=== PATIENT | male | born 1950 | race Caucasian/White ===

== ENCOUNTER → 2017-12-21 | Day surgery (SDC) | payer MEDICARE, MEDICAID ==
[2017-12-20 08:23] VITALS: BMI 42.1
[~2017-12-21] MED LIST: PROPOFOL 0 ML ONE; PROPOFOL 20 ML ONE; PROPOFOL 200 MG/20 ML VIAL ONE
[2017-12-21 07:08] LABS: Anion Gap 9 mmol/L (10-20); BUN (Urea Nitrogen) 32 mg/dL (8.4-25.7); Calc. Creatinine Clearance 76 mL/min (70-130); Calcium 9.2 mg/dL (7.8-10.44); Carbon Dioxide 27 mmol/L (23-31); Chloride 105 mmol/L (98-107); Estimated GFR-MDRD 42; Glucose 145 mg/dL (80-115); Potassium 4.2 mmol/L (3.5-5.1); Sodium 137 mmol/L (136-145)
[2017-12-21 08:53] LABS: Hemoglobin 10.7 g/dL (14.0-18.0); Mean Corpuscular HGB CONC 33.6 g/dL (32.0-36.0); Mean Corpuscular Hemoglobin 34.4 pg (27.0-31.0); Platelet Count 135 thou/uL (130-400); RBC Distribution Width 13.4 % (11.5-14.5); Red Blood Cell (RBC) Count 3.12 mill/uL (4.70-6.10); White Blood Cell (WBC) Count 4.9 thou/uL (4.8-10.8)
[2017-12-21 09:00] LABS: PTT 38.3 SEC (22.9-36.1); Prothrombin Time 22.4 SEC (12.0-14.7)
--- NOTE | 2017-12-21 23:19 | ECHO ---
The patient is a 67-year-old gentleman with paroxysmal atrial fibrillation, status post Watchman ce. The patient was taken to the PACU. The patient sedated by anesthesiology. Transesophageal probe was placed in the distal esophagus and stomach. Echocardiographic images were obtained and the trans esophageal probe remove. FINDINGS: 1. Moderate decrease in left ventricular systolic function. 2. Left ventricle is mildly dilated. 3. Mild mitral regurgitation. 4. Mild tricuspid regurgitation. 5. The Watchman device is well positioned in the left atrial appendage. 6. 0.1 cm leak was noted around the Watchman device. 7. Atherosclerotic debris in the descending aorta. IMPRESSION: 0.1 cm leak noted around the Watchman device. CC: Nahum Hernadez M.D.
== END ==
LOC: CCL 05:57
PROVIDERS: ATTEND Internal Medicine Cardiovascular Disease
PROC: B24BZZ4 Ultrasonography of Heart with Aorta, Transesophageal (ICD-10-PCS; principal; 2017-12-21)
DX: I48.0 Paroxysmal atrial fibrillation (principal); I08.1 Rheumatic disorders of both mitral and tricuspid valves; I70.0 Atherosclerosis of aorta; Z95.818 Presence of other cardiac implants and grafts; Z79.4 Long term (current) use of insulin; Z79.82 Long term (current) use of aspirin; Z79.01 Long term (current) use of anticoagulants; Z79.899 Other long term (current) drug therapy
CPT/HCPCS: 80048; 85027; 85610; 85730; 93005; 93010; 93312; J2704

== ENCOUNTER 2018-04-07 05:48 | Day surgery (SDC) | payer MEDICARE, MEDICAID ==
[2018-04-06 11:11] VITALS: BMI 41.9
[2018-04-07 07:47] LABS: #Eosinphils 0.1 thou/uL (0.0-0.7); #Lymphocytes 1.3 thou/uL (1.20-3.40); #Monocytes 0.4 thou/uL (0.11-0.59); %Basophils 0.1 % (0.0-1.0); %Eosinophils 1.7 % (0.0-10.0); %Lymphocytes 26.3 % (21.0-51.0); %Monocytes 9.1 % (0.0-10.0); %Neutrophils 62.8 % (42.0-75.0); Hemoglobin 12.3 g/dL (14.0-18.0); Mean Corpuscular HGB CONC 35.4 g/dL (32.0-36.0); Mean Corpuscular Hemoglobin 34.5 pg (27.0-31.0); Mean Corpuscular Volume 97.2 fL (78.0-98.0); Mean Platelet Volume 8.1 fL (7.4-10.4); Platelet Count 114 thou/uL (130-400); RBC Distribution Width 13.8 % (11.5-14.5); Red Blood Cell (RBC) Count 3.57 mill/uL (4.70-6.10); White Blood Cell (WBC) Count 4.8 thou/uL (4.8-10.8)
[2018-04-07 07:48] LABS: Anion Gap 14 mmol/L (10-20); BUN (Urea Nitrogen) 25 mg/dL (8.4-25.7); Calc. Creatinine Clearance 81 mL/min (70-130); Calcium 9.5 mg/dL (7.8-10.44); Carbon Dioxide 22 mmol/L (23-31); Chloride 107 mmol/L (98-107); Estimated GFR-MDRD 46; Glucose 169 mg/dL (80-115); Sodium 139 mmol/L (136-145)
[2018-04-07 07:54] LABS: INR-International Normal Ratio 2.2
[2018-04-07] MEDS ORDERED: KETAMINE 100 MG/ML (5ML VIAL) ONE (08:05)
[2018-04-07] MEDS ORDERED: PROPOFOL 200 MG/20 ML VIAL ONE (15:13)
--- NOTE | 2018-04-07 16:27 | ECHO ---
TRANSESOPHAGEAL ECHOCARDIOGRAM: DATE OF PROCEDURE: 04/07/18 INDICATION: 67-year-old gentleman with paroxysmal atrial fibrillation and a Watchman device. DESCRIPTION OF PROCEDURE: The patient was taken to the PACU. The patient was sedated by anesthesiology. A transesophageal probe was placed in the distal esophagus and stomach. Echocardiographic images were obtained. The transesophageal probe was removed. FINDINGS: 1. Severe decrease in left ventricular systolic function. 2. Left atrial enlargement. 3. Left ventricle dilated. 4. Moderate mitral regurgitation. 5. Mild tricuspid regurgitation. 6. Pacemaker wire noted in the right ventricle. 7. Watchman device well positioned with a 0.3 cm leak noted around the outer device. 8. Atherosclerotic debris in the descending aorta. IMPRESSION: 0.3 cm leak noted around the Watchman device. MTDD
--- NOTE | 2018-04-08 20:55 | EKG ---
Test Reason : PREOP Blood Pressure : / mmHG Vent. Rate : 062 BPM Atrial Rate : 061 BPM P-R Int : 000 ms QRS Dur : 106 ms QT Int : 474 ms P-R-T Axes : 000 042 089 degrees QTc Int : 481 ms Electronic atrial pacemaker Inferior infarct (cited on or before 16-JAN-2015) Abnormal ECG When compared with ECG of 21-DEC-2017 06:56, No significant change was found Confirmed by Hollie TONEY ([id number]) on 04/08/2018 8:54:54 PM Referred By: LAURIE Confirmed By:Hollie TONEY
== END 2018-04-07 09:18 | disposition home or self-care (01) ==
LOC: CCL 05:48
PROVIDERS: ATTEND Internal Medicine Cardiovascular Disease
PROC: B246ZZ4 Ultrasonography of Right and Left Heart, Transesophageal (ICD-10-PCS; principal; 2018-04-07)
DX: I48.0 Paroxysmal atrial fibrillation (principal); I34.0 Nonrheumatic mitral (valve) insufficiency; I36.1 Nonrheumatic tricuspid (valve) insufficiency; I70.0 Atherosclerosis of aorta; Z95.0 Presence of cardiac pacemaker; Z79.4 Long term (current) use of insulin; Z79.82 Long term (current) use of aspirin; Z79.01 Long term (current) use of anticoagulants; Z79.899 Other long term (current) drug therapy
CPT/HCPCS: 80048; 85025; 85610; 85730; 93005; 93010; 93312; J2704

== ENCOUNTER 2018-08-08 05:48 | Day surgery (SDC) | payer MEDICARE, MEDICAID ==
[2018-08-05 12:52] VITALS: BMI 41.8
[2018-08-08 06:53] LABS: #Lymphocytes 1.4 thou/uL (1.20-3.40); #Monocytes 0.4 thou/uL (0.11-0.59); #Neutrophils 4.2 thou/uL (1.40-6.50); %Basophils 0.8 % (0.0-1.0); %Eosinophils 0.8 % (0.0-10.0); %Lymphocytes 23.2 % (21.0-51.0); %Monocytes 7.1 % (0.0-10.0); %Neutrophils 68.1 % (42.0-75.0); Hemoglobin 10.8 g/dL (14.0-18.0); Mean Corpuscular HGB CONC 33.9 g/dL (32.0-36.0); Mean Corpuscular Hemoglobin 34.9 pg (27.0-31.0); Mean Platelet Volume 7.1 fL (7.4-10.4); Platelet Count 104 thou/uL (130-400); White Blood Cell (WBC) Count 6.2 thou/uL (4.8-10.8)
[2018-08-08 06:59] LABS: INR-International Normal Ratio 3.9; PTT 46.6 SEC (22.9-36.1); Prothrombin Time 38.4 SEC (12.0-14.7)
[2018-08-08 07:13] LABS: Anion Gap 12 mmol/L (10-20); BUN (Urea Nitrogen) 21 mg/dL (8.4-25.7); Calc. Creatinine Clearance 85 mL/min (70-130); Calcium 8.6 mg/dL (7.8-10.44); Carbon Dioxide 24 mmol/L (23-31); Chloride 108 mmol/L (98-107); Estimated GFR-MDRD 49; Glucose 149 mg/dL (80-115); Potassium 3.7 mmol/L (3.5-5.1); Sodium 140 mmol/L (136-145)
[2018-08-08] MEDS ORDERED: Propofol 500 MG/50 ML VIAL ONE (07:13)
[2018-08-08] MEDS ORDERED: Ketamine 50 MG/ML (10ML VIAL) ONE ×2 (07:13→07:25)
[2018-08-08] MEDS ORDERED: PHENYLEPHRINE-NS 100 MCG/ML 10 ML SYRINGE ONE (13:23)
[2018-08-08] MEDS ORDERED: PROPOFOL 200 MG/20 ML VIAL ONE (13:23)
--- NOTE | 2018-08-09 19:12 | ECHO ---
REFERRING PHYSICIAN: Dr. Mian Pacheco and Dr. Paul Lopez REASON FOR PROCEDURE: The patient is a 67-year-old male with history of paroxysmal atrial fibrillation status post Watchman device placement in January and due to small leak, recoiling performed in June 10, 2018. Here for six weeks post DBEBIE. PROCEDURE: The patient received Propofol by Anesthesia specialist. The standard transesophageal echocardiogram probe was passed into the esophagus without difficulty. Patient tolerated the procedure well, no com plications noted. RESULTS: Left atrium is moderately enlarged about 4.6 cm in horizontal diameter. The left atrial appendage we ll visualized and appropriately seated Watchman device is noted. Doppler interrogation of the Watchma n device revealed two tiny leaks. One by the venous side of the Watchman device at the waist. A small leak detected and small cavitation. Echolucent cavitation is noted behind the mesh in this aspect. T he leak is 2 mm in diameter. There is also a small flow detected through the roof of the device with small cavitation behind the m esh work is noted. Only mild mitral regurgitation is seen. LVEF estimated to be 35-40%. The right sided chamber is mildl y dilated. ICD wires noted in the right atrium and right ventricle. No pericardial effusions seen. Th e interatrial septum has trace residual flow noted at the transseptal puncture site. The ------- is r estrictive. No interatrial septal defects are noted. The aortic valve has three leaflets without regu rgitation or stenosis. Tricuspid valve has mild regurgitation. Pulmonary valve is poorly visualized. The visualized portion of ascending and descending aorta without aneurysm, dissection or significant atheroma. CONCLUSION: 1. No intracardiac clots except behind the Watchman device. 2. Two trivial leaks visualized. One adjacent to the ----- vein and one through the roof of the ce in the central area. Both 1 to 2 mm in diameter only. 3. Mild mitral regurgitation. 4. Moderately reduced LVEF. 5. Pacemaker/ICD wires in the right sided chambers. PLAN: For now continue Xarelto and we will send reports to Dr. Pacheco to assess CD.
--- NOTE | 2018-08-10 11:49 | EKG ---
Test Reason : PREOP Blood Pressure : / mmHG Vent. Rate : 064 BPM Atrial Rate : 064 BPM P-R Int : 000 ms QRS Dur : 116 ms QT Int : 498 ms P-R-T Axes : 000 047 105 degrees QTc Int : 513 ms Electronic atrial pacemaker Atrial paced ventricular sensed Inferior infarct (cited on or before 16-JAN-2015) Prolonged QT Abnormal ECG When compared with ECG of 07-APR-2018 07:10, No significant change was found Confirmed by DR. Stewart VILLANUEVA ([id number]) on 08/10/2018 11:49:31 AM Referred By: ANIBAL Confirmed By:DR. Stewart VILLANUEVA
== END 2018-08-08 09:27 | disposition home or self-care (01) ==
LOC: CCL 05:48
PROVIDERS: ATTEND Internal Medicine Cardiovascular Disease
PROC: B246ZZ4 Ultrasonography of Right and Left Heart, Transesophageal (ICD-10-PCS; principal; 2018-08-08)
DX: T82.538A Leakage of other cardiac and vascular devices and implants, initial encounter (principal); I48.0 Paroxysmal atrial fibrillation; I25.10 Atherosclerotic heart disease of native coronary artery without angina pectoris; I25.5 Ischemic cardiomyopathy; I10 Essential (primary) hypertension; M10.9 Gout, unspecified; E11.9 Type 2 diabetes mellitus without complications; Z95.810 Presence of automatic (implantable) cardiac defibrillator; Z95.1 Presence of aortocoronary bypass graft; Z79.82 Long term (current) use of aspirin; Z79.899 Other long term (current) drug therapy; Z79.01 Long term (current) use of anticoagulants; Z79.4 Long term (current) use of insulin
CPT/HCPCS: 36415; 80048; 85025; 85610; 85730; 93005; 93010; 93312; J2704

== ENCOUNTER 2018-08-20 11:43 | Inpatient (IN) | payer MEDICARE, MEDICAID ==
[2018-08-20 13:07] LABS: Troponin I 0.832 ng/mL (< 0.028)
[2018-08-20] MEDS ORDERED: HumaLOG 300 UNITS/3 ML VIAL SC PRN (13:46)
[2018-08-20] MEDS ORDERED: Senokot S 8.6-50 MG TAB PO PRN (13:46)
[2018-08-20] MEDS ORDERED: Calcium Carbonate 500 MG ChewTAB PO PRN (13:46)
[2018-08-20] MEDS ORDERED: Dextrose 5% in Water 1,000 ML IV PRN (13:46)
[2018-08-20] MEDS ORDERED: Dextrose 50% Abboject 50 ML SYRINGE SLOW IVP PRN (13:46)
[2018-08-20] MEDS ORDERED: Loperamide HCl 2 MG CAP PO PRN (13:46)
[2018-08-20] MEDS ORDERED: Bisacodyl 10 MG SUPP PR PRN (13:46)
[2018-08-20] MEDS ORDERED: Ondansetron ODT 4 MG TAB PO PRN (13:46)
[2018-08-20] MEDS ORDERED: Bisacodyl 5 MG TAB PO PRN (13:46)
[2018-08-20] MEDS ORDERED: Acetaminophen 325 MG TAB PO PRN (13:46)
[2018-08-20] MEDS ORDERED: HYDROcodone/Acetaminophen 5/325 mg Tablet PO PRN (13:46)
[2018-08-20] MEDS ORDERED: Ondansetron PF 4 MG/2 ML Vial IVP PRN (13:46)
[2018-08-20] MEDS ORDERED: Zolpidem Tartrate 5 MG TAB PO PRN (13:46)
--- NOTE | 2018-08-20 13:57 | HP ---
PRIMARY CARE PHYSICIAN: Dagoberto Parikh MD PRIMARY YOUTH CARE PROFESSIONAL: Dr. Lopez. REASON FOR ADMISSION: Transferred from [facility] for acute on chronic systolic congestive heart failure exacerbation. HISTORY OF PRESENT ILLNESS: A 67-year-old male, who has underlying history of chronic systolic heart failure with a history of paroxysmal atrial fibrillation as well as coronary artery disease with CABG history, who initially presented to [facility] for increasing shortness of breath. The patient reports that for last 5 days, he is experiencing increasing shortness of breath, orthopnea, and PND. He also noticed increasing bilateral lower extremity pitting edema. The patient reports that normally he weighs 178 pounds, but then recently he gained 183 pounds in 5 to 6 days. He was having hard time walking because of shortness of breath and that is why he decided to go to emergency room. He did not have any chest pain or palpitation. He was feeling intermittently dizziness. At [facility], he was also experienced dizziness when he was urinating on standing position, but he did not pass out. He denies any constipation. He reports dark stool. He denies any hematochezia. He denies any nausea, vomiting, or abdominal pain. He denies any fever, chills, cough, or upper respiratory symptoms. The patient denies taking excessive liquids. He is compliant with his medication. PAST MEDICAL HISTORY: Paroxysmal atrial fibrillation with history of rapid ventricular response, required several hospitalization as well as cardioversion. He also required Watchman procedure in 2018; history of left atrial appendage closure with Watchman device in October 2017; coronary artery disease, required CABG; hypertension; diabetes, type 2; gout; history of bacteremia, required lead and device extraction and replacement; history of ventricular tachycardia, required dual-chamber ICD; history of ischemic cardiomyopathy with chronic systolic heart failure; peripheral vascular disease; history of internal hemorrhoid; colon polyps. PAST SURGICAL HISTORY: Watchman procedure for left atrial appendage removal, AICD placement, cataract surgery, appendicectomy, CABG x3. PAST PSYCHIATRIC HISTORY: Reviewed and negative. SOCIAL HISTORY: The patient lives at home with family. No history of tobacco, alcohol, or illicit drug abuse. FAMILY HISTORY: Positive for coronary artery disease, diabetes, and hypertension among several family members. ALLERGY: No known drug allergy REVIEW OF SYSTEMS: CONSTITUTIONAL: Negative for weight loss or gain, ability to conduct usual activities. SKIN: Negative for rash, itching. EYES: Negative for double vision, pain. ENT/MOUTH: Negative for nose bleeding, neck stiffness, pain, tenderness. CARDIOVASCULAR: Negative for palpitations, dyspnea on exertion, orthopnea. RESPIRATORY: Negative for shortness of breath, wheezing, cough, hemoptysis, fever or night sweats. GASTROINTESTINAL: Negative for poor appetite, abdominal pain, heartburn, nausea , vomiting, constipation, or diarrhea. GENITOURINARY: Negative for urgency, frequency, dysuria, nocturia. MUSCULOSKELETAL: Negative for pain, swelling. NEUROLOGIC/PSYCHIATRIC: Negative for anxiety, depression. ALLERGY/IMMUNOLOGIC: Negative for skin rash, bleeding tendency. Please see my HPI for pertinent positive and negative. All other review of systems reviewed and negative except as mentioned in HPI. CURRENT HOME MEDICATIONS: 1. Lyrica 75 mg daily. 2. Lipitor 40 mg daily. 3. Lisinopril 40 mg daily. 4. Plavix 75 mg daily. 5. Aspirin 81 mg daily. 6. Imdur 60 mg twice daily. 7. Coreg 25 mg twice daily. 8. Allopurinol 300 mg p.o. daily. 9. Ranexa 1000 mg twice daily. 10. Potassium chloride 8 mEq p.o. three times daily. EMERGENCY ROOM COURSE: The patient has received Lovenox 1 mg/kg, Lasix 40 mg, aspirin, and 1/2-inch nitroglycerin at [facility]. Additional information, the patient reports that he was on Xarelto, but it was changed to Plavix few days ago. He denies any stroke. PHYSICAL EXAMINATION: VITAL SIGNS: Currently, blood pressure 133/71, pulse 81, respiratory rate 17, temperature 98.3, saturation 95% on room air, weight 127.9 kg. GENERAL: The patient is currently alert and oriented x3, in no obvious acute distress. HEENT: Head; normocephalic, atraumatic. Eyes; pupils round, reactive to light. Extraocular muscle intact. ENT; oropharynx within normal limits. Moist mucous membranes. No oral lesion. No pharyngeal erythema. No exudate. NECK: Supple. Elevated JVD noted. No thyromegaly. No carotid bruit. LUNGS: Bibasilar rales noted. No wheeze. No rhonchi. No accessory muscles of respiration in use. CARDIAC: S1 and S2, appears regular. Soft systolic murmur noted at the apex. No gallop. No rub. ABDOMEN: Obesity present. Bowel sounds present. Nontender. Nondistended. No organomegaly. No mass. No suprapubic tenderness. BACK: Unremarkable. No CVA tenderness. EXTREMITIES: Upper extremity; passive movement of all joints are normal. Lower extremity; bilateral lower extremity pitting edema noted. No calf tenderness. SKIN: No skin rash. HEMATOLOGICAL SYSTEM: No lymphadenopathy. PSYCHIATRIC: Normal affect. NEUROLOGIC: Nonfocal examination. SIGNIFICANT LABORATORY DATA: EKG showing atrial fibrillation with controlled ventricular response with ST-T changes in lead I, aVL, V5, V6, and lateral lead ischemia. Chest x-ray consistent with cardiomegaly and pulmonary vascular congestion. CBC; WBC 7.7, hemoglobin 10.1, MCV 104.0, platelets 114. D-dimer 0.56. BMP; sodium 139, potassium 4.1, chloride 107, carbon dioxide 23, anion gap 13, BUN 21, creatinine 1.28, glucose 163, calcium 9.0. LFT; AST 18, ALT 13, alkaline phosphatase 87, albumin 3.7. CK-MB 2.3, troponin 0.213. BNP 828.4. ASSESSMENT AND PLAN: 1. Acute on chronic systolic congestive heart failure exacerbation, ACC stage C. This patient has orthopnea, PND, bilateral lower extremity pitting edema, cardiomegaly with pulmonary vascular congestion, elevated BNP, and significant weight gain; all consistent with acute worsening of systolic congestive heart failure. This patient had echocardiography more than 2 years ago and that is why we will repeat transthoracic echocardiography while in hospital. This patient will need IV Lasix for diuresis and we will monitor electrolytes, renal function, and echo daily, and we will replace electrolytes accordingly. This patient will need at least more than 48 hours for diuresis to make him euvolemic and that is why we will keep him in inpatient status. We will monitor on telemetry floor. We will also continue the nitroglycerin patch q.8 hourly and will resume selected home medication including lisinopril, Coreg. 2. Elevated troponin, likely suspecting type 2 demand ischemia from congestive heart failure. The patient does not have any chest pain, though EKG is showing nonspecific ST-T changes. We will do serial cardiac enzyme x3 and we will continue with aspirin 81 mg p.o. daily, Plavix 75 mg p.o. daily. If troponin is going up , then we will consider Cardiology consultation. We will also continue Coreg 25 mg p.o. twice daily and nitroglycerin patch q.8 hourly. We will also continue Ranexa 1000 mg twice daily. 3. Coronary artery disease with history of coronary artery bypass graft. The patient is currently angina free. We will continue medical treatment with Ranexa, Coreg, lisinopril, aspirin, Plavix, and Lipitor. 4. Diabetes, type 2. We will continue with insulin as per sliding scale per protocol. Diabetic diet will be given. Fluid restriction 1500 mL per day. 5. Dyslipidemia. Continue Lipitor 40 mg p.o. q.h.s. 6. Gout. We will continue allopurinol 300 mg p.o. daily. 7. Morbid obesity. Dietary education given. Weight loss education given. Healthy lifestyle measure discussed with the patient. 8. Macrocytic anemia. We will add folic acid and vitamin B12 therapy. 9. Mild thrombocytopenia. We will monitor platelet count. 10. Chronic kidney disease, stage 3. We will monitor renal function. 11. Deep venous thrombosis prophylaxis, Lovenox 40 mg subcutaneous daily. Gastrointestinal prophylaxis, Pepcid 20 mg p.o. b.i.d. CODE STATUS: The patient is full code. The patient does not have any surrogate decision maker. DISPOSITION PLAN: Based on clinical course, we are expecting the patient's stay in hospital more than 2 midnights. Plan of care discussed with the patient in detail. Job ID: [id number] MTDD
[2018-08-20 14:11] VITALS: BMI 43.1
[2018-08-20] MEDS: Furosemide 40 MG/4 ML VIAL SLOW IVP SCH (15:08)
[2018-08-20 15:35] LABS: Troponin I 1.471 ng/mL (< 0.028)
[2018-08-20] MEDS: Atorvastatin Calcium 40 MG TAB PO SCH (20:09)
[2018-08-20] MEDS: Famotidine 20 MG TAB PO SCH (20:09)
[2018-08-20] MEDS: Carvedilol 25 MG TAB PO SCH (20:10)
[2018-08-20] MEDS ORDERED: Carvedilol 25 MG TAB PO SCH (21:00)
--- NOTE | 2018-08-20 22:24 | CON ---
DATE OF CONSULTATION: HISTORY OF PRESENT ILLNESS: The patient is a pleasant 67-year-old gentleman who presents with increasing dyspnea. The patient has a long history of coronary artery disease. The patient previously has a history of an ischemic cardiomyopathy. The patient has previously undergone coronary artery bypass graft surgery. He underwent a cardiac catheterization in 2014, which revealed him to have a patent left internal mammary artery graft, ramus graft, and right coronary graft, but he had severely diffused coronary artery disease. The patient has a known ejection fraction of only 25%. The patient reports that recently in the past few days, he has noticed increasing dyspnea with minimal exertion. He also reports having PND. The patient denied having any chest discomfort. PAST MEDICAL HISTORY: Significant for; 1. Coronary artery disease. 2. Hypertension. 3. Cardiomyopathy. 4. History of left atrial closure device. 5. Diabetes mellitus. 6. Peripheral vascular disease. PAST SURGICAL HISTORY: He has had an appendectomy, cataract surgery. SOCIAL HISTORY: Nonsmoker. FAMILY HISTORY: Positive for family history of coronary artery disease/ ALLERGIES: NONE. MEDICATIONS: See nursing list. REVIEW OF SYSTEMS: Ten-point system otherwise unremarkable. PHYSICAL EXAMINATION: GENERAL: An obese gentleman, in no acute distress. VITAL SIGNS: Blood pressure of 172/78. NECK: Showed no jugular venous distention. LUNGS: Have crackles in both bases. HEART: Regular rate and rhythm. Normal S1 and S2. ABDOMEN: Distended. EXTREMITIES: Showed moderate bilateral edema. VASCULAR: Radial pulses are 2+. LABORATORY DATA: His laboratory results, white blood count 7.7, hemoglobin 10.1, hematocrit 31.3. His platelets were 114. His sodium is 139, potassium 4.1, chloride 107, bicarbonate 23, BUN 21, creatinine 1.23, and glucose 123. Troponin 1.4. BNP was 828. Chest x-ray revealed cardiomegaly with diffuse edema. EKG revealed atrial fibrillation with Q-wave suggestive of previous inferior infarct. IMPRESSION: 1. Congestive heart failure. 2. History of coronary artery bypass surgery. 3. History of Watchman device. 4. Permanent atrial fibrillation. 5. History of AICD placement. 6. Diabetes mellitus. 7. Hypertension. 8. Dyslipidemia. This gentleman presents with congestive heart failure. He states that he has been compliant with his medications. The patient's dose of his lisinopril will be increased. We will follow this patient with you through his hospitalization. The patient noted to have an elevated troponin, which is suggestive of a type 2 myocardial infarction as the patient is asymptomatic and he has known diffuse coronary artery disease, he will be treated medically. We will also add spironolactone. Please call my office. Job ID: [id number]
[2018-08-21] MEDS: Furosemide 40 MG/4 ML VIAL SLOW IVP SCH ×2 (05:08→14:21)
[2018-08-21 05:49] LABS: #Monocytes 0.4 thou/uL (0.11-0.59); #Neutrophils 4.3 thou/uL (1.40-6.50); %Basophils 0.4 % (0.0-1.0); %Eosinophils 0.7 % (0.0-10.0); %Lymphocytes 17.6 % (21.0-51.0); %Monocytes 7.3 % (0.0-10.0); Hemoglobin 9.5 g/dL (14.0-18.0); Mean Corpuscular HGB CONC 34.5 g/dL (32.0-36.0); Mean Corpuscular Hemoglobin 35.5 pg (27.0-31.0); Mean Platelet Volume 8.2 fL (7.4-10.4); Platelet Count 106 thou/uL (130-400); RBC Distribution Width 13.6 % (11.5-14.5); Red Blood Cell (RBC) Count 2.66 mill/uL (4.70-6.10); White Blood Cell (WBC) Count 5.7 thou/uL (4.8-10.8)
[2018-08-21 06:10] LABS: ALT (SGPT) 7 U/L (8-55); AST (SGOT) 12 U/L (5-34); Albumin 3.4 g/dL (3.4-4.8); Alkaline Phosphatase 67 U/L (40-150); Anion Gap 12 mmol/L (10-20); BUN (Urea Nitrogen) 25 mg/dL (8.4-25.7); Bilirubin, Total 0.7 mg/dL (0.2-1.2); Calc. Creatinine Clearance 81 mL/min (70-130); Calcium 8.7 mg/dL (7.8-10.44); Carbon Dioxide 26 mmol/L (23-31); Chloride 103 mmol/L (98-107); Estimated GFR-MDRD 45; Globulin 2.6 g/dL (2.4-3.5); Glucose 169 mg/dL (80-115); Magnesium 1.6 mg/dL (1.6-2.6); Potassium 3.9 mmol/L (3.5-5.1); Sodium 137 mmol/L (136-145); Uric Acid 6.3 mg/dL (3.5-7.2)
[2018-08-21 06:11] LABS: Bilirubin Negative (Negative); Blood, Urine Negative (Negative); Clarity CLEAR (Clear); Glucose, Urine (Dipstick) Negative (Negative); Leukocyte Negative (Negative); Nitrite Negative (Negative); Protein, Urine (Dipstick) Negative (Neg-Trace); Specific Gravity, Urine 1.015 (1.002-1.036); Urobilinogen 0.2 mg/dL (0.2-1.0); pH, Urine 5.5 (5.0-9.0)
[2018-08-21 06:16] LABS: Bacteria/HPF None Seen HPF (None Seen); Hyaline Casts/LPF 0-3 HYALINE CAST LPF (0-3 Hyaline); Squamous Epithelial 0-3 HPF (0-3); WBC/HPF 0-3 HPF (0-3)
[2018-08-21] MEDS ORDERED: Spironolactone 25 MG TAB PO SCH (08:00)
[2018-08-21] MEDS ORDERED: Lisinopril 20 MG TAB PO SCH (09:00)
[2018-08-21] MEDS: Spironolactone 25 MG TAB PO SCH (09:08)
[2018-08-21] MEDS: Carvedilol 25 MG TAB PO SCH ×2 (09:08→20:30)
[2018-08-21] MEDS: Famotidine 20 MG TAB PO SCH ×2 (09:09→20:27)
[2018-08-21] MEDS: Folic Acid 1 MG TAB PO SCH (09:09)
[2018-08-21] MEDS: Cyanocobalamin (Vitamin B-12) 1,000 MCG TAB PO SCH (09:09)
[2018-08-21] MEDS: Allopurinol 300 MG TAB PO SCH (09:09)
[2018-08-21] MEDS: Lisinopril 5 MG TAB PO SCH ×2 (09:09→20:29)
[2018-08-21] MEDS: Clopidogrel Bisulfate 75 MG TAB PO SCH (09:09)
[2018-08-21] MEDS: Aspirin Chewable 81 MG TAB PO SCH (09:09)
[2018-08-21] MEDS: Enoxaparin Sodium 40 MG/0.4 ML SYRINGE SC SCH (09:10)
--- NOTE | 2018-08-21 10:24 | PDOC.PN ---
- Subjective Encounter Start Date: 08/21/18 Encounter Start Time: 08:10 -: old records requested/rev pt has good response with lasix, he feels better, less edema and less dyspnea - Objective Resuscitation Status - Order Detail: 08/20/18 12:39 Resuscitation Status Routine Resuscitation Status: FULL: Full Resuscitation MAR Reviewed: Yes Vital Signs & Weight: Vital Signs (12 hours) Temp Pulse Resp BP Pulse Ox 08/21/18 09:09 66 08/21/18 07:50 97.9 F 66 18 130/71 95 08/21/18 03:30 98.3 F 76 20 126/59 L 97 08/20/18 23:10 99.1 F 75 20 98/47 L 95 Weight Weight 280 lb 14.4 oz I&O: 08/20/18 08/21/18 08/22/18 06:59 06:59 06:59 Intake Total 1080 Output Total 2049 Balance -970 Result Diagrams: 08/21/18 05:22 08/21/18 05:22 Additional Labs: Accuchecks 08/21/18 08/20/18 08/20/18 05:46 20:33 17:13 POC Glucose 172 H 253 H 118 H 08/20/18 11:57 POC Glucose 157 H Radiology Reviewed by me: Yes EKG Reviewed by me: Yes (nsr) Phys Exam - Physical Examination Constitutional: NAD HEENT: PERRLA, moist MMs, sclera anicteric Neck: no JVD, supple Respiratory: no wheezing, no rhonchi few basal rales Cardiovascular: RRR, no significant murmur, no rub Gastrointestinal: soft, non-tender, no distention, positive bowel sounds obesity+ Musculoskeletal: pulses present, edema present Neurological: non-focal, normal sensation, moves all 4 limbs Lymphatic: no nodes Psychiatric: normal affect, A&O x 3 Skin: no rash, normal turgor Dx/Plan (1) Acute on chronic systolic ACC/AHA stage C congestive heart failure Code(s): I50.23 - ACUTE ON CHRONIC SYSTOLIC (CONGESTIVE) HEART FAILURE Status : Acute (2) Type [address] elevation Code(s): I21.A1 - MYOCARDIAL INFARCTION TYPE 2 Status: Acute (3) CKD (chronic kidney disease) stage 3, GFR 30-59 ml/min Code(s): N18.3 - CHRONIC KIDNEY DISEASE, STAGE 3 (MODERATE) Status: Chronic (4) AICD (automatic cardioverter/defibrillator) present Code(s): Z95.810 - PRESENCE OF AUTOMATIC (IMPLANTABLE) CARDIAC DEFIBRILLATOR Status: Chronic (5) CAD (coronary artery disease) Code(s): I25.10 - ATHSCL HEART DISEASE OF [place] CORONARY ARTERY W/O ANG PCTRS Status: Chronic (6) DM2 (diabetes mellitus, type 2) Status: Chronic (7) HLD (hyperlipidemia) Code(s): E78.5 - HYPERLIPIDEMIA, UNSPECIFIED Status: Chronic (8) Hypertension Code(s): I10 - ESSENTIAL (PRIMARY) HYPERTENSION Status: Chronic (9) Morbid obesity with BMI of 40.0-44.9, adult Code(s): E66.01 - MORBID (SEVERE) OBESITY DUE TO EXCESS CALORIES; Z68.41 - BODY MASS INDEX (BMI) 40.0-44.9, ADULT Status: Chronic (10) Macrocytic anemia Code(s): D53.9 - NUTRITIONAL ANEMIA, UNSPECIFIED Status: Chronic (11) BPH (benign prostatic hyperplasia) Code(s): N40.0 - BENIGN PROSTATIC HYPERPLASIA WITHOUT LOWER URINRY TRACT SYMP Status: Chronic (12) Peripheral neuropathy Code(s): G62.9 - POLYNEUROPATHY, UNSPECIFIED Status: Chronic (13) Gout Code(s): M10.9 - GOUT, UNSPECIFIED Status: Chronic (14) Thrombocytopenia Code(s): D69.6 - THROMBOCYTOPENIA, UNSPECIFIED Status: Acute - Plan cont current plan of care, DVT proph w/lovenox * continue diresis * monitor renal function and platelet * medication reviewed as below * symptomatic treatment. * cardiac rehab * repeat labs tomorrow * cardiology following Review of Systems - Review of Systems Constitutional: negative: fever, chills, sweats, weakness, malaise, other ENT: negative: Ear Pain, Ear Discharge, Nose Pain, Nose Discharge, Nose Congestion, Mouth Pain, Mouth Swelling, Throat Pain, Throat Swelling, Other Respiratory: SOB with Excertion. negative: Cough, Dry, Shortness of Breath, Hemoptysis, Pleuritic Pain, Sputum, Wheezing Cardiovascular: edema. negative: chest pain, palpitations, orthopnea, paroxysmal nocturnal dyspnea, light headedness, other Gastrointestinal: negative: Nausea, Vomiting, Abdominal Pain, Diarrhea, Constipation, Melena, Hematochezia, Other Genitourinary: negative: Dysuria, Frequency, Incontinence, Hematuria, Retention , Other Musculoskeletal: negative: Neck Pain, Shoulder Pain, Arm Pain, Back Pain, Hand Pain, Leg Pain, Foot Pain, Other - Medications/Allergies Allergies/Adverse Reactions: Allergies Allergy/AdvReac Type Severity Reaction Status Date / Time No Known Allergies Allergy Verified 08/20/18 15:13 Medications: Current Medications Acetaminophen (Tylenol) 650 mg PO Q4H PRN PRN Reason: Headache/Fever/Mild Pain (1-3) Hydrocodone Bitart/Acetaminophen ([place] 5/325) 1 tab PO Q4H PRN PRN Reason: Moderate Pain (4-6) Allopurinol (Zyloprim) 300 mg PO DAILY [facility] Last Admin: 08/21/18 09:09 Dose: 300 mg Aspirin (Aspirin Chewable) 81 mg PO DAILY [facility] [place] Last Admin: 08/21/18 09:09 Dose: 81 mg Atorvastatin Calcium (Lipitor) 40 mg PO HS [facility] [place] Last Admin: 08/20/18 20:09 Dose: 40 mg Bisacodyl (Dulcolax) 10 mg PO DAILYPRN PRN PRN Reason: Constipation Bisacodyl (Dulcolax) 10 mg OK DAILYPRN PRN PRN Reason: Constipation Calcium Carbonate (Tums) 1,000 mg PO Q4H PRN PRN Reason: Heartburn or Indigestion Carvedilol (Coreg) 12.5 mg PO BID [facility] [place] Last Admin: 08/21/18 09:08 Dose: 12.5 mg Clopidogrel Bisulfate (Plavix) 75 mg PO DAILY [facility] [place] Last Admin: 08/21/18 09:09 Dose: 75 mg Cyanocobalamin (Vitamin B-12) 1,000 mcg PO DAILY [facility] [place] Last Admin: 08/21/18 09:09 Dose: 1,000 mcg Dextrose/Water (Dextrose 50%) 25 gm SLOW IVP PRN PRN PRN Reason: Hypoglycemia Enoxaparin Sodium (Lovenox) 40 mg SC 0900 [facility] [place] Last Admin: 08/21/18 09:10 Dose: Not Given Famotidine (Pepcid) 20 mg PO BID [facility] [place] Last Admin: 08/21/18 09:09 Dose: 20 mg Folic Acid (Folvite) 1 mg PO DAILY [facility] [place] Last Admin: 08/21/18 09:09 Dose: 1 mg Furosemide (Lasix) 40 mg SLOW IVP 0600,1400 [facility] [place] Last Admin: 08/21/18 05:08 Dose: 40 mg Glucagon (Glucagon) 1 mg IM PRN PRN PRN Reason: Hypoglycemia Dextrose/Water (D5w) 1,000 mls @ 0 mls/hr IV .Q0M PRN PRN Reason: Hypoglycemia Insulin Human Lispro (Humalog) 0 units SC .MODERATE SLIDING SC PRN PRN Reason: Moderate Correctional Scale Insulin Human Lispro (Humalog) 0 units SC .BEDTIME SLIDING SC PRN PRN Reason: Bedtime Correctional Scale Last Admin: 08/20/18 20:39 Dose: 3 unit Lisinopril (Zestril) 5 mg PO BID [facility] [place] Last Admin: 08/21/18 09:09 Dose: 5 mg Loperamide HCl (Imodium) 2 mg PO PRN PRN PRN Reason: Diarrhea/Loose Stools Ondansetron HCl (Zofran Odt) 4 mg PO Q6H PRN PRN Reason: Nausea/Vomiting Last Admin: 08/21/18 08:54 Dose: 4 mg Ondansetron HCl (Zofran) 4 mg IVP Q6H PRN PRN Reason: Nausea/Vomiting Ranolazine (Ranexa) 1,000 mg PO BID [facility] [place] Last Admin: 08/21/18 09:08 Dose: 1,000 mg Senna/Docusate Sodium (Senokot S) 2 tab PO BID PRN PRN Reason: Constipation Spironolactone (Aldactone) 25 mg [facility] Last Admin: 08/21/18 09:08 Dose: 25 mg Zolpidem Tartrate (Ambien) 5 mg PO HSPRN PRN PRN Reason: Insomnia
[2018-08-21] MEDS ORDERED: traZODone HCl 50 MG TAB PO PRN (10:25)
[2018-08-21] MEDS: HumaLOG 300 UNITS/3 ML VIAL SC PRN ×2 (12:07→17:33)
[2018-08-21] MEDS: Pregabalin 75 MG CAP PO SCH (20:28)
[2018-08-21] MEDS: Atorvastatin Calcium 40 MG TAB PO SCH (20:29)
[2018-08-21] MEDS: Tamsulosin HCl 0.4 MG CAP PO SCH (20:30)
[2018-08-21] MEDS: rOPINIRole HCl 1 MG TAB PO SCH (20:30)
[2018-08-22] MEDS: Furosemide 40 MG/4 ML VIAL SLOW IVP SCH ×2 (05:10→10:19)
[2018-08-22 05:21] LABS: #Basophils 0.1 thou/uL (0.0-0.2); #Lymphocytes 0.9 thou/uL (1.20-3.40); #Monocytes 0.5 thou/uL (0.11-0.59); #Neutrophils 5.1 thou/uL (1.40-6.50); %Basophils 1.1 % (0.0-1.0); %Eosinophils 0.6 % (0.0-10.0); %Lymphocytes 13.8 % (21.0-51.0); %Monocytes 6.9 % (0.0-10.0); %Neutrophils 77.6 % (42.0-75.0); Hemoglobin 9.7 g/dL (14.0-18.0); Mean Corpuscular HGB CONC 34.6 g/dL (32.0-36.0); Mean Corpuscular Hemoglobin 35.6 pg (27.0-31.0); Mean Platelet Volume 8.3 fL (7.4-10.4); Platelet Count 111 thou/uL (130-400); RBC Distribution Width 13.5 % (11.5-14.5); Red Blood Cell (RBC) Count 2.72 mill/uL (4.70-6.10); White Blood Cell (WBC) Count 6.5 thou/uL (4.8-10.8)
[2018-08-22 05:29] LABS: Anion Gap 12 mmol/L (10-20); BUN (Urea Nitrogen) 28 mg/dL (8.4-25.7); Calc. Creatinine Clearance 79 mL/min (70-130); Calcium 8.9 mg/dL (7.8-10.44); Carbon Dioxide 26 mmol/L (23-31); Chloride 104 mmol/L (98-107); Estimated GFR-MDRD 43; Glucose 195 mg/dL (80-115); Magnesium 1.8 mg/dL (1.6-2.6); Potassium 3.9 mmol/L (3.5-5.1); Sodium 138 mmol/L (136-145)
[2018-08-22 05:37] LABS: Critical Call Chem Troponin I RESULT DECREASING; Troponin I 0.548 ng/mL (< 0.028)
[2018-08-22] MEDS ORDERED: Sodium Chloride 0.9% 10 ML ONE (07:51)
[2018-08-22] MEDS: Spironolactone 25 MG TAB PO SCH (08:56)
[2018-08-22] MEDS: Aspirin Chewable 81 MG TAB PO SCH (08:57)
[2018-08-22] MEDS: Allopurinol 300 MG TAB PO SCH (08:57)
[2018-08-22] MEDS: Cyanocobalamin (Vitamin B-12) 1,000 MCG TAB PO SCH (08:59)
[2018-08-22] MEDS: Clopidogrel Bisulfate 75 MG TAB PO SCH (08:59)
[2018-08-22] MEDS: Enoxaparin Sodium 40 MG/0.4 ML SYRINGE SC SCH (08:59)
[2018-08-22] MEDS ORDERED: Non-Formulary Item 1 EACH (Cholecalciferol (Vitamin D3) [Vitamin D3] 5,000 UNIT) PO SCH (09:00)
[2018-08-22] MEDS: Folic Acid 1 MG TAB PO SCH (09:01)
[2018-08-22] MEDS: Famotidine 20 MG TAB PO SCH ×2 (09:01→20:43)
[2018-08-22] MEDS: Lisinopril 5 MG TAB PO SCH ×3 (09:05→20:42)
[2018-08-22] MEDS: HumaLOG 300 UNITS/3 ML VIAL SC PRN ×4 (09:06→20:44)
[2018-08-22] MEDS: Insulin Glargine 10 UNITS in Pre-Filled Syringe 1 EACH SC SCH (10:27)
[2018-08-22] MEDS: Carvedilol 25 MG TAB PO SCH ×2 (10:34→17:54)
--- NOTE | 2018-08-22 10:36 | PDOC.PN ---
- Subjective Encounter Start Date: 08/22/18 Encounter Start Time: 07:30 pt's BP is low, so coreg kept on hold, he is on room air, still feels SEARS, edema improving - Objective Resuscitation Status - Order Detail: 08/20/18 12:39 Resuscitation Status Routine Resuscitation Status: FULL: Full Resuscitation MAR Reviewed: Yes Vital Signs & Weight: Vital Signs (12 hours) Temp Pulse Pulse Pulse Resp BP BP 08/22/18 09:47 76 74 101/55 L 08/22/18 09:05 65 109/60 08/22/18 08:50 98.8 F 65 19 08/22/18 03:36 98.9 F 72 20 08/21/18 23:35 97.3 F L 72 20 BP BP Pulse Ox 08/22/18 09:47 91/46 L 08/22/18 09:05 08/22/18 08:50 109/60 97 08/22/18 03:36 116/56 L 91 L 08/21/18 23:35 122/57 L 92 L Weight Weight 280 lb 8 oz I&O: 08/21/18 08/22/18 08/23/18 06:59 06:59 06:59 Intake Total 1080 1320 Output Total 2050 1690 Balance -970 -370 Result Diagrams: 08/22/18 04:39 08/22/18 04:39 Additional Labs: Accuchecks 08/22/18 08/21/18 08/21/18 05:55 20:59 17:02 POC Glucose 212 H 191 H 211 H 08/21/18 11:04 POC Glucose 269 H Radiology Reviewed by me: Yes EKG Reviewed by me: Yes Phys Exam - Physical Examination Constitutional: NAD HEENT: PERRLA, moist MMs, sclera anicteric Neck: no JVD, supple Respiratory: no wheezing, no rhonchi basal rales+ Cardiovascular: RRR, no significant murmur, no rub Gastrointestinal: soft, non-tender, no distention, positive bowel sounds Musculoskeletal: pulses present, edema present Neurological: non-focal, normal sensation, moves all 4 limbs Lymphatic: no nodes Psychiatric: normal affect, A&O x 3 Skin: no rash, normal turgor Dx/Plan (1) Acute on chronic systolic ACC/AHA stage C congestive heart failure Code(s): I50.23 - ACUTE ON CHRONIC SYSTOLIC (CONGESTIVE) HEART FAILURE Status : Acute (2) Type [address] elevation Code(s): I21.A1 - MYOCARDIAL INFARCTION TYPE 2 Status: Acute (3) CKD (chronic kidney disease) stage 3, GFR 30-59 ml/min Code(s): N18.3 - CHRONIC KIDNEY DISEASE, STAGE 3 (MODERATE) Status: Chronic (4) AICD (automatic cardioverter/defibrillator) present Code(s): Z95.810 - PRESENCE OF AUTOMATIC (IMPLANTABLE) CARDIAC DEFIBRILLATOR Status: Chronic (5) CAD (coronary artery disease) Code(s): I25.10 - ATHSCL HEART DISEASE OF [place] CORONARY ARTERY W/O ANG PCTRS Status: Chronic (6) DM2 (diabetes mellitus, type 2) Status: Chronic (7) HLD (hyperlipidemia) Code(s): E78.5 - HYPERLIPIDEMIA, UNSPECIFIED Status: Chronic (8) Hypertension Code(s): I10 - ESSENTIAL (PRIMARY) HYPERTENSION Status: Chronic (9) Morbid obesity with BMI of 40.0-44.9, adult Code(s): E66.01 - MORBID (SEVERE) OBESITY DUE TO EXCESS CALORIES; Z68.41 - BODY MASS INDEX (BMI) 40.0-44.9, ADULT Status: Chronic (10) Macrocytic anemia Code(s): D53.9 - NUTRITIONAL ANEMIA, UNSPECIFIED Status: Chronic (11) BPH (benign prostatic hyperplasia) Code(s): N40.0 - BENIGN PROSTATIC HYPERPLASIA WITHOUT LOWER URINRY TRACT SYMP Status: Chronic (12) Peripheral neuropathy Code(s): G62.9 - POLYNEUROPATHY, UNSPECIFIED Status: Chronic (13) Gout Code(s): M10.9 - GOUT, UNSPECIFIED Status: Chronic (14) Thrombocytopenia Code(s): D69.6 - THROMBOCYTOPENIA, UNSPECIFIED Status: Acute - Plan cont current plan of care * continue cardiac rehab * in view of low BP and elevated creatinine, lasix reduced to once daily * will titrate cardiac meds * medication reviewed as below * symptomatic treatment * platelet better today * repeat labs tomorrow. Review of Systems - Review of Systems ENT: negative: Ear Pain, Ear Discharge, Nose Pain, Nose Discharge, Nose Congestion, Mouth Pain, Mouth Swelling, Throat Pain, Throat Swelling, Other Respiratory: SOB with Excertion. negative: Cough, Dry, Shortness of Breath, Hemoptysis, Pleuritic Pain, Sputum, Wheezing Cardiovascular: negative: chest pain, palpitations, orthopnea, paroxysmal nocturnal dyspnea, edema, light headedness, other Gastrointestinal: negative: Nausea, Vomiting, Abdominal Pain, Diarrhea, Constipation, Melena, Hematochezia, Other Genitourinary: negative: Dysuria, Frequency, Incontinence, Hematuria, Retention , Other Musculoskeletal: negative: Neck Pain, Shoulder Pain, Arm Pain, Back Pain, Hand Pain, Leg Pain, Foot Pain, Other Skin: negative: Rash, Lesions, Bib, Bruising, Other - Medications/Allergies Allergies/Adverse Reactions: Allergies Allergy/AdvReac Type Severity Reaction Status Date / Time No Known Allergies Allergy Verified 08/20/18 15:13 Medications: Current Medications Acetaminophen (Tylenol) 650 mg PO Q4H PRN PRN Reason: Headache/Fever/Mild Pain (1-3) Hydrocodone Bitart/Acetaminophen ([place] 5/325) 1 tab PO Q4H PRN PRN Reason: Moderate Pain (4-6) Allopurinol (Zyloprim) 300 mg PO DAILY [facility] Last Admin: 08/22/18 08:57 Dose: 300 mg Aspirin (Aspirin Chewable) 81 mg PO DAILY [facility] Last Admin: 08/22/18 08:57 Dose: 81 mg Atorvastatin Calcium (Lipitor) 40 mg PO HS [facility] Last Admin: 08/21/18 20:29 Dose: 40 mg Bisacodyl (Dulcolax) 10 mg PO DAILYPRN PRN PRN Reason: Constipation Bisacodyl (Dulcolax) 10 mg [place] DAILYPRN PRN PRN Reason: Constipation Calcium Carbonate (Tums) 1,000 mg PO Q4H PRN PRN Reason: Heartburn or Indigestion Carvedilol (Coreg) 12.5 mg PO BID [facility] Last Admin: 08/21/18 20:30 Dose: 12.5 mg Cholecalciferol (Vitamin D3) 5,000 units PO DAILY [facility] Last Admin: 08/22/18 08:58 Dose: 5,000 units Clopidogrel Bisulfate (Plavix) 75 mg PO DAILY [facility] Last Admin: 08/22/18 08:59 Dose: 75 mg Cyanocobalamin (Vitamin B-12) 1,000 mcg PO DAILY [facility] Last Admin: 08/22/18 08:59 Dose: 1,000 mcg Dextrose/Water (Dextrose 50%) 25 gm SLOW IVP PRN PRN PRN Reason: Hypoglycemia Enoxaparin Sodium (Lovenox) 40 mg SC 0900 [facility] Last Admin: 08/22/18 08:59 Dose: 40 mg Famotidine (Pepcid) 20 mg PO BID [facility] Last Admin: 08/22/18 09:01 Dose: 20 mg Folic Acid (Folvite) 1 mg PO DAILY [facility] Last Admin: 08/22/18 09:01 Dose: 1 mg Furosemide (Lasix) 40 mg SLOW IVP DAILY [facility] Last Admin: 08/22/18 10:19 Dose: Not Given Glucagon (Glucagon) 1 mg IM PRN PRN PRN Reason: Hypoglycemia Dextrose/Water (D5w) 1,000 mls @ 0 mls/hr IV .Q0M PRN PRN Reason: Hypoglycemia Insulin Glargine 10 units/ (Miscellaneous Medication) 0.1 mls @ 0 mls/hr SC HS [facility] Insulin Glargine 10 units/ (Miscellaneous Medication) 0.1 mls @ 0 mls/hr SC QAM [facility] Insulin Human Lispro (Humalog) 0 units [place] .MODERATE SLIDING SC PRN PRN Reason: Moderate Correctional Scale Last Admin: 08/22/18 09:06 Dose: 4 unit Insulin Human Lispro (Humalog) 0 units [place] .BEDTIME SLIDING SC PRN PRN Reason: Bedtime Correctional Scale Last Admin: 08/20/18 20:39 Dose: 3 unit Lisinopril (Zestril) 5 mg PO BID [facility] Last Admin: 08/22/18 09:05 Dose: 5 mg Loperamide HCl (Imodium) 2 mg PO PRN PRN PRN Reason: Diarrhea/Loose Stools Ondansetron HCl (Zofran Odt) 4 mg PO Q6H PRN PRN Reason: Nausea/Vomiting Last Admin: 08/21/18 08:54 Dose: 4 mg Ondansetron HCl (Zofran) 4 mg IVP Q6H PRN PRN Reason: Nausea/Vomiting Pregabalin (Lyrica) 75 mg PO [facility] Last Admin: 08/21/18 20:28 Dose: 75 mg Ranolazine (Ranexa) 1,000 mg PO BID [facility] Last Admin: 08/22/18 09:02 Dose: 1,000 mg Ropinirole HCl (Requip) 1 mg PO QPM [facility] Last Admin: 08/21/18 20:30 Dose: 1 mg Senna/Docusate Sodium (Senokot S) 2 tab PO BID PRN PRN Reason: Constipation Spironolactone (Aldactone) 25 mg PO QAM[facility] Last Admin: 08/22/18 08:56 Dose: 25 mg Tamsulosin HCl (Flomax) 0.4 mg PO HS [facility] Last Admin: 08/21/18 20:30 Dose: 0.4 mg Trazodone HCl (Desyrel) 50 mg PO HS PRN PRN Reason: sleep Zolpidem Tartrate (Ambien) 5 mg PO HSPRN PRN PRN Reason: Insomnia
[2018-08-22] MEDS ORDERED: Nystatin Powder 15 GM BOT TOP PRN (11:30)
[2018-08-22] MEDS: Tamsulosin HCl 0.4 MG CAP PO SCH (20:41)
[2018-08-22] MEDS: Pregabalin 75 MG CAP PO SCH (20:41)
[2018-08-22] MEDS: rOPINIRole HCl 1 MG TAB PO SCH (20:43)
[2018-08-22] MEDS: Atorvastatin Calcium 40 MG TAB PO SCH (20:43)
[2018-08-22] MEDS ORDERED: Insulin Glargine 10 UNITS in Pre-Filled Syringe 1 EACH SC SCH (21:00)
[2018-08-23 05:17] LABS: Anion Gap 12 mmol/L (10-20); BUN (Urea Nitrogen) 29 mg/dL (8.4-25.7); Calc. Creatinine Clearance 84 mL/min (70-130); Calcium 9.1 mg/dL (7.8-10.44); Carbon Dioxide 26 mmol/L (23-31); Chloride 105 mmol/L (98-107); Estimated GFR-MDRD 46; Glucose 158 mg/dL (80-115); Magnesium 1.8 mg/dL (1.6-2.6); Potassium 3.9 mmol/L (3.5-5.1); Sodium 139 mmol/L (136-145)
[2018-08-23] MEDS: Clopidogrel Bisulfate 75 MG TAB PO SCH (08:39)
[2018-08-23] MEDS: Aspirin Chewable 81 MG TAB PO SCH (08:40)
[2018-08-23] MEDS: Carvedilol 25 MG TAB PO SCH (08:40)
[2018-08-23] MEDS: Famotidine 20 MG TAB PO SCH (08:40)
[2018-08-23] MEDS: Cyanocobalamin (Vitamin B-12) 1,000 MCG TAB PO SCH (08:40)
[2018-08-23] MEDS: Folic Acid 1 MG TAB PO SCH (08:41)
[2018-08-23] MEDS: Spironolactone 25 MG TAB PO SCH (08:42)
[2018-08-23] MEDS: Allopurinol 300 MG TAB PO SCH (08:43)
[2018-08-23] MEDS: Enoxaparin Sodium 40 MG/0.4 ML SYRINGE SC SCH (08:43)
[2018-08-23] MEDS: Furosemide 40 MG/4 ML VIAL SLOW IVP SCH (08:43)
[2018-08-23] MEDS: Insulin Glargine 10 UNITS in Pre-Filled Syringe 1 EACH SC SCH (08:45)
[2018-08-23] MEDS: HumaLOG 300 UNITS/3 ML VIAL SC PRN ×2 (08:46→12:23)
--- NOTE | 2018-08-23 09:47 | PRG ---
DATE OF SERVICE: 08/23/2018 SUBJECTIVE: Mr. Brunson says he is doing okay, still feels short of breath with exertion, but is able to lay flat. No chest pain or tightness. OBJECTIVE: VITAL SIGNS: His blood pressure is 139/76, pulse is 70 and regular. LUNGS: Clear. CARDIAC: Normal S1. Normal S2. ABDOMEN: Soft, nontender. EXTREMITIES: No edema. ASSESSMENT: 1. Systolic heart failure, acute on chronic, compensated. 2. Renal failure, stage 3 currently, creatinine 1.5, estimated GFR is 46. 3. Obesity. 4. Diabetes. PLAN: 1. He is going to be released on torsemide 20 mg twice a day. 2. Carvedilol 12.5 mg twice a day. 3. Atorvastatin 40 mg a day. 4. Aspirin 81 mg a day. 5. Insulin. 6. Lisinopril 5 mg twice a day. 7. Ranexa 1 g twice a day. 8. Tamsulosin. 9. Consideration for changing from lisinopril to Entresto as an outpatient, we will have to do this as an outpatient. He has received lisinopril here to stop for 36 to 48 hours prior to starting Entresto, stop the JEANNIE inhibitors before the starting the Entresto. Job ID: [id number]
--- NOTE | 2018-08-23 11:05 | PDOC.PN ---
- Subjective Encounter Start Date: 08/23/18 Encounter Start Time: 07:30 Patient seen and examined. No new complaints. No overnight events - Objective Resuscitation Status - Order Detail: 08/20/18 12:39 Resuscitation Status Routine Resuscitation Status: FULL: Full Resuscitation MAR Reviewed: Yes Vital Signs & Weight: Vital Signs (12 hours) Temp Pulse Resp BP Pulse Ox 08/23/18 07:32 98.6 F 73 18 139/76 92 L 08/23/18 04:00 98.2 F 69 18 109/57 L 92 L Weight Weight 281 lb 9.6 oz I&O: 08/22/18 08/23/18 08/24/18 06:59 06:59 06:59 Intake Total 1320 1440 Output Total 1690 1880 Balance -370 -440 Result Diagrams: 08/22/18 04:39 08/23/18 04:44 Additional Labs: Accuchecks 08/23/18 08/22/18 08/22/18 05:30 20:27 16:51 POC Glucose 168 H 285 H 160 H EKG Reviewed by me: Yes Phys Exam - Physical Examination Constitutional: NAD HEENT: PERRLA, moist MMs, sclera anicteric Neck: no JVD, supple Respiratory: no wheezing, no rales, no rhonchi Cardiovascular: RRR, no significant murmur, no rub Gastrointestinal: soft, non-tender, no distention, positive bowel sounds Musculoskeletal: pulses present, edema present Neurological: non-focal, normal sensation, moves all 4 limbs Lymphatic: no nodes Psychiatric: normal affect, A&O x 3 Skin: no rash, normal turgor Dx/Plan (1) Acute on chronic systolic ACC/AHA stage C congestive heart failure Code(s): I50.23 - ACUTE ON CHRONIC SYSTOLIC (CONGESTIVE) HEART FAILURE Status : Acute (2) Type [address] elevation Code(s): I21.A1 - MYOCARDIAL INFARCTION TYPE 2 Status: Acute (3) CKD (chronic kidney disease) stage 3, GFR 30-59 ml/min Code(s): N18.3 - CHRONIC KIDNEY DISEASE, STAGE 3 (MODERATE) Status: Chronic (4) AICD (automatic cardioverter/defibrillator) present Code(s): Z95.810 - PRESENCE OF AUTOMATIC (IMPLANTABLE) CARDIAC DEFIBRILLATOR Status: Chronic (5) CAD (coronary artery disease) Code(s): I25.10 - ATHSCL HEART DISEASE OF [place] CORONARY ARTERY W/O ANG PCTRS Status: Chronic (6) DM2 (diabetes mellitus, type 2) Status: Chronic (7) HLD (hyperlipidemia) Code(s): E78.5 - HYPERLIPIDEMIA, UNSPECIFIED Status: Chronic (8) Hypertension Code(s): I10 - ESSENTIAL (PRIMARY) HYPERTENSION Status: Chronic (9) Morbid obesity with BMI of 40.0-44.9, adult Code(s): E66.01 - MORBID (SEVERE) OBESITY DUE TO EXCESS CALORIES; Z68.41 - BODY MASS INDEX (BMI) 40.0-44.9, ADULT Status: Chronic (10) Macrocytic anemia Code(s): D53.9 - NUTRITIONAL ANEMIA, UNSPECIFIED Status: Chronic (11) BPH (benign prostatic hyperplasia) Code(s): N40.0 - BENIGN PROSTATIC HYPERPLASIA WITHOUT LOWER URINRY TRACT SYMP Status: Chronic (12) Peripheral neuropathy Code(s): G62.9 - POLYNEUROPATHY, UNSPECIFIED Status: Chronic (13) Gout Code(s): M10.9 - GOUT, UNSPECIFIED Status: Chronic (14) Thrombocytopenia Code(s): D69.6 - THROMBOCYTOPENIA, UNSPECIFIED Status: Acute - Plan cont current plan of care * medication reviewed as below * symptomatic treatment * see discharge ciaran. Review of Systems - Review of Systems ENT: negative: Ear Pain, Ear Discharge, Nose Pain, Nose Discharge, Nose Congestion, Mouth Pain, Mouth Swelling, Throat Pain, Throat Swelling, Other Respiratory: negative: Cough, Dry, Shortness of Breath, Hemoptysis, SOB with Excertion, Pleuritic Pain, Sputum, Wheezing Cardiovascular: negative: chest pain, palpitations, orthopnea, paroxysmal nocturnal dyspnea, edema, light headedness, other Gastrointestinal: negative: Nausea, Vomiting, Abdominal Pain, Diarrhea, Constipation, Melena, Hematochezia, Other Genitourinary: negative: Dysuria, Frequency, Incontinence, Hematuria, Retention , Other Musculoskeletal: negative: Neck Pain, Shoulder Pain, Arm Pain, Back Pain, Hand Pain, Leg Pain, Foot Pain, Other - Medications/Allergies Allergies/Adverse Reactions: Allergies Allergy/AdvReac Type Severity Reaction Status Date / Time No Known Allergies Allergy Verified 08/20/18 15:13 Medications: Current Medications Acetaminophen (Tylenol) 650 mg PO Q4H PRN PRN Reason: Headache/Fever/Mild Pain (1-3) Hydrocodone Bitart/Acetaminophen ([place] 5/325) 1 tab PO Q4H PRN PRN Reason: Moderate Pain (4-6) Allopurinol (Zyloprim) 300 mg PO DAILY [facility] Last Admin: 08/23/18 08:43 Dose: 300 mg Aspirin (Aspirin Chewable) 81 mg PO DAILY [facility] Last Admin: 08/23/18 08:40 Dose: 81 mg Atorvastatin Calcium (Lipitor) 40 mg PO HS [facility] Last Admin: 08/22/18 20:43 Dose: 40 mg Bisacodyl (Dulcolax) 10 mg PO DAILYPRN PRN PRN Reason: Constipation Bisacodyl (Dulcolax) 10 mg [place] DAILYPRN PRN PRN Reason: Constipation Calcium Carbonate (Tums) 1,000 mg PO Q4H PRN PRN Reason: Heartburn or Indigestion Carvedilol (Coreg) 12.5 mg PO 0800,1700 [facility] Last Admin: 08/23/18 08:40 Dose: 12.5 mg Cholecalciferol (Vitamin D3) 5,000 units PO DAILY [facility] Last Admin: 08/23/18 08:42 Dose: 5,000 units Clopidogrel Bisulfate (Plavix) 75 mg PO DAILY [facility] Last Admin: 08/23/18 08:39 Dose: 75 mg Cyanocobalamin (Vitamin B-12) 1,000 mcg PO DAILY [facility] Last Admin: 08/23/18 08:40 Dose: 1,000 mcg Dextrose/Water (Dextrose 50%) 25 gm SLOW IVP PRN PRN PRN Reason: Hypoglycemia Enoxaparin Sodium (Lovenox) 40 mg SC 0900 [facility] Last Admin: 08/23/18 08:43 Dose: 40 mg Famotidine (Pepcid) 20 mg PO BID [facility] Last Admin: 08/23/18 08:40 Dose: 20 mg Folic Acid (Folvite) 1 mg PO DAILY [facility] Last Admin: 08/23/18 08:41 Dose: 1 mg Furosemide (Lasix) 40 mg SLOW IVP DAILY [facility] Stop: 08/23/18 12:00 Last Admin: 08/23/18 08:43 Dose: 40 mg Glucagon (Glucagon) 1 mg IM PRN PRN PRN Reason: Hypoglycemia Dextrose/Water (D5w) 1,000 mls @ 0 mls/hr IV .Q0M PRN PRN Reason: Hypoglycemia Insulin Glargine 10 units/ (Miscellaneous Medication) 0.1 mls @ 0 mls/hr SC [facility] Last Admin: 08/22/18 21:57 Dose: 0.1 mls Insulin Glargine 10 units/ (Miscellaneous Medication) 0.1 mls @ 0 mls/hr [facility] Last Admin: 08/23/18 08:45 Dose: 0.1 mls Insulin Human Lispro (Humalog) 0 units [place] .MODERATE SLIDING SC PRN PRN Reason: Moderate Correctional Scale Last Admin: 08/23/18 08:46 Dose: 2 unit Insulin Human Lispro (Humalog) 0 units [place] .BEDTIME SLIDING SC PRN PRN Reason: Bedtime Correctional Scale Last Admin: 08/20/18 20:39 Dose: 3 unit Lisinopril (Zestril) 5 mg PO 1200,2100 [facility] Last Admin: 08/22/18 20:42 Dose: 5 mg Loperamide HCl (Imodium) 2 mg PO PRN PRN PRN Reason: Diarrhea/Loose Stools Nystatin (Mycostatin Powder) 1 gm TOP BID PRN PRN Reason: Topical Irritations Ondansetron HCl (Zofran Odt) 4 mg PO Q6H PRN PRN Reason: Nausea/Vomiting Last Admin: 08/21/18 08:54 Dose: 4 mg Ondansetron HCl (Zofran) 4 mg IVP Q6H PRN PRN Reason: Nausea/Vomiting Pregabalin (Lyrica) 75 [address] [facility] Last Admin: 08/22/18 20:41 Dose: 75 mg Ranolazine (Ranexa) 1,000 mg PO BID [facility] Last Admin: 08/23/18 08:39 Dose: 1,000 mg Ropinirole HCl (Requip) 1 mg PO QPM [facility] Last Admin: 08/22/18 20:43 Dose: 1 mg Senna/Docusate Sodium (Senokot S) 2 tab PO BID PRN PRN Reason: Constipation Spironolactone (Aldactone) 25 mg PO QAM-[facility] Last Admin: 08/23/18 08:42 Dose: 25 mg Tamsulosin HCl (Flomax) 0.4 mg PO [facility] Last Admin: 08/22/18 20:41 Dose: 0.4 mg Torsemide (Demadex) 20 mg PO BID@0900,1400 ECHO Trazodone HCl (Desyrel) 50 mg PO HS PRN PRN Reason: sleep Zolpidem Tartrate (Ambien) 5 mg PO HSPRN PRN PRN Reason: Insomnia
[2018-08-23 12:22] VITALS: BP 119/61; TEMP 98.3
[2018-08-23] MEDS: Lisinopril 5 MG TAB PO SCH (12:23)
--- NOTE | 2018-08-23 13:18 | DIS ---
DATE OF ADMISSION: 08/20/2018 DATE OF DISCHARGE: 08/23/2018 PRIMARY CARE PHYSICIAN: Dagoberto Parikh MD DISCHARGE DISPOSITION: Home. PRIMARY DISCHARGE DIAGNOSES: 1. Acute on chronic systolic congestive heart failure, ACC, AHA stage III. 2. Type [address] elevation and thrombocytopenia. SECONDARY DISCHARGE DIAGNOSES: Peripheral neuropathy, morbid obesity with BMI of 42, macrocytic anemia, hypertension, dyslipidemia, gout, diabetes type 2, chronic kidney disease stage 3, coronary artery disease, benign enlargement of prostate, chronic systolic heart failure, ischemic cardiomyopathy. PRIMARY PROCEDURE/OPERATION: None. RADIOLOGICAL INVESTIGATION: Echocardiography showed EF 15% to 20%. SIGNIFICANT LABORATORY DATA: Hemoglobin 9.7, MCV 103. Creatinine 1.50. Urinalysis normal. DISCHARGE MEDICATIONS: 1. Allopurinol 300 mg p.o. daily. 2. Aspirin 81 mg daily. 3. Lipitor 40 mg p.o. at bedtime. 4. Coreg 12.5 mg b.i.d. 5. Vitamin D3 5000 units p.o. daily. 6. Plavix 75 mg p.o. daily. 7. Colace 240 mg b.i.d. 8. Tresiba 85 units subcu in the morning. 9. Lactobacillus one capsule daily. 10. Potassium chloride 10 mEq p.o. daily. 11. Lyrica 75 mg at bedtime. 12. Ranexa 1000 mg b.i.d. 13. Ropinirole 1 mg p.o. at bedtime. 14. Trazodone 50 mg p.o. at bedtime. 15. Vitamin B12 1000 mcg p.o. daily. 16. Pepcid 20 mg p.o. b.i.d. 17. Folic acid 1 mg daily. 18. Lisinopril 5 mg p.o. b.i.d. 19. Aldactone 25 mg p.o. daily. 20. Torsemide 20 mg b.i.d. 21. Flomax 0.4 mg p.o. at bedtime. CONTRAINDICATION: None. CODE STATUS: Full code. INPATIENT APPLIED EXERCISE PHYSIOLOGIST: Dr. Kaplan and Dr. Lopez were following while in hospital. TEST RESULTS PENDING ON DISCHARGE: None. ALLERGIES: NO KNOWN DRUG ALLERGIES. DISCHARGE PLAN: Posthospital, the patient will follow up with Dr. Lopez on September 06, 2018 at 1:15 p.m. The patient will follow up with Dr. Dagoberto Parikh on August 30, 2018, at 9:30 a.m. The patient has appointment with [facility]. HOSPITAL COURSE: A 67-year-old male with above-mentioned medical problem, who was admitted by me. Please see my HPI for further details. The patient was admitted for increasing shortness of breath, increasing weight gain, increasing lower extremity edema, orthopnea, PND, and he was found with acute on chronic systolic congestive heart failure. This patient had echocardiography during this admission, which showed EF 15% to 20% . He also had significantly abnormal troponin that was attributed to be due to [id number] MT type 2. The patient was treated with IV Lasix while in hospital with significant improvement. The patient's home medication was resumed while in hospital. During this admission, we added lisinopril 5 mg b.i.d., Aldactone 25 mg p.o. daily, dose of torsemide was increased to twice daily. Cardiology ultimately planning to change his lisinopril to Entresto as an outpatient basis. Necessary patient education about fluid restriction, heart failure education given to the patient. The patient is seen and examined at bedside today. Please see my progress note from today for further detail. The patient is on room air. He is medically stable for discharge. Cardiology cleared him for discharge. He will follow up with primary care physician and Cardiology as above. Job ID: [id number]
[2018-08-24] MEDS ORDERED: Torsemide 20 MG TAB PO SCH (09:00)
== END 2018-08-23 14:05 | disposition home or self-care (01) | DRG 280 ==
LOC: ERS 11:43 → 2NO 13:40
PROVIDERS: ADMIT Internal Medicine; ATTEND Internal Medicine
DX: I13.0 Hypertensive heart and chronic kidney disease with heart failure and stage 1 through stage 4 chronic kidney disease, or unspecified chronic kidney disease (principal); I50.23 Acute on chronic systolic (congestive) heart failure; I21.A1 Myocardial infarction type 2; Z68.41 Body mass index [BMI] 40.0-44.9, adult; I48.0 Paroxysmal atrial fibrillation; I25.10 Atherosclerotic heart disease of native coronary artery without angina pectoris; E11.22 Type 2 diabetes mellitus with diabetic chronic kidney disease; N18.3 Chronic kidney disease, stage 3 (moderate); E11.51 Type 2 diabetes mellitus with diabetic peripheral angiopathy without gangrene; I25.5 Ischemic cardiomyopathy; M10.9 Gout, unspecified; E78.5 Hyperlipidemia, unspecified; D63.1 Anemia in chronic kidney disease; N40.0 Benign prostatic hyperplasia without lower urinary tract symptoms; D69.6 Thrombocytopenia, unspecified; E66.01 Morbid (severe) obesity due to excess calories; Z95.810 Presence of automatic (implantable) cardiac defibrillator; Z95.1 Presence of aortocoronary bypass graft; Z79.82 Long term (current) use of aspirin; Z79.01 Long term (current) use of anticoagulants; Z79.899 Other long term (current) drug therapy
CPT/HCPCS: 36415; 36416; 80048; 80053; 81001; 83735; 83880; 84443; 84484; 84550; 85025; 93005; 93306; 93798; J1650; J1825; J1940; J2405; Q0162

== ENCOUNTER → 2018-11-07 | Day surgery (SDC) | payer MEDICARE, MEDICAID ==
[2018-11-04 12:44] VITALS: BMI 40.3
[~2018-11-07] MED LIST changes: +Ketamine 50 MG/ML (10ML VIAL) ONE; -PROPOFOL 0 ML ONE; -PROPOFOL 200 MG/20 ML VIAL ONE
[2018-11-07 07:04] LABS: INR-International Normal Ratio 1.1; PTT 29.8 SEC (22.9-36.1); Prothrombin Time 13.8 SEC (12.0-14.7)
[2018-11-07 07:14] LABS: Anion Gap 13 mmol/L (10-20); BUN (Urea Nitrogen) 46 mg/dL (8.4-25.7); Calc. Creatinine Clearance 56 mL/min (70-130); Calcium 9.4 mg/dL (7.8-10.44); Carbon Dioxide 20 mmol/L (23-31); Chloride 109 mmol/L (98-107); Estimated GFR-MDRD 32; Glucose 171 mg/dL (80-115); Potassium 4.2 mmol/L (3.5-5.1); Sodium 138 mmol/L (136-145)
[2018-11-07 07:23] LABS: #Eosinphils 0.1 thou/uL (0.0-0.7); #Lymphocytes 1.3 thou/uL (1.20-3.40); #Monocytes 0.5 thou/uL (0.11-0.59); #Neutrophils 3.7 thou/uL (1.40-6.50); %Basophils 0.2 % (0.0-1.0); %Eosinophils 1.9 % (0.0-10.0); %Lymphocytes 23.7 % (21.0-51.0); %Monocytes 9.5 % (0.0-10.0); %Neutrophils 64.8 % (42.0-75.0); Hemoglobin 11.3 g/dL (14.0-18.0); Mean Corpuscular HGB CONC 34.8 g/dL (32.0-36.0); Mean Corpuscular Hemoglobin 35.2 pg (27.0-31.0); Platelet Count 99 thou/uL (130-400); Red Blood Cell (RBC) Count 3.21 mill/uL (4.70-6.10); White Blood Cell (WBC) Count 5.7 thou/uL (4.8-10.8)
--- NOTE | 2018-11-08 13:59 | ECHO ---
REFERRING PHYSICIAN: Dr. Pual Lopez and Dr. Pacheco REASON FOR PROCEDURE: The patient is a 68-year-old male with history of reduced LVEF with paroxysmal atrial fibrillation, s tatus post Watchman device placement in October 2018 and coiling procedure in May 2018, coiling proc edure in May 2018 who had a small leak on the last DEBBIE in July 2018. Continue aspirin and Plavix. He re for repeat DEBBIE procedure. PROCEDURE: The patient received Propofol by Anesthesia specialist. After adequate level of sedation achieved, a standard transesophageal echocardiogram probe was passed into the esophagus without diff iculty. Patient tolerated the procedure well, no complications noted. RESULTS: Left atrium is moderately enlarged. The left atrial appendage is about 1 cm in horizontal diameter. T he interatrial septum is free of defect. Mitral valve has mild regurgitation. Tricuspid valve also sesay s mild regurgitation. Aortic valve is nonregurgitant, three leaflets identified. Mild sclerosis noted . No stenosis. Left ventricular systolic function is reduced about 30% with segmental wall motion abn ormalities detected. The right sided chambers contains pacemaker wires. Left atrial appendage was wel l visualized with adequately seated Watchman device in place. Vast majority of the left atrial appen dage behind the Watchman device is opacified. The small area in the inferoposterior portion of the Wa tchman device were suboptimal. Opacification is still visible with flow through the mesh work identif ied. CONCLUSION: 1. Adequately seated Watchman device but with tiny leak through the mesh work of the device. 2. Severely reduced LVEF and wall motion abnormalities in the range of 30%. 3. Mild MR and mild TR. 4. Pacemaker wires in the right sided chambers. 5. No significant atheroma, dissection or aneurysm of the aorta. \ PLAN: Continue Plavix.
== END ==
LOC: CCL 06:17
PROVIDERS: ATTEND Internal Medicine Cardiovascular Disease
PROC: B246ZZ4 Ultrasonography of Right and Left Heart, Transesophageal (ICD-10-PCS; principal; 2018-11-07)
DX: I48.0 Paroxysmal atrial fibrillation (principal); I08.1 Rheumatic disorders of both mitral and tricuspid valves; I25.10 Atherosclerotic heart disease of native coronary artery without angina pectoris; E11.9 Type 2 diabetes mellitus without complications; I10 Essential (primary) hypertension; M10.9 Gout, unspecified; I47.2 Ventricular tachycardia; I25.5 Ischemic cardiomyopathy; Z95.1 Presence of aortocoronary bypass graft; Z95.818 Presence of other cardiac implants and grafts; Z79.82 Long term (current) use of aspirin; Z79.02 Long term (current) use of antithrombotics/antiplatelets; Z79.4 Long term (current) use of insulin
CPT/HCPCS: 36415; 80048; 85025; 85610; 85730; 93005; 93010; 93312; J2704

== ENCOUNTER 2019-01-15 10:50 | Inpatient (IN) | payer MEDICARE, MEDICAID ==
--- NOTE | 2019-01-15 11:28 | RAD ---
PORTABLE CHEST 1 VIEW: Date: 01/15/19 Time: 1112 hours HISTORY: Chest pain and cough with increasing shortness of breath. FINDINGS/IMPRESSION: Comparison made with exam of 08/20/18. There are changes of median sternotomy. The heart is enlarged. Right-sided AICD remains in place. The lungs are well expanded without focal areas of consolidation, pneumothoraces, or large effusions. Th ere is mild pulmonary vascular congestion. POS: [facility]
[2019-01-15 11:30] LABS: #Monocytes 0.3 thou/uL (0.11-0.59); #Neutrophils 2.7 thou/uL (1.40-6.50); %Basophils 0.1 % (0.0-1.0); %Eosinophils 0.6 % (0.0-10.0); %Lymphocytes 23.6 % (21.0-51.0); %Monocytes 8.4 % (0.0-10.0); %Neutrophils 67.3 % (42.0-75.0); Hemoglobin 10.6 g/dL (14.0-18.0); Mean Corpuscular Hemoglobin 36.1 pg (27.0-31.0); Mean Platelet Volume 8.3 fL (7.4-10.4); Platelet Count 109 thou/uL (130-400); RBC Distribution Width 13.1 % (11.5-14.5); Red Blood Cell (RBC) Count 2.93 mill/uL (4.70-6.10)
[2019-01-15 11:56] LABS: ALT (SGPT) 15 U/L (8-55); AST (SGOT) 15 U/L (5-34); Albumin 3.8 g/dL (3.4-4.8); Alkaline Phosphatase 115 U/L (40-110); Anion Gap 12 mmol/L (10-20); BUN (Urea Nitrogen) 28 mg/dL (8.4-25.7); Bilirubin, Total 0.5 mg/dL (0.2-1.2); Calc. Creatinine Clearance 0 mL/min (70-130); Calcium 8.6 mg/dL (7.8-10.44); Carbon Dioxide 24 mmol/L (23-31); Chloride 107 mmol/L (98-107); Estimated GFR-MDRD 33; Globulin 3.1 g/dL (2.4-3.5); Glucose 281 mg/dL (80-115); Potassium 4.3 mmol/L (3.5-5.1); Protein, Total 6.9 g/dL (5.8-8.1); Sodium 139 mmol/L (136-145)
[2019-01-15 11:57] LABS: INR-International Normal Ratio 1.1; Prothrombin Time 14.4 SEC (12.0-14.7)
[2019-01-15 12:06] LABS: CKMB 1.8 ng/mL (0-6.6)
[2019-01-15] MEDS ORDERED: ISOVUE-370 76%-LOCM 1 ML ONE (12:13)
[2019-01-15] MEDS ORDERED: Aspirin Chewable 81 MG TAB ONE (13:01)
[2019-01-15] MEDS ORDERED: Furosemide 20 MG/2 ML VIAL ONE (13:01)
--- NOTE | 2019-01-15 13:26 | CT ---
CT PULMONARY ANGIOGRAM WITH IV CONTRAST AND 3D POSTPROCESSING: Date: 01/15/19 HISTORY: Cough and shortness of breath. FINDINGS: No filling defects are seen in the pulmonary arterial vasculature to suggest pulmonary embolism. Ther e are vascular calcifications without thoracic aortic aneurysm or dissection. No pleural or pericardi al effusions are seen. No pneumothoraces or focal areas of consolidation are noted. There is an 8 mm solid nodule in the left lower lobe. There are degenerative changes in the spine. There is bilateral gynecomastia. IMPRESSION: 1. No CT evidence of pulmonary embolism. 2. Indeterminate 8 mm left lower lobe nodule. This should be evaluated with a PET scan. CODE T. CODE LN. POS: [facility]
[2019-01-15 14:37] LABS: Troponin I 0.296 ng/mL (< 0.028)
[2019-01-15] MEDS: Furosemide 40 MG/4 ML VIAL SLOW IVP SCH (16:14)
[2019-01-15 17:29] LABS: Troponin I 0.236 ng/mL (< 0.028)
[2019-01-15] MEDS ORDERED: Dextrose 50% Abboject 50 ML SYRINGE IVP PRN (18:00)
[2019-01-15] MEDS ORDERED: Dextrose 5% in Water 1,000 ML IV PRN (18:00)
[2019-01-15] MEDS ORDERED: traZODone HCl 50 MG TAB PO PRN (18:04)
[2019-01-15] MEDS: Insulin Regular 300 UNITS/3 ML VIAL SC PRN (18:48)
[2019-01-15] MEDS ORDERED: Nystatin Powder 15 GM BOT TOP PRN (20:19)
--- NOTE | 2019-01-15 20:40 | HP ---
CHIEF COMPLAINT: Shortness of breath. HISTORY OF PRESENT ILLNESS: Mr. Heath Brunson is a 68-year-old gentleman with history of CHF, status post AICD placement in the past, has recurrent CHF, presented to ED with shortness of breath. As a result, the patient has been evaluated and found that the patient is in CHF. The ER physician determined to admit the patient for observation and treatment for the CHF. IV Lasix was started. PAST MEDICAL HISTORY: As above. MEDICATIONS: The patient takes aspirin 81 mg p.o. daily, Lasix 20 mg p.o. daily, and several other medicines. The list is still pending. SOCIAL HISTORY: Does not smoke or drink alcohol. FAMILY HISTORY: Noncontributory. REVIEW OF SYSTEMS: CONSTITUTIONAL: No fever. No chills. HEAD AND ENT: Negative. MUSCULOSKELETAL: Negative. GENITOURINARY: As above. CARDIOVASCULAR: As above. PULMONARY: Negative. NEUROLOGIC: Negative. All other systems reviewed negative. PHYSICAL EXAMINATION: GENERAL: The patient is alert, oriented x3, not in acute distress. VITAL SIGNS: Stable. Afebrile. HEENT: JENNIFER. Atraumatic and normocephalic. Dry mucous membranes. NECK: Supple. No JVD. LUNGS: Clear to auscultation except rales present in the base of the lungs. CVS: S1 and S2 heard. ABDOMEN: Soft. Bowel sounds present. Nontender, nondistended. EXTREMITIES: No cyanosis, calf tenderness, or edema. [facility]: Nonfocal. LABORATORY DATA: WBC 4.0, hemoglobin 10.6, hematocrit 31.1, platelets 109. Chemistry shows sodium 139, potassium 4.3, chloride 107, carbon dioxide 24, BUN 28, creatinine 2.02, glucose 281, alkaline phosphatase 115. BNP shows 697. Troponin-I slightly elevated at 0.243. DIAGNOSTIC DATA: X-ray of chest, possible CHF. EKG, normal sinus rhythm. DIAGNOSTIC IMPRESSION: 1. Congestive heart failure exacerbation with history of recurrent congestive heart failure and AICD in the past. 2. Elevated BNP, probably secondary to congestive heart failure. 3. Troponin-I elevated, unclear etiology. PLAN: 1. The patient will be observed in telemetry. 2. CHF protocol. 3. DVT prophylaxis. 4. Lasix and diurese effectively. 5. Consult Cardiology. 6. 2D echocardiogram. 7. Restart home medications. Job ID: [id number]
[2019-01-15] MEDS: rOPINIRole HCl 1 MG TAB PO SCH (21:03)
[2019-01-15] MEDS: Famotidine 20 MG TAB PO SCH (21:03)
[2019-01-15] MEDS: Sacubitril 49 MG/Valsartan 51 MG TABLET PO SCH (21:03)
[2019-01-15] MEDS: Atorvastatin Calcium 40 MG TAB PO SCH (21:04)
[2019-01-15] MEDS: Tamsulosin HCl 0.4 MG CAP PO SCH (21:04)
[2019-01-15] MEDS: Pregabalin 75 MG CAP PO SCH (21:04)
[2019-01-15] MEDS: Carvedilol 25 MG TAB PO SCH (21:04)
[2019-01-16] MEDS: Furosemide 40 MG/4 ML VIAL SLOW IVP SCH ×2 (06:25→15:09)
[2019-01-16 07:13] LABS: ALT (SGPT) 14 U/L (8-55); AST (SGOT) 17 U/L (5-34); Albumin 3.5 g/dL (3.4-4.8); Alkaline Phosphatase 82 U/L (40-110); Anion Gap 12 mmol/L (10-20); BUN (Urea Nitrogen) 29 mg/dL (8.4-25.7); Bilirubin, Total 0.6 mg/dL (0.2-1.2); Calc. Creatinine Clearance 70 mL/min (70-130); Calcium 8.8 mg/dL (7.8-10.44); Carbon Dioxide 23 mmol/L (23-31); Chloride 108 mmol/L (98-107); Estimated GFR-MDRD 38; Globulin 2.9 g/dL (2.4-3.5); Glucose 118 mg/dL (80-115); Potassium 4.3 mmol/L (3.5-5.1); Protein, Total 6.4 g/dL (5.8-8.1); Sodium 139 mmol/L (136-145)
[2019-01-16] MEDS: Carvedilol 25 MG TAB PO SCH (08:51)
[2019-01-16] MEDS: Spironolactone 25 MG TAB PO SCH (08:51)
[2019-01-16] MEDS: Allopurinol 300 MG TAB PO SCH (08:51)
[2019-01-16] MEDS: Aspirin 81 mg Enteric Coated Tablet PO SCH (08:51)
[2019-01-16] MEDS: Potassium Chloride 10 MEQ TAB PO SCH (08:52)
[2019-01-16] MEDS: Sacubitril 49 MG/Valsartan 51 MG TABLET PO SCH ×2 (08:52→22:04)
[2019-01-16] MEDS: Folic Acid 1 MG TAB PO SCH (08:52)
[2019-01-16] MEDS: Clopidogrel Bisulfate 75 MG TAB PO SCH (08:52)
[2019-01-16] MEDS ORDERED: INSULIN GLARGINE SC SCH (09:00)
[2019-01-16] MEDS ORDERED: Bumetanide 1 MG TAB PO SCH (09:00)
[2019-01-16] MEDS ORDERED: PRE FILLED SC SCH (09:00)
[2019-01-16] MEDS ORDERED: Insulin Regular 300 UNITS/3 ML VIAL SC PRN ×3 (09:36→19:20)
[2019-01-16] MEDS ORDERED: Insulin Glargine 25 UNITS in Pre-Filled Syringe 1 EACH SC SCH (09:45)
--- NOTE | 2019-01-16 11:09 | RAD ---
2 VIEW CHEST: Date: 01/16/19 INDICATION: Chest pain. Heart failure. COMPARISON: 01/15/19. FINDINGS: Cardiomegaly with postop sternotomy change. Mild vascular engorgement. No focal infiltrate. Tiny effu sions cannot be excluded. AICD leads again noted. IMPRESSION: Improvement in the congestive change. Cardiomegaly and vascular engorgement again noted with probable tiny effusions. POS: [facility]
--- NOTE | 2019-01-16 15:23 | CON ---
DATE OF CONSULTATION: HISTORY OF PRESENT ILLNESS: Mr. Brunson is a pleasant 68-year-old gentleman, with chronic systolic heart failure, admitted with progressive worsening of his congestive heart failure with peripheral edema. The patient has been responding to intravenous diuretics. PAST HISTORY: 1. History of defibrillator implantation. 2. Coronary artery disease. Medical therapy is the only option. 3. History of atrial arrhythmias. PHYSICAL EXAMINATION: GENERAL: On examination, his blood pressure 98/55, pulse 70. LUNGS: Clear. ABDOMEN: Obese. EXTREMITIES: No clubbing. No cyanosis. There is moderate edema. IMAGING STUDIES: The most recent transthoracic echocardiogram in the hospital was in August. The ejection fraction is 15-20%. On the EKG, the patient is atrial paced, ventricular sensed. ASSESSMENT: 1. Congestive heart failure, acute on chronic systolic, improving. 2. Coronary artery disease, medical therapy is the only option. 3. History of atrial arrhythmias. 4. Previous defibrillator. PLAN: 1. We will hold carvedilol today to try to expedite the diuresis. 2. Home in 1-2 days. Job ID: [id number]
--- NOTE | 2019-01-16 15:50 | EKG ---
Test Reason : Blood Pressure : / mmHG Vent. Rate : 069 BPM Atrial Rate : 000 BPM P-R Int : 146 ms QRS Dur : 090 ms QT Int : 418 ms P-R-T Axes : -46 066 108 degrees QTc Int : 447 ms Electronic atrial pacemaker Premature ventricular and fusion complexes Non-specific intra-ventricular conduction delay Inferior infarct , age undetermined cannot be excluded Abnormal ECG Confirmed by AGUSTO SULLIVAN ([id number]) on 01/16/2019 3:49:42 PM Referred By: ROWAN Confirmed By:AGUSTO SULLIVAN
[2019-01-16] MEDS: Insulin Regular 300 UNITS/3 ML VIAL SC PRN (17:54)
--- NOTE | 2019-01-16 20:20 | PDOC.HOSPP ---
- Subjective Encounter Date: 01/16/19 Encounter Time: 19:00 Subjective: Patient seen and examined for CHF exacerbation. SOB improving. No CP. No new complaints. No overnight events - Objective Vital Signs & Weight: Vital Signs (12 hours) Temp Pulse Pulse Pulse Resp BP BP 01/16/19 19:30 98.7 F 70 18 01/16/19 15:25 97.9 F 68 19 01/16/19 15:05 66 103/59 L 01/16/19 11:48 99.2 F 70 16 01/16/19 10:57 70 89 107/50 L 01/16/19 08:20 99.9 F H 71 16 BP BP BP BP Pulse Ox Pulse Ox Pulse Ox 01/16/19 19:30 104/54 L 98 01/16/19 15:25 98 01/16/19 15:05 01/16/19 11:48 98/55 L 97 01/16/19 10:57 116/57 L 98 98 01/16/19 08:20 106/58 L 96 Weight Weight 282 lb 8 oz I&O: 01/15/19 01/16/19 01/17/19 06:59 06:59 06:59 Intake Total 1220 800 Output Total 1200 2525 Balance 20 -1725 Result Diagrams: 01/15/19 11:05 01/16/19 05:44 Additional Labs: Accuchecks 01/16/19 01/16/19 01/16/19 17:04 10:42 06:26 POC Glucose 185 H 119 H 142 H 01/15/19 20:37 POC Glucose 221 H Radiology Reviewed by me: Yes (CXR - improving) EKG Reviewed by me: Yes (Tele SR) Hospitalist ROS - Review of Systems Respiratory: reports: SOB with excertion. denies: cough, dry, shortness of breath, hemoptysis, pleuritic pain, sputum, wheezing, other Gastrointestinal: denies: nausea, vomiting, abdominal pain, diarrhea, constipation, melena, hematochezia, other - Medication Medications: Active Medications Generic Name Dose Route Start Last Admin Trade Name Freq PRN Reason Stop Dose Admin Allopurinol 300 mg 01/16/19 09:00 01/16/19 08:51 Zyloprim PO 300 mg DAILY ECHO Administration Aspirin 81 mg 01/16/19 09:00 01/16/19 08:51 Ecotrin PO 81 mg DAILY ECHO Administration Atorvastatin Calcium 40 mg 01/15/19 21:00 01/15/19 21:04 Lipitor PO 40 mg HS ECHO Administration Clopidogrel Bisulfate 75 mg 01/16/19 09:00 01/16/19 08:52 Plavix PO 75 mg DAILY ECHO Administration Famotidine 20 mg 01/15/19 21:00 01/15/19 21:03 Pepcid PO 20 mg QPM ECHO Administration Folic Acid 1 mg 01/16/19 09:00 01/16/19 08:52 Folvite PO 1 mg DAILY ECHO Administration Furosemide 40 mg 01/15/19 14:00 01/16/19 15:09 Lasix SLOW IVP 40 mg 0600,1400 ECHO Administration Nystatin 0 gm 01/15/19 20:19 01/15/19 21:16 Mycostatin Powder TOP 1 applic DAILYPRN PRN Administration . Potassium Chloride 10 meq 01/16/19 09:00 01/16/19 08:52 Klor-Con 10 PO 10 meq QAM ECHO Administration Pregabalin 75 mg 01/15/19 21:00 01/15/19 21:04 Lyrica PO 75 mg HS ECHO Administration Ranolazine 1,000 mg 01/15/19 21:00 01/16/19 08:52 Ranexa PO 1,000 mg BID ECHO Administration Ropinirole HCl 1 mg 01/15/19 21:00 01/15/19 21:03 Requip PO 1 mg QPM ECHO Administration Sacubitril/Valsartan 1 tab 01/15/19 21:00 01/16/19 08:52 Entresto 49 Mg-51 Mg Tablet PO 1 tab BID ECHO Administration Spironolactone 12.5 mg 01/16/19 08:00 01/16/19 08:51 Aldactone PO 12.5 mg QAM-WM ECHO Administration Tamsulosin HCl 0.4 mg 01/15/19 21:00 01/15/19 21:04 Flomax PO 0.4 mg HS ECHO Administration - Exam General Appearance: NAD Heart: RRR, no gallops, no rubs Heart - other findings: no heaves Respiratory: no wheezes, normal chest expansion, no tachypnea, rales, rhonchi Gastrointestinal: soft, non-tender, normal bowel sounds, no guarding, distended Extremities: no cyanosis, no clubbing, 1+ LE edema Psychiatric: normal affect, A&O x 3 Hosp A/P - Plan DVT proph w/SCDs Acute on chronic systolic HF exacerbation Elevated troponin due to demand ischemia/Type 2 OR s/p AICD Chronic Anemia and thrombocytopenia CKD 3 Morbid Obesity BMI 43 DM2 PLAN: Cont IV Lasix DC Bumex Cardio input appreciated AM labs SCDs for DVT prophylaxis Change Lantus to 25 BID Change sliding scale to moderate
[2019-01-16] MEDS ORDERED: Guaifenesin DM 100-10/5 ML UDCUP PO PRN (21:55)
[2019-01-16] MEDS: Pregabalin 75 MG CAP PO SCH (22:03)
[2019-01-16] MEDS: Tamsulosin HCl 0.4 MG CAP PO SCH (22:03)
[2019-01-16] MEDS: rOPINIRole HCl 1 MG TAB PO SCH (22:03)
[2019-01-16] MEDS: Atorvastatin Calcium 40 MG TAB PO SCH (22:04)
[2019-01-16] MEDS: Famotidine 20 MG TAB PO SCH (22:04)
[2019-01-16] MEDS: Insulin Glargine 25 UNITS in Pre-Filled Syringe 1 EACH SC SCH (22:05)
[2019-01-17 05:23] LABS: Anion Gap 12 mmol/L (10-20); BUN (Urea Nitrogen) 36 mg/dL (8.4-25.7); Calc. Creatinine Clearance 63 mL/min (70-130); Calcium 9.2 mg/dL (7.8-10.44); Carbon Dioxide 24 mmol/L (23-31); Chloride 107 mmol/L (98-107); Estimated GFR-MDRD 34; Glucose 131 mg/dL (80-115); Sodium 139 mmol/L (136-145)
[2019-01-17] MEDS: Furosemide 40 MG/4 ML VIAL SLOW IVP SCH ×2 (06:32→13:36)
[2019-01-17] MEDS: Spironolactone 25 MG TAB PO SCH (09:01)
[2019-01-17] MEDS: Aspirin 81 mg Enteric Coated Tablet PO SCH (09:02)
[2019-01-17] MEDS: Insulin Glargine 25 UNITS in Pre-Filled Syringe 1 EACH SC SCH ×2 (09:02→21:19)
[2019-01-17] MEDS: Allopurinol 300 MG TAB PO SCH (09:02)
[2019-01-17] MEDS: Folic Acid 1 MG TAB PO SCH (09:02)
[2019-01-17] MEDS: Clopidogrel Bisulfate 75 MG TAB PO SCH (09:02)
[2019-01-17] MEDS: Potassium Chloride 10 MEQ TAB PO SCH (09:04)
[2019-01-17] MEDS: Sacubitril 49 MG/Valsartan 51 MG TABLET PO SCH ×3 (09:11→23:02)
--- NOTE | 2019-01-17 13:50 | PRG ---
DATE OF SERVICE: 01/17/2019 SUBJECTIVE: Mr. Brunson feels better today, but his blood pressure was low this morning. OBJECTIVE: VITAL SIGNS: Blood pressure within the 90 systolic earlier, now it is 114/53; pulse 80. LUNGS: Clear. CARDIAC: Normal S1 and normal S2. ABDOMEN: Obese, nontender. EXTREMITIES: No significant edema. LABORATORY DATA: Creatinine has gone up to 1.95. ASSESSMENT: 1. Congestive heart failure, systolic, acute on chronic, improved. 2. Echocardiogram. The images are very limited, but can tell the ejection fraction is diminished, but cannot accurately determine ejection fraction. PLAN: 1. Hold Lasix this morning. Okay to resume this afternoon. 2. Continue spironolactone. 3. Should be ready to go home tomorrow. Job ID: [id number]
--- NOTE | 2019-01-17 20:16 | PDOC.HOSPP ---
- Subjective Encounter Date: 01/17/19 Encounter Time: 14:00 Subjective: Patient seen and examined for CHF exacerbation. SOB slightly better. Orthopnea + . No CP. No other complaints. No overnight events - Objective Vital Signs & Weight: Vital Signs (12 hours) Temp Pulse Pulse Pulse Resp BP BP 01/17/19 19:15 97.9 F 77 19 01/17/19 16:28 98.9 F 71 18 01/17/19 12:10 98.2 F 83 16 01/17/19 09:40 87 67 107/53 L 98/55 L 01/17/19 08:48 98.4 F 77 18 BP BP Pulse Ox Pulse Ox Pulse Ox 01/17/19 19:15 104/52 L 98 01/17/19 16:28 111/63 97 01/17/19 12:10 114/53 L 94 L 01/17/19 09:40 97 96 01/17/19 08:48 100/50 L 97 Weight Weight 279 lb 3.2 oz I&O: 01/16/19 01/17/19 01/18/19 06:59 06:59 06:59 Intake Total 1220 1280 720 Output Total 1200 2525 600 Balance 20 -1245 120 Result Diagrams: 01/15/19 11:05 01/17/19 04:57 Additional Labs: Accuchecks 01/17/19 01/17/19 01/16/19 17:21 11:30 21:23 POC Glucose 201 H 163 H 209 H EKG Reviewed by me: Yes (Tele SR) Hospitalist ROS - Review of Systems Cardiovascular: reports: orthopnea, edema. denies: chest pain, palpitations, paroxysmal noc. dyspnea, light headedness, other Gastrointestinal: denies: nausea, vomiting, abdominal pain, diarrhea, constipation, melena, hematochezia, other - Medication Medications: Active Medications Generic Name Dose Route Start Last Admin Trade Name Freq PRN Reason Stop Dose Admin Allopurinol 300 mg 01/16/19 09:00 01/17/19 09:02 Zyloprim PO 300 mg DAILY ECHO Administration Aspirin 81 mg 01/16/19 09:00 01/17/19 09:02 Ecotrin PO 81 mg DAILY ECHO Administration Atorvastatin Calcium 40 mg 01/15/19 21:00 01/16/19 22:04 Lipitor PO 40 mg HS ECHO Administration Clopidogrel Bisulfate 75 mg 01/16/19 09:00 01/17/19 09:02 Plavix PO 75 mg DAILY ECHO Administration Famotidine 20 mg 01/15/19 21:00 01/16/19 22:04 Pepcid PO 20 mg QPM ECHO Administration Folic Acid 1 mg 01/16/19 09:00 01/17/19 09:02 Folvite PO 1 mg DAILY ECHO Administration Guaifenesin/Dextromethorphan 5 ml 01/16/19 21:55 01/16/19 23:15 Robitussin Dm PO 5 ml Q4H PRN Administration Cough Insulin Glargine 25 units/ 0.25 mls @ 0 mls/hr 01/16/19 21:00 01/16/19 22:05 Miscellaneous Medication SC 0.25 mls HS ECHO Administration Insulin Glargine 25 units/ 0.25 mls @ 0 mls/hr 01/17/19 09:00 01/17/19 09:02 Miscellaneous Medication SC 0.25 mls QAM ECHO Administration Nystatin 0 gm 01/15/19 20:19 01/15/19 21:16 Mycostatin Powder TOP 1 applic DAILYPRN PRN Administration . Potassium Chloride 10 meq 01/16/19 09:00 01/17/19 09:04 Klor-Con 10 PO 10 meq QAM ECHO Administration Pregabalin 75 mg 01/15/19 21:00 01/16/19 22:03 Lyrica PO 75 mg HS ECHO Administration Ranolazine 1,000 mg 01/15/19 21:00 01/17/19 09:04 Ranexa PO 1,000 mg BID ECHO Administration Ropinirole HCl 1 mg 01/15/19 21:00 01/16/19 22:03 Requip PO 1 mg QPM ECHO Administration Sacubitril/Valsartan 1 tab 01/15/19 21:00 01/17/19 09:51 Entresto 49 Mg-51 Mg Tablet PO Not Given BID ECHO Sodium Chloride 10 ml 01/16/19 21:00 01/17/19 09:04 Flush - Normal Saline IVF 10 ml Q12HR ECHO Administration Sodium Chloride 10 ml 01/16/19 09:45 01/17/19 13:36 Flush - Normal Saline IVF 10 ml PRN PRN Administration Saline Flush Spironolactone 12.5 mg 01/16/19 08:00 01/17/19 09:01 Aldactone PO 12.5 mg QAM-WM ECHO Administration Tamsulosin HCl 0.4 mg 01/15/19 21:00 01/16/19 22:03 Flomax PO 0.4 mg HS ECHO Administration Trazodone HCl 50 mg 01/15/19 18:04 01/17/19 01:26 Desyrel PO 50 mg HSPRN PRN Administration .INSOMNIA - Exam General Appearance: NAD Heart: RRR, no gallops Respiratory: rales, rhonchi Gastrointestinal: soft, non-tender, distended Extremities: 1+ LE edema Hosp A/P - Plan DVT proph w/SCDs Acute on chronic systolic HF exacerbation Elevated troponin due to demand ischemia/Type 2 [place] s/p AICD Chronic Anemia and thrombocytopenia CKD 3 Morbid Obesity BMI 43 DM2 BPH PLAN: Cont IV Lasix Cont Entresto/Aldactone AM labs Cont Lantus to 25 BID Cont sliding scale
[2019-01-17] MEDS: Tamsulosin HCl 0.4 MG CAP PO SCH (21:24)
[2019-01-17] MEDS: Pregabalin 75 MG CAP PO SCH (21:24)
[2019-01-17] MEDS: Atorvastatin Calcium 40 MG TAB PO SCH (21:24)
[2019-01-17] MEDS: rOPINIRole HCl 1 MG TAB PO SCH (21:25)
[2019-01-17] MEDS: Famotidine 20 MG TAB PO SCH (21:25)
[2019-01-18 06:46] LABS: Anion Gap 12 mmol/L (10-20); BUN (Urea Nitrogen) 33 mg/dL (8.4-25.7); Calc. Creatinine Clearance 73 mL/min (70-130); Calcium 8.9 mg/dL (7.8-10.44); Carbon Dioxide 24 mmol/L (23-31); Chloride 106 mmol/L (98-107); Estimated GFR-MDRD 40; Glucose 98 mg/dL (80-115); Magnesium 1.9 mg/dL (1.6-2.6); Potassium 4.4 mmol/L (3.5-5.1); Sodium 138 mmol/L (136-145)
[2019-01-18] MEDS: Spironolactone 25 MG TAB PO SCH (08:40)
[2019-01-18] MEDS: Folic Acid 1 MG TAB PO SCH (08:41)
[2019-01-18] MEDS: Clopidogrel Bisulfate 75 MG TAB PO SCH (08:41)
[2019-01-18] MEDS: Potassium Chloride 10 MEQ TAB PO SCH (08:41)
[2019-01-18] MEDS: Aspirin 81 mg Enteric Coated Tablet PO SCH (08:41)
[2019-01-18] MEDS: Allopurinol 300 MG TAB PO SCH (08:41)
[2019-01-18] MEDS: Sacubitril 49 MG/Valsartan 51 MG TABLET PO SCH (08:42)
[2019-01-18] MEDS: Insulin Glargine 25 UNITS in Pre-Filled Syringe 1 EACH SC SCH (09:23)
--- NOTE | 2019-01-18 09:53 | PRG ---
DATE OF SERVICE: 01/18/2019 SUBJECTIVE: Mr. Brunson is resting comfortably, not short of breath. OBJECTIVE: VITAL SIGNS: His blood pressure is 106/61, pulse is 70. LUNGS: Clear. CARDIAC: Normal S1. Normal S2. ASSESSMENT: 1. Congestive heart failure, systolic, acute on chronic, compensated. 2. Renal failure, improved. Estimated GFR is now 40. Creatinine is 1.7. PLAN: Planning to go home on Entresto 49/51 twice a day, spironolactone 12.5 mg a day, Bumex 1 mg twice a day, atorvastatin 40 mg a day, and aspirin and Plavix. Other medicines will be the same as prior to admission. Job ID: [id number]
[2019-01-18] MEDS ORDERED: Bumetanide 1 MG TAB PO SCH ×2 (10:00→16:30)
[2019-01-18 12:13] VITALS: BP 129/60; TEMP 98.3
--- NOTE | 2019-01-18 20:36 | DIS ---
DATE OF ADMISSION: 01/17/2019 DATE OF DISCHARGE: 01/18/2019 DISCHARGE DISPOSITION: Home. FOLLOWUP: 1. Follow up with primary care physician, Dr. Parikh in 1 week. 2. Follow up with Dr. Lopez as scheduled. 3. The patient was seen on the day of discharge. Denies any new complaints. No chest pain, shortness of breath, or palpitations. SIGNIFICANT LABORATORY DATA: Creatinine at discharge 1.7, on admission 2.02. BNP was 697. Troponin was 0.296. WBC 4.0 with hemoglobin 10.9. DIAGNOSTIC DATA: Echocardiogram was technically limited due to body habitus. Left ventricular ejection fraction was depressed. CT angiogram of the chest was negative for pulmonary embolism. It showed 8 mm left lower lobe nodule. INPATIENT FURNITURE SHAMPOOER: Cardiology, Dr. Lopez. BRIEF HOSPITAL COURSE: The patient is a 68-year-old male with chronic systolic heart failure, presented to the emergency room on January 15, 2019, with worsening shortness of breath and cough of 2 weeks' duration. His workup was consistent with congestive heart failure exacerbation. He showed good improvement with IV diuretics. He has been started back on his oral Bumex. His creatinine improved with IV diuretics. He was also seen by Cardiology, Dr. Lopez. He has been cleared by Dr. Lopez at discharge. FINAL DIAGNOSES: 1. [id number] systolic heart failure exacerbation. 2. Elevated troponin secondary to demand ischemia/type 2 myocardial infarction. 3. History of automatic implantable cardioverter-defibrillator placement. 4. Chronic anemia. 5. Chronic thrombocytopenia. 6. Chronic kidney disease, stage 3 with mild acute kidney injury. 7. Morbid obesity with a BMI of 43. 8. Diabetes mellitus, type 2. 9. Benign prostatic hypertrophy. 10. Indeterminate 8 mm left lower lobe nodule. DISCHARGE INSTRUCTIONS: Primary care physician advised to follow. DISCHARGE MEDICATIONS: Same as admission medication. Job ID: [id number]
--- NOTE | 2019-01-19 08:53 | PQF ---
[employer] Research Clerk Crystal Reports Winform ViewerHANNAH MOSER JANET GOLDMAN MD [id number] [facility]-[id number] CLINICAL DOCUMENTATION CLARIFICATION FORM: POST DISCHARGE Addendum to original discharge summary date: ____ Late entry note date: __ DATE: 01/19/2019 ATTN:JANET GOLDMAN MD Please exercise your independent, professional judgment in responding to the clarification form. Clinical indicators are provided on the bottom of this form for your review Please check appropriate box(s): [ x ] Type 2 Myocardial infarction [ ] Demand ischemia [ ] Other diagnosis [ ] Unable to determine CLINICAL INDICATORS - SIGNS / SYMPTOMS / LABS - Elevated troponin secondary to demand ischemia/type2 myocardial infarction- DS, 01/18, Janet Goldman MD - Troponin: 0.296-DS, 01/18, Janet Goldman MD - Troponin-I elevated , unclear etiology- H&P, 01/15, Violetta Farias MD - Non-specific intra-ventricular conduction delay-Electrocardiogram, 01/16 - Inferior infarct, age undetermined cannot be excluded-Electrocardiogram, - Abnormal ECG-Electrocardiogram, 01/16 RISKS: - Acute on chronic systolic heart failure-DS, 01/18, JANET GOLDMAN MD - Hx of AICD-DS, 01/18, JANET GOLDMAN MD TREATMENTS: -Aspirin .PO-MAY, 01/16 -Furosemide.IV-MAY, 01/16 (This form is maintained as a part of the permanent medical record) 2014 [email or web address]. All Rights Reserved Benedict Shannon [not provided] [not provided] VIETD
== END 2019-01-18 15:55 | disposition home or self-care (01) | DRG 281 ==
LOC: ERS 10:50 → 2SW 12:24 → OBSVTOIN 01-17 10:10
PROVIDERS: ADMIT Family Medicine; ATTEND Family Medicine
DX: I50.23 Acute on chronic systolic (congestive) heart failure (principal); I21.A1 Myocardial infarction type 2; N17.9 Acute kidney failure, unspecified; Z68.41 Body mass index [BMI] 40.0-44.9, adult; N18.3 Chronic kidney disease, stage 3 (moderate); E66.01 Morbid (severe) obesity due to excess calories; N40.0 Benign prostatic hyperplasia without lower urinary tract symptoms; I25.10 Atherosclerotic heart disease of native coronary artery without angina pectoris; E11.9 Type 2 diabetes mellitus without complications; E78.5 Hyperlipidemia, unspecified; D69.6 Thrombocytopenia, unspecified; Z95.810 Presence of automatic (implantable) cardiac defibrillator; Z98.42 Cataract extraction status, left eye; Z98.41 Cataract extraction status, right eye; Z95.1 Presence of aortocoronary bypass graft; D64.9 Anemia, unspecified
CPT/HCPCS: 36415; 36416; 71045; 71046; 71275; 80048; 80053; 82553; 83735; 83880; 84484; 85025; 85610; 85730; 93005; 93010; 93306; 93798; 94760; 96374; J0690; J1815; J1940; Q9966

== ENCOUNTER 2019-02-19 00:08 | Inpatient (IN) | payer MEDICARE, MEDICAID ==
[2019-02-19 01:10] LABS: #Eosinphils 0.1 thou/uL (0.0-0.7); #Lymphocytes 1.3 thou/uL (1.20-3.40); #Monocytes 0.5 thou/uL (0.11-0.59); #Neutrophils 3.9 thou/uL (1.40-6.50); %Basophils 0.2 % (0.0-1.0); %Lymphocytes 21.9 % (21.0-51.0); %Monocytes 8.9 % (0.0-10.0); Mean Corpuscular HGB CONC 34.6 g/dL (32.0-36.0); Mean Corpuscular Hemoglobin 36.1 pg (27.0-31.0); Platelet Count 130 thou/uL (130-400); RBC Distribution Width 13.3 % (11.5-14.5); Red Blood Cell (RBC) Count 3.04 mill/uL (4.70-6.10); White Blood Cell (WBC) Count 5.8 thou/uL (4.8-10.8)
[2019-02-19 01:34] LABS: ALT (SGPT) 16 U/L (8-55); AST (SGOT) 14 U/L (5-34); Alkaline Phosphatase 110 U/L (40-110); Anion Gap 12 mmol/L (10-20); BUN (Urea Nitrogen) 38 mg/dL (8.4-25.7); Bilirubin, Total 0.4 mg/dL (0.2-1.2); Calc. Creatinine Clearance 0 mL/min (70-130); Calcium 9.3 mg/dL (7.8-10.44); Carbon Dioxide 28 mmol/L (23-31); Chloride 101 mmol/L (98-107); Estimated GFR-MDRD 28; Globulin 3.1 g/dL (2.4-3.5); Glucose 207 mg/dL (80-115); Magnesium 1.9 mg/dL (1.6-2.6); Potassium 4.4 mmol/L (3.5-5.1); Protein, Total 7.1 g/dL (5.8-8.1); Sodium 137 mmol/L (136-145)
[2019-02-19] MEDS ORDERED: Magnesium 2 GM/50 ML BAG (IN WATER) ONE (01:43)
[2019-02-19 01:56] LABS: CKMB 1.6 ng/mL (0-6.6)
[2019-02-19] MEDS ORDERED: Bisacodyl 10 MG SUPP PR PRN (03:08)
[2019-02-19] MEDS ORDERED: Guaifenesin DM 100-10/5 ML UDCUP PO PRN (03:08)
[2019-02-19] MEDS ORDERED: Acetaminophen 325 MG TAB PO PRN (03:08)
[2019-02-19] MEDS ORDERED: Senokot S 8.6-50 MG TAB PO PRN (03:08)
--- NOTE | 2019-02-19 03:51 | HP ---
REASON FOR ADMISSION: Defibrillator discharge x2, VFib, [place]OLFGANG. HISTORY OF PRESENTING ILLNESS: The patient gives history of waking up with his defibrillator firing. He states he felt like he got jolted. He told his son about the incident. Then, he tried to lie on his side, despite which he had another shock after half an hour. The patient has known history of sleep apnea and does not like to put a face mask. He has not had any chest pain or palpitation, but feels weak after the two incidents of being shocked. No complaints of fever, cough, or expectoration. He says he [facility] and recently had a change in his diuretic from Bumex to torsemide. His AICD was interrogated in the ER. This confirms 2 VFib episodes, 1 at 11:25 p.m. yesterday and 12:09 a.m. this morning. The rate was 286 and 273 beats per minute. He has had multiple nonsustained ventricular tachycardia as well nearly 98 episodes. Three episodes of ventricular tachycardia yesterday. PAST MEDICAL AND SURGICAL HISTORY: History of CHF with EF of around 20% to 25%, gout, hypertension, dyslipidemia, history of paroxysmal atrial fibrillation, prior cardioversion, Watchman procedure, history of left atrial appendage closure, CABG, diabetes mellitus type 2, prior history of bacteremia with lead extraction from his AICD in the past, history of ventricular tachycardia in the past, peripheral vascular disease, history of internal hemorrhoids, colon polyps with colonoscopy. SOCIAL HISTORY: Does not abuse alcohol or drugs. No history of smoking. FAMILY HISTORY: His mother is still living. Father of [place] in his 60s. The patient lives with his son. He ambulates by himself. CURRENT MEDICATIONS: The patient is on: 1. Aspirin 81 mg p.o. daily. 2. Allopurinol 300 mg p.o. daily. 3. Lipitor 40 mg p.o. nightly. 4. Carvedilol 12.5 mg p.o. twice daily. 5. Plavix 75 mg p.o. daily. 6. Pepcid 20 mg p.o. q.p.m. 7. Tresiba 86 units subcu q.a.m. 8. Potassium chloride 10 mEq p.o. q.a.m. 9. Lyrica 75 mg p.o. nightly. 10. Ranexa 1000 mg twice daily extended release. 11. Ropinirole 1 mg p.o. q.p.m. 12. Entresto 49/51 mg one tablet twice daily. 13. Spironolactone 12.5 mg p.o. daily. 14. Trazodone 50 mg p.o. nightly. 15. Folic acid 1 mg p.o. daily. 16. Flomax 0.4 mg p.o. nightly. ALLERGIES: NO KNOWN DRUG ALLERGIES. CODE STATUS: Full. Power of defense attorney is his son with the same name, but he is a jose. REVIEW OF SYSTEMS: CONSTITUTIONAL: Negative for weight loss or gain, ability to conduct usual activities. SKIN: Negative for rash, itching. EYES: Negative for double vision, pain. ENT/MOUTH: Negative for nose bleeding, neck stiffness, pain, tenderness. CARDIOVASCULAR: Negative for palpitations, dyspnea on exertion, orthopnea. RESPIRATORY: Negative for shortness of breath, wheezing, cough, hemoptysis, fever or night sweats. GASTROINTESTINAL: Negative for poor appetite, abdominal pain, heartburn, nausea , vomiting, constipation, or diarrhea. GENITOURINARY: Negative for urgency, frequency, dysuria, nocturia. MUSCULOSKELETAL: Negative for pain, swelling. NEUROLOGIC/PSYCHIATRIC: Negative for anxiety, depression. ALLERGY/IMMUNOLOGIC: Negative for skin rash, bleeding tendency. PHYSICAL EXAMINATION: GENERAL: The patient is a 68-year-old male who is currently not in any acute distress. VITAL SIGNS: Blood pressure 106/60, pulse 86 per minute, respiratory rate 18 per minute, temperature 98.2 degrees Fahrenheit, and saturating 96% on room air. NECK: Supple. No elevated JVD. HEENT: Eyes; extraocular muscles intact. Pupils reacting to light. Oral cavity, mucous membranes are dry. No exudates or congestion. CARDIOVASCULAR: S1, S2 heard. Regular rhythm. RESPIRATORY: Air entry 1+ bilateral. No rales or rhonchi. ABDOMEN: Soft. Bowel sounds heard. No tenderness, rigidity, or guarding. EXTREMITIES: No peripheral edema or calf tenderness. VASCULAR: Peripheral pulses 1+ bilateral. No ischemic ulcerations or gangrene. CENTRAL NERVOUS SYSTEM: No gross focal deficits noted. The patient is alert, awake, and oriented well. PSYCHIATRIC: The patient's mood is euthymic. No hallucinations or delusions. LABORATORY DATA: White count of 5.8, H and H 11 and 31, platelet count is 138, MCV is 104, BUN 38, creatinine 2.3, serum potassium 4.4, serum bicarb 28, serum glucose 207. AST, ALT, alkaline phosphatase within normal limits. CK-MB 1.6, albumin 4. BNP 511. Troponin I 0.08. Chest x-ray done shows pulmonary vascular congestion. EKG done shows normal sinus rhythm at 74 beats per minute. There is low-voltage EKG. CLINICAL IMPRESSION AND PLAN: The patient will be admitted to telemetry for 2 episodes of ventricular fibrillation, which were terminated by AICD shock. Both happened within a span of 35 to 40 minutes around midnight. He has known history of low ejection fraction with ischemic cardiomyopathy, and the patient also has sleep apnea and is noncompliant with his CPAP machine. It is unclear what triggered his ventricular fibrillation. He clinically also appears dry, likely has low intravascular volume with patient feeling dizzy off and on at home. We will hold off on his diuretics for now. We will also hold his Entresto in view of acute kidney injury. We will continue his allopurinol, aspirin, Lipitor, carvedilol same dose, Plavix, folic acid, Tresiba, Lyrica, Ranexa, ropinirole, Flomax, and trazodone as before. Dr. Schmitz has been consulted from ER. Job ID: [id number] [facility]
[2019-02-19 04:00] LABS: #Eosinphils 0.1 thou/uL (0.0-0.7); #Lymphocytes 1.4 thou/uL (1.20-3.40); #Monocytes 0.4 thou/uL (0.11-0.59); #Neutrophils 3.6 thou/uL (1.40-6.50); %Basophils 0.7 % (0.0-1.0); %Eosinophils 1.2 % (0.0-10.0); %Lymphocytes 25.6 % (21.0-51.0); %Monocytes 7.3 % (0.0-10.0); %Neutrophils 65.3 % (42.0-75.0); Hemoglobin 10.3 g/dL (14.0-18.0); Mean Corpuscular HGB CONC 34.4 g/dL (32.0-36.0); Mean Corpuscular Hemoglobin 35.5 pg (27.0-31.0); Mean Platelet Volume 8.2 fL (7.4-10.4); Platelet Count 130 thou/uL (130-400); RBC Distribution Width 13.1 % (11.5-14.5); Red Blood Cell (RBC) Count 2.91 mill/uL (4.70-6.10); White Blood Cell (WBC) Count 5.5 thou/uL (4.8-10.8)
[2019-02-19 04:13] VITALS: BMI 43.2
[2019-02-19 04:19] LABS: Anion Gap 13 mmol/L (10-20); BUN (Urea Nitrogen) 37 mg/dL (8.4-25.7); Calc. Creatinine Clearance 56 mL/min (70-130); Calcium 9.2 mg/dL (7.8-10.44); Carbon Dioxide 27 mmol/L (23-31); Chloride 101 mmol/L (98-107); Estimated GFR-MDRD 29; Glucose 212 mg/dL (80-115); Potassium 4.5 mmol/L (3.5-5.1); Sodium 136 mmol/L (136-145)
[2019-02-19 04:26] LABS: Troponin I 0.126 ng/mL (< 0.028)
[2019-02-19 07:43] LABS: Troponin I 0.127 ng/mL (< 0.028)
[2019-02-19] MEDS ORDERED: INSULIN DEGLUDEC 86 UNIT SQ SCH (09:00)
--- NOTE | 2019-02-19 09:18 | RAD ---
CHEST 1 VIEW: INDICATION: Emergency examination with possible AICD malfunction. COMPARISON: Prior exam dated 01/16/2019. IMPRESSION: Automatic implantable cardioverter/defibrillator does not appear appreciably changed. There is cardi omegaly with pulmonary vascular congestion. No consolidation, pleural effusion, or pneumothorax is e vident. No acute osseous abnormality is evident. POS: [facility]
[2019-02-19] MEDS: Allopurinol 100 MG TAB PO SCH (09:25)
[2019-02-19] MEDS: Carvedilol 6.25 MG TAB PO SCH ×2 (09:25→21:26)
[2019-02-19] MEDS: Aspirin 81 mg Enteric Coated Tablet PO SCH (09:25)
[2019-02-19] MEDS: Clopidogrel Bisulfate 75 MG TAB PO SCH (09:25)
[2019-02-19] MEDS: Enoxaparin Sodium 30 MG/0.3 ML SYRINGE SC SCH (09:27)
[2019-02-19] MEDS: Folic Acid 1 MG TAB PO SCH (09:27)
[2019-02-19] MEDS: Insulin Glargine 86 UNITS in Pre-Filled Syringe 1 EACH SC SCH (09:27)
--- NOTE | 2019-02-19 15:55 | CON ---
DATE OF CONSULTATION: 02/19/2019 PRIMARY GROUP LEADER SEMICONDUCTOR PROCESSING: Vaibhav Lopez MD REASON FOR CONSULTATION: VFib and VT and WOLFGANG. HISTORY OF PRESENT ILLNESS: Mr. Brunson is a very pleasant 68-year-old black gentleman, who comes to the hospital for having had 2 shocks delivered. He has ischemic cardiomyopathy with an AICD in place. He has never had an AICD shocked in the past. He was woken up in the middle night with a shock. He went to sleep again and had a second shock, so he was brought in by his son for evaluation. Interrogation of his device shows that he has many episodes of ventricular tachycardia lately that his device had been able to take care of with ATP. He had those 2 episodes where he had to get shocked. He denies any chest pain, tightness, or pressure. His shortness of breath is at his baseline. His OptiVol actually is undetectable right now. His pressures are not high. PAST MEDICAL HISTORY: 1. Ischemic cardiomyopathy with an EF around 20% to 25%. 2. Gout. 3. Hypertension. 4. Hyperlipidemia. 5. Paroxysmal atrial fibrillation. 6. Watchman device in the past. 7. CABG in the year 1999. 8. Type 2 diabetes. 9. Bacteremia with lead extraction of an AICD in the past. 10. VT in the past. 11. Peripheral vascular disease. 12. Internal hemorrhoids. 13. Colon polyps. SOCIAL HISTORY: No alcohol, tobacco, or drugs. FAMILY HISTORY: Father of [place] at 60s. OUTPATIENT MEDICATIONS: 1. Aspirin 81 a day. 2. Allopurinol 300 mg a day. 3. Lipitor 40 mg a day. 4. Carvedilol 12.5 mg b.i.d. 5. Plavix 75 mg a day. 6. Pepcid 20 mg q.p.m. 7. Tarceva. 8. Potassium chloride 10 mEq a day. 9. Lyrica 75 mg q.h.s. 10. Ranexa 1000 mg twice a day. 11. Ropinirole 1 mg a day. 12. Entresto 49/51 b.i.d. 13. Spironolactone 12.5 mg a day. 14. Trazodone 50 mg q.h.s. 15. Folic acid 1 mg a day. 16. Flomax 0.4 nightly. ALLERGIES: NO KNOWN DRUG ALLERGIES. REVIEW OF SYSTEMS: A 12-point review of systems was done and was all negative unless stated in the history of present illness. PHYSICAL EXAMINATION: VITAL SIGNS: Temperature 97.8, pulse 65, respiratory rate 14, saturations 92% on room air, blood pressure 106/56. GENERAL: Awake, alert, oriented x3, in no distress. HEENT: Normocephalic, atraumatic. NECK: Supple. LUNGS: Clear. CARDIOVASCULAR: S1 and S2. No S3 or S4. Soft grade 2 systolic murmur at the right upper sternal border. ABDOMEN: Soft. Positive bowel sounds. EXTREMITIES: No edema. SKIN: Warm and dry. LABORATORY DATA: Laboratory work was reviewed. His CBC with a white count of 5, hemoglobin 11, hematocrit of 31, and platelet count of 130. Chemistry with a sodium of 137, potassium 4.4, chloride 101, carbon dioxide of 28, anion gap of 12, BUN of 38, creatinine 2.3, GFR of 28, glucose of 207. Troponin at 0.08, 0.12, and 0.12 in the indeterminate range. EKG was reviewed. ICD tracings were reviewed. Many episodes of VT. A couple episodes of VFib, successful shocks, and multiple ATPs were successful. ASSESSMENT: 1. Sustained ventricular tachycardia. 2. Sustained ventricular fibrillation. 3. Ischemic cardiomyopathy with ejection fraction of 20% to 25%. 4. Severe multivessel coronary artery disease. Last catheterization in 2014 showed no further intervention is amenable in his coronary anatomy. PLAN: 1. We will start amiodarone load at 400 mg b.i.d. for 10 days and then 200 mg a day after that. 2. Continue other medications. 3. If he continues to have episodes on amiodarone, he will need EP evaluation for possible VT ablation. 4. Continue to monitor electrolytes. No major abnormalities were seen. Thank you for letting us to participate in the care of your patient. Dr. Lopez, his primary food services coordinator will follow up in the morning. Job ID: [id number]
[2019-02-19] MEDS: Pregabalin 75 MG CAP PO SCH (21:25)
[2019-02-19] MEDS: Famotidine 20 MG TAB PO SCH (21:25)
[2019-02-19] MEDS: rOPINIRole HCl 1 MG TAB PO SCH (21:25)
[2019-02-19] MEDS: Atorvastatin Calcium 40 MG TAB PO SCH (21:25)
[2019-02-19] MEDS: Tamsulosin HCl 0.4 MG CAP PO SCH (21:26)
[2019-02-19] MEDS: traZODone HCl 50 MG TAB PO PRN (21:26)
[2019-02-20 04:50] LABS: Band 1 % (5-11); Hemoglobin 10.3 g/dL (14.0-18.0); Lymphocytes 30 % (21-51); MDiff Complete? YES; Mean Corpuscular HGB CONC 33.9 g/dL (32.0-36.0); Mean Corpuscular Hemoglobin 35.2 pg (27.0-31.0); Mean Platelet Volume 8.5 fL (7.4-10.4); Monocytes 9 % (0-10); Neutrophil 58 % (42-75); Nucleated RBC 1 % (0); Platelet Count 120 thou/uL (130-400); Platelet Morphology Comment Appears Adequate; RBC Distribution Width 13.4 % (11.5-14.5); Red Blood Cell (RBC) Count 2.94 mill/uL (4.70-6.10); White Blood Cell (WBC) Count 4.7 thou/uL (4.8-10.8)
[2019-02-20 05:10] LABS: Anion Gap 9 mmol/L (10-20); BUN (Urea Nitrogen) 30 mg/dL (8.4-25.7); Calc. Creatinine Clearance 77 mL/min (70-130); Calcium 9.1 mg/dL (7.8-10.44); Carbon Dioxide 30 mmol/L (23-31); Chloride 104 mmol/L (98-107); Estimated GFR-MDRD 42; Glucose 116 mg/dL (80-115); Potassium 4.3 mmol/L (3.5-5.1); Sodium 139 mmol/L (136-145)
[2019-02-20] MEDS: Carvedilol 6.25 MG TAB PO SCH ×2 (09:27→21:03)
[2019-02-20] MEDS: Insulin Glargine 86 UNITS in Pre-Filled Syringe 1 EACH SC SCH (09:27)
[2019-02-20] MEDS: Allopurinol 100 MG TAB PO SCH (09:27)
[2019-02-20] MEDS: Aspirin 81 mg Enteric Coated Tablet PO SCH (09:27)
[2019-02-20] MEDS: Clopidogrel Bisulfate 75 MG TAB PO SCH (09:28)
[2019-02-20] MEDS: Folic Acid 1 MG TAB PO SCH (09:30)
[2019-02-20] MEDS: Enoxaparin Sodium 30 MG/0.3 ML SYRINGE SC SCH (09:30)
[2019-02-20] MEDS: Amiodarone 200 MG TAB PO SCH ×2 (09:34→21:03)
--- NOTE | 2019-02-20 10:19 | PRG ---
DATE OF SERVICE: 02/20/2019 SUBJECTIVE: Mr. Brunson is feeling fine. No chest pain or pressure. No complaints. OBJECTIVE: VITAL SIGNS: His blood pressure 117/57, earlier was 94/51; pulse 80 and it is regular. LUNGS: Clear. CARDIAC: Normal S1. Normal S2. ABDOMEN: Soft and nontender. EXTREMITIES: No significant edema. ASSESSMENT: 1. Congestive heart failure, systolic, chronic, stable, compensated. 2. Recurrent monomorphic ventricular tachycardia. 3. Coronary artery disease, really no further intervention indicated or appropriate. PLAN: 1. Start amiodarone. 2. If he has recurrent episodes of ventricular tachycardia, consideration for a ventricular tachycardia ablation. We will discuss with the medical resident. None of the [facility] medical resident are here today. Job ID: [id number]
[2019-02-20] MEDS ORDERED: Dextrose 5% in Water 1,000 ML IV PRN (12:01)
[2019-02-20] MEDS ORDERED: Dextrose 50% Abboject 50 ML SYRINGE IVP PRN (12:01)
[2019-02-20] MEDS: Insulin Regular 300 UNITS/3 ML VIAL SC PRN ×2 (12:13→17:17)
--- NOTE | 2019-02-20 16:36 | PDOC.HOSPP ---
- Subjective Encounter Date: 02/20/19 Encounter Time: 16:20 Subjective: f/u for V-tach s/p AICD firing. Started on Amiodarone and no new events reported. - Objective Vital Signs & Weight: Vital Signs (12 hours) Temp Pulse Pulse Pulse Resp BP BP 02/20/19 15:15 98.2 F 68 17 02/20/19 14:12 65 89 127/62 116/55 L 02/20/19 11:25 97.5 F L 77 16 02/20/19 09:05 74 81 108/52 L 136/67 02/20/19 07:50 98.4 F 81 19 BP BP Pulse Ox 02/20/19 15:15 104/56 L 96 02/20/19 14:12 02/20/19 11:25 107/55 L 97 02/20/19 09:05 02/20/19 07:50 117/57 L 98 Weight Weight 284 lb 6.4 oz I&O: 02/19/19 02/20/19 02/21/19 06:59 06:59 06:59 Intake Total 1090 Output Total 1250 Balance -160 Result Diagrams: 02/20/19 04:15 02/20/19 04:15 Additional Labs: Accuchecks 02/20/19 02/20/19 02/19/19 10:11 05:36 20:20 POC Glucose 221 H 117 H 273 H 02/19/19 16:38 POC Glucose 227 H Laboratory Tests 08/20/18 08/21/18 01/15/19 08:50 05:22 11:05 Hgb Creatinine Troponin I B-Natriuretic Peptide 828.4 H 554.2 H 697.3 H 02/19/19 02/19/19 02/19/19 00:59 00:59 00:59 Hgb Creatinine 2.34 H Troponin I 0.088 H B-Natriuretic Peptide 511.0 H 02/19/19 02/19/19 02/19/19 00:59 03:31 03:31 Hgb 11.0 L Creatinine 2.25 H Troponin I 0.126 H B-Natriuretic Peptide 02/19/19 02/19/19 03:31 07:06 Hgb 10.3 L Creatinine Troponin I 0.127 H B-Natriuretic Peptide EKG Reviewed by me: Yes (Tele - SR) Hospitalist ROS - Medication Medications: Active Medications Generic Name Dose Route Start Last Admin Trade Name Freq PRN Reason Stop Dose Admin Allopurinol 100 mg 02/19/19 09:00 02/20/19 09:27 Zyloprim PO 100 mg QAM ECHO Administration Amiodarone HCl 400 mg 02/20/19 09:00 02/20/19 09:34 Cordarone PO 400 mg BID ECHO Administration Aspirin 81 mg 02/19/19 09:00 02/20/19 09:27 Ecotrin PO 81 mg QAM ECHO Administration Atorvastatin Calcium 40 mg 02/19/19 21:00 02/19/19 21:25 Lipitor PO 40 mg HS ECHO Administration Carvedilol 12.5 mg 02/19/19 09:00 02/20/19 09:27 Coreg PO 12.5 mg BID ECHO Administration Clopidogrel Bisulfate 75 mg 02/19/19 09:00 02/20/19 09:28 Plavix PO 75 mg DAILY ECHO Administration Enoxaparin Sodium 30 mg 02/19/19 09:00 02/20/19 09:30 Lovenox SC 30 mg 0900 ECHO Administration Famotidine 20 mg 02/19/19 21:00 02/19/19 21:25 Pepcid PO 20 mg QPM ECHO Administration Folic Acid 1 mg 02/19/19 09:00 02/20/19 09:30 Folvite PO 1 mg DAILY ECHO Administration Insulin Glargine 86 units/ 0.86 mls @ 0 mls/hr 02/19/19 09:00 02/20/19 09:27 Miscellaneous Medication SC 0.86 mls QAM ECHO Administration Insulin Human Regular 0 units 02/20/19 12:01 02/20/19 12:13 Humulin R SC 4 unit .MODERATE SLIDING SC PRN Administration MODERATE SLIDING SCALE Protocol Pregabalin 75 mg 02/19/19 21:00 02/19/19 21:25 Lyrica PO 75 mg HS ECHO Administration Ropinirole HCl 1 mg 02/19/19 21:00 02/19/19 21:25 Requip PO 1 mg QPM ECHO Administration Tamsulosin HCl 0.4 mg 02/19/19 21:00 02/19/19 21:26 Flomax PO 0.4 mg HS ECHO Administration Trazodone HCl 50 mg 02/19/19 03:08 02/19/19 21:26 Desyrel PO 50 mg HS PRN Administration sleep - Exam General Appearance: NAD, awake alert Eye: PERRL, anicteric sclera ENT: normocephalic atraumatic, no oropharyngeal lesions Neck: supple, symmetric, no JVD, no thyromegaly, no lymphadenopathy Heart: RRR, no gallops, no rubs, normal peripheral pulses Respiratory: CTAB, no wheezes, no rales, no ronchi, normal chest expansion Gastrointestinal: soft, non-tender, non-distended, normal bowel sounds Extremities: no cyanosis, no clubbing, no edema Skin: normal turgor, no lesions Neurological: cranial nerve grossly intact, no new deficit Musculoskeletal: normal tone, normal strength, no muscle wasting Psychiatric: normal affect, A&O x 3 Hosp A/P (1) Monomorphic ventricular tachycardia Code(s): I47.2 - VENTRICULAR TACHYCARDIA Status: Acute Plan: s/p AICD discharge with termination of event x 2, started on Amiodarone 400mg BID, may need EP evaluation if recurrent (2) Ischemic cardiomyopathy Code(s): I25.5 - ISCHEMIC CARDIOMYOPATHY Status: Chronic Plan: EF 20-25%, continue medical mgmt, AICD present, Entresto on hold due to WOLFGANG (3) WOLFGANG (acute kidney injury) Code(s): N17.9 - ACUTE KIDNEY FAILURE, UNSPECIFIED Status: Acute Plan: Improved, avoid nephrotoxic meds and limit contrast exposure (4) CAD (coronary artery disease) Code(s): I25.10 - ATHSCL HEART DISEASE OF [place] CORONARY ARTERY W/O ANG PCTRS Status: Chronic Plan: Continue ASA/Plavix/Lipitor/Coreg (5) CKD (chronic kidney disease) stage 3, GFR 30-59 ml/min Code(s): N18.3 - CHRONIC KIDNEY DISEASE, STAGE 3 (MODERATE) Status: Chronic (6) DM2 (diabetes mellitus, type 2) Status: Chronic Plan: Continue home insulin therapy, ISS, ADA - Plan out of bed/ambulate, DVT proph w/SCDs Stable currently Continue Amiodarone 400mg BID Hold Entresto due to WOLFGANG Continue ASA/Plavix/Coreg AM lab: BMP, CBC
[2019-02-20] MEDS: Atorvastatin Calcium 40 MG TAB PO SCH (21:03)
[2019-02-20] MEDS: Tamsulosin HCl 0.4 MG CAP PO SCH (21:03)
[2019-02-20] MEDS: rOPINIRole HCl 1 MG TAB PO SCH (21:03)
[2019-02-20] MEDS: Famotidine 20 MG TAB PO SCH (21:04)
[2019-02-20] MEDS: Pregabalin 75 MG CAP PO SCH (21:04)
[2019-02-20] MEDS: traZODone HCl 50 MG TAB PO PRN (21:04)
[2019-02-21 05:03] LABS: Eosinophils 2 % (0-10); Hemoglobin 10.3 g/dL (14.0-18.0); Hypochromia SLIGHT = 6-15 cells (100X) (0-5/hpf); Lymphocytes 22 % (21-51); MDiff Complete? YES; Macrocytosis SLIGHT = 6-15 cells (100X) (0-5/hpf); Mean Corpuscular HGB CONC 34.6 g/dL (32.0-36.0); Mean Corpuscular Hemoglobin 35.7 pg (27.0-31.0); Monocytes 4 % (0-10); Neutrophil 72 % (42-75); Platelet Count 127 thou/uL (130-400); Platelet Morphology Comment Appears Adequate; RBC Distribution Width 13.3 % (11.5-14.5); Red Blood Cell (RBC) Count 2.88 mill/uL (4.70-6.10); White Blood Cell (WBC) Count 5.6 thou/uL (4.8-10.8)
[2019-02-21 05:10] LABS: Anion Gap 9 mmol/L (10-20); BUN (Urea Nitrogen) 31 mg/dL (8.4-25.7); Calc. Creatinine Clearance 79 mL/min (70-130); Calcium 9.1 mg/dL (7.8-10.44); Carbon Dioxide 27 mmol/L (23-31); Chloride 105 mmol/L (98-107); Estimated GFR-MDRD 43; Glucose 81 mg/dL (80-115); Potassium 4.4 mmol/L (3.5-5.1); Sodium 137 mmol/L (136-145)
[2019-02-21] MEDS: Aspirin 81 mg Enteric Coated Tablet PO SCH (08:57)
[2019-02-21] MEDS: Amiodarone 200 MG TAB PO SCH ×2 (08:57→21:16)
[2019-02-21] MEDS: Insulin Glargine 86 UNITS in Pre-Filled Syringe 1 EACH SC SCH (08:57)
[2019-02-21] MEDS: Carvedilol 6.25 MG TAB PO SCH ×2 (08:57→21:16)
[2019-02-21] MEDS: Allopurinol 100 MG TAB PO SCH (08:57)
[2019-02-21] MEDS: Folic Acid 1 MG TAB PO SCH (08:58)
[2019-02-21] MEDS: Clopidogrel Bisulfate 75 MG TAB PO SCH (08:58)
[2019-02-21] MEDS: Cyanocobalamin (Vitamin B-12) 1,000 MCG TAB PO SCH (08:58)
[2019-02-21] MEDS: Enoxaparin Sodium 30 MG/0.3 ML SYRINGE SC SCH (08:59)
[2019-02-21] MEDS: Fluticasone Propionate Nasal Spray 16 gm Bottle NASAL SCH (08:59)
[2019-02-21] MEDS: Insulin Regular 300 UNITS/3 ML VIAL SC PRN ×2 (11:53→17:10)
--- NOTE | 2019-02-21 15:59 | PDOC.HOSPP ---
- Subjective Encounter Date: 02/21/19 Encounter Time: 15:00 Subjective: f/u AICD discharge x 2 due to V-tach. Started Amiodarone and tolerating without recurrence. No new complaints. - Objective Vital Signs & Weight: Vital Signs (12 hours) Temp Pulse Pulse Pulse Resp BP BP 02/21/19 15:00 97.5 F L 65 18 02/21/19 14:41 82 63 123/63 02/21/19 11:09 97.6 F 68 16 02/21/19 08:57 115/69 02/21/19 07:38 98.4 F 64 16 BP BP Pulse Ox 02/21/19 15:00 127/57 L 98 02/21/19 14:41 112/59 L 02/21/19 11:09 98/53 L 96 02/21/19 08:57 02/21/19 07:38 95/52 L 93 L Weight Weight 284 lb 6.4 oz I&O: 02/20/19 02/21/19 02/22/19 06:59 06:59 06:59 Intake Total 1090 960 Output Total 1250 1300 Balance -160 -340 Result Diagrams: 02/21/19 04:16 02/21/19 04:16 Additional Labs: Accuchecks 02/21/19 02/20/19 02/20/19 11:05 20:23 16:38 POC Glucose 309 H 210 H 227 H Laboratory Tests 08/20/18 08/21/18 01/15/19 08:50 05:22 11:05 Hgb Creatinine Troponin I B-Natriuretic Peptide 828.4 H 554.2 H 697.3 H 02/19/19 02/19/19 02/19/19 00:59 00:59 00:59 Hgb Creatinine 2.34 H Troponin I 0.088 H B-Natriuretic Peptide 511.0 H 02/19/19 02/19/19 02/19/19 00:59 03:31 03:31 Hgb 11.0 L Creatinine 2.25 H Troponin I 0.126 H B-Natriuretic Peptide 02/19/19 02/19/19 03:31 07:06 Hgb 10.3 L Creatinine Troponin I 0.127 H B-Natriuretic Peptide EKG Reviewed by me: Yes (Tele - SR) Hospitalist ROS - Medication Medications: Active Medications Generic Name Dose Route Start Last Admin Trade Name Freq PRN Reason Stop Dose Admin Allopurinol 100 mg 02/19/19 09:00 02/21/19 08:57 Zyloprim PO 100 mg QAM ECHO Administration Amiodarone HCl 400 mg 02/20/19 09:00 02/21/19 08:57 Cordarone PO 400 mg BID ECHO Administration Aspirin 81 mg 02/19/19 09:00 02/21/19 08:57 Ecotrin PO 81 mg QAM ECHO Administration Atorvastatin Calcium 40 mg 02/19/19 21:00 02/20/19 21:03 Lipitor PO 40 mg HS ECHO Administration Carvedilol 12.5 mg 02/19/19 09:00 02/21/19 08:57 Coreg PO 12.5 mg BID ECHO Administration Cholecalciferol 5,000 units 02/21/19 09:00 02/21/19 08:57 Vitamin D3 PO 5,000 units DAILY ECHO Administration Clopidogrel Bisulfate 75 mg 02/19/19 09:00 02/21/19 08:58 Plavix PO 75 mg DAILY ECHO Administration Cyanocobalamin 1,000 mcg 02/21/19 09:00 02/21/19 08:58 Vitamin B-12 PO 1,000 mcg DAILY ECHO Administration Enoxaparin Sodium 30 mg 02/19/19 09:00 02/21/19 08:59 Lovenox SC 30 mg 0900 ECHO Administration Famotidine 20 mg 02/19/19 21:00 02/20/19 21:04 Pepcid PO 20 mg QPM ECHO Administration Fluticasone Propionate 0 gm 02/21/19 09:00 02/21/19 08:59 Flonase Nasal Preemption NASAL 2 sprays DAILY ECHO Administration Folic Acid 1 mg 02/19/19 09:00 02/21/19 08:58 Folvite PO 1 mg DAILY ECHO Administration Insulin Glargine 86 units/ 0.86 mls @ 0 mls/hr 02/19/19 09:00 02/21/19 08:57 Miscellaneous Medication SC 0.86 mls QAM ECHO Administration Insulin Human Regular 0 units 02/20/19 12:01 02/21/19 11:53 Humulin R SC 8 unit .MODERATE SLIDING SC PRN Administration MODERATE SLIDING SCALE Protocol Pregabalin 75 mg 02/19/19 21:00 02/20/19 21:04 Lyrica PO 75 mg HS ECHO Administration Ropinirole HCl 1 mg 02/19/19 21:00 02/20/19 21:03 Requip PO 1 mg QPM ECHO Administration Tamsulosin HCl 0.4 mg 02/19/19 21:00 02/20/19 21:03 Flomax PO 0.4 mg HS ECHO Administration Trazodone HCl 50 mg 02/19/19 03:08 02/20/19 21:04 Desyrel PO 50 mg HS PRN Administration sleep - Exam General Appearance: NAD, awake alert Eye: PERRL, anicteric sclera ENT: normocephalic atraumatic, no oropharyngeal lesions Neck: supple, symmetric, no JVD, no thyromegaly, no lymphadenopathy Heart: RRR, no gallops, no rubs Respiratory: CTAB, no wheezes, no rales, no ronchi Gastrointestinal: soft, non-tender, non-distended, normal bowel sounds Gastrointestinal - other findings: obese Extremities: no cyanosis, no clubbing, no edema Skin: normal turgor, no lesions Neurological: cranial nerve grossly intact, no new deficit Musculoskeletal: normal tone, normal strength Psychiatric: normal affect, A&O x 3 Hosp A/P (1) Monomorphic ventricular tachycardia Code(s): I47.2 - VENTRICULAR TACHYCARDIA Status: Acute Plan: Continue Amiodarone, AICD normal functioning device (2) Ischemic cardiomyopathy Code(s): I25.5 - ISCHEMIC CARDIOMYOPATHY Status: Chronic Plan: Continue Coreg/ASA/Plavix (3) WOLFGANG (acute kidney injury) Code(s): N17.9 - ACUTE KIDNEY FAILURE, UNSPECIFIED Status: Acute Plan: Improved, avoid nephrotoxic meds and limit contrast exposure (4) CAD (coronary artery disease) Code(s): I25.10 - ATHSCL HEART DISEASE OF [place] CORONARY ARTERY W/O ANG PCTRS Status: Chronic Plan: Continue med mgmt (5) CKD (chronic kidney disease) stage 3, GFR 30-59 ml/min Code(s): N18.3 - CHRONIC KIDNEY DISEASE, STAGE 3 (MODERATE) Status: Chronic (6) DM2 (diabetes mellitus, type 2) Status: Chronic Plan: Continue Glargine 86u daily, ISS - Plan PT/OT, out of bed/ambulate, DVT proph w/SCDs Stable currently Continue Amiodarone 400mg BID Hold Entresto due to WOLFGANG Continue ASA/Plavix/Coreg Resume Ranexa if BP stable Likely home in am
[2019-02-21] MEDS: Tamsulosin HCl 0.4 MG CAP PO SCH (21:16)
[2019-02-21] MEDS: Atorvastatin Calcium 40 MG TAB PO SCH (21:16)
[2019-02-21] MEDS: rOPINIRole HCl 1 MG TAB PO SCH (21:16)
[2019-02-21] MEDS: Pregabalin 75 MG CAP PO SCH (21:16)
[2019-02-21] MEDS: traZODone HCl 50 MG TAB PO PRN (21:16)
[2019-02-21] MEDS: Famotidine 20 MG TAB PO SCH (21:17)
--- NOTE | 2019-02-22 11:41 | PRG ---
DATE OF SERVICE: 02/22/2019 SUBJECTIVE: Mr. Brunson is doing well. He is feeling well. No complaints. OBJECTIVE: VITAL SIGNS: His heart rate is in the 60s. GENERAL: He is awake and alert. LUNGS: Clear. CARDIAC: Normal S1 and normal S2. ABDOMEN: Soft and nontender. EXTREMITIES: No edema. ASSESSMENT: 1. Status post defibrillator discharges due to monomorphic ventricular tachycardia. 2. Congestive heart failure, systolic, stable. 3. Coronary artery disease. PLAN: 1. He will go home on amiodarone 200 mg three times a day for two weeks, then one a day. 2. We have been informed that there is interaction with Ranexa. He will stop taking the Ranexa and resume at half dose if he has recurrent angina. 3. See us in a couple of weeks. Job ID: [id number]
--- NOTE | 2019-02-22 12:54 | DIS ---
DATE OF ADMISSION: 02/19/2019 DATE OF DISCHARGE: 02/22/2019 DISCHARGE DIAGNOSES: 1. Ventricular tachycardia, status post automatic implantable cardioverter-defibrillator discharge x2. 2. Ischemic cardiomyopathy with ejection fraction of 20% to 25%. 3. Chronic systolic congestive heart failure with ejection fraction of 20% to 25%, compensated. 4. Coronary artery disease, chronic and stable. 5. Acute kidney injury on chronic kidney disease. CONSULTATIONS: Dr. Schmitz and Dr. Lopez with Cardiology Service. PERTINENT LABORATORY AND X-RAY FINDINGS: Initial creatinine 2.3, potassium 4.4. BNP 511. Portable chest x-ray dated 02/19/2019, showed pulmonary vascular prominence. Initial EKG showed sinus mechanism at 74 beats per minute. [employer] AICD device interrogation dated 02/19/2019, showed two episodes of successful termination of ventricular tachycardia. Normal functioning device noted. HOSPITAL COURSE: The patient was initially admitted to the telemetry unit after presenting status post AICD discharge x2 with [employer] AICD interrogation confirming termination of two episodes of ventricular tachycardia. The patient was evaluated by the Cardiology Service and initiated on amiodarone infusion. The patient tolerated the infusion well and transition to oral amiodarone. The patient did not exhibit recurrence of ventricular tachycardia or ventricular fibrillation on continuous telemetry monitoring throughout the hospital course. Current recommendations per Cardiology are to continue amiodarone indefinitely. The patient was discontinued on Ranexa due to interaction with amiodarone. Overall, the patient remained clinically stable during the hospital course, tolerating regular oral intake and voiding appropriately. Vital signs have remained stable at the time of discharge. I have examined the patient at the time of discharge and discussed followup instructions. The patient overall clinically stable and ready for discharge on 02/22/2019. DISCHARGE MEDICATIONS: 1. Amiodarone 200 mg 1 tablet p.o. t.i.d. x2 weeks followed by 200 mg p.o. daily. 2. Aspirin 81 mg p.o. daily. 3. Allopurinol 300 mg p.o. daily. 4. Lipitor 40 mg p.o. at bedtime. 5. Carvedilol 12.5 mg p.o. b.i.d. 6. Plavix 75 mg p.o. daily. 7. Pepcid 20 mg p.o. at bedtime. 8. Tresiba 86 units subcutaneously q.a.m. 9. Potassium chloride 10 mEq p.o. q.a.m. 10. Lyrica 75 mg p.o. at bedtime. 11. Ropinirole 1 mg p.o. at bedtime. 12. Entresto 49/51 mg 1 tablet p.o. b.i.d. 13. Spironolactone 12.5 mg p.o. daily. 14. Trazodone 50 mg p.o. at bedtime. 15. Folic acid 1 mg p.o. daily. 16. Flomax 0.4 mg p.o. at bedtime. FOLLOWUP: The patient to follow up with his primary care provider, Dr. Dagoberto Parikh within 7 days of discharge. The patient will follow up with Dr. Lopez in 2 to 3 weeks. CONDITION ON DISCHARGE: Stable. ACTIVITY: Ad-dyllan. DIET: Heart healthy and ADA. CODE STATUS: Full. DISPOSITION: Home on 02/22/2019. Job ID: [id number]
[2019-02-22 13:36] VITALS: TEMP 97.9
[2019-02-22] MEDS: Amiodarone 200 MG TAB PO SCH (13:46)
[2019-02-22] MEDS: Allopurinol 100 MG TAB PO SCH (13:46)
[2019-02-22] MEDS: Aspirin 81 mg Enteric Coated Tablet PO SCH (13:47)
[2019-02-22] MEDS: Carvedilol 6.25 MG TAB PO SCH (13:47)
[2019-02-22] MEDS: Cyanocobalamin (Vitamin B-12) 1,000 MCG TAB PO SCH (13:48)
[2019-02-22] MEDS: Fluticasone Propionate Nasal Spray 16 gm Bottle NASAL SCH (13:48)
[2019-02-22] MEDS: Clopidogrel Bisulfate 75 MG TAB PO SCH (13:48)
[2019-02-22] MEDS: Insulin Glargine 86 UNITS in Pre-Filled Syringe 1 EACH SC SCH (13:49)
[2019-02-22] MEDS: Folic Acid 1 MG TAB PO SCH (13:49)
[2019-02-22 13:50] VITALS: BP 115/69
[2019-02-22] MEDS: Enoxaparin Sodium 30 MG/0.3 ML SYRINGE SC SCH (15:48)
== END 2019-02-22 16:21 | disposition home or self-care (01) | DRG 309 ==
LOC: ERS 00:08 → 2NO 03:53
PROVIDERS: ADMIT Emergency Medicine; ATTEND Emergency Medicine
DX: I49.01 Ventricular fibrillation (principal); N17.9 Acute kidney failure, unspecified; I50.22 Chronic systolic (congestive) heart failure; I13.0 Hypertensive heart and chronic kidney disease with heart failure and stage 1 through stage 4 chronic kidney disease, or unspecified chronic kidney disease; I47.2 Ventricular tachycardia; M10.9 Gout, unspecified; E78.5 Hyperlipidemia, unspecified; I48.0 Paroxysmal atrial fibrillation; E11.51 Type 2 diabetes mellitus with diabetic peripheral angiopathy without gangrene; I25.10 Atherosclerotic heart disease of native coronary artery without angina pectoris; N18.3 Chronic kidney disease, stage 3 (moderate); E11.22 Type 2 diabetes mellitus with diabetic chronic kidney disease; I25.5 Ischemic cardiomyopathy; G47.30 Sleep apnea, unspecified; Z79.82 Long term (current) use of aspirin; Z95.810 Presence of automatic (implantable) cardiac defibrillator; Z79.01 Long term (current) use of anticoagulants; Z79.899 Other long term (current) drug therapy; Z91.19 Patient's noncompliance with other medical treatment and regimen; Z95.1 Presence of aortocoronary bypass graft; Z90.49 Acquired absence of other specified parts of digestive tract; Z79.02 Long term (current) use of antithrombotics/antiplatelets
CPT/HCPCS: 36415; 36416; 71045; 80048; 80053; 82553; 83735; 83880; 84484; 85007; 85025; 85027; 93005; 94760; 96365; J1650; J1815; J3475

== ENCOUNTER 2019-03-11 21:25 | Inpatient (IN) | payer MEDICARE, MEDICAID ==
--- NOTE | 2019-03-11 22:18 | RAD ---
XR Chest 1 View Portable HISTORY: Chest pain and shortness of breath COMPARISON: 02/19/2019 study FINDINGS: Heart size is enlarged with pulmonary vascular engorgement. Postop sternotomy changes and a defibrillator device are noted. There are slightly more prominent markings in the right lung base. This could be a manifestation of edema but possibly indicate some developing infiltrate. Some of this may just be overlying soft tissue. IMPRESSION: Cardiomegaly with mild pulmonary edema change and chronic lung change. Possible more conf luent infiltrative process in the right lung base.
[2019-03-11 22:28] LABS: ALT (SGPT) 19 U/L (8-55); AST (SGOT) 17 U/L (5-34); Alkaline Phosphatase 96 U/L (40-110); Anion Gap 17 mmol/L (10-20); BUN (Urea Nitrogen) 44 mg/dL (8.4-25.7); Bilirubin, Total 0.5 mg/dL (0.2-1.2); Calc. Creatinine Clearance 0 mL/min (70-130); Calcium 9.3 mg/dL (7.8-10.44); Carbon Dioxide 23 mmol/L (23-31); Chloride 103 mmol/L (98-107); Estimated GFR-MDRD 28; Globulin 3.3 g/dL (2.4-3.5); Glucose 310 mg/dL (80-115); Potassium 4.5 mmol/L (3.5-5.1); Protein, Total 7.3 g/dL (5.8-8.1); Sodium 138 mmol/L (136-145)
[2019-03-11 22:32] LABS: #Lymphocytes 0.8 thou/uL (1.20-3.40); #Monocytes 0.6 thou/uL (0.11-0.59); #Neutrophils 7.3 thou/uL (1.40-6.50); %Basophils 0.1 % (0.0-1.0); %Eosinophils 0.5 % (0.0-10.0); %Monocytes 6.3 % (0.0-10.0); %Neutrophils 84.1 % (42.0-75.0); Hemoglobin 11.6 g/dL (14.0-18.0); Mean Corpuscular HGB CONC 34.7 g/dL (32.0-36.0); Mean Corpuscular Hemoglobin 35.4 pg (27.0-31.0); Mean Platelet Volume 7.9 fL (7.4-10.4); Platelet Count 112 thou/uL (130-400); Platelet Morphology Comment Appears Decreased; RBC Distribution Width 13.5 % (11.5-14.5); Red Blood Cell (RBC) Count 3.29 mill/uL (4.70-6.10); White Blood Cell (WBC) Count 8.7 thou/uL (4.8-10.8)
[2019-03-11 22:48] LABS: CKMB 2.4 ng/mL (0-6.6)
[2019-03-12] MEDS ORDERED: Furosemide 40 MG/4 ML VIAL ONE (00:13)
[2019-03-12] MEDS ORDERED: Ondansetron ODT 4 MG TAB SL PRN (00:42)
[2019-03-12] MEDS ORDERED: Acetaminophen 325 MG TAB PO PRN (00:42)
[2019-03-12] MEDS ORDERED: Ondansetron PF 4 MG/2 ML Vial IVP PRN (00:42)
[2019-03-12 01:35] LABS: Troponin I 1.865 ng/mL (< 0.028)
[2019-03-12] MEDS ORDERED: traZODone HCl 50 MG TAB PO PRN (01:36)
[2019-03-12] MEDS ORDERED: Dextrose 50% Abboject 50 ML SYRINGE SLOW IVP PRN (01:38)
[2019-03-12] MEDS ORDERED: Dextrose 5% in Water 1,000 ML IV PRN (01:38)
[2019-03-12] MEDS ORDERED: Bisacodyl 5 MG TAB PO PRN (01:38)
[2019-03-12] MEDS ORDERED: hydrALAZINE 20 MG/ML VIAL SLOW IVP PRN (01:41)
[2019-03-12] MEDS ORDERED: Carvedilol 25 MG TAB PO SCH (02:00)
[2019-03-12] MEDS ORDERED: Furosemide 40 MG/4 ML VIAL SLOW IVP SCH (02:00)
[2019-03-12] MEDS ORDERED: Metolazone 2.5 MG TAB PO SCH (02:00)
[2019-03-12] MEDS: cefTRIAXone\\ROCEPHIN 1 GM in Sodium Chloride 0.9% 100 ML IVPB SCH (02:16)
--- NOTE | 2019-03-12 02:57 | HP ---
PRESENTING COMPLAINT: Worsening shortness of breath. HISTORY OF PRESENT ILLNESS: Mr. Brunson is a 68-year-old male with past medical history of hypertension, diabetes mellitus type 2, CKD stage 3-4 with baseline creatinine of around 2, history of systolic CHF, paroxysmal atrial fibrillation, status post Watchman procedure, as well as AICD placed, who [facility], but presented today because of worsening shortness of breath. The patient states he has been getting progressive worsening shortness of breath since one week with continue to worsen. He has also be gaining weight slowly over the last three weeks. He has seen his primary care physician who has adjusted his diuretic from 20 mg b.i.d. of torsemide to 20 mg b.i.d. of furosemide. The patient states he still continue to gain weight. The patient states he has self increased his furosemide to 40 mg b.i.d. since the last 3 days with no change in his weight. He believes he has gone from a weight of 268 pounds one week ago with about 282 now. The patient states he was also seen by his planogrammer during the interim. He has a recent admission for nonsustained ventricular tachycardia on multiple shocks two weeks ago. On arrival in the ED, the patient was markedly dyspneic and started on non-rebreather mask. He has been weaned off non-rebreather mask, and he is currently on room air now. He admits to cough, but no sputum. No chest pain, palpitation, or fever. PAST MEDICAL HISTORY: Significant for systolic CHF with EF of 20%. History of AICD placement, history of coronary artery disease with ischemic cardiomegaly, history of paroxysmal atrial fibrillation, hyperlipidemia, hypertension, and CKD stage 3. PAST SURGICAL HISTORY: AICD placement x2, history of CABG, history of Watchman procedure, and history of previous multiple cardioversions. FAMILY HISTORY: The patient's family has a history of [place] in the father in his 60s. SOCIAL HISTORY: The patient resides in community with his spouse. Fully functional at baseline. Denies any tobacco, alcohol, or illicit drug use. HOME MEDICATIONS: See extensive medication list. ALLERGIES: NO KNOWN DRUG ALLERGIES. REVIEW OF SYSTEMS: All systems reviewed x14 were negative except as mentioned above. PHYSICAL EXAMINATION: VITAL SIGNS: Blood pressure of 135/68, respiratory rate of 20, O2 saturation is 94% on room air, temperature of 98.7, and pulse of 82. GENERAL: Morbidly obese, elderly male, lying in bed, not in any distress. HEENT: Head is atraumatic, normocephalic. Pupils are equal, reactive to light. No periorbital edema. NECK: No JVD. No carotid bruit. RESPIRATORY: Moderate bibasilar crepitations. No wheeze or rhonchi. CARDIOVASCULAR: S1, S2. Rate and rhythm regular. Right upper chest wall AICD device, external defibrillator also around the patient's neck area. GI: Abdomen full, soft. Bowel sounds positive. EXTREMITIES: 2+ pedal edema extending to the mid rodriguez of both lower extremities. No calf tenderness. NEURO: The patient is alert, conversant. No neurological focal motor deficits. LABORATORY DATA: WBC 8.7, hemoglobin 11.6, neutrophils 84%. No bands. Platelet 112. Sodium 138, potassium 4.5, bicarb 23, BUN 44, creatinine 2.3, last was 1.88 two weeks ago. Troponin 0.08. BNP of 953. Chest x-ray shows moderate pulmonary congestive changes with confluent infiltrative process in the right lung base, suspected. IMPRESSION: 1. Acute systolic congestive heart failure exacerbation. 2. Presumed right base pneumonia. 3. Hypertension. 4. Acute kidney injury on baseline chronic kidney disease, stage 3. 5. Persistent fluid overload with lower extremity edema. 6. Diabetes mellitus. 7. Elevated troponin. PLAN: We will admit the patient to inpatient status. We will manage the patient for the following, 1. CHF exacerbation. Continue diuretics. We will increase furosemide to 40 mg q.12 IV. We will add low-dose metolazone to help patient to achieve diuresis. Follow daily weights. Intake and output monitoring. We will also follow electrolytes and correct as needed. We will obtain serum magnesium level. 2. Acute kidney injury on baseline chronic kidney disease, stage 3, likely due to cardiorenal syndrome type 2. We will follow with diuresis. The patient might benefit. We will temporarily hold Entresto once the renal function improved to baseline. The need for Nephrology evaluation again discussed with patient. The patient previously follow with but would like a different nephrology input. We will consult another planogrammer now. 3. Hypertension. Continue home regimen. We will hold Entresto. 4. Atrial fibrillation, controlled, now in sinus rhythm. Continue amiodarone. 5. Diabetes mellitus. We will add insulin sliding scale with Accu-Cheks. Continue home regimen for now. May need adjustment in his medications. 6. DVT prophylaxis. We will do subcutaneous Lovenox. 7. Advanced directive discussed with patient. The patient want trial of full code. TIME SPENT: Total time spent in review of record, discussion with the patient, and evaluation greater than 60 minutes. Job ID: [id number]
[2019-03-12 04:40] LABS: #Lymphocytes 1.1 thou/uL (1.20-3.40); #Monocytes 0.6 thou/uL (0.11-0.59); #Neutrophils 5.4 thou/uL (1.40-6.50); %Basophils 0.3 % (0.0-1.0); %Eosinophils 0.2 % (0.0-10.0); %Monocytes 8.5 % (0.0-10.0); Hemoglobin 10.9 g/dL (14.0-18.0); Mean Corpuscular HGB CONC 34.1 g/dL (32.0-36.0); Mean Corpuscular Hemoglobin 34.9 pg (27.0-31.0); Platelet Count 114 thou/uL (130-400); RBC Distribution Width 13.6 % (11.5-14.5); Red Blood Cell (RBC) Count 3.11 mill/uL (4.70-6.10); White Blood Cell (WBC) Count 7.1 thou/uL (4.8-10.8)
[2019-03-12 04:55] LABS: Anion Gap 16 mmol/L (10-20); BUN (Urea Nitrogen) 44 mg/dL (8.4-25.7); Calc. Creatinine Clearance 64 mL/min (70-130); Carbon Dioxide 22 mmol/L (23-31); Chloride 104 mmol/L (98-107); Estimated GFR-MDRD 33; Glucose 214 mg/dL (80-115); Magnesium 1.8 mg/dL (1.6-2.6); Potassium 4.4 mmol/L (3.5-5.1); Sodium 138 mmol/L (136-145)
[2019-03-12 05:03] LABS: Troponin I 3.692 ng/mL (< 0.028)
[2019-03-12] MEDS: Furosemide 40 MG/4 ML VIAL SLOW IVP SCH ×2 (05:26→14:08)
[2019-03-12] MEDS ORDERED: Insulin Glargine 86 UNITS in Pre-Filled Syringe 1 EACH SC SCH (09:00)
[2019-03-12] MEDS ORDERED: Allopurinol 300 MG TAB PO SCH (09:00)
[2019-03-12] MEDS ORDERED: INSULIN DEGLUDEC 86 UNIT SQ SCH (09:00)
[2019-03-12] MEDS: Aspirin 81 mg Enteric Coated Tablet PO SCH (09:36)
[2019-03-12] MEDS: Folic Acid 1 MG TAB PO SCH (09:36)
[2019-03-12] MEDS: Cyanocobalamin (Vitamin B-12) 1,000 MCG TAB PO SCH (09:37)
[2019-03-12] MEDS: Amiodarone 200 MG TAB PO SCH (09:37)
[2019-03-12] MEDS: Metolazone 2.5 MG TAB PO SCH ×2 (09:37→20:32)
[2019-03-12] MEDS: Clopidogrel Bisulfate 75 MG TAB PO SCH (09:38)
[2019-03-12] MEDS: Spironolactone 25 MG TAB PO SCH (09:38)
[2019-03-12] MEDS: Carvedilol 25 MG TAB PO SCH ×2 (09:38→20:33)
[2019-03-12] MEDS: Potassium Chloride 10 MEQ TAB PO SCH (09:39)
[2019-03-12] MEDS: HumaLOG 300 UNITS/3 ML VIAL SC PRN (10:50)
--- NOTE | 2019-03-12 12:36 | CON ---
DATE OF CONSULTATION: REASON FOR CONSULTATION: Elevated creatinine. HISTORY OF PRESENT ILLNESS: This is a 68-year-old gentleman with history of CKD and recurrent episodes of acute kidney injury, presented to the hospital last night for worsening shortness of breath. The patient was diuresed with improvement in creatinine from 2.3 to 2. The patient denies any headache, numbness, tingling, or weakness. PAST MEDICAL HISTORY: Significant for congestive heart failure, AICD, coronary artery disease, ischemic cardiomyopathy, atrial fibrillation, hypertension, recurrent episodes of acute kidney injury, CABG, Watchman procedure, cardioversion. FAMILY HISTORY: Negative for ESRD. SOCIAL HISTORY: No alcohol or drug use. ALLERGIES: REVIEWED. HOME MEDICATIONS: List reviewed. HOSPITAL MEDICATIONS: List reviewed. REVIEW OF SYSTEMS: A 15-point review of system was performed, negative except for positives noted above. GENERAL: HEAD: NECK: No swelling or lumps. NOSE: No epistaxis or discharge. EYES: No diplopia or pain. RESPIRATORY: CARDIOVASCULAR: GASTROINTESTINAL: /ACQUISITION MARKETING COORDINATOR: MUSCULOSKELETAL: No joint pain. NEUROPSYCHIATIC SYSTEMS: No suicidal ideation. No ideation. SKIN: Denies any rash or ulcer. CONSTITUTIONAL: No fever or chills. PHYSICAL EXAMINATION: CONSTITUTIONAL: The patient is awake and alert. VITAL SIGNS: Afebrile. Pulse 75, breathing 16, blood pressure 118/59. GENERAL APPEARANCE AND MENTAL STATUS: Fair. HEAD/NECK: Normocephalic. Atraumatic. EYES: EOMI. No deformity. EARS: Clear. No ulcers. NOSE: Intact. No lesions. MOUTH: Clear. No discharge. THROAT: Clear. No exudate. LUNGS: Clear. No crackles. CARDIAC: S1, S2. No rub. ABDOMEN: Benign. Bowel sounds positive. GENITALIA/RECTUM: [place] absent. BACK/EXTREMITIES: Edema 0+. NEUROLOGICAL: Alert and motor intact. SKIN: LYMPHATICS: LABORATORY DATA: Reviewed. ASSESSMENT AND PLAN: 1. Stage 3 chronic kidney disease, acute kidney injury, improved. 2. Hypertension, stable. 3. Anemia, stable. 4. ATN, improved. No indication for dialysis. Overall prognosis is poor. Job ID: [id number]
[2019-03-12] MEDS ORDERED: traMADol HCl 50 MG TAB PO PRN (13:05)
[2019-03-12] MEDS ORDERED: Morphine 2 MG/ML SYRINGE SLOW IVP PRN (13:05)
--- NOTE | 2019-03-12 13:08 | PDOC.HOSPP ---
- Subjective Encounter Date: 03/12/19 Encounter Time: 11:35 Subjective: no sob or palp or chest pain has headache is sitting in chair - Objective Vital Signs & Weight: Vital Signs (12 hours) Temp Pulse Resp BP Pulse Ox 03/12/19 11:03 98.4 F 75 17 118/59 L 94 L 03/12/19 07:24 99.3 F 89 15 146/73 H 97 03/12/19 05:24 98.4 F 83 17 119/59 L 95 03/12/19 01:38 94 L 03/12/19 01:15 98.7 F 82 20 135/68 94 L Weight Weight 290 lb I&O: 03/11/19 03/12/19 03/13/19 06:59 06:59 06:59 Intake Total 240 Output Total 1500 Balance -1260 Result Diagrams: 03/12/19 03:55 03/12/19 03:55 Additional Labs: Accuchecks 03/12/19 03/12/19 10:52 05:24 POC Glucose 294 H 224 H Hospitalist ROS - Medication Medications: Active Medications Generic Name Dose Route Start Last Admin Trade Name Hema PRN Reason Stop Dose Admin Amiodarone HCl 200 mg 03/12/19 09:00 03/12/19 09:37 Cordarone PO 200 mg DAILY ECHO Administration Aspirin 81 mg 03/12/19 09:00 03/12/19 09:36 Ecotrin PO 81 mg QAM ECHO Administration Carvedilol 12.5 mg 03/12/19 09:00 03/12/19 09:38 Coreg PO 12.5 mg BID ECHO Administration Cholecalciferol 5,000 units 03/12/19 09:00 03/12/19 09:35 Vitamin D3 PO 5,000 units DAILY ECHO Administration Clopidogrel Bisulfate 75 mg 03/12/19 09:00 03/12/19 09:38 Plavix PO 75 mg DAILY ECHO Administration Cyanocobalamin 1,000 mcg 03/12/19 09:00 03/12/19 09:37 Vitamin B-12 PO 1,000 mcg DAILY ECHO Administration Folic Acid 1 mg 03/12/19 09:00 03/12/19 09:36 Folvite PO 1 mg DAILY ECHO Administration Furosemide 40 mg 03/12/19 06:00 03/12/19 05:26 Lasix SLOW IVP 40 mg 0600,1400 ECHO Administration Ceftriaxone Sodium 1 gm/ 100 mls @ 200 mls/hr 03/12/19 02:00 03/12/19 02:16 Sodium Chloride IVPB 100 mls 0200 ECHO Administration Insulin Glargine 86 units/ 0.86 mls @ 0 mls/hr 03/12/19 09:00 03/12/19 09:42 Miscellaneous Medication SC 0.86 mls QAM ECHO Administration Insulin Human Lispro 0 units 03/12/19 01:38 03/12/19 10:50 Humalog SC 9 units .AGGRESSIVE SLIDING PRN Administration Aggressive Correctional Scale Metolazone 2.5 mg 03/12/19 09:00 03/12/19 09:37 Zaroxolyn PO 2.5 mg BID ECHO Administration Potassium Chloride 10 meq 03/12/19 08:00 03/12/19 09:39 Klor-Con 10 PO 10 meq QAM-WM ECHO Administration Spironolactone 12.5 mg 03/12/19 08:00 03/12/19 09:38 Aldactone PO 12.5 mg QAM-WM ECHO Administration - Exam General Appearance: awake alert Eye: PERRL, anicteric sclera ENT: no oropharyngeal lesions, moist mucosa Neck: supple, no JVD Heart: no murmur, no gallops Respiratory: no wheezes, no rales Gastrointestinal: soft, non-tender, non-distended, normal bowel sounds Extremities: no cyanosis, 2+ LE edema Neurological: cranial nerve grossly intact, no focal deficits Psychiatric: normal affect, A&O x 3 Hosp A/P (1) WOLFGANG (acute kidney injury) Code(s): N17.9 - ACUTE KIDNEY FAILURE, UNSPECIFIED Status: Acute (2) Acute on chronic systolic ACC/AHA stage C congestive heart failure Code(s): I50.23 - ACUTE ON CHRONIC SYSTOLIC (CONGESTIVE) HEART FAILURE Status : Acute (3) Thrombocytopenia Code(s): D69.6 - THROMBOCYTOPENIA, UNSPECIFIED Status: Chronic (4) Type [address] elevation Code(s): I21.A1 - MYOCARDIAL INFARCTION TYPE 2 Status: Acute (5) BPH (benign prostatic hyperplasia) Code(s): N40.0 - BENIGN PROSTATIC HYPERPLASIA WITHOUT LOWER URINRY TRACT SYMP Status: Chronic Qualifiers: Lower urinary tract symptom presence: symptoms absent Qualified Code(s): N40.0 - Benign prostatic hyperplasia without lower urinary tract symptoms (6) CAD (coronary artery disease) Code(s): I25.10 - ATHSCL HEART DISEASE OF [place] CORONARY ARTERY W/O ANG PCTRS Status: Chronic Qualifiers: Coronary Disease-Associated Artery/Lesion type: bypass graft [place] vs. transplanted heart: [place] heart Associated angina: with stable angina Qualified Code(s): I25.708 - Atherosclerosis of coronary artery bypass graft(s) , unspecified, with other forms of angina pectoris (7) CKD (chronic kidney disease) stage 3, GFR 30-59 ml/min Code(s): N18.3 - CHRONIC KIDNEY DISEASE, STAGE 3 (MODERATE) Status: Chronic (8) DM2 (diabetes mellitus, type 2) Status: Chronic Qualifiers: Diabetes mellitus group home insulin use: with winch driver use Diabetes mellitus complication status: with kidney complications Diabetes mellitus complication detail: with chronic kidney disease Chronic kidney disease stage : stage 3 (moderate) Qualified Code(s): E11.22 - Type 2 diabetes mellitus with diabetic chronic kidney disease; N18.3 - Chronic kidney disease, stage 3 ( moderate); Z79.4 - MCFP (current) use of insulin (9) Gout Code(s): M10.9 - GOUT, UNSPECIFIED Status: Chronic Qualifiers: Gout site: unspecified site (10) HLD (hyperlipidemia) Code(s): E78.5 - HYPERLIPIDEMIA, UNSPECIFIED Status: Chronic (11) Hypertension Code(s): I10 - ESSENTIAL (PRIMARY) HYPERTENSION Status: Chronic Qualifiers: Hypertension type: essential hypertension Qualified Code(s): I10 - Essential (primary) hypertension (12) Morbid obesity with BMI of 40.0-44.9, adult Code(s): E66.01 - MORBID (SEVERE) OBESITY DUE TO EXCESS CALORIES; Z68.41 - BODY MASS INDEX (BMI) 40.0-44.9, ADULT Status: Chronic (13) Peripheral neuropathy Code(s): G62.9 - POLYNEUROPATHY, UNSPECIFIED Status: Chronic - Plan is on lasix, spironolactone and metolazone, watch for renal function, needs to scale this down quickly, nephr is following pt trop of around 3, no clinical symptoms, cardio consultation, has orthopnea now, needs diuresis first continue asp, amiodarone, plavix, corg, lipitor, lantus, flomax, lyrica continue ceftriaxone, ?right LL infiltrate, will repeat cxr in 36hrs to see if its congestion related h/o afib with watchman device, aicd
[2019-03-12] MEDS: Enoxaparin Sodium 30 MG/0.3 ML SYRINGE SC SCH (14:08)
--- NOTE | 2019-03-12 19:43 | CON ---
DATE OF CONSULTATION: HISTORY OF PRESENT ILLNESS: Heath Brunson is a 68-year-old white male with longstanding cardiac history. He has previously undergone bypass surgery and his last catheterization in June 2014 revealed patent SALCEDO to the LAD, a vein graft to the ramus and pain vein graft to the right posterior descending. He had severe diffuse distal disease. Ejection fraction was 25%. It was felt that no further intervention would be worthwhile from a coronary artery standpoint. He has an ICD in place and apparently, he has had a Watchman placed as well. He was recently hospitalized at the beginning of this month with episodes of ventricular tachycardia, ventricular fibrillation requiring multiple antitachycardia pacing episodes and two ICD shocks. He was loaded with amiodarone and has not had any further ICD shocks since that time. Over the last 2 to 3 weeks, he has noted increasing peripheral edema as well as increasing shortness of breath. He denies any chest discomfort. When he arrived to the emergency room, he was placed on oxygen and given intravenous diuretics. He states that the rest of his breathing at the present time is doing well, however , will become dyspneic after walking to the bathroom. PAST MEDICAL HISTORY: Ejection fraction approximately 20%, coronary artery disease, paroxysmal atrial fibrillation, hyperlipidemia, hypertension, chronic kidney disease. PAST SURGICAL HISTORY: CABG, AICD placement, history of Watchman, multiple cardioversions. MEDICATIONS: 1. Allopurinol 300 q.a.m. 2. Amiodarone 200 mg daily. 3. Aspirin 81 daily. 4. Atorvastatin 40 at bedtime. 5. Carvedilol 12.5 b.i.d. 6. Plavix 75 daily. 7. Pepcid 20 q.a.m. 8. Flonase nasal spray. 9. Folvite 1 mg daily. 10. Furosemide 20 b.i.d. 11. Insulin. 12. KCl 10 mEq q.a.m. 13. Lyrica 75 at bedtime. 14. Requip 1 mg q.p.m. 15. Entresto 49/51 b.i.d. 16. Aldactone 12.5 q.a.m. 17. Flomax 0.4 daily. 18. Trazodone 50 at bedtime. ALLERGIES: NONE. SOCIAL HISTORY: He does not smoke or drink. FAMILY HISTORY: Father of [place] in his 60s. REVIEW OF SYSTEMS: 12-point review of systems is otherwise unremarkable. PHYSICAL EXAMINATION: VITAL SIGNS: Blood pressure 118/59, pulse 75. HEENT: PERRL. NECK: Supple. CHEST: Reveals crackles at the bases. CARDIOVASCULAR: S1 and S2 normal without any S3, S4, or murmurs. ABDOMEN: Obese, normal bowel sounds. No tenderness. EXTREMITIES: Revealed 2+ pretibial edema. NEUROLOGICAL: Grossly intact. SKIN: Warm and dry. LABORATORY DATA: EKG reveals sinus rhythm with nonspecific ST and T-wave changes. Hemoglobin 10.9, hematocrit 31.9, white count 7100, platelets 114,000. Sodium 138, potassium 4.4, chloride 104, carbon dioxide 22, BUN 44, creatinine 2.0. Troponin I 3.692. BNP 797.6. IMPRESSION: 1. Acute on chronic congestive heart failure. 2. Questionable right basilar pneumonia. 3. Probable [id number] myocardial infarction with troponin I of up to 3.692. At last catheterization, he had patent grafts with diffuse distal disease and it was felt that no further intervention would be warranted. 4. Paroxysmal atrial fibrillation. 5. Hypertension. 6. Chronic kidney disease. 7. Diabetes. 8. Recent episodes of ventricular tachycardia requiring ICD shocks. PLAN: The patient will continue to be diuresed with close monitoring of his renal function. [facility] will be performed to assess the efficacy of amiodarone in suppressing his ventricular arrhythmias as well as to evaluate his volume status. We will follow the patient with you. Job ID: [id number] MTDD
[2019-03-12] MEDS: Tamsulosin HCl 0.4 MG CAP PO SCH (20:32)
[2019-03-12] MEDS: Famotidine 20 MG TAB PO SCH (20:32)
[2019-03-12] MEDS: Pregabalin 75 MG CAP PO SCH (20:32)
[2019-03-12] MEDS: rOPINIRole HCl 1 MG TAB PO SCH (20:32)
[2019-03-12] MEDS: Atorvastatin Calcium 40 MG TAB PO SCH (20:33)
[2019-03-12] MEDS: Nitroglycerin 2% Ointment 1 INCH/1 GM Packet TOP SCH (21:12)
[2019-03-13] MEDS: cefTRIAXone\\ROCEPHIN 1 GM in Sodium Chloride 0.9% 100 ML IVPB SCH (02:59)
[2019-03-13 05:22] LABS: Critical Call Chem Troponin I RESULT DECREASING; Troponin I 2.557 ng/mL (< 0.028)
[2019-03-13] MEDS: Furosemide 40 MG/4 ML VIAL SLOW IVP SCH ×3 (05:51→14:17)
[2019-03-13] MEDS: Nitroglycerin 2% Ointment 1 INCH/1 GM Packet TOP SCH ×2 (05:51→13:56)
[2019-03-13] MEDS: Insulin Glargine 40 UNITS in Pre-Filled Syringe 1 EACH SC SCH (08:34)
[2019-03-13] MEDS: Insulin Glargine 46 UNITS in Pre-Filled Syringe 1 EACH SC SCH (08:35)
[2019-03-13] MEDS: Spironolactone 25 MG TAB PO SCH (08:36)
[2019-03-13] MEDS: Aspirin 81 mg Enteric Coated Tablet PO SCH (08:36)
[2019-03-13] MEDS: Clopidogrel Bisulfate 75 MG TAB PO SCH (08:36)
[2019-03-13] MEDS: Potassium Chloride 10 MEQ TAB PO SCH (08:36)
[2019-03-13] MEDS: Carvedilol 25 MG TAB PO SCH ×2 (08:36→21:32)
[2019-03-13] MEDS: Cyanocobalamin (Vitamin B-12) 1,000 MCG TAB PO SCH (08:38)
[2019-03-13] MEDS: Folic Acid 1 MG TAB PO SCH (08:38)
[2019-03-13] MEDS: Allopurinol 100 MG TAB PO SCH (08:38)
[2019-03-13] MEDS: Metolazone 2.5 MG TAB PO SCH (08:38)
[2019-03-13] MEDS: Amiodarone 200 MG TAB PO SCH (08:38)
[2019-03-13] MEDS: Diabetic Tussin 200 MG/10 ML UDCUP PO PRN ×3 (08:39→18:32)
[2019-03-13] MEDS: Enoxaparin Sodium 30 MG/0.3 ML SYRINGE SC SCH (08:39)
--- NOTE | 2019-03-13 11:27 | PDOC.HOSPP ---
- Subjective Encounter Date: 03/13/19 Encounter Time: 08:30 Subjective: sitting on bed, gets sob on min exertion no chest pain or palp - Objective Vital Signs & Weight: Vital Signs (12 hours) Temp Pulse Resp BP BP Pulse Ox 03/13/19 08:42 111/58 L 03/13/19 07:22 98.2 F 78 18 99/51 L 94 L 03/13/19 04:03 98.2 F 72 18 136/66 92 L Weight Weight 281 lb 1.6 oz I&O: 03/12/19 03/13/19 03/14/19 06:59 06:59 06:59 Intake Total 240 1360 Output Total 1500 2620 Balance -1260 -1260 Result Diagrams: 03/12/19 03:55 03/12/19 03:55 Additional Labs: Accuchecks 03/13/19 03/13/19 03/12/19 10:35 05:29 20:54 POC Glucose 307 H 129 H 201 H 03/12/19 03/12/19 16:47 10:52 POC Glucose 124 H 294 H Hospitalist ROS - Medication Medications: Active Medications Generic Name Dose Route Start Last Admin Trade Name Freq PRN Reason Stop Dose Admin Allopurinol 100 mg 03/13/19 09:00 03/13/19 08:38 Zyloprim PO 100 mg DAILY ECHO Administration Amiodarone HCl 200 mg 03/12/19 09:00 03/13/19 08:38 Cordarone PO 200 mg DAILY ECHO Administration Aspirin 81 mg 03/12/19 09:00 03/13/19 08:36 Ecotrin PO 81 mg QAM ECHO Administration Atorvastatin Calcium 40 mg 03/12/19 21:00 03/12/19 20:33 Lipitor PO 40 mg HS ECHO Administration Carvedilol 12.5 mg 03/12/19 09:00 03/13/19 08:36 Coreg PO 12.5 mg BID ECHO Administration Cholecalciferol 5,000 units 03/12/19 09:00 03/13/19 08:35 Vitamin D3 PO 5,000 units DAILY ECHO Administration Clopidogrel Bisulfate 75 mg 03/12/19 09:00 03/13/19 08:36 Plavix PO 75 mg DAILY ECHO Administration Cyanocobalamin 1,000 mcg 03/12/19 09:00 03/13/19 08:38 Vitamin B-12 PO 1,000 mcg DAILY ECHO Administration Enoxaparin Sodium 30 mg 03/12/19 09:00 03/13/19 08:39 Lovenox SC 30 mg 0900 ECHO Administration Famotidine 20 mg 03/12/19 21:00 03/12/19 20:32 Pepcid PO 20 mg QPM ECHO Administration Folic Acid 1 mg 03/12/19 09:00 03/13/19 08:38 Folvite PO 1 mg DAILY ECHO Administration Furosemide 40 mg 03/12/19 06:00 03/13/19 05:51 Lasix SLOW IVP 40 mg 0600,1400 CEHO Administration Guaifenesin 200 mg 03/12/19 01:41 03/13/19 08:39 Robitussin Sf PO 200 mg Q4H PRN Administration Cough Ceftriaxone Sodium 1 gm/ 100 mls @ 200 mls/hr 03/12/19 02:00 03/13/19 02:59 Sodium Chloride IVPB 100 mls 0200 ECHO Administration Insulin Glargine 40 units/ 0.4 mls @ 0 mls/hr 03/13/19 09:00 03/13/19 08:34 Miscellaneous Medication SC 0.4 mls QAM ECHO Administration Insulin Glargine 46 units/ 0.46 mls @ 0 mls/hr 03/13/19 09:00 03/13/19 08:35 Miscellaneous Medication SC 0.46 mls QAM ECHO Administration Insulin Human Lispro 0 units 03/12/19 01:38 03/12/19 10:50 Humalog SC 9 units .AGGRESSIVE SLIDING PRN Administration Aggressive Correctional Scale Metolazone 2.5 mg 03/12/19 09:00 03/13/19 08:38 Zaroxolyn PO 2.5 mg BID ECHO Administration Nitroglycerin 0.5 inch 03/12/19 22:00 03/13/19 05:51 Nitro-Bid 2% Ointment TOP 0.5 inch Q8HR ECHO Administration Potassium Chloride 10 meq 03/12/19 08:00 03/13/19 08:36 Klor-Con 10 PO 10 meq QAM-WM ECHO Administration Pregabalin 75 mg 03/12/19 21:00 03/12/19 20:32 Lyrica PO 75 mg HS ECHO Administration Ropinirole HCl 1 mg 03/12/19 21:00 03/12/19 20:32 Requip PO 1 mg QPM ECHO Administration Spironolactone 12.5 mg 03/12/19 08:00 03/13/19 08:36 Aldactone PO 12.5 mg QAM-WM ECHO Administration Tamsulosin HCl 0.4 mg 03/12/19 21:00 03/12/19 20:32 Flomax PO 0.4 mg HS ECHO Administration Tramadol HCl 50 mg 03/12/19 13:05 03/13/19 08:39 Ultram PO 50 mg Q6H PRN Administration Moderate Pain (4-6) Trazodone HCl 50 mg 03/12/19 01:36 03/12/19 20:33 Desyrel PO 50 mg HSPRN PRN Administration Insomnia - Exam General Appearance: awake alert Eye: PERRL, anicteric sclera ENT: no oropharyngeal lesions, moist mucosa Neck: supple, no JVD Heart: no murmur, no gallops Respiratory: no wheezes, no rales Gastrointestinal: soft, non-tender, non-distended, normal bowel sounds Extremities: no cyanosis, 1+ LE edema Extremities - other findings: left LE edema+ Neurological: cranial nerve grossly intact, no focal deficits Psychiatric: normal affect, A&O x 3 Hosp A/P (1) WOLFGANG (acute kidney injury) Code(s): N17.9 - ACUTE KIDNEY FAILURE, UNSPECIFIED Status: Acute (2) Acute on chronic systolic ACC/AHA stage C congestive heart failure Code(s): I50.23 - ACUTE ON CHRONIC SYSTOLIC (CONGESTIVE) HEART FAILURE Status : Acute (3) Thrombocytopenia Code(s): D69.6 - THROMBOCYTOPENIA, UNSPECIFIED Status: Chronic (4) Type [address] elevation Code(s): I21.A1 - MYOCARDIAL INFARCTION TYPE 2 Status: Acute (5) BPH (benign prostatic hyperplasia) Code(s): N40.0 - BENIGN PROSTATIC HYPERPLASIA WITHOUT LOWER URINRY TRACT SYMP Status: Chronic Qualifiers: Lower urinary tract symptom presence: symptoms absent Qualified Code(s): N40.0 - Benign prostatic hyperplasia without lower urinary tract symptoms (6) CAD (coronary artery disease) Code(s): I25.10 - ATHSCL HEART DISEASE OF [place] CORONARY ARTERY W/O ANG PCTRS Status: Chronic Qualifiers: Coronary Disease-Associated Artery/Lesion type: bypass graft [place] vs. transplanted heart: [place] heart Associated angina: with stable angina Qualified Code(s): I25.708 - Atherosclerosis of coronary artery bypass graft(s) , unspecified, with other forms of angina pectoris (7) CKD (chronic kidney disease) stage 3, GFR 30-59 ml/min Code(s): N18.3 - CHRONIC KIDNEY DISEASE, STAGE 3 (MODERATE) Status: Chronic (8) DM2 (diabetes mellitus, type 2) Status: Chronic Qualifiers: Diabetes mellitus nursing home insulin use: with medical terminologist use Diabetes mellitus complication status: with kidney complications Diabetes mellitus complication detail: with chronic kidney disease Chronic kidney disease stage : stage 3 (moderate) Qualified Code(s): E11.22 - Type 2 diabetes mellitus with diabetic chronic kidney disease; N18.3 - Chronic kidney disease, stage 3 ( moderate); Z79.4 - detention (current) use of insulin (9) Gout Code(s): M10.9 - GOUT, UNSPECIFIED Status: Chronic Qualifiers: Gout site: unspecified site (10) HLD (hyperlipidemia) Code(s): E78.5 - HYPERLIPIDEMIA, UNSPECIFIED Status: Chronic (11) Hypertension Code(s): I10 - ESSENTIAL (PRIMARY) HYPERTENSION Status: Chronic Qualifiers: Hypertension type: essential hypertension Qualified Code(s): I10 - Essential (primary) hypertension (12) Morbid obesity with BMI of 40.0-44.9, adult Code(s): E66.01 - MORBID (SEVERE) OBESITY DUE TO EXCESS CALORIES; Z68.41 - BODY MASS INDEX (BMI) 40.0-44.9, ADULT Status: Chronic (13) Peripheral neuropathy Code(s): G62.9 - POLYNEUROPATHY, UNSPECIFIED Status: Chronic - Plan is on lasix, spironolactone and metolazone, watch for renal function, needs to scale this down quickly, nephr is following pt, I have ordered labs now. trop of around 3, no clinical symptoms of chest pain. continue asp, amiodarone, plavix, corg, lipitor, lantus, flomax, lyrica continue ceftriaxone, ?right LL infiltrate, will repeat cxr in 36hrs to see if its congestion related h/o afib with watchman device, aicd
[2019-03-13] MEDS ORDERED: Fluticasone Propionate Nasal Spray 16 gm Bottle NASAL SCH (11:30)
[2019-03-13] MEDS ORDERED: Loratadine 10 MG TAB PO SCH (11:30)
[2019-03-13] MEDS: HumaLOG 300 UNITS/3 ML VIAL SC PRN ×3 (11:49→21:31)
--- NOTE | 2019-03-13 12:01 | PRG ---
DATE OF SERVICE: 03/13/2019 SUBJECTIVE: Patient was seen and examined at bedside and overnight events noted. Patient denies any shortness of breath or chest pain or palpitation. No history of nausea or vomiting or diarrhea or fever or chills or cramps. OBJECTIVE: GENERAL: This is an obese male, in no apparent distress. VITAL SIGNS: Temperature 98.2. Heart rate 70. Respiratory rate 18. Blood pressure 111/50. HEENT: Atraumatic, normocephalic. Oral mucosa is moist. NECK: Supple. CARDIOVASCULAR: S1, S2 heard. Rate and rhythm regular. RESPIRATORY: Clear to auscultation. GASTROINTESTINAL: Abdomen is soft. MUSCULOSKELETAL: No tenderness. No edema. DERMATOLOGIC: No skin rash. NEUROLOGIC: Alert and awake and oriented x3. No focal neurologic deficits. Moving all the extremities. PSYCHIATRIC: Mood and affect normal. LABORATORY DATA: Not done today. ASSESSMENT AND PLAN: 1. Acute kidney injury on chronic kidney disease, stage 3, stable. 2. History of hypertension. 3. History of anemia. 4. Cardiorenal syndrome. Renal function is stable. Job ID: [id number]
[2019-03-13 12:29] LABS: Anion Gap 16 mmol/L (10-20); BUN (Urea Nitrogen) 55 mg/dL (8.4-25.7); Calc. Creatinine Clearance 57 mL/min (70-130); Calcium 9.5 mg/dL (7.8-10.44); Carbon Dioxide 23 mmol/L (23-31); Chloride 101 mmol/L (98-107); Estimated GFR-MDRD 30; Glucose 252 mg/dL (80-115); Potassium 4.2 mmol/L (3.5-5.1); Sodium 136 mmol/L (136-145)
[2019-03-13] MEDS ORDERED: Triple Antibiotic Oint 1 GM Packet TOP SCH (12:30)
[2019-03-13 13:11] LABS: #Lymphocytes 1.2 thou/uL (1.20-3.40); #Monocytes 0.5 thou/uL (0.11-0.59); #Neutrophils 4.8 thou/uL (1.40-6.50); %Basophils 0.2 % (0.0-1.0); %Eosinophils 0.7 % (0.0-10.0); %Lymphocytes 18.4 % (21.0-51.0); %Monocytes 7.5 % (0.0-10.0); %Neutrophils 73.2 % (42.0-75.0); Hemoglobin 10.5 g/dL (14.0-18.0); MDiff Complete? YES; Macrocytosis SLIGHT = 6-15 cells (100X) (0-5/hpf); Mean Corpuscular HGB CONC 35.3 g/dL (32.0-36.0); Mean Corpuscular Hemoglobin 35.8 pg (27.0-31.0); Mean Platelet Volume 8.3 fL (7.4-10.4); Platelet Count 109 thou/uL (130-400); Platelet Morphology Comment Appears Decreased; RBC Distribution Width 13.3 % (11.5-14.5); Red Blood Cell (RBC) Count 2.94 mill/uL (4.70-6.10); White Blood Cell (WBC) Count 6.5 thou/uL (4.8-10.8)
[2019-03-13] MEDS: Famotidine 20 MG TAB PO SCH (21:32)
[2019-03-13] MEDS: Tamsulosin HCl 0.4 MG CAP PO SCH (21:33)
[2019-03-13] MEDS: guaiFENesin ER 600 MG TAB PO SCH (21:33)
[2019-03-13] MEDS: rOPINIRole HCl 1 MG TAB PO SCH (21:33)
[2019-03-13] MEDS: Pregabalin 75 MG CAP PO SCH (21:33)
[2019-03-13] MEDS: Atorvastatin Calcium 40 MG TAB PO SCH (21:34)
[2019-03-14] MEDS: cefTRIAXone\\ROCEPHIN 1 GM in Sodium Chloride 0.9% 100 ML IVPB SCH (03:29)
[2019-03-14] MEDS: Diabetic Tussin 200 MG/10 ML UDCUP PO PRN ×4 (04:06→21:46)
[2019-03-14 04:41] LABS: Anion Gap 15 mmol/L (10-20); BUN (Urea Nitrogen) 53 mg/dL (8.4-25.7); Calc. Creatinine Clearance 64 mL/min (70-130); Calcium 9.4 mg/dL (7.8-10.44); Carbon Dioxide 23 mmol/L (23-31); Chloride 104 mmol/L (98-107); Estimated GFR-MDRD 35; Glucose 136 mg/dL (80-115); Potassium 4.7 mmol/L (3.5-5.1); Sodium 137 mmol/L (136-145)
--- NOTE | 2019-03-14 09:50 | PRG ---
DATE OF SERVICE: 03/14/2019 SUBJECTIVE: Patient was seen and examined at bedside and overnight events noted. Patient denies any shortness of breath or chest pain or palpitation. No history of nausea or vomiting or diarrhea or fever or chills or cramps. OBJECTIVE: GENERAL: This is an obese male, in no apparent distress. VITAL SIGNS: Temperature 99.1. Heart rate 67. Respiratory rate . Blood pressure 119/76. HEENT: Atraumatic, normocephalic. Oral mucosa is moist NECK: Supple. CARDIOVASCULAR: S1, S2 heard. Rate and rhythm regular. RESPIRATORY: Clear to auscultation. GASTROINTESTINAL: Abdomen is soft. MUSCULOSKELETAL: No tenderness. No edema. DERMATOLOGIC: No skin rash. NEUROLOGIC: Alert and awake and oriented X3. No focal neurologic deficits. Moving all the extremities. PSYCHIATRIC: Mood and affect normal. LABORATORY DATA: Potassium 4.7, BUN is 53, and creatinine is 1.9. ASSESSMENT AND PLAN: 1. Acute kidney injury on chronic kidney disease stage 3, stable. 2. Cardiorenal syndrome. 3. History of hypertension. 4. Anemia. 5. Edema. Labs are stable. Avoid nephrotoxins. We will follow. Job ID: [id number]
[2019-03-14] MEDS: guaiFENesin ER 600 MG TAB PO SCH ×2 (09:54→21:46)
[2019-03-14] MEDS: Folic Acid 1 MG TAB PO SCH (09:54)
[2019-03-14] MEDS: Allopurinol 100 MG TAB PO SCH (09:54)
[2019-03-14] MEDS: Cyanocobalamin (Vitamin B-12) 1,000 MCG TAB PO SCH (09:54)
[2019-03-14] MEDS: Aspirin 81 mg Enteric Coated Tablet PO SCH (09:54)
[2019-03-14] MEDS: Clopidogrel Bisulfate 75 MG TAB PO SCH (09:54)
[2019-03-14] MEDS: Amiodarone 200 MG TAB PO SCH (09:55)
[2019-03-14] MEDS: Carvedilol 25 MG TAB PO SCH ×2 (09:55→21:47)
[2019-03-14] MEDS: Loratadine 10 MG TAB PO SCH (09:55)
[2019-03-14] MEDS: Potassium Chloride 10 MEQ TAB PO SCH (09:55)
[2019-03-14] MEDS: Furosemide 20 MG TAB PO SCH ×2 (09:55→14:36)
[2019-03-14] MEDS: Fluticasone Propionate Nasal Spray 16 gm Bottle NASAL SCH (09:59)
--- NOTE | 2019-03-14 10:18 | RAD ---
PORTABLE CHEST: Date: 03/14/19 INDICATION: Shortness of breath. Follow-up. COMPARISON: 03/11/19. FINDINGS: Cardiomegaly with postop sternotomy change. There is mild vascular engorgement. Vascular congestive c hanges, however, appear to have slightly improved when compared to 03/11/19. Tiny effusions may be pr esent. AICD leads again noted. IMPRESSION: Cardiomegaly and mild vascular engorgement. Possible small effusions. Overall evidence of mild improv ement. POS: [facility]
[2019-03-14] MEDS: Insulin Glargine 46 UNITS in Pre-Filled Syringe 1 EACH SC SCH (11:01)
[2019-03-14] MEDS: Insulin Glargine 40 UNITS in Pre-Filled Syringe 1 EACH SC SCH (11:01)
[2019-03-14] MEDS: Enoxaparin Sodium 30 MG/0.3 ML SYRINGE SC SCH (11:02)
--- NOTE | 2019-03-14 12:04 | PDOC.HOSPP ---
- Subjective Encounter Date: 03/14/19 Encounter Time: 10:45 Subjective: awake, sitting on bed still has exertional sob, no chest pain or palp overall feels better - Objective Vital Signs & Weight: Vital Signs (12 hours) Temp Pulse Pulse Pulse Resp BP BP 03/14/19 11:11 97.5 F L 69 19 03/14/19 10:04 71 79 108/54 L 118/71 03/14/19 09:50 98.4 F 93 19 03/14/19 03:49 99.1 F 67 20 BP BP Pulse Ox 03/14/19 11:11 150/69 H 94 L 03/14/19 10:04 03/14/19 09:50 131/64 95 03/14/19 03:49 119/76 95 Weight Weight 278 lb 8 oz I&O: 03/13/19 03/14/19 03/15/19 06:59 06:59 06:59 Intake Total 1360 1700 Output Total 2620 1525 Balance -1260 175 Result Diagrams: 03/13/19 11:41 03/14/19 03:46 Additional Labs: Accuchecks 03/14/19 03/14/19 03/13/19 11:09 05:45 20:21 POC Glucose 251 H 150 H 281 H 03/13/19 16:38 POC Glucose 211 H Hospitalist ROS - Medication Medications: Active Medications Generic Name Dose Route Start Last Admin Trade Name Freq PRN Reason Stop Dose Admin Allopurinol 100 mg 03/13/19 09:00 03/14/19 09:54 Zyloprim PO 100 mg DAILY ECHO Administration Amiodarone HCl 200 mg 03/12/19 09:00 03/14/19 09:55 Cordarone PO 200 mg DAILY ECHO Administration Aspirin 81 mg 03/12/19 09:00 03/14/19 09:54 Ecotrin PO 81 mg QAM ECHO Administration Atorvastatin Calcium 40 mg 03/12/19 21:00 03/13/19 21:34 Lipitor PO 40 mg HS ECHO Administration Carvedilol 12.5 mg 03/12/19 09:00 03/14/19 09:55 Coreg PO 12.5 mg BID ECHO Administration Cholecalciferol 5,000 units 03/12/19 09:00 03/14/19 09:53 Vitamin D3 PO 5,000 units DAILY ECHO Administration Clopidogrel Bisulfate 75 mg 03/12/19 09:00 03/14/19 09:54 Plavix PO 75 mg DAILY ECHO Administration Cyanocobalamin 1,000 mcg 03/12/19 09:00 03/14/19 09:54 Vitamin B-12 PO 1,000 mcg DAILY ECHO Administration Enoxaparin Sodium 30 mg 03/12/19 09:00 03/14/19 11:02 Lovenox SC 30 mg 0900 ECHO Administration Famotidine 20 mg 03/12/19 21:00 03/13/19 21:32 Pepcid PO 20 mg QPM ECHO Administration Fluticasone Propionate 0 gm 03/14/19 09:00 03/14/19 09:59 Flonase Nasal [place] NASAL 2 spray DAILY ECHO Administration Folic Acid 1 mg 03/12/19 09:00 03/14/19 09:54 Folvite PO 1 mg DAILY ECHO Administration Furosemide 40 mg 03/14/19 09:00 03/14/19 09:55 Lasix PO 40 mg 0900,1400 ECHO Administration Guaifenesin 200 mg 03/12/19 01:41 03/14/19 09:55 Robitussin Sf PO 200 mg Q4H PRN Administration Cough Guaifenesin 600 mg 03/13/19 21:00 03/14/19 09:54 Mucinex PO 600 mg Q12HR ECHO Administration Ceftriaxone Sodium 1 gm/ 100 mls @ 200 mls/hr 03/12/19 02:00 03/14/19 03:29 Sodium Chloride IVPB 100 mls 0200 ECHO Administration Insulin Glargine 40 units/ 0.4 mls @ 0 mls/hr 03/13/19 09:00 03/14/19 11:01 Miscellaneous Medication SC 0.4 mls QAM ECHO Administration Insulin Glargine 46 units/ 0.46 mls @ 0 mls/hr 03/13/19 09:00 03/14/19 11:01 Miscellaneous Medication SC 0.46 mls QAM ECHO Administration Insulin Human Lispro 0 units 03/12/19 01:38 03/13/19 18:27 Humalog SC 6 units .AGGRESSIVE SLIDING PRN Administration Aggressive Correctional Scale Insulin Human Lispro 0 units 03/13/19 20:55 03/13/19 21:31 Humalog SC 3 unit .BEDTIME SLIDING SC PRN Administration Bedtime Correctional Scale Loratadine 10 mg 03/14/19 09:00 03/14/19 09:55 Claritin PO 10 mg DAILY ECHO Administration Potassium Chloride 10 meq 03/12/19 08:00 03/14/19 09:55 Klor-Con 10 PO 10 meq QAM-WM ECHO Administration Pregabalin 75 mg 03/12/19 21:00 03/13/19 21:33 Lyrica PO 75 mg HS ECHO Administration Ropinirole HCl 1 mg 03/12/19 21:00 03/13/19 21:33 Requip PO 1 mg QPM ECHO Administration Tamsulosin HCl 0.4 mg 03/12/19 21:00 03/13/19 21:33 Flomax PO 0.4 mg HS ECHO Administration Tramadol HCl 50 mg 03/12/19 13:05 03/13/19 08:39 Ultram PO 50 mg Q6H PRN Administration Moderate Pain (4-6) Trazodone HCl 50 mg 03/12/19 01:36 03/12/19 20:33 Desyrel PO 50 mg HSPRN PRN Administration Insomnia - Exam General Appearance: awake alert Eye: PERRL, anicteric sclera ENT: no oropharyngeal lesions, moist mucosa Neck: supple, no JVD Heart: RRR, no gallops Respiratory: no wheezes, no rales, rhonchi Gastrointestinal: soft, non-tender, non-distended, normal bowel sounds Extremities: no cyanosis, 1+ LE edema Neurological: cranial nerve grossly intact, no focal deficits Psychiatric: normal affect, A&O x 3 Hosp A/P (1) WOLFGANG (acute kidney injury) Code(s): N17.9 - ACUTE KIDNEY FAILURE, UNSPECIFIED Status: Acute (2) Acute on chronic systolic ACC/AHA stage C congestive heart failure Code(s): I50.23 - ACUTE ON CHRONIC SYSTOLIC (CONGESTIVE) HEART FAILURE Status : Acute (3) Thrombocytopenia Code(s): D69.6 - THROMBOCYTOPENIA, UNSPECIFIED Status: Chronic (4) Type [address] elevation Code(s): I21.A1 - MYOCARDIAL INFARCTION TYPE 2 Status: Acute (5) BPH (benign prostatic hyperplasia) Code(s): N40.0 - BENIGN PROSTATIC HYPERPLASIA WITHOUT LOWER URINRY TRACT SYMP Status: Chronic Qualifiers: Lower urinary tract symptom presence: symptoms absent Qualified Code(s): N40.0 - Benign prostatic hyperplasia without lower urinary tract symptoms (6) CAD (coronary artery disease) Code(s): I25.10 - ATHSCL HEART DISEASE OF [place] CORONARY ARTERY W/O ANG PCTRS Status: Chronic Qualifiers: Coronary Disease-Associated Artery/Lesion type: bypass graft [place] vs. transplanted heart: [place] heart Associated angina: with stable angina Qualified Code(s): I25.708 - Atherosclerosis of coronary artery bypass graft(s) , unspecified, with other forms of angina pectoris (7) CKD (chronic kidney disease) stage 3, GFR 30-59 ml/min Code(s): N18.3 - CHRONIC KIDNEY DISEASE, STAGE 3 (MODERATE) Status: Chronic (8) DM2 (diabetes mellitus, type 2) Status: Chronic Qualifiers: Diabetes mellitus senior care insulin use: with senior care use Diabetes mellitus complication status: with kidney complications Diabetes mellitus complication detail: with chronic kidney disease Chronic kidney disease stage : stage 3 (moderate) Qualified Code(s): E11.22 - Type 2 diabetes mellitus with diabetic chronic kidney disease; N18.3 - Chronic kidney disease, stage 3 ( moderate); Z79.4 - watermelon harvesting supervisor (current) use of insulin (9) Gout Code(s): M10.9 - GOUT, UNSPECIFIED Status: Chronic Qualifiers: Gout site: unspecified site (10) HLD (hyperlipidemia) Code(s): E78.5 - HYPERLIPIDEMIA, UNSPECIFIED Status: Chronic (11) Hypertension Code(s): I10 - ESSENTIAL (PRIMARY) HYPERTENSION Status: Chronic Qualifiers: Hypertension type: essential hypertension Qualified Code(s): I10 - Essential (primary) hypertension (12) Morbid obesity with BMI of 40.0-44.9, adult Code(s): E66.01 - MORBID (SEVERE) OBESITY DUE TO EXCESS CALORIES; Z68.41 - BODY MASS INDEX (BMI) 40.0-44.9, ADULT Status: Chronic (13) Peripheral neuropathy Code(s): G62.9 - POLYNEUROPATHY, UNSPECIFIED Status: Chronic - Plan is on oral lasix watch for renal function, nephr is following. trop of around 3, no clinical symptoms of chest pain, has inoperable distal diffuse disease, grafts were patent on cath before.. continue asp, amiodarone, plavix, corg, lipitor, lantus, flomax, lyrica, ranexa continue ceftriaxone, ?right LL infiltrate h/o afib with watchman device, aicd to ambulate as tolerated likely dc plan in am if ok with cardio
--- NOTE | 2019-03-14 14:35 | EKG ---
Test Reason : Blood Pressure : / mmHG Vent. Rate : 101 BPM Atrial Rate : 096 BPM P-R Int : 000 ms QRS Dur : 114 ms QT Int : 364 ms P-R-T Axes : 000 048 140 degrees QTc Int : 471 ms Accelerated Junctional rhythm Cannot rule out Inferior infarct , age undetermined Abnormal ECG Confirmed by GUILLE BARNES DO ([id number]), editorial director BHAVANA BLISS ([id number]) on 03/14/2019 2:35:33 PM Referred By: Confirmed By:GUILLE BARNES DO
[2019-03-14] MEDS: HumaLOG 300 UNITS/3 ML VIAL SC PRN ×2 (17:50→21:47)
[2019-03-14] MEDS: Tamsulosin HCl 0.4 MG CAP PO SCH (21:46)
[2019-03-14] MEDS: Pregabalin 75 MG CAP PO SCH (21:46)
[2019-03-14] MEDS: Atorvastatin Calcium 40 MG TAB PO SCH (21:46)
[2019-03-14] MEDS: rOPINIRole HCl 1 MG TAB PO SCH (21:47)
[2019-03-14] MEDS: Famotidine 20 MG TAB PO SCH (21:47)
[2019-03-15] MEDS: cefTRIAXone\\ROCEPHIN 1 GM in Sodium Chloride 0.9% 100 ML IVPB SCH (02:04)
[2019-03-15 05:07] LABS: Anion Gap 14 mmol/L (10-20); BUN (Urea Nitrogen) 53 mg/dL (8.4-25.7); Calc. Creatinine Clearance 65 mL/min (70-130); Calcium 9.4 mg/dL (7.8-10.44); Carbon Dioxide 24 mmol/L (23-31); Chloride 104 mmol/L (98-107); Estimated GFR-MDRD 35; Glucose 104 mg/dL (80-115); Potassium 4.3 mmol/L (3.5-5.1); Sodium 138 mmol/L (136-145)
[2019-03-15] MEDS: Fluticasone Propionate Nasal Spray 16 gm Bottle NASAL SCH (09:23)
[2019-03-15] MEDS: Carvedilol 25 MG TAB PO SCH ×2 (09:24→20:45)
[2019-03-15] MEDS: Amiodarone 200 MG TAB PO SCH (09:24)
[2019-03-15] MEDS: Enoxaparin Sodium 30 MG/0.3 ML SYRINGE SC SCH (09:24)
[2019-03-15] MEDS: Loratadine 10 MG TAB PO SCH (09:25)
[2019-03-15] MEDS: Clopidogrel Bisulfate 75 MG TAB PO SCH (09:25)
[2019-03-15] MEDS: Aspirin 81 mg Enteric Coated Tablet PO SCH (09:25)
[2019-03-15] MEDS: guaiFENesin ER 600 MG TAB PO SCH ×2 (09:25→20:46)
[2019-03-15] MEDS: Cyanocobalamin (Vitamin B-12) 1,000 MCG TAB PO SCH (09:25)
[2019-03-15] MEDS: Allopurinol 100 MG TAB PO SCH (09:25)
[2019-03-15] MEDS: Furosemide 20 MG TAB PO SCH ×2 (09:25→14:47)
[2019-03-15] MEDS: Potassium Chloride 10 MEQ TAB PO SCH (09:25)
[2019-03-15] MEDS: Insulin Glargine 40 UNITS in Pre-Filled Syringe 1 EACH SC SCH (09:28)
[2019-03-15] MEDS: HumaLOG 300 UNITS/3 ML VIAL SC PRN ×3 (09:32→18:10)
[2019-03-15] MEDS: Folic Acid 1 MG TAB PO SCH (09:37)
[2019-03-15] MEDS: Insulin Glargine 46 UNITS in Pre-Filled Syringe 1 EACH SC SCH (09:38)
[2019-03-15] MEDS: Diabetic Tussin 200 MG/10 ML UDCUP PO PRN (12:29)
--- NOTE | 2019-03-15 13:07 | PDOC.HOSPP ---
- Subjective Encounter Date: 03/15/19 Encounter Time: 12:00 Subjective: still has dry cough, paroxysms no sob or chest pain or palp is amb in room and hallway - Objective Vital Signs & Weight: Vital Signs (12 hours) Temp Pulse Resp BP BP Pulse Ox 03/15/19 12:00 98.6 F 63 16 124/63 95 03/15/19 03:19 99.0 F 69 18 106/55 L 93 L Weight Weight 277 lb 1.6 oz I&O: 03/14/19 03/15/19 03/16/19 06:59 06:59 06:59 Intake Total 1700 1880 Output Total 1525 1300 Balance 175 580 Result Diagrams: 03/13/19 11:41 03/15/19 04:38 Additional Labs: Accuchecks 03/15/19 03/15/19 03/14/19 10:59 05:34 20:45 POC Glucose 279 H 177 H 284 H 03/14/19 17:30 POC Glucose 224 H Hospitalist ROS - Medication Medications: Active Medications Generic Name Dose Route Start Last Admin Trade Name Hema PRN Reason Stop Dose Admin Allopurinol 100 mg 03/13/19 09:00 03/15/19 09:25 Zyloprim PO 100 mg DAILY ECHO Administration Amiodarone HCl 200 mg 03/12/19 09:00 03/15/19 09:24 Cordarone PO 200 mg DAILY ECHO Administration Aspirin 81 mg 03/12/19 09:00 03/15/19 09:25 Ecotrin PO 81 mg QAM ECHO Administration Atorvastatin Calcium 40 mg 03/12/19 21:00 03/14/19 21:46 Lipitor PO 40 mg HS ECHO Administration Carvedilol 12.5 mg 03/12/19 09:00 03/15/19 09:24 Coreg PO 12.5 mg BID ECHO Administration Cholecalciferol 5,000 units 03/12/19 09:00 03/15/19 09:24 Vitamin D3 PO 5,000 units DAILY ECHO Administration Clopidogrel Bisulfate 75 mg 03/12/19 09:00 03/15/19 09:25 Plavix PO 75 mg DAILY ECHO Administration Cyanocobalamin 1,000 mcg 03/12/19 09:00 03/15/19 09:25 Vitamin B-12 PO 1,000 mcg DAILY ECHO Administration Enoxaparin Sodium 30 mg 03/12/19 09:00 03/15/19 09:24 Lovenox SC 30 mg 0900 ECHO Administration Famotidine 20 mg 03/12/19 21:00 03/14/19 21:47 Pepcid PO 20 mg QPM ECHO Administration Fluticasone Propionate 0 gm 03/14/19 09:00 03/15/19 09:23 Flonase Nasal [place] NASAL 1 spray DAILY ECHO Administration Folic Acid 1 mg 03/12/19 09:00 03/15/19 09:37 Folvite PO 1 mg DAILY ECHO Administration Furosemide 40 mg 03/14/19 09:00 03/15/19 09:25 Lasix PO 40 mg 0900,1400 ECHO Administration Guaifenesin 200 mg 03/12/19 01:41 03/15/19 12:29 Robitussin Sf PO 200 mg Q4H PRN Administration Cough Guaifenesin 600 mg 03/13/19 21:00 03/15/19 09:25 Mucinex PO 600 mg Q12HR ECHO Administration Ceftriaxone Sodium 1 gm/ 100 mls @ 200 mls/hr 03/12/19 02:00 03/15/19 02:04 Sodium Chloride IVPB 100 mls 0200 ECHO Administration Insulin Glargine 40 units/ 0.4 mls @ 0 mls/hr 03/13/19 09:00 03/15/19 09:28 Miscellaneous Medication SC 0.4 mls QAM ECHO Administration Insulin Glargine 46 units/ 0.46 mls @ 0 mls/hr 03/13/19 09:00 03/15/19 09:38 Miscellaneous Medication SC 0.46 mls QAM ECHO Administration Insulin Human Lispro 0 units 03/12/19 01:38 03/15/19 12:30 Humalog SC 9 units .AGGRESSIVE SLIDING PRN Administration Aggressive [place]al Scale Insulin Human Lispro 0 units 03/13/19 20:55 03/14/19 21:47 Humalog SC 3 unit .BEDTIME SLIDING SC PRN Administration Bedtime Correctional Scale Loratadine 10 mg 03/14/19 09:00 03/15/19 09:25 Claritin PO 10 mg DAILY ECHO Administration Potassium Chloride 10 meq 03/12/19 08:00 03/15/19 09:25 Klor-Con 10 PO 10 meq QAM-WM ECHO Administration Pregabalin 75 mg 03/12/19 21:00 03/14/19 21:46 Lyrica PO 75 mg HS ECHO Administration Ropinirole HCl 1 mg 03/12/19 21:00 03/14/19 21:47 Requip PO 1 mg QPM ECHO Administration Tamsulosin HCl 0.4 mg 03/12/19 21:00 03/14/19 21:46 Flomax PO 0.4 mg HS ECHO Administration Tramadol HCl 50 mg 03/12/19 13:05 03/13/19 08:39 Ultram PO 50 mg Q6H PRN Administration Moderate Pain (4-6) Trazodone HCl 50 mg 03/12/19 01:36 03/12/19 20:33 Desyrel PO 50 mg HSPRN PRN Administration Insomnia - Exam General Appearance: awake alert Eye: PERRL, anicteric sclera ENT: no oropharyngeal lesions, moist mucosa Neck: supple, no JVD Heart: RRR, no murmur Respiratory: no wheezes, no rales, rhonchi Gastrointestinal: soft, non-tender, non-distended, normal bowel sounds Extremities: no cyanosis, 1+ LE edema Extremities - other findings: left LE edema++, right is clear of it Neurological: cranial nerve grossly intact, no focal deficits Psychiatric: normal affect, A&O x 3 Hosp A/P (1) [place]ANG (acute kidney injury) Code(s): N17.9 - ACUTE KIDNEY FAILURE, UNSPECIFIED Status: Acute (2) Acute on chronic systolic ACC/AHA stage C congestive heart failure Code(s): I50.23 - ACUTE ON CHRONIC SYSTOLIC (CONGESTIVE) HEART FAILURE Status : Acute (3) Thrombocytopenia Code(s): D69.6 - THROMBOCYTOPENIA, UNSPECIFIED Status: Chronic (4) Type [address] elevation Code(s): I21.A1 - MYOCARDIAL INFARCTION TYPE 2 Status: Acute (5) BPH (benign prostatic hyperplasia) Code(s): N40.0 - BENIGN PROSTATIC HYPERPLASIA WITHOUT LOWER URINRY TRACT SYMP Status: Chronic Qualifiers: Lower urinary tract symptom presence: symptoms absent Qualified Code(s): N40.0 - Benign prostatic hyperplasia without lower urinary tract symptoms (6) CAD (coronary artery disease) Code(s): I25.10 - ATHSCL HEART DISEASE OF [place] CORONARY ARTERY W/O ANG PCTRS Status: Chronic Qualifiers: Coronary Disease-Associated Artery/Lesion type: bypass graft [place] vs. transplanted heart: [place] heart Associated angina: with stable angina Qualified Code(s): I25.708 - Atherosclerosis of coronary artery bypass graft(s) , unspecified, with other forms of angina pectoris (7) CKD (chronic kidney disease) stage 3, GFR 30-59 ml/min Code(s): N18.3 - CHRONIC KIDNEY DISEASE, STAGE 3 (MODERATE) Status: Chronic (8) DM2 (diabetes mellitus, type 2) Status: Chronic Qualifiers: Diabetes mellitus supervisor intermediates insulin use: with alf use Diabetes mellitus complication status: with kidney complications Diabetes mellitus complication detail: with chronic kidney disease Chronic kidney disease stage : stage 3 (moderate) Qualified Code(s): E11.22 - Type 2 diabetes mellitus with diabetic chronic kidney disease; N18.3 - Chronic kidney disease, stage 3 ( moderate); 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 of insulin (9) Gout Code(s): M10.9 - GOUT, UNSPECIFIED Status: Chronic Qualifiers: Gout site: unspecified site (10) HLD (hyperlipidemia) Code(s): E78.5 - HYPERLIPIDEMIA, UNSPECIFIED Status: Chronic (11) Hypertension Code(s): I10 - ESSENTIAL (PRIMARY) HYPERTENSION Status: Chronic Qualifiers: Hypertension type: essential hypertension Qualified Code(s): I10 - Essential (primary) hypertension (12) Morbid obesity with BMI of 40.0-44.9, adult Code(s): E66.01 - MORBID (SEVERE) OBESITY DUE TO EXCESS CALORIES; Z68.41 - BODY MASS INDEX (BMI) 40.0-44.9, ADULT Status: Chronic (13) Peripheral neuropathy Code(s): G62.9 - POLYNEUROPATHY, UNSPECIFIED Status: Chronic - Plan add duonebs q6h to mucinex and tessalon. is on oral lasix watch for renal function, nephr is following. trop of around 3, no clinical symptoms of chest pain, has inoperable distal diffuse disease, grafts were patent on cath before.. continue asp, amiodarone, plavix, corg, lipitor, lantus, flomax, lyrica, ranexa continue ceftriaxone, ?right LL infiltrate, will switch to omnicef in am h/o afib with watchman device, aicd to ambulate as tolerated likely dc plan in am
--- NOTE | 2019-03-15 13:13 | PRG ---
DATE OF SERVICE: 03/15/2019 SUBJECTIVE: Patient was seen and examined at bedside and overnight events noted. Patient denies any shortness of breath or chest pain or palpitation. No history of nausea or vomiting or diarrhea or fever or chills or cramps. OBJECTIVE: GENERAL: This is an obese male, in no apparent distress. VITAL SIGNS: Temperature 98.6. Heart rate 63. Respiratory rate 20. Blood pressure 124/63. HEENT: Atraumatic, normocephalic. Oral mucosa is moist NECK: Supple. CARDIOVASCULAR: S1, S2 heard. Rate and rhythm regular. RESPIRATORY: Clear to auscultation. GASTROINTESTINAL: Abdomen is soft. MUSCULOSKELETAL: No tenderness. No edema. DERMATOLOGIC: No skin rash. NEUROLOGIC: Alert and awake and oriented X3. No focal neurologic deficits. Moving all the extremities. PSYCHIATRIC: Mood and affect normal. LABORATORY DATA: Potassium is 4.3, BUN is 53, and creatinine is 1.8. ASSESSMENT AND PLAN: 1. Acute kidney injury on chronic kidney disease stage 3, stable. 2. Cardiorenal syndrome. 3. History of hypertension. 4. Anemia. 5. Edema. Avoid nephrotoxins. Renal function is stable. We will follow. Job ID: [id number]
[2019-03-15] MEDS: Tamsulosin HCl 0.4 MG CAP PO SCH (20:45)
[2019-03-15] MEDS: Famotidine 20 MG TAB PO SCH (20:45)
[2019-03-15] MEDS: Pregabalin 75 MG CAP PO SCH (20:46)
[2019-03-15] MEDS: rOPINIRole HCl 1 MG TAB PO SCH (20:46)
[2019-03-15] MEDS: Atorvastatin Calcium 40 MG TAB PO SCH (20:46)
[2019-03-16] MEDS: cefTRIAXone\\ROCEPHIN 1 GM in Sodium Chloride 0.9% 100 ML IVPB SCH (03:10)
[2019-03-16 04:50] LABS: Anion Gap 14 mmol/L (10-20); BUN (Urea Nitrogen) 56 mg/dL (8.4-25.7); Calc. Creatinine Clearance 56 mL/min (70-130); Calcium 9.4 mg/dL (7.8-10.44); Carbon Dioxide 24 mmol/L (23-31); Chloride 105 mmol/L (98-107); Estimated GFR-MDRD 30; Glucose 92 mg/dL (80-115); Potassium 4.3 mmol/L (3.5-5.1); Sodium 139 mmol/L (136-145)
[2019-03-16 05:35] VITALS: BMI 41.6
[2019-03-16] MEDS: Furosemide 20 MG TAB PO SCH (08:07)
[2019-03-16] MEDS: Potassium Chloride 10 MEQ TAB PO SCH (08:07)
[2019-03-16] MEDS: guaiFENesin ER 600 MG TAB PO SCH (08:07)
[2019-03-16] MEDS: Loratadine 10 MG TAB PO SCH (08:07)
[2019-03-16] MEDS: Allopurinol 100 MG TAB PO SCH (08:08)
[2019-03-16] MEDS: Cyanocobalamin (Vitamin B-12) 1,000 MCG TAB PO SCH (08:08)
[2019-03-16] MEDS: Amiodarone 200 MG TAB PO SCH (08:08)
[2019-03-16] MEDS: Folic Acid 1 MG TAB PO SCH (08:08)
[2019-03-16] MEDS: Aspirin 81 mg Enteric Coated Tablet PO SCH (08:08)
[2019-03-16] MEDS: Clopidogrel Bisulfate 75 MG TAB PO SCH (08:08)
[2019-03-16] MEDS: Carvedilol 25 MG TAB PO SCH (08:08)
[2019-03-16] MEDS: Enoxaparin Sodium 30 MG/0.3 ML SYRINGE SC SCH (08:09)
[2019-03-16] MEDS: Fluticasone Propionate Nasal Spray 16 gm Bottle NASAL SCH (08:09)
[2019-03-16] MEDS ORDERED: Furosemide 20 MG TAB PO SCH ×2 (10:15→14:00)
[2019-03-16] MEDS: Insulin Glargine 40 UNITS in Pre-Filled Syringe 1 EACH SC SCH (10:47)
[2019-03-16] MEDS: Insulin Glargine 46 UNITS in Pre-Filled Syringe 1 EACH SC SCH (10:47)
--- NOTE | 2019-03-16 13:29 | PRG ---
DATE OF SERVICE: 03/16/2019 SUBJECTIVE: Patient was seen and examined at bedside and overnight events noted. Patient denies any shortness of breath or chest pain or palpitation. No history of nausea or vomiting or diarrhea or fever or chills or cramps. OBJECTIVE: GENERAL: This is an obese male, in no apparent distress. VITAL SIGNS: Temperature 97.9. Heart rate 62. Respiratory rate 18. Blood pressure 124/64. HEENT: Atraumatic, normocephalic. Oral mucosa is moist NECK: Supple. CARDIOVASCULAR: S1, S2 heard. Rate and rhythm regular. RESPIRATORY: Clear to auscultation. GASTROINTESTINAL: Abdomen is soft. MUSCULOSKELETAL: No tenderness. No edema. DERMATOLOGIC: No skin rash. NEUROLOGIC: Alert and awake and oriented X3. No focal neurologic deficits. Moving all the extremities. PSYCHIATRIC: Mood and affect normal. LABORATORY DATA: Potassium is 4.3, BUN is 56, creatinine is 2.1. ASSESSMENT AND PLAN: 1. Acute kidney injury on chronic kidney disease stage 3 with a bump in creatinine. We will reduce Lasix to 20 p.o. b.i.d. 2. Cardiorenal syndrome. 3. History of hypertension. 4. Anemia. 5. Edema. Reduce Lasix dose and okay to send home. Follow up with the clinic in 2 to 3 weeks. Job ID: [id number]
--- NOTE | 2019-03-16 14:41 | PQF ---
HANNAH MOSER, CAM ARGUELLES MD [id number] CLINICAL DOCUMENTATION IMPROVEMENT CLARIFICATION FORM: ICD-10 Updated PLEASE DO AN ADDENDUM TO THE PROGRESS NOTE WITH ANY DOCUMENTATION UPDATES OR ADDITIONS AND CARRY THROUGH TO DC SUMMARY. THANK YOU. DATE: 03/16/2019 ATTN: DR. Dagoberto MARION Please exercise your independent, professional judgment in responding to the clarification form. Clinical indicators are provided on the bottom of this form for your review. Please check appropriate box(s): [ x ] Pneumonia secondary to (specify organism / underlying disease) CAP__ [ ] Simple Pneumonia [ ] Pneumonia of unknown etiology [ ] Other diagnosis [ ] Unable to determine In addition, please specify: Present on Admission (POA): [ x] Yes [ ] No [ ] Unable to determine For continuity of documentation, please document condition throughout progress notes and discharge summary. Thank You. CLINICAL INDICATORS - SIGNS / SYMPTOMS / LABS / RESULTS AND LOCATION IN MR 03/11 ED REPORT: PRESENTS FOR INCREASED WORSENING SOB AND CP, ED PHYSICIAN FINAL DX: HYPOXIA, CHF EXACERBATION 03/11 H&P (OKUNDAYE) IMPRESSION: 2). PRESUMED RIGHT BASE PNEUMONIA. 03/12 - 03/14 PN (MARTYADEESHAN ) PLAN: ? RIGHT LL INFILTRATE, WILL REPEAT CXR IN 36 HRS TO SEE IF ITS CONGESTION RELATED. 03/15 PN (JAGADEESHAN) PLAN: ? RIGHT LL INFILTRATE, WILL SWITCH TO OMNICEF IN AM. 03/11 CXR IMPRESSION: CARDIOMEGALY AND MILD PULMONARY EDEMA CHANGE AND CHRONIC LUNG CHANGE. POSSIBLE MORE CONFLUENT INFILTRATE PROCESS IN THE RIGHT LUNG BASE. 03/14 CXR IMPRESSION: CARDIOMEGALY AND MILD VASCULAR ENGORGEMENT. POSSIBLE SMALL EFFUSION. OVERALL EVIDENCE OF MILD IMPROVEMENT. RISK: ADVANCED AGE (75), RECENT HOSPITAL ADMISSION TWO WEEKS AGO, PERSISTENT FLUID OVERLOAD, DX ACUTE SYSTOLIC CONGESTIVE HEART FAILURE EXACERBATION, ( OKUNDAYE/ H&P) 03/11 TREATMENTS: IV ROCEPHIN ( 03/12-PRESENT) CXR ( 03/11, 03/14) THANK YOU! SEFERINO (This form is maintained as a part of the permanent medical record) 2014 [employer]. All Rights Reserved [email or web address] [phone] MTDD
[2019-03-16 16:18] VITALS: BP 134/63; TEMP 97.8
--- NOTE | 2019-03-16 19:28 | DIS ---
DATE OF ADMISSION: 03/11/2019 DATE OF DISCHARGE: 03/16/2019 DISCHARGE DISPOSITION: To home. PRIMARY DISCHARGE DIAGNOSES: Acute congestive heart failure exacerbation with systolic dysfunction, acute kidney injury on top of chronic kidney disease stage 3 pneumonia, chronic thrombocytopenia, type [address] elevation, inoperable coronary artery disease, benign prostatic hyperplasia, diabetes mellitus type 2, gout, dyslipidemia, hypertension, morbid obesity, peripheral neuropathy. PROCEDURES DONE DURING HOSPITALIZATION: The patient has had chest x-ray x2 done , which showed cardiomegaly with mild pulmonary vascular congestion, right lung infiltrate was seen. Respiratory culture showed normal respiratory ld, H and H 10 and 29, platelet count 109, MCV is 101. Discharge BUN and creatinine are 56 and 2.1. Troponin I peaked up to 3.69. BNP 953. CK-MB 2.4, BUN 44, creatinine 2.3 on the day of admission. DISCHARGE MEDICATIONS: 1. Allopurinol 300 mg p.o. daily. 2. Amiodarone 200 mg p.o. daily. 3. Aspirin 81 mg p.o. daily. 4. Atorvastatin 40 mg p.o. at bedtime. 5. Coreg 12.5 mg twice daily. 6. Vitamin D3 5000 units p.o. daily. 7. Plavix 75 mg p.o. daily. 8. Vitamin B12 1000 mcg sublingual daily. 9. Pepcid 20 mg p.o. q.p.m. 10. Flonase nasal spray daily. 11. Lasix 20 mg twice daily. 12. Tresiba 86 units subcu daily. 13. Loratadine 10 mg daily. 14. Potassium chloride 10 mEq p.o. daily. 15. Lyrica 75 mg p.o. at bedtime. 16. Ropinirole 1 mg p.o. q.p.m. 17. Trazodone 50 mg p.o. at bedtime p.r.n. for insomnia. 18. Albuterol inhaler q.6 hourly p.r.n. 19. Omnicef 300 mg p.o. twice daily for 4 days. 20. Folic acid 1 mg p.o. daily. 21. Prednisone 10 mg p.o. daily for 3 days and to discontinue. 22. Flomax 0.4 mg p.o. at bedtime. Please note the patient is not on JEANNIE or ARBs due to acute kidney injury and chronic kidney disease stage 3. DISCHARGE PLAN: The patient to follow up with primary care physician, Dr. Dagoberto Parikh on the 23 of March at 11:15 a.m. He needs to follow up with Dr. Lopez, his ordained minister in 2 to 3 weeks. BRIEF COURSE DURING HOSPITALIZATION: The patient initially got admitted on the with complaints of shortness of breath, cough, and increasing edema. He was essentially admitted for acute on chronic CHF exacerbation with systolic dysfunction. The patient also had right lung pneumonia. He had acute kidney injury on top of his chronic kidney disease stage 3. The patient had gentle diuresis done during his stay here. Also, he was on antibiotics for his pneumonia. The patient had nebulizations as well to help his coughing spells. His lower extremity edema has fairly resolved. 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 His coughing spells continued and he was placed on steroids at the time of discharge to take it only for 3 days. He is advised to check fingerstick glucose for a total duration of 1 week twice daily and he is counseled that his diabetes will be uncontrolled due to steroids for 3 days. He has had consultation with Dr. Stubbs for Cardiology and Dr. Madera for Nephrology. He has remained hemodynamically stable, ambulating in the hallway prior to discharge. Please note, I have seen and examined the patient on the day of discharge. Job ID: [id number] MTDD
== END 2019-03-16 18:15 | disposition home or self-care (01) | DRG 280 ==
LOC: ERS 21:25 → 2NO 23:33
PROVIDERS: ADMIT Internal Medicine; ATTEND Internal Medicine
DX: I13.0 Hypertensive heart and chronic kidney disease with heart failure and stage 1 through stage 4 chronic kidney disease, or unspecified chronic kidney disease (principal); J18.9 Pneumonia, unspecified organism; I21.A1 Myocardial infarction type 2; N17.0 Acute kidney failure with tubular necrosis; I50.23 Acute on chronic systolic (congestive) heart failure; Z68.41 Body mass index [BMI] 40.0-44.9, adult; Z95.1 Presence of aortocoronary bypass graft; E11.22 Type 2 diabetes mellitus with diabetic chronic kidney disease; I48.91 Unspecified atrial fibrillation; Z95.810 Presence of automatic (implantable) cardiac defibrillator; E78.5 Hyperlipidemia, unspecified; N18.3 Chronic kidney disease, stage 3 (moderate); D69.6 Thrombocytopenia, unspecified; N40.0 Benign prostatic hyperplasia without lower urinary tract symptoms; I25.10 Atherosclerotic heart disease of native coronary artery without angina pectoris; M10.9 Gout, unspecified; E66.01 Morbid (severe) obesity due to excess calories; E11.42 Type 2 diabetes mellitus with diabetic polyneuropathy
CPT/HCPCS: 36415; 36416; 71045; 80048; 80053; 82553; 83735; 83880; 84443; 84484; 85025; 87070; 87205; 93005; 94640; 96374; J0696; J1650; J1815; J1940; J3490; J7620

== ENCOUNTER → 2019-04-07 | Day surgery (SDC) | payer MEDICARE, MEDICAID ==
[2019-04-06 16:12] VITALS: BMI 42.3
[2019-04-07 08:35] LABS: INR-International Normal Ratio 1.2
[2019-04-07 08:36] LABS: PTT 33.9 SEC (22.9-36.1)
[2019-04-07 08:44] LABS: Anion Gap 12 mmol/L (10-20); BUN (Urea Nitrogen) 38 mg/dL (8.4-25.7); Calc. Creatinine Clearance 69 mL/min (70-130); Calcium 8.5 mg/dL (7.8-10.44); Carbon Dioxide 25 mmol/L (23-31); Chloride 104 mmol/L (98-107); Estimated GFR-MDRD 38; Glucose 164 mg/dL (80-115); Potassium 4.3 mmol/L (3.5-5.1); Sodium 137 mmol/L (136-145)
[2019-04-07 08:46] LABS: %Monocytes 7.2 % (0.0-10.0)
[2019-04-07 08:50] LABS: #Lymphocytes 0.6 thou/uL (1.20-3.40); #Monocytes 0.4 thou/uL (0.11-0.59); #Neutrophils 4.6 thou/uL (1.40-6.50); %Basophils 0.2 % (0.0-1.0); %Eosinophils 0.6 % (0.0-10.0); %Lymphocytes 10.9 % (21.0-51.0); %Neutrophils 81.2 % (42.0-75.0); Hemoglobin 10.5 g/dL (14.0-18.0); Mean Corpuscular HGB CONC 33.9 g/dL (32.0-36.0); Mean Corpuscular Hemoglobin 34.7 pg (27.0-31.0); Mean Platelet Volume 8.2 fL (7.4-10.4); Platelet Count 105 thou/uL (130-400); Red Blood Cell (RBC) Count 3.03 mill/uL (4.70-6.10); White Blood Cell (WBC) Count 5.7 thou/uL (4.8-10.8)
--- NOTE | 2019-04-07 18:27 | ECHO ---
DATE OF SERVICE: 04/07/19 REFERRING PHYSICIAN: Dr. Paul Lopez REASON FOR PROCEDURE: The patient is a 68-year-old man with history of persistent atrial fibrillation status post Watchman device placement in 11/02/17 but due to persisting leak, required repeated coil procedure in May and December 15, 2018. Is here for a final DEBBIE to evaluate coil closure of the device. PROCEDURE: The patient received Propofol by Anesthesia specialist. After adequate level of sedation achieved, a standard transesophageal echocardiogram probe was passed into the esophagus without diff iculty. Patient tolerated the procedure well, no complications noted. RESULTS: Left atrium is moderately enlarged about 4.9 cm in horizontal diameter. The right atrium was also mod erately enlarged. The left atrial appendage with adequately seated and well-sealed Watchman device in it with homogeneous opacification behind the Watchman device in the left atrial appendage is noted s uggestive of adequate seal and clot build up behind the Watchman device. Color flow interrogation rev ealed no leaks to the left atrial appendage. The mitral valve has moderate regurgitation. The intera trial septum is free of defect. Tricuspid valve has mild regurgitation. There is a right sided ICD le ad noted. Pericardial space without effusion. The left ventricular systolic function is severely red uced. The aortic valve has three leaflets with somewhat limited excursion seen on the leaflets. Only mild stenosis identified by visual inspection. CONCLUSION: 1. Adequately seated and sealed Watchman device in place. 2. Moderate biatrial enlargement. 3. Severely reduced left ventricular systolic function. 4. ICD wires in the right sided chambers. 5. Moderate MR. Mild TR and mild aortic stenosis present. 6. No significant dissection, atheroma or aneurysm on the visualized portions of the ascending and d escending aorta.
--- NOTE | 2019-04-11 10:29 | EKG ---
Test Reason : PREOP Blood Pressure : / mmHG Vent. Rate : 064 BPM Atrial Rate : 064 BPM P-R Int : 216 ms QRS Dur : 116 ms QT Int : 460 ms P-R-T Axes : 075 050 149 degrees QTc Int : 474 ms Sinus rhythm with 1st degree A-V block Possible Inferior infarct (cited on or before 16-JAN-2015) Abnormal ECG When compared with ECG of 11-MAR-2019 21:45, Sinus rhythm has replaced Junctional rhythm Vent. rate has decreased BY 37 BPM T wave inversion now evident in Anterior leads Confirmed by CLARY MANTILLA (2) on 04/11/2019 10:28:39 AM Referred By: ANIBAL Confirmed By:CLARY MANTILLA
== END ==
LOC: CCL 06:40
PROVIDERS: ATTEND Internal Medicine Cardiovascular Disease
PROC: B24BZZ4 Ultrasonography of Heart with Aorta, Transesophageal (ICD-10-PCS; principal; 2019-04-07)
DX: I48.19 Other persistent atrial fibrillation (principal); I08.1 Rheumatic disorders of both mitral and tricuspid valves; I11.0 Hypertensive heart disease with heart failure; I50.9 Heart failure, unspecified; I25.10 Atherosclerotic heart disease of native coronary artery without angina pectoris; E78.5 Hyperlipidemia, unspecified; E10.9 Type 1 diabetes mellitus without complications; G47.33 Obstructive sleep apnea (adult) (pediatric); J18.9 Pneumonia, unspecified organism; M19.90 Unspecified osteoarthritis, unspecified site; Z79.4 Long term (current) use of insulin; Z79.82 Long term (current) use of aspirin; Z79.899 Other long term (current) drug therapy
CPT/HCPCS: 80048; 85025; 85610; 85730; 93005; 93010; 93312; J2704

== ENCOUNTER 2019-04-11 15:00 | Inpatient (IN) | payer MEDICARE, MEDICAID ==
[2019-04-11 16:06] LABS: #Eosinphils 0.1 thou/uL (0.0-0.7); #Lymphocytes 1.2 thou/uL (1.20-3.40); #Monocytes 0.3 thou/uL (0.11-0.59); #Neutrophils 3.8 thou/uL (1.40-6.50); %Basophils 0.2 % (0.0-1.0); %Eosinophils 1.2 % (0.0-10.0); %Monocytes 5.4 % (0.0-10.0); %Neutrophils 70.2 % (42.0-75.0); Hemoglobin 11.5 g/dL (14.0-18.0); Mean Corpuscular HGB CONC 32.2 g/dL (32.0-36.0); Mean Corpuscular Hemoglobin 33.1 pg (27.0-31.0); Mean Platelet Volume 8.1 fL (7.4-10.4); Platelet Count 115 thou/uL (130-400); RBC Distribution Width 14.1 % (11.5-14.5); Red Blood Cell (RBC) Count 3.48 mill/uL (4.70-6.10); White Blood Cell (WBC) Count 5.4 thou/uL (4.8-10.8)
--- NOTE | 2019-04-11 16:07 | RAD ---
EXAM: Chest Two Views 04/11/2019 4:04 PM HISTORY: Shortness of breath COMPARISON: March 14, 2019 FINDINGS: Heart: Moderate cardiomegaly is stable Pulmonary vessels: There is moderate pulmonary vascular congestion and perihilar interstitial edema Costophrenic angles: There are small bilateral pleural effusions Lungs: Perihilar interstitial edema Pneumothorax: None. Osseous structures:Intact. Additional findings: Post-CABG changes stable. AICD is unchanged. Endovascular coils in the region of the left atrium are stable. IMPRESSION: Findings of mild to moderate CHF
[2019-04-11 16:11] LABS: ALT (SGPT) 40 U/L (8-55); AST (SGOT) 31 U/L (5-34); Albumin 4.1 g/dL (3.4-4.8); Alkaline Phosphatase 111 U/L (40-110); Anion Gap 15 mmol/L (10-20); BUN (Urea Nitrogen) 40 mg/dL (8.4-25.7); Bilirubin, Total 0.7 mg/dL (0.2-1.2); Calc. Creatinine Clearance 0 mL/min (70-130); Calcium 8.5 mg/dL (7.8-10.44); Carbon Dioxide 29 mmol/L (23-31); Chloride 105 mmol/L (98-107); Estimated GFR-MDRD 32; Globulin 2.8 g/dL (2.4-3.5); Glucose 200 mg/dL (80-115); Potassium 4.5 mmol/L (3.5-5.1); Protein, Total 6.9 g/dL (5.8-8.1); Sodium 144 mmol/L (136-145)
[2019-04-11 16:33] LABS: CKMB 2.3 ng/mL (0-6.6)
[2019-04-11] MEDS ORDERED: Furosemide 40 MG/4 ML VIAL ONE ×2 (19:03→19:04)
[2019-04-11] MEDS ORDERED: Nitroglycerin 2% Ointment 1 INCH/1 GM Packet ONE (19:03)
[2019-04-11] MEDS ORDERED: Aspirin Chewable 81 MG TAB ONE ×3 (19:03→19:19)
[2019-04-11] MEDS ORDERED: HumaLOG 300 UNITS/3 ML VIAL SC PRN ×2 (19:30)
[2019-04-11] MEDS ORDERED: Dextrose 5% in Water 1,000 ML IV PRN (19:30)
[2019-04-11] MEDS ORDERED: Dextrose 50% Abboject 50 ML SYRINGE SLOW IVP PRN (19:30)
[2019-04-11] MEDS ORDERED: Acetaminophen 650 MG Suppository PR PRN (19:44)
[2019-04-11] MEDS ORDERED: Acetaminophen 325 MG TAB PO PRN (19:44)
[2019-04-11 19:45] LABS: Troponin I 0.174 ng/mL (< 0.028)
[2019-04-11] MEDS ORDERED: Famotidine/PF 20 mg/2ml Vial SLOW IVP SCH (21:00)
[2019-04-11] MEDS ORDERED: PROVENTIL INHALER 6.7 G (200 INHALATIONS) INH PRN (22:21)
[2019-04-11 22:29] LABS: Troponin I 0.213 ng/mL (< 0.028)
[2019-04-11] MEDS ORDERED: Famotidine 20 MG TAB PO SCH (23:30)
[2019-04-11] MEDS ORDERED: Docusate Sodium 100 MG/10 ML UDCUP PO SCH (23:30)
[2019-04-11] MEDS ORDERED: rOPINIRole HCl 1 MG TAB PO SCH (23:30)
[2019-04-11] MEDS ORDERED: Tamsulosin HCl 0.4 MG CAP PO SCH (23:30)
[2019-04-11] MEDS ORDERED: traZODone HCl 50 MG TAB PO SCH (23:30)
[2019-04-11] MEDS ORDERED: Pregabalin 75 MG CAP PO SCH (23:30)
[2019-04-12 02:19] VITALS: BMI 42.5
[2019-04-12 05:42] LABS: #Eosinphils 0.1 thou/uL (0.0-0.7); #Lymphocytes 1.1 thou/uL (1.20-3.40); #Monocytes 0.3 thou/uL (0.11-0.59); #Neutrophils 3.3 thou/uL (1.40-6.50); %Basophils 0.1 % (0.0-1.0); %Eosinophils 1.5 % (0.0-10.0); %Lymphocytes 23.1 % (21.0-51.0); %Monocytes 6.5 % (0.0-10.0); %Neutrophils 68.8 % (42.0-75.0); Hemoglobin 10.7 g/dL (14.0-18.0); Mean Corpuscular Hemoglobin 33.5 pg (27.0-31.0); Mean Platelet Volume 8.1 fL (7.4-10.4); Platelet Count 119 thou/uL (130-400); RBC Distribution Width 14.3 % (11.5-14.5); Red Blood Cell (RBC) Count 3.18 mill/uL (4.70-6.10); White Blood Cell (WBC) Count 4.8 thou/uL (4.8-10.8)
[2019-04-12 05:47] LABS: Anion Gap 12 mmol/L (10-20); BUN (Urea Nitrogen) 38 mg/dL (8.4-25.7); Calc. Creatinine Clearance 70 mL/min (70-130); Calcium 8.6 mg/dL (7.8-10.44); Carbon Dioxide 29 mmol/L (23-31); Chloride 108 mmol/L (98-107); Estimated GFR-MDRD 39; Glucose 140 mg/dL (80-115); Potassium 3.8 mmol/L (3.5-5.1); Sodium 145 mmol/L (136-145)
--- NOTE | 2019-04-12 07:19 | ULT ---
PRELIMINARY REPORT/[facility]/EMERGENCY AFTER HOURS PROCEDURE EXAM: US Duplex bilateral Lower Extremity Veins. CLINICAL HISTORY: BLE edema, numbness/tingling, SOB, R/O DVT COMPARISON: None provided. FINDINGS: DEEP VEINS: The common femoral, femoral, and popliteal veins are echolucent and compressible. These v essels demonstrate respiratory variation and augmentation. There is normal color Doppler flow throughout. The visualized calf veins are also patent. SUPERFICIAL VEINS: The visualized greater saphenous vein is patent. SOFT TISSUES: Prominent left inguinal lymph nodes, the largest is 3.9 x 2.5 cm. No popliteal fossa c yst. IMPRESSION: No deep venous thrombosis in the bilateral lower extremity. Left inguinal lymphadenopathy. ELECTRONICALLY SIGNED BY: Rose Ochoa M.D. Apr 12, 2019 3:35:19 AM HOME CARE LIAISON This report is intended for review by the ordering physician only, in accordance of law. If you recei ve this report in error, please call [facility] at [phone]. FINAL REPORT BY DR. CASTANEDA EMERGENCY AFTER HOURS STUDY ULTRASOUND DOPPLER DUPLEX VENOUS LEFT LOWER EXTREMITY: DATE: 04/12/2019 HISTORY: Bilateral lower extremity edema in 68-year-old male. TECHNIQUE: Grayscale, color-flow, and spectral analysis, of major veins of left lower extremity. FINDINGS: There is demonstration of blood flow with normal compressibility, of the left common femoral, profund a femoral, greater saphenous, femoral, popliteal, and posterior tibial, veins. There is left inguinal lymphadenopathy. Agree with preliminary report by [facility]. IMPRESSION: No deep venous thrombosis of left lower extremity. Transcribed Date/Time: 04/12/2019 8:25 AM
--- NOTE | 2019-04-12 07:29 | HP ---
TIME OF ASSESSMENT: 1800 hours. CHIEF COMPLAINT: Shortness of breath. HISTORY OF PRESENT ILLNESS: Mr. Brunson is a 68-year-old gentleman with a known history of systolic CHF with reduced EF, history of coronary artery disease with ischemic cardiomegaly and previous AICD placement, also with a history of Watchman procedure. The patient is known to Dr. Lopez and states that he is normally short of breath at baseline, recently discharged on March 16, 2019, after being admitted for CHF exacerbation. He states he is normally able to manage exacerbation of CHF by doubling up on his Lasix from 40 mg p.o. daily to 40 mg p.o. twice daily. He has attempted to do so for the last 3 days due to significant shortness of breath with exertion and feeling as if he was fluid overloaded. Despite increasing his medication, he has had minimal relief. Given the fact that his shortness of breath has persisted and has affected his ability to do things such as walking to the bathroom, he opted to come into the emergency department today. He denies any associated chest pain. No cough. No hemoptysis. Denies any headaches or dizziness. No abdominal pain or distention. States he normally has mild left lower extremity swelling due to known peripheral vascular disease and previous stent. He has not noted any increasing lower extremity swelling or any calf tenderness. He has no other complaints. He reports his appetite has been good. He is moving his bowels as normal and denies any urinary symptoms. He did develop a spontaneous nosebleed while in the ER, which has resolved. He does feel slightly dry, but has been limiting his fluid intake to eight times 8-ounce servings of fluid daily, mostly water. ED COURSE: In the emergency department, the patient was noted to have normal sats of 96% on room air despite feeling short of breath. He had an EKG done showing normal sinus rhythm with a heart rate of 68. No ST changes or T-wave abnormalities. He had laboratory studies done, which showed white count of 5.4, hemoglobin 11.5 , hematocrit 35.8, and platelets 115. His sodium was 144, potassium 4.5, BUN 40, creatinine 2.07, and GFR 32. Renal function is essentially stable. Glucose is 200. LFTs unremarkable. Alkaline phosphatase 111. Troponin was elevated at 0.173 and BNP elevated at 966.1. Total protein 6.9 and albumin 4.1. Chest x-ray obtained demonstrated [id number] CHF. He was found to have small bilateral pleural effusions with perihilar interstitial edema. Moderate pulmonary vascular congestion and perihilar interstitial edema present. He has been given 80 mg of IV Lasix and also Nitro-Bid 1-inch as well as aspirin and a DuoNeb treatment. He reports some improvement with his breathing. He reports he did take 40 mg of Lasix by mouth this morning at home. PAST MEDICAL HISTORY: 1. Coronary artery disease. 2. Cardiomyopathy. 3. CHF. 4. Hyperlipidemia. 5. Hypertension. 6. Echo done on April 07, 2019. Adequately seated and sealed Watchman device in place. Moderate biatrial enlargement. Severely reduced left ventricular systolic function. ICD wires in the right-sided chambers. Moderate MR, mild TR, mild present. 7. Paroxysmal AF. 8. CKD. PAST SURGICAL HISTORY: 1. Previous cardiac cath, abnormal. 2. Appendectomy. 3. Bilateral cataract surgery. 4. CABG x3. 5. AICD. 6. Watchman procedure. FAMILY HISTORY: Noncontributory. SOCIAL HISTORY: The patient lives with his family. He is fully independent. Denies any tobacco use, alcohol consumption, or illicit drug use. PHYSICAL EXAMINATION: GENERAL: The patient appears obese, well developed, and in no acute distress. He is sitting upright and does not appear to be in any respiratory distress. VITAL SIGNS: Temperature 98.1, pulse 66, blood pressure 175/85, respirations 18 , and O2 saturation 97% on room air. HEENT: Normocephalic and atraumatic. Pupils are equal, round, and reactive to light. Sclerae without icterus. Oropharynx is notable for dry oral mucosa. NECK: Supple without lymphadenopathy. LUNGS: Notable for crackles at the bilateral bases. CARDIAC: Regular rate and rhythm. No chest wall tenderness. No chest wall deformity. ABDOMEN: Obese, soft, nontender, nondistended. Normoactive bowel sounds present. No guarding or rigidity. No renal angle tenderness. EXTREMITIES: No pitting edema. There is slight swelling to the left lower leg, which the patient states is long-standing and unchanged. NEUROLOGIC: Alert and oriented x3. No neuro deficits on exam. SKIN: Dry, warm. INVESTIGATIONS: As mentioned above in HPI. IMPRESSION AND PLAN: Mr. Brunson is a 68-year-old gentleman, who is being admitted for management of the following; 1. Congestive heart failure exacerbation. The patient has systolic congestive heart failure with several episodes of exacerbation in the past, which he sometimes has been able to manage at home with doubling up his dose of Lasix. Recent echo done this month as mentioned above. The patient with known coronary artery disease and ischemic cardiomyopathy. Reduced EF of approximately 25%. He is known to Dr. Lopez, whom we have consulted. In the emergency department, he has been given 80 mg of Lasix IV in addition to the 40 mg of Lasix p.o. he took at home this morning. He has had some improvement and currently saturating at 97% on room air. We will continue with 40 mg of Lasix IV twice daily, to be further managed by Cardiology. We will continue fluid restrictions. Currently, his renal function is stable. 2. Hypertension. Monitor blood pressure and resume home medications once verified. 3. Hyperlipidemia. Resume home medications once verified. 4. Chronic kidney disease. Again, renal function appears essentially stable. We will continue to monitor. 5. Indeterminate troponin. The patient with elevated troponin at 0.173. We will continue to trend troponins. He has been given aspirin and nitroglycerin in the ED. The patient denies ever experiencing any chest pain. He will remain on continuous cardiac monitoring. 6. Gastrointestinal prophylaxis with famotidine. 7. Code status, full. Surrogate decision maker is his son, Heath Brunson Jr. The patient's case was discussed with attending, who agrees with plan of care as described above. Job ID: [id number] MTDD
[2019-04-12] MEDS: Insulin Glargine 43 UNITS in Pre-Filled Syringe 1 EACH SC SCH ×2 (07:56→10:24)
[2019-04-12] MEDS: Cyanocobalamin (Vitamin B-12) 1,000 MCG TAB PO SCH (08:22)
[2019-04-12] MEDS: Allopurinol 300 MG TAB PO SCH (08:23)
[2019-04-12] MEDS ORDERED: INSULIN DEGLUDEC 86 UNIT SQ SCH (09:00)
[2019-04-12] MEDS ORDERED: Insulin Glargine 86 UNITS in Pre-Filled Syringe 1 EACH SC SCH (09:00)
[2019-04-12] MEDS: Amiodarone 200 MG TAB PO SCH (10:22)
[2019-04-12] MEDS: Aspirin 81 mg Enteric Coated Tablet PO SCH (10:22)
[2019-04-12] MEDS: Carvedilol 25 MG TAB PO SCH ×2 (10:22→17:10)
[2019-04-12] MEDS: Docusate Sodium 100 MG/10 ML UDCUP PO SCH ×2 (10:23→19:53)
[2019-04-12] MEDS: Clopidogrel Bisulfate 75 MG TAB PO SCH (10:23)
--- NOTE | 2019-04-12 14:23 | PDOC.HOSPP ---
- Subjective Encounter Date: 04/12/19 Encounter Time: 14:00 Subjective: No overnight events. This morning, feeling and breathing better but remains tachypnic and orthopneic. - Objective Vital Signs & Weight: Vital Signs (12 hours) Temp Pulse Resp BP Pulse Ox 04/12/19 11:50 98.1 F 66 20 124/66 96 04/12/19 07:48 97.2 F L 63 20 146/62 H 97 04/12/19 04:22 97.6 F 75 16 109/57 L 94 L Weight Weight 277 lb 4.8 oz I&O: 04/11/19 04/12/19 04/13/19 06:59 06:59 06:59 Intake Total 480 Output Total 1350 Balance -870 Result Diagrams: 04/12/19 04:56 04/12/19 04:57 Additional Labs: Accuchecks 04/12/19 04/11/19 12:37 22:28 POC Glucose 236 H 178 H Radiology Reviewed by me: Yes EKG Reviewed by me: Yes Hospitalist ROS - Review of Systems Constitutional: denies: fever, chills, sweats, weakness, malaise, other Respiratory: reports: cough, sputum. denies: dry, shortness of breath, hemoptysis, SOB with excertion, pleuritic pain, wheezing, other Cardiovascular: denies: chest pain, palpitations, orthopnea, paroxysmal noc. dyspnea, edema, light headedness, other Gastrointestinal: denies: nausea, vomiting, abdominal pain, diarrhea, constipation, melena, hematochezia, other Genitourinary: denies: dysuria, frequency, incontinence, hematuria, retention, other Neurological: denies: weakness, numbness, incoordination, change in speech, confusion, seizures, other - Medication Medications: Active Medications Generic Name Dose Route Start Last Admin Trade Name Freq PRN Reason Stop Dose Admin Allopurinol 300 mg 04/12/19 09:00 04/12/19 08:23 Zyloprim PO 300 mg QAM ECHO Administration Amiodarone HCl 200 mg 04/12/19 09:00 04/12/19 10:22 Cordarone PO 200 mg DAILY ECHO Administration Aspirin 81 mg 04/12/19 09:00 04/12/19 10:22 Ecotrin PO 81 mg QAM ECHO Administration Carvedilol 12.5 mg 04/12/19 08:00 04/12/19 10:22 Coreg PO 12.5 mg BID-WM ECHO Administration Cholecalciferol 5,000 units 04/12/19 09:00 04/12/19 08:22 Vitamin D3 PO 5,000 units DAILY ECHO Administration Clopidogrel Bisulfate 75 mg 04/12/19 09:00 04/12/19 10:23 Plavix PO 75 mg DAILY ECHO Administration Cyanocobalamin 1,000 mcg 04/12/19 09:00 04/12/19 08:22 Vitamin B-12 PO 1,000 mcg DAILY ECHO Administration Docusate Sodium 50 mg 04/12/19 09:00 04/12/19 10:23 Colace Liquid PO Not Given BID ECHO Insulin Glargine 43 units/ 0.43 mls @ 0 mls/hr 04/12/19 09:00 04/12/19 07:56 Miscellaneous Medication SC Not Given QAM ECHO Insulin Glargine 43 units/ 0.43 mls @ 0 mls/hr 04/12/19 09:00 04/12/19 10:24 Miscellaneous Medication SC 0.43 mls QAM ECHO Administration Insulin Human Lispro 0 units 04/11/19 19:30 04/12/19 13:29 Humalog SC 3 unit .MILD SLIDING SCALE PRN Administration Mild Correctional Scale Sodium Chloride 10 ml 04/11/19 19:44 04/12/19 08:23 Flush - Normal Saline IVF 10 ml Q12HR PRN Administration Saline Flush - Exam General Appearance: NAD, awake alert Neck: no JVD Heart: RRR, no murmur, no gallops, no rubs, normal peripheral pulses Respiratory: no wheezes, no ronchi, tachypneic Respiratory - other findings: inpiratory crackles b/l to mid mcpherson Gastrointestinal: negative: soft, non-tender, non-distended, normal bowel sounds , no palpable masses, no hepatomegaly, no splenomegaly, no bruit, no guarding, no rigidity, tender to palpation, distended, diminished bowl sounds, voluntary guarding Hosp A/P - Plan IMPRESSION AND PLAN: Mr. Brunson is a 68-year-old gentleman, who is being admitted for management of the following; 1. decompensated HFrEF - etiology for decompensation unknown; patient remains hypervolemic and mildly tachypnic; will continue diuresis 2. [place] over CKD; currently at around baseline level; may be cardiorenal syndrome ; 2. Hypertension. Monitor blood pressure and resume home medications once verified. 3. Hyperlipidemia. Resume home medications once verified. 5. Indeterminate troponin; stable; 6. Gastrointestinal prophylaxis with famotidine. 7. Code status, full. Surrogate decision maker is his son, Heath Brunson Jr. The patient's case was discussed with attending, who agrees with plan of care as described above.
--- NOTE | 2019-04-12 17:07 | PDOC.CPN ---
- Subjective Date: 04/12/19 Time: 16:00 Interval history: Mr. Brunson is a very pleasant 68 year-old male that presented to the ER yesterday with worsening shortness of breath, orthopnea, and increasing peripheral edema. He was admitted over the holiday with similar symptoms and he reports that he "never felt like the fluid was completely off". He has a longstanding cardiac history: S/P CABG with repeat LHC in 2014 which showed patent grafts and severe diffuse distal disease, not amenable to intervention. EF at that time was 25%. S/P ICD implantation with recent Watchman device for PAF. Recent DEBBIE showed closure s/p repeated coil closures. Was recently admitted with episodes of VT with ATP and ICD shock events x2. Loaded with amiodarone. He reports he is feeling better today, but remains orthopneic. Currently on room air. Feels like his swelling has improved with IV diuretics. He denies chest pain or tightness. Also describes some numbness/tingling to both legs in the last few days, "aching" per his report. Denies nausea/vomiting/diarrhea. Ambulating in room. No overnight events on telemetry. - Review of Systems Respiratory: reports: congestion, shortness of breath Cardiovascular: reports: edema, paroxysmal nocturnal dyspnea, orthopnea Musculoskeletal: reports: pain, swelling Neurological: reports: numbness (Reported some numbness to toes) - Objective Allergies/Adverse Reactions: Allergies Allergy/AdvReac Type Severity Reaction Status Date / Time No Known Allergies Allergy Verified 04/11/19 21:49 Visit Medications: Current Medications Acetaminophen (Tylenol) 650 mg PO Q4H PRN PRN Reason: Headache/Fever/Mild Pain (1-3) Acetaminophen (Tylenol) 650 mg NV Q4H PRN PRN Reason: Headache/Fever/Mild Pain (1-3) Albuterol Sulfate (Proventil Hfa) 2 puff INH Q6H PRN PRN Reason: SOB &/or Wheezing Albuterol/Ipratropium (Duoneb) 3 ml NEB Q4H PRN PRN Reason: SOB &/or Wheezing Allopurinol (Zyloprim) 300 mg PO QAM [facility] Last Admin: 04/12/19 08:23 Dose: 300 mg Amiodarone HCl (Cordarone) 200 mg PO DAILY [facility] Last Admin: 04/12/19 10:22 Dose: 200 mg [facility]irin ([facility]rin) [facility] Last Admin: 04/12/19 10:22 Dose: 81 mg Carvedilol (Coreg) 12.5 mg PO BID-[facility] Last Admin: 04/12/19 10:22 Dose: 12.5 mg Cholecalciferol (Vitamin D3) 5,000 units PO DAILY [facility] Last Admin: 04/12/19 08:22 Dose: 5,000 units Clopidogrel Bisulfate (Plavix) 75 mg PO DAILY [facility] Last Admin: 04/12/19 10:23 Dose: 75 mg Cyanocobalamin (Vitamin B-12) 1,000 mcg PO DAILY [facility] Last Admin: 04/12/19 08:22 Dose: 1,000 mcg Dextrose/Water (Dextrose 50%) 25 gm SLOW IVP PRN PRN PRN Reason: Hypoglycemia Docusate Sodium (Colace Liquid) 50 mg PO BID [facility] Last Admin: 04/12/19 10:23 Dose: Not Given Famotidine (Pepcid) 20 mg PO HS [facility] Furosemide (Lasix) 40 mg PO BID [facility] Glucagon (Glucagon) 1 mg IM PRN PRN PRN Reason: Hypoglycemia Dextrose/Water (D5w) 1,000 mls @ 0 mls/hr IV .Q0M PRN PRN Reason: Hypoglycemia Insulin Glargine 43 units/ (Miscellaneous Medication) 0.43 mls @ 0 mls/hr SC [facility] Last Admin: 04/12/19 07:56 Dose: Not Given Insulin Glargine 43 units/ (Miscellaneous Medication) 0.43 mls @ 0 mls/hr SC [facility] Last Admin: 04/12/19 10:24 Dose: 0.43 mls Insulin Human Lispro (Humalog) 0 units SC .MILD SLIDING SCALE PRN PRN Reason: Mild Correctional Scale Last Admin: 04/12/19 13:29 Dose: 3 unit Insulin Human Lispro (Humalog) 0 units SC .BEDTIME SLIDING SC PRN PRN Reason: Bedtime Correctional Scale Pregabalin (Lyrica) 75 mg PO HS [facility] Ropinirole HCl (Requip) 1 mg PO HS [facility] Sodium Chloride (Flush - Normal Saline) 10 ml IVF Q12HR PRN PRN Reason: Saline Flush Last Admin: 01/22/20 08:23 Dose: 10 ml Sodium Chloride (Flush - Normal Saline) 10 ml IVF PRN PRN PRN Reason: Saline Flush Tamsulosin HCl (Flomax) 0.4 mg PO HS ECHO Trazodone HCl (Desyrel) 50 mg PO HS ECHO Vital Signs & Weight: Vital Signs Temp Pulse Resp BP Pulse Ox 04/12/19 15:47 97.5 F L 65 16 130/67 95 04/12/19 11:50 98.1 F 66 20 124/66 96 04/12/19 07:48 97.2 F L 63 20 146/62 H 97 Weight 277 lb 4.8 oz - CHADS-VASc Age 65-74: 1 Risk Score: 1 - Physical Exam General: other HEENT: mucus membranes moist, normocephaly Neck: supple neck, no JVD/HJR Cardiac: regular rate and rhythm, no murmur, S1/S2 Lungs: no wheezes, bibasilar rales, other Neuro: grossly intact Abdomen: active bowel sounds, non-tender, firm, other (Obese) Extremities: 2+ LE edema, 2+ Posterior Tibial, 2+ Dorsalis Pedus Musculoskeletal: normal range of motion - Labs Result Diagrams: 04/12/19 04:56 04/12/19 04:57 Troponin/CKMB CK-MB (CK-2) 2.3 ng/mL (0-6.6) 04/11/19 15:39 Troponin I 0.213 ng/mL (< 0.028) H 04/11/19 21:57 - EKG Interpretation Status: report reviewed by me EKG Method: Telemetry EKG: sinus rhythm (Depressed ST, 60-60 BPM) - Telemetry Sinus rhythms and dysrhythmias: sinus rhythm - Problem (1) Acute on chronic systolic ACC/AHA stage C congestive heart failure Code(s): I50.23 - ACUTE ON CHRONIC SYSTOLIC (CONGESTIVE) HEART FAILURE Assessment and Plan: Remains volume overloaded, mild to moderate exertional symptoms, 2+ pretibial edema with good response to diuresis BNP 966. Continue diuresis for now with stable creatinine. Recent DEBBIE showed severely depressed LVEF, ICD in place. (2) Monomorphic ventricular tachycardia Code(s): I47.2 - VENTRICULAR TACHYCARDIA Assessment and Plan: ICD interrogation to determine efficacy of amiodarone in suppressing his VT. (3) AICD (automatic cardioverter/defibrillator) present Code(s): Z95.810 - PRESENCE OF AUTOMATIC (IMPLANTABLE) CARDIAC DEFIBRILLATOR (4) CAD (coronary artery disease) Code(s): I25.10 - ATHSCL HEART DISEASE OF [place] CORONARY ARTERY W/O ANG PCTRS Qualifiers: Coronary Disease-Associated Artery/Lesion type: bypass graft [place] vs. transplanted heart: [place] heart Associated angina: without angina Qualified Code(s): I25.810 - Atherosclerosis of coronary artery bypass graft(s) without angina pectoris Assessment and Plan: No anginal symptoms. [facility] 2015 showed severe diffuse distal disease not amenable to intervention. Continue DAPT, medical therapy appropriate at this time. Inderterminate troponins, likely demand ischemia. (5) CKD (chronic kidney disease) stage 3, GFR 30-59 ml/min Code(s): N18.3 - CHRONIC KIDNEY DISEASE, STAGE 3 (MODERATE) Assessment and Plan: Creatinine stable. (6) DM2 (diabetes mellitus, type 2) Qualifiers: Diabetes mellitus skilled nursing insulin use: with skilled nursing use Diabetes mellitus complication status: with kidney complications Diabetes mellitus complication detail: with chronic kidney disease Chronic kidney disease stage : stage 3 (moderate) Qualified Code(s): E11.22 - Type 2 diabetes mellitus with diabetic chronic kidney disease; N18.3 - Chronic kidney disease, stage 3 ( moderate); Z79.4 - [facility]CI (current) use of insulin (7) HLD (hyperlipidemia) Code(s): E78.5 - HYPERLIPIDEMIA, UNSPECIFIED Qualifiers: Hyperlipidemia type: pure hypercholesterolemia Qualified Code(s): E78.00 - Pure hypercholesterolemia, unspecified; E78.0 - Pure hypercholesterolemia Assessment and Plan: Continue statin. (8) Peripheral neuropathy Code(s): G62.9 - POLYNEUROPATHY, UNSPECIFIED Assessment and Plan: Reports numbness/tingling to both LE. Venogram negative for DVT. Continue medical therapy. (9) Paroxysmal atrial fibrillation Code(s): I48.0 - PAROXYSMAL ATRIAL FIBRILLATION Assessment and Plan: History of, s/p Watchman placement with good seal s/p repeated coil closure, on DAPT.
[2019-04-12] MEDS: Famotidine 20 MG TAB PO SCH (19:53)
[2019-04-12] MEDS: Pregabalin 75 MG CAP PO SCH (19:53)
[2019-04-12] MEDS: traZODone HCl 50 MG TAB PO SCH (19:54)
[2019-04-12] MEDS: rOPINIRole HCl 1 MG TAB PO SCH (19:54)
[2019-04-12] MEDS: Tamsulosin HCl 0.4 MG CAP PO SCH (19:54)
[2019-04-12] MEDS ORDERED: Furosemide 100 MG/10 ML VIAL SLOW IVP SCH (20:00)
[2019-04-12] MEDS ORDERED: Potassium Chloride 20 MEQ TAB PO SCH (20:00)
[2019-04-12] MEDS ORDERED: Furosemide 20 MG TAB PO SCH (21:00)
--- NOTE | 2019-04-13 01:55 | CON ---
DATE OF CONSULTATION: 04/12/2019 REASON FOR CONSULTATION: Congestive heart failure, systolic, acute on chronic. HISTORY OF PRESENT ILLNESS: Mr. Brunson is a pleasant 68-year-old gentleman with history of severe coronary artery disease, congestive heart failure, atrial fibrillation, previous defibrillator implantation, peripheral vascular disease, and renal insufficiency, admitted with progressive trouble breathing. The patient came to the hospital, because he was unable to lay down without having a lot of difficulty breathing. His shortness of breath is again progressively worse. He had also been having increasing amounts of lower extremity edema and was taking higher and higher doses of oral Lasix with no response. He finally came to the emergency room, got Lasix 80 mg last night, felt better, but still feels very short of breath now, can only lay back in bed, slightly can lay anywhere close to flat, has to mostly sit up at night to breathe. PAST MEDICAL HISTORY: He has a history of coronary artery disease. He did undergo cardiac catheterization in 2014. At that time, he was found to have diffuse atherosclerotic heart disease, not amenable to any percutaneous therapy. He does have a history of previous bypass. The left main was normal. The LAD, 100% occluded with a patent internal mammary artery graft. Circumflex, 90% ostial, but the vessel goes to no significant branches, distal occlusion of all the branches. Ramus occluded. Right coronary artery, calcified and occluded. Resultant grafts; internal mammary patent to the LAD, but diffuse distal atherosclerosis. Ramus graft went to a diffusely diseased vessel. Right coronary artery graft, diffuse atherosclerosis distally. Ejection fraction 25%. Medical therapy is the only option, not a reoperative candidate. No other intervention indicated. Also has a history of peripheral vascular disease. MEDICATIONS: At home, please see nurse's note that include increasing dose of furosemide. He is also on carvedilol. We had to go off JEANNIE inhibitor in the past due to renal insufficiency. ALLERGIES: NONE KNOWN. SOCIAL HISTORY: No alcohol or tobacco. PHYSICAL EXAMINATION: GENERAL: He is a pleasant 68-year-old gentleman. He is very overweight. BMI is 42. EYES: Sclerae nonicteric. MOUTH: Mucous membranes moist. NECK: Supple. No lymphadenopathy. LUNGS: Clear. CARDIAC: Normal S1, normal S2. There is no murmur, rub, or gallop. ABDOMEN: Obese, nontender. EXTREMITIES: No clubbing or cyanosis. There is [id number] edema. PERTINENT LABORATORY DATA: Creatinine went from 2.07 to 1.75. Potassium is 3.8. Troponin 0.213. Echocardiogram most recently; this is a technically difficult study. Unfortunately, the ejection fraction cannot be estimated due to the technically limited study, poor quality images, but the ejection fraction in the past has been 25%. ASSESSMENT: 1. Congestive heart failure, systolic, acute on chronic. 2. Non-ST elevation myocardial infarction, demand ischemia, type 2. 3. Renal failure, stable, stage 3. 4. Diabetes. 5. Peripheral vascular disease. 6. Previous bypass surgery. PLAN: 1. We will give him a dose of Lasix tonight. 2. Start Entresto tomorrow. The patient is getting more and more refractory heart failure. Hopefully, can tolerate Entresto. Otherwise, the prognosis is looking progressively worse with more and more refractory heart failure. Job ID: [id number]
[2019-04-13 05:17] LABS: Anion Gap 16 mmol/L (10-20); BUN (Urea Nitrogen) 32 mg/dL (8.4-25.7); Calc. Creatinine Clearance 77 mL/min (70-130); Calcium 8.6 mg/dL (7.8-10.44); Carbon Dioxide 24 mmol/L (23-31); Chloride 108 mmol/L (98-107); Estimated GFR-MDRD 44; Glucose 112 mg/dL (80-115); Potassium 4.7 mmol/L (3.5-5.1); Sodium 143 mmol/L (136-145)
[2019-04-13] MEDS: Aspirin 81 mg Enteric Coated Tablet PO SCH (08:58)
[2019-04-13] MEDS: Cyanocobalamin (Vitamin B-12) 1,000 MCG TAB PO SCH (08:59)
[2019-04-13] MEDS: Carvedilol 25 MG TAB PO SCH (08:59)
[2019-04-13] MEDS: Clopidogrel Bisulfate 75 MG TAB PO SCH (08:59)
[2019-04-13] MEDS: Amiodarone 200 MG TAB PO SCH (08:59)
[2019-04-13] MEDS: Allopurinol 300 MG TAB PO SCH (08:59)
[2019-04-13] MEDS: Insulin Glargine 43 UNITS in Pre-Filled Syringe 1 EACH SC SCH ×2 (08:59→09:00)
[2019-04-13] MEDS: Docusate Sodium 100 MG/10 ML UDCUP PO SCH ×2 (09:00→20:55)
--- NOTE | 2019-04-13 09:23 | PRG ---
DATE OF SERVICE: 04/13/2019 SUBJECTIVE: Mr. Brunson states he got some improvement in his breathing after he got Lasix 80 mg IV last night, but he is beginning to be feeling more short of breath now. He is about to get his Entresto first dose. OBJECTIVE: VITAL SIGNS: Blood pressure 110/62, pulse 62. LUNGS: Clear. CARDIAC: Normal S1. Normal S2. ABDOMEN: Obese, nontender. EXTREMITIES: There is fezguvnp-mu-crlvym edema. LABORATORY DATA: Creatinine is slightly better at 1.57, potassium is 4.7. ASSESSMENT: Congestive heart failure, systolic, acute on chronic, becoming more refractory. PLAN: 1. He is going to start Entresto today. 2. Given a dose of Lasix later. 3. We will need to monitor basic metabolic panel. Hopefully, can tolerate the Entresto. Otherwise, the patient has really not been doing well from a heart failure standpoint. Job ID: [id number]
[2019-04-13] MEDS ORDERED: Furosemide 40 MG/4 ML VIAL SLOW IVP SCH ×2 (12:00→16:30)
--- NOTE | 2019-04-13 16:17 | PDOC.HOSPP ---
- Subjective Encounter Date: 04/13/19 Encounter Time: 16:00 Subjective: no overnight events. This afternoon, breathing and lower extremity swelling is better but remains significantly limited in ambulation due to shortness of breath and heavy legs - Objective Vital Signs & Weight: Vital Signs (12 hours) Temp Pulse Resp BP Pulse Ox 04/13/19 15:08 98 F 71 19 119/56 L 94 L 04/13/19 11:43 61 102/57 L 04/13/19 11:15 97.9 F 63 17 87/47 L 94 L 04/13/19 07:36 98.2 F 62 18 110/62 94 L Weight Weight 276 lb 3.2 oz I&O: 04/12/19 04/13/19 04/14/19 06:59 06:59 06:59 Intake Total 480 1510 Output Total 1350 1300 Balance -870 210 Result Diagrams: 04/12/19 04:56 04/13/19 04:21 Additional Labs: Accuchecks 04/13/19 04/13/19 04/12/19 10:51 05:30 22:03 POC Glucose 167 H 117 H 230 H 04/12/19 17:12 POC Glucose 155 H Hospitalist ROS - Review of Systems Constitutional: denies: fever, chills, sweats, weakness, malaise, other Respiratory: denies: cough, dry, shortness of breath, hemoptysis, SOB with excertion, pleuritic pain, sputum, wheezing, other Cardiovascular: reports: orthopnea, paroxysmal noc. dyspnea, edema. denies: chest pain, palpitations, light headedness, other Gastrointestinal: denies: nausea, vomiting, abdominal pain, diarrhea, constipation, melena, hematochezia, other Genitourinary: denies: dysuria, frequency, incontinence, hematuria, retention, other Neurological: reports: weakness - Medication Medications: Active Medications Generic Name Dose Route Start Last Admin Trade Name Freq PRN Reason Stop Dose Admin Allopurinol 300 mg 04/12/19 09:00 04/13/19 08:59 Zyloprim PO 300 mg QAM ECHO Administration Amiodarone HCl 200 mg 04/12/19 09:00 04/13/19 08:59 Cordarone PO 200 mg DAILY ECHO Administration Aspirin 81 mg 04/12/19 09:00 04/13/19 08:58 Ecotrin PO 81 mg QAM ECHO Administration Carvedilol 12.5 mg 04/12/19 08:00 04/13/19 08:59 Coreg PO 12.5 mg BID-WM ECHO Administration Cholecalciferol 5,000 units 04/12/19 09:00 04/13/19 08:58 Vitamin D3 PO 5,000 units DAILY ECHO Administration Clopidogrel Bisulfate 75 mg 04/12/19 09:00 04/13/19 08:59 Plavix PO 75 mg DAILY ECHO Administration Cyanocobalamin 1,000 mcg 04/12/19 09:00 04/13/19 08:59 Vitamin B-12 PO 1,000 mcg DAILY ECHO Administration Docusate Sodium 50 mg 04/12/19 09:00 04/13/19 09:00 Colace Liquid PO Not Given BID ECHO Famotidine 20 mg 04/12/19 21:00 04/12/19 19:53 Pepcid PO 20 mg HS ECHO Administration Insulin Glargine 43 units/ 0.43 mls @ 0 mls/hr 04/12/19 09:00 04/13/19 09:00 Miscellaneous Medication SC 0.43 mls QAM ECHO Administration Insulin Glargine 43 units/ 0.43 mls @ 0 mls/hr 04/12/19 09:00 04/13/19 08:59 Miscellaneous Medication SC 0.43 mls QAM ECHO Administration Insulin Human Lispro 0 units 04/11/19 19:30 04/12/19 13:29 Humalog SC 3 unit .MILD SLIDING SCALE PRN Administration Mild Correctional Scale Pregabalin 75 mg 04/12/19 21:00 04/12/19 19:53 Lyrica PO 75 mg HS ECHO Administration Ropinirole HCl 1 mg 04/12/19 21:00 04/12/19 19:54 Requip PO 1 mg HS ECHO Administration Sacubitril/Valsartan 1 tab 04/13/19 09:00 04/13/19 08:58 Entresto 24 Mg-26 Mg Tablet PO 1 tab BID ECHO Administration Sodium Chloride 10 ml 04/11/19 19:44 04/12/19 08:23 Flush - Normal Saline IVF 10 ml Q12HR PRN Administration Saline Flush Tamsulosin HCl 0.4 mg 04/12/19 21:00 04/12/19 19:54 Flomax PO 0.4 mg HS ECHO Administration Trazodone HCl 50 mg 04/12/19 21:00 04/12/19 19:54 Desyrel PO 50 mg HS ECHO Administration - Exam General Appearance: NAD, awake alert Neck: supple, symmetric, no JVD, no thyromegaly, no lymphadenopathy, no carotid bruit Heart: RRR, no murmur, no gallops, no rubs, normal peripheral pulses Respiratory - other findings: significantly reduced breath sounds throughout with inspiratory crackles Gastrointestinal: soft, non-tender, normal bowel sounds, no palpable masses, no hepatomegaly, no splenomegaly, no bruit, distended Extremities - other findings: significant lower extremity pitting edema to thigh level Psychiatric: normal affect, normal behavior, A&O x 3 Hosp A/P - Plan IMPRESSION AND PLAN: Mr. Brunson is a 68-year-old gentleman, who is being admitted for management of the following; 1. decompensated HFrEF - etiology for decompensation unknown; patient remains hypervolemic; will continue diuresis, however, per cardiology has poor prognosis ; started on entresto, will follow Cr and K tomorrow 2. WOLFGANG over CKD; currently at around baseline level; may be cardiorenal syndrome ; 2. Hypertension. Monitor blood pressure and resume home medications once verified. 3. Hyperlipidemia. Resume home medications once verified. 5. Indeterminate troponin; stable; 6. Gastrointestinal prophylaxis with famotidine. 7. Code status, full. Surrogate decision maker is his son, Heath Brunson Jr. discussed code status with patient and at this point wishes to remain full code.
[2019-04-13] MEDS: Pregabalin 75 MG CAP PO SCH (20:55)
[2019-04-13] MEDS: rOPINIRole HCl 1 MG TAB PO SCH (20:56)
[2019-04-13] MEDS: traZODone HCl 50 MG TAB PO SCH (20:56)
[2019-04-13] MEDS: Famotidine 20 MG TAB PO SCH (20:56)
[2019-04-13] MEDS: Tamsulosin HCl 0.4 MG CAP PO SCH (20:56)
[2019-04-14 04:48] LABS: Anion Gap 11 mmol/L (10-20); BUN (Urea Nitrogen) 31 mg/dL (8.4-25.7); Calc. Creatinine Clearance 79 mL/min (70-130); Calcium 8.6 mg/dL (7.8-10.44); Carbon Dioxide 28 mmol/L (23-31); Chloride 108 mmol/L (98-107); Estimated GFR-MDRD 45; Glucose 64 mg/dL (80-115); Magnesium 2.2 mg/dL (1.6-2.6); Potassium 3.6 mmol/L (3.5-5.1); Sodium 143 mmol/L (136-145)
[2019-04-14] MEDS: Clopidogrel Bisulfate 75 MG TAB PO SCH (09:05)
[2019-04-14] MEDS: Aspirin 81 mg Enteric Coated Tablet PO SCH (09:05)
[2019-04-14] MEDS: Allopurinol 300 MG TAB PO SCH (09:05)
[2019-04-14] MEDS: Cyanocobalamin (Vitamin B-12) 1,000 MCG TAB PO SCH (09:05)
[2019-04-14] MEDS: Amiodarone 200 MG TAB PO SCH (09:06)
[2019-04-14] MEDS: Docusate Sodium 100 MG/10 ML UDCUP PO SCH ×2 (09:06→20:27)
--- NOTE | 2019-04-14 09:34 | PRG ---
DATE OF SERVICE: 04/14/2019 SUBJECTIVE: Mr. Brunson is doing well overall, but he did have an episode of hypoglycemia this morning, but he feels better when he got some food. His breathing has actually improved. OBJECTIVE: VITAL SIGNS: His blood pressure 103/59, pulse 61 and regular. LUNGS: Clear. CARDIAC: Normal S1 and normal S2. ABDOMEN: Obese, nontender. EXTREMITIES: Only mild edema. LABORATORY DATA: Creatinine is actually improved with Entresto, it was 2.07 on admission, 1.54 now. ASSESSMENT: 1. Congestive heart failure, systolic, acute on chronic, slowly improving. 2. Relatively low blood pressure. 3. Renal failure, stable, stage 3. PLAN: 1. Carvedilol is on hold for now until we can get him on Entresto. 2. He is still on amiodarone. 3. On aspirin and Plavix. 4. We will probably start some low-dose torsemide soon. 5. Potentially go back on Coreg 3.125 mg twice a day tomorrow. Overall seems to be slowly improving with the Entresto. Job ID: [id number]
[2019-04-14] MEDS: Insulin Glargine 43 UNITS in Pre-Filled Syringe 1 EACH SC SCH ×2 (10:03→10:06)
[2019-04-14] MEDS: HumaLOG 300 UNITS/3 ML VIAL SC PRN (12:38)
--- NOTE | 2019-04-14 17:18 | PDOC.HOSPP ---
- Subjective Encounter Date: 04/14/19 Encounter Time: 09:00 Subjective: overnight, had hypotension after starting on entresto, so per cardiology stopped coreg and continued entresto. Also had an episode of asymptomatic hypoglycemia. This morning, has no complaints and breathing is improved. - Objective Vital Signs & Weight: Vital Signs (12 hours) Temp Pulse Resp BP BP Pulse Ox 04/14/19 16:06 98.4 F 70 16 110/57 L 96 04/14/19 11:26 97.2 F L 64 17 110/56 L 94 L 04/14/19 07:33 97.7 F 61 16 103/59 L 95 Weight Weight 276 lb I&O: 04/13/19 04/14/19 04/15/19 06:59 06:59 06:59 Intake Total 1510 1220 Output Total 1300 900 Balance 210 320 Result Diagrams: 04/12/19 04:56 04/14/19 04:00 Additional Labs: Accuchecks 04/14/19 04/14/19 04/14/19 16:31 11:09 05:32 POC Glucose 172 H 214 H 105 04/14/19 04/13/19 05:14 20:10 POC Glucose 69 L 194 H Hospitalist ROS - Review of Systems Constitutional: denies: fever, chills, sweats, weakness, malaise, other Respiratory: reports: shortness of breath (shortness of breath better compared to yesterday), SOB with excertion. denies: cough, dry, hemoptysis, pleuritic pain, sputum, wheezing, other Cardiovascular: reports: orthopnea. denies: chest pain, palpitations, paroxysmal noc. dyspnea, edema, light headedness, other Gastrointestinal: denies: nausea, vomiting, abdominal pain, diarrhea, constipation, melena, hematochezia, other Genitourinary: denies: dysuria, frequency, incontinence, hematuria, retention, other - Medication Medications: Active Medications Generic Name Dose Route Start Last Admin Trade Name Freq PRN Reason Stop Dose Admin Allopurinol 300 mg 04/12/19 09:00 04/14/19 09:05 Zyloprim PO 300 mg QAM ECHO Administration Amiodarone HCl 200 mg 04/12/19 09:00 04/14/19 09:06 Cordarone PO 200 mg DAILY ECHO Administration Aspirin 81 mg 04/12/19 09:00 04/14/19 09:05 Ecotrin PO 81 mg QAM ECHO Administration Cholecalciferol 5,000 units 04/12/19 09:00 04/14/19 09:05 Vitamin D3 PO 5,000 units DAILY ECHO Administration Clopidogrel Bisulfate 75 mg 04/12/19 09:00 04/14/19 09:05 Plavix PO 75 mg DAILY ECHO Administration Cyanocobalamin 1,000 mcg 04/12/19 09:00 04/14/19 09:05 Vitamin B-12 PO 1,000 mcg DAILY ECHO Administration Docusate Sodium 50 mg 04/12/19 09:00 04/14/19 09:06 Colace Liquid PO Not Given BID ECHO Famotidine 20 mg 04/12/19 21:00 04/13/19 20:56 Pepcid PO 20 mg HS ECHO Administration Insulin Glargine 43 units/ 0.43 mls @ 0 mls/hr 04/12/19 09:00 04/14/19 10:06 Miscellaneous Medication SC 0.43 mls QAM ECHO Administration Insulin Human Lispro 0 units 04/14/19 12:07 04/14/19 12:38 Humalog SC 3 unit .MILD SLIDING SCALE PRN Administration MILD SLIDING SCALE Protocol Pregabalin 75 mg 04/12/19 21:00 04/13/19 20:55 Lyrica PO 75 mg HS ECHO Administration Ropinirole HCl 1 mg 04/12/19 21:00 04/13/19 20:56 Requip PO 1 mg HS ECHO Administration Sacubitril/Valsartan 1 tab 04/13/19 09:00 04/14/19 09:06 Entresto 24 Mg-26 Mg Tablet PO 1 tab BID ECHO Administration Sodium Chloride 10 ml 04/11/19 19:44 04/12/19 08:23 Flush - Normal Saline IVF 10 ml Q12HR PRN Administration Saline Flush Tamsulosin HCl 0.4 mg 04/12/19 21:00 04/13/19 20:56 Flomax PO 0.4 mg HS ECHO Administration Trazodone HCl 50 mg 04/12/19 21:00 04/13/19 20:56 Desyrel PO 50 mg HS ECHO Administration - Exam General Appearance: NAD, awake alert Heart: RRR, no murmur, no gallops, no rubs, normal peripheral pulses Respiratory: no wheezes, no rales, no ronchi, normal chest expansion, no tachypnea, normal percussion Respiratory - other findings: significantly reduced breath sounds throughout with inspiratory crackles Gastrointestinal: soft, non-tender, non-distended, normal bowel sounds, no palpable masses, no hepatomegaly, no splenomegaly, no bruit Extremities - other findings: b/l pitting edema to hip level, improved Psychiatric: normal affect, normal behavior, A&O x 3 Hosp A/P - Plan IMPRESSION AND PLAN: Mr. Brunson is a 68-year-old gentleman, who is being admitted for management of the following; 1. decompensated HFrEF - etiology for decompensation unknown; patient remains hypervolemic; will continue diuresis, however, per cardiology has poor prognosis ; started on entresto, became hypotensive so stopped coreg; will follow vitals and labs; if tolerates well, may be dced (04/15) pending cardiology clearance 2. WOLFGANG over CKD (resolved) 3. Hyperlipidemia. Resume home medications once verified. 5. Indeterminate troponin; stable with no signs of new ischemia on EKG; 6. Gastrointestinal prophylaxis with famotidine. 7. Code status, full. Surrogate decision maker is his son, Heath Brunson Jr. discussed code status with patient and at this point wishes to remain full code.
[2019-04-14] MEDS: rOPINIRole HCl 1 MG TAB PO SCH (20:27)
[2019-04-14] MEDS: traZODone HCl 50 MG TAB PO SCH (20:27)
[2019-04-14] MEDS: Famotidine 20 MG TAB PO SCH (20:28)
[2019-04-14] MEDS: Tamsulosin HCl 0.4 MG CAP PO SCH (20:28)
[2019-04-14] MEDS: Pregabalin 75 MG CAP PO SCH (20:28)
[2019-04-15 05:14] LABS: Anion Gap 12 mmol/L (10-20); BUN (Urea Nitrogen) 29 mg/dL (8.4-25.7); Calc. Creatinine Clearance 85 mL/min (70-130); Calcium 8.6 mg/dL (7.8-10.44); Carbon Dioxide 28 mmol/L (23-31); Chloride 108 mmol/L (98-107); Estimated GFR-MDRD 48; Glucose 95 mg/dL (80-115); Potassium 3.6 mmol/L (3.5-5.1); Sodium 144 mmol/L (136-145)
[2019-04-15] MEDS: Cyanocobalamin (Vitamin B-12) 1,000 MCG TAB PO SCH (08:38)
[2019-04-15] MEDS: Clopidogrel Bisulfate 75 MG TAB PO SCH (08:38)
[2019-04-15] MEDS: Allopurinol 300 MG TAB PO SCH (08:38)
[2019-04-15] MEDS: Amiodarone 200 MG TAB PO SCH (08:38)
[2019-04-15] MEDS: Aspirin 81 mg Enteric Coated Tablet PO SCH (08:38)
[2019-04-15] MEDS: Insulin Glargine 43 UNITS in Pre-Filled Syringe 1 EACH SC SCH (08:39)
[2019-04-15] MEDS: Docusate Sodium 100 MG/10 ML UDCUP PO SCH ×2 (08:41→21:14)
[2019-04-15] MEDS ORDERED: Torsemide 20 MG TAB PO SCH (09:00)
--- NOTE | 2019-04-15 12:25 | PDOC.CPN ---
- Subjective Date: 04/15/19 Time: 12:22 Interval history: Still with orthopnea. No new complaints. Demadex started this morning. - Review of Systems General: denies: fever/chills, weight/appetite/sleep changes, night sweats, fatigue Respiratory: reports: cough, shortness of breath Cardiovascular: reports: edema Gastrointestinal: denies: nausea, vomiting, diarrhea, constipation, abd pain, GI bleeding Musculoskeletal: denies: pain, tenderness, stiffness, swelling, arthritis/ arthralgias Neurological: denies: numbness, syncope, seizure, weakness - Objective Allergies/Adverse Reactions: Allergies Allergy/AdvReac Type Severity Reaction Status Date / Time No Known Allergies Allergy Verified 04/11/19 21:49 Visit Medications: Current Medications Acetaminophen (Tylenol) 650 mg PO Q4H PRN PRN Reason: Headache/Fever/Mild Pain (1-3) Albuterol Sulfate (Proventil Hfa) 2 puff INH Q6H PRN PRN Reason: SOB &/or Wheezing Albuterol/Ipratropium (Duoneb) 3 ml NEB Q4H PRN PRN Reason: SOB &/or Wheezing Allopurinol (Zyloprim) 300 mg PO QAM [facility] Last Admin: 04/15/19 08:38 Dose: 300 mg Amiodarone HCl (Cordarone) 200 mg PO DAILY [facility] Last Admin: 04/15/19 08:38 Dose: 200 mg Aspirin (Ecotrin) 81 mg PO QAM [facility] Last Admin: 04/15/19 08:38 Dose: 81 mg [facility] ([facility]) [facility] Cholecalciferol (Vitamin D3) 5,000 units PO DAILY [facility] Last Admin: 04/15/19 08:37 Dose: 5,000 units Clopidogrel Bisulfate (Plavix) 75 mg PO DAILY [facility] Last Admin: 04/15/19 08:38 Dose: 75 mg Cyanocobalamin (Vitamin B-12) 1,000 mcg PO DAILY [facility] Last Admin: 04/15/19 08:38 Dose: 1,000 mcg Dextrose/Water (Dextrose 50%) 25 gm SLOW IVP PRN PRN PRN Reason: Hypoglycemia Docusate Sodium (Colace Liquid) 50 mg PO BID [facility] Last Admin: 04/15/19 08:41 Dose: Not Given Famotidine (Pepcid) 20 mg PO [facility] Last Admin: 04/14/19 20:28 Dose: 20 mg Glucagon (Glucagon) 1 mg IM PRN PRN PRN Reason: Hypoglycemia Dextrose/Water (D5w) 1,000 mls @ 0 mls/hr IV .Q0M PRN PRN Reason: Hypoglycemia Insulin Glargine 43 units/ (Miscellaneous Medication) 0.43 mls @ 0 mls/hr SC QAM [facility] Last Admin: 04/15/19 08:39 Dose: 0.43 mls Insulin Human Lispro (Humalog) 0 units SC .MILD SLIDING SCALE PRN; Protocol PRN Reason: MILD SLIDING SCALE Last Admin: 04/14/19 12:38 Dose: 3 unit Pregabalin (Lyrica) 75 mg PO [facility] Last Admin: 04/14/19 20:28 Dose: 75 mg Ropinirole HCl (Requip) 1 mg PO [facility] Last Admin: 04/14/19 20:27 Dose: 1 mg Sacubitril/Valsartan (Entresto 24 Mg-26 Mg Tablet) 1 tab PO BID [facility] Last Admin: 04/15/19 08:38 Dose: 1 tab Sodium Chloride (Flush - Normal Saline) 10 ml IVF Q12HR PRN PRN Reason: Saline Flush Last Admin: 04/14/19 20:26 Dose: 10 ml Sodium Chloride (Flush - Normal Saline) 10 ml IVF PRN PRN PRN Reason: Saline Flush Tamsulosin HCl (Flomax) 0.4 mg PO [facility] Last Admin: 04/14/19 20:28 Dose: 0.4 mg Torsemide (Demadex) 20 mg PO DAILY [facility] Last Admin: 04/15/19 08:38 Dose: 20 mg Trazodone HCl (Desyrel) 50 mg PO [facility] Last Admin: 04/14/19 20:27 Dose: 50 mg Vital Signs & Weight: Vital Signs Temp Pulse Resp BP BP BP Pulse Ox 04/15/19 11:16 97.8 F 69 18 118/56 L 96 04/15/19 07:11 98.2 F 74 20 113/61 94 L 04/15/19 04:37 96/54 L 04/15/19 04:00 96.9 F L 70 18 91/53 L 93 L Weight 280 lb 11.2 oz - Physical Exam HEENT: mucus membranes moist, normocephaly Neck: supple neck Cardiac: regular rate and rhythm Lungs: bibasilar rales Neuro: grossly intact Abdomen: soft, non-tender Extremities: 1+ LE edema Skin: clear Musculoskeletal: no pain - Labs Result Diagrams: 04/12/19 04:56 04/15/19 04:29 Troponin/CKMB CK-MB (CK-2) 2.3 ng/mL (0-6.6) 04/11/19 15:39 Troponin I 0.213 ng/mL (< 0.028) H 04/11/19 21:57 - Assessment/Plan Assessment/Plan: 1. Acute on chronic systolic CHF 2. Hx NSVT 3. s/p ICD Patient stable, but still overloaded. Continue diuresis and med titration. His QRS is 130-140ms intermittently. Could consider upgrade to BiV device. No changes on my part today. RG-Pt seen and examined. Agree with the above.
[2019-04-15] MEDS: HumaLOG 300 UNITS/3 ML VIAL SC PRN (16:49)
[2019-04-15] MEDS: Carvedilol 3.125 MG TAB PO SCH (16:49)
--- NOTE | 2019-04-15 18:29 | PDOC.HOSPP ---
- Subjective Encounter Date: 04/15/19 Encounter Time: 10:00 Subjective: Pt seen for followup re: CHF exacerbation. cough+, yellow sputum+. - Objective Vital Signs & Weight: Vital Signs (12 hours) Temp Pulse Resp BP Pulse Ox 04/15/19 15:08 98.1 F 74 18 117/95 H 95 04/15/19 11:16 97.8 F 69 18 118/56 L 96 04/15/19 07:11 98.2 F 74 20 113/61 94 L Weight Weight 280 lb 11.2 oz I&O: 04/14/19 04/15/19 04/16/19 06:59 06:59 06:59 Intake Total 1220 1900 1040 Output Total 900 1000 Balance 601 962 3957 Result Diagrams: 04/12/19 04:56 04/15/19 04:29 Additional Labs: Accuchecks 04/15/19 04/15/19 04/15/19 15:57 11:37 05:46 POC Glucose 271 H 172 H 87 04/14/19 20:13 POC Glucose 215 H Labs and MARs reviewed by me EKG Reviewed by me: Yes (Tele: NSR) Hospitalist ROS - Review of Systems Constitutional: denies: fever, chills, sweats, weakness, malaise Respiratory: reports: cough, SOB with excertion, sputum. denies: dry, shortness of breath, hemoptysis, pleuritic pain, wheezing Cardiovascular: reports: orthopnea. denies: chest pain, palpitations, paroxysmal noc. dyspnea, edema, light headedness - Medication Medications: Active Medications Generic Name Dose Route Start Last Admin Trade Name Hema PRN Reason Stop Dose Admin Allopurinol 300 mg 04/12/19 09:00 04/15/19 08:38 Zyloprim PO 300 mg QAM ECHO Administration Amiodarone HCl 200 mg 04/12/19 09:00 04/15/19 08:38 Cordarone PO 200 mg DAILY ECHO Administration Aspirin 81 mg 04/12/19 09:00 04/15/19 08:38 Ecotrin PO 81 mg QAM ECHO Administration Carvedilol 3.125 mg 04/15/19 17:00 04/15/19 16:49 Coreg PO 3.125 mg BID-WM ECHO Administration Cholecalciferol 5,000 units 04/12/19 09:00 04/15/19 08:37 Vitamin D3 PO 5,000 units DAILY ECHO Administration Clopidogrel Bisulfate 75 mg 04/12/19 09:00 04/15/19 08:38 Plavix PO 75 mg DAILY ECHO Administration Cyanocobalamin 1,000 mcg 04/12/19 09:00 04/15/19 08:38 Vitamin B-12 PO 1,000 mcg DAILY ECHO Administration Docusate Sodium 50 mg 04/12/19 09:00 04/15/19 08:41 Colace Liquid PO Not Given BID ECHO Famotidine 20 mg 04/12/19 21:00 04/14/19 20:28 Pepcid PO 20 mg HS ECHO Administration Insulin Glargine 43 units/ 0.43 mls @ 0 mls/hr 04/12/19 09:00 04/15/19 08:39 Miscellaneous Medication SC 0.43 mls QAM ECHO Administration Insulin Human Lispro 0 units 04/14/19 12:07 04/15/19 16:49 Humalog SC 3 unit .MILD SLIDING SCALE PRN Administration MILD SLIDING SCALE Protocol Pregabalin 75 mg 04/12/19 21:00 04/14/19 20:28 Lyrica PO 75 mg HS ECHO Administration Ropinirole HCl 1 mg 04/12/19 21:00 04/14/19 20:27 Requip PO 1 mg HS ECHO Administration Sacubitril/Valsartan 1 tab 04/13/19 09:00 04/15/19 08:38 Entresto 24 Mg-26 Mg Tablet PO 1 tab BID ECHO Administration Sodium Chloride 10 ml 04/11/19 19:44 04/14/19 20:26 Flush - Normal Saline IVF 10 ml Q12HR PRN Administration Saline Flush Tamsulosin HCl 0.4 mg 04/12/19 21:00 04/14/19 20:28 Flomax PO 0.4 mg HS ECHO Administration Torsemide 20 mg 04/15/19 09:00 04/15/19 08:38 Demadex PO 20 mg DAILY ECHO Administration Trazodone HCl 50 mg 04/12/19 21:00 04/14/19 20:27 Desyrel PO 50 mg HS ECHO Administration - Exam General Appearance: awake alert General - other findings: Morbid obesity Eye: anicteric sclera ENT: moist mucosa Neck: supple Respiratory: wheezes Gastrointestinal: soft, non-tender Skin: no rashes Psychiatric: normal affect, normal behavior Hosp A/P - Plan IMPRESSION AND PLAN: 1.CHF exacerbation - Continue torsemide and entresto. Carvedilol resumed. 2. Acute bronchitis: With h/o productive cough, trial antibiotics. 3. Hyperlipidemia. Stable 4. Indeterminate troponin; stable with no signs of new ischemia on EKG; 5. WOLFGANG over CKD (resolved)
[2019-04-15] MEDS: Pregabalin 75 MG CAP PO SCH (21:13)
[2019-04-15] MEDS: Famotidine 20 MG TAB PO SCH (21:13)
[2019-04-15] MEDS: rOPINIRole HCl 1 MG TAB PO SCH (21:13)
[2019-04-15] MEDS: traZODone HCl 50 MG TAB PO SCH (21:13)
[2019-04-15] MEDS: Tamsulosin HCl 0.4 MG CAP PO SCH (21:13)
[2019-04-15] MEDS: methylPREDNISolone Sod Succ 40 MG VIAL IVP SCH (21:13)
[2019-04-15] MEDS: Cefdinir 300 MG CAP PO SCH (21:13)
[2019-04-16 04:48] LABS: #Lymphocytes 0.7 thou/uL (1.20-3.40); #Monocytes 0.1 thou/uL (0.11-0.59); #Neutrophils 3.4 thou/uL (1.40-6.50); %Basophils 0.3 % (0.0-1.0); %Eosinophils 0.2 % (0.0-10.0); %Lymphocytes 15.6 % (21.0-51.0); %Monocytes 1.4 % (0.0-10.0); %Neutrophils 82.6 % (42.0-75.0); Mean Corpuscular HGB CONC 32.9 g/dL (32.0-36.0); Mean Corpuscular Hemoglobin 33.9 pg (27.0-31.0); Mean Platelet Volume 7.7 fL (7.4-10.4); Platelet Count 113 thou/uL (130-400); RBC Distribution Width 14.6 % (11.5-14.5); Red Blood Cell (RBC) Count 3.24 mill/uL (4.70-6.10); White Blood Cell (WBC) Count 4.1 thou/uL (4.8-10.8)
[2019-04-16] MEDS: methylPREDNISolone Sod Succ 40 MG VIAL IVP SCH ×2 (05:03→13:59)
[2019-04-16 05:11] LABS: Anion Gap 12 mmol/L (10-20); BUN (Urea Nitrogen) 27 mg/dL (8.4-25.7); Calc. Creatinine Clearance 85 mL/min (70-130); Calcium 8.9 mg/dL (7.8-10.44); Carbon Dioxide 29 mmol/L (23-31); Chloride 105 mmol/L (98-107); Estimated GFR-MDRD 47; Glucose 179 mg/dL (80-115); Potassium 4.8 mmol/L (3.5-5.1); Sodium 141 mmol/L (136-145)
[2019-04-16] MEDS: Furosemide 40 MG/4 ML VIAL SLOW IVP SCH ×2 (09:01→13:58)
[2019-04-16] MEDS: Cefdinir 300 MG CAP PO SCH ×2 (09:01→20:54)
[2019-04-16] MEDS: Carvedilol 3.125 MG TAB PO SCH ×2 (09:01→16:13)
[2019-04-16] MEDS: Clopidogrel Bisulfate 75 MG TAB PO SCH (09:02)
[2019-04-16] MEDS: Allopurinol 300 MG TAB PO SCH (09:02)
[2019-04-16] MEDS: Amiodarone 200 MG TAB PO SCH (09:02)
[2019-04-16] MEDS: Aspirin 81 mg Enteric Coated Tablet PO SCH (09:02)
[2019-04-16] MEDS: Metolazone 2.5 MG TAB PO SCH (09:02)
[2019-04-16] MEDS: Cyanocobalamin (Vitamin B-12) 1,000 MCG TAB PO SCH (09:02)
[2019-04-16] MEDS: Insulin Glargine 43 UNITS in Pre-Filled Syringe 1 EACH SC SCH (09:03)
[2019-04-16] MEDS: HumaLOG 300 UNITS/3 ML VIAL SC PRN ×3 (09:04→20:57)
[2019-04-16] MEDS: Docusate Sodium 100 MG/10 ML UDCUP PO SCH ×2 (09:13→20:55)
--- NOTE | 2019-04-16 16:16 | PDOC.HOSPP ---
- Subjective Encounter Date: 04/16/19 Encounter Time: 09:40 Subjective: Pt seen for followup re: CHF exacerbation. feels better. - Objective Vital Signs & Weight: Vital Signs (12 hours) Temp Pulse Resp BP BP Pulse Ox 04/16/19 15:20 98 F 71 18 141/77 H 94 L 04/16/19 11:09 98.1 F 74 22 H 117/66 93 L 04/16/19 07:10 98.2 F 76 18 133/71 94 L Weight Weight 283 lb 11.2 oz I&O: 04/15/19 04/16/19 04/17/19 06:59 06:59 06:59 Intake Total 1900 1640 Output Total 1000 1500 Balance 900 140 Result Diagrams: 04/16/19 04:37 04/16/19 04:37 Additional Labs: Accuchecks 04/16/19 04/16/19 04/15/19 10:47 05:19 20:26 POC Glucose 316 H 230 H 160 H 04/15/19 15:57 POC Glucose 271 H EKG Reviewed by me: Yes (Tele: NSR) Hospitalist ROS - Review of Systems Respiratory: reports: cough, SOB with excertion, sputum Cardiovascular: denies: chest pain, palpitations, orthopnea, paroxysmal noc. dyspnea, edema, light headedness Gastrointestinal: denies: nausea, vomiting, abdominal pain, diarrhea, constipation, melena, hematochezia - Medication Medications: Active Medications Generic Name Dose Route Start Last Admin Trade Name Freq PRN Reason Stop Dose Admin Allopurinol 300 mg 04/12/19 09:00 04/16/19 09:02 Zyloprim PO 300 mg QAM ECHO Administration Amiodarone HCl 200 mg 04/12/19 09:00 04/16/19 09:02 Cordarone PO 200 mg DAILY ECHO Administration Aspirin 81 mg 04/12/19 09:00 04/16/19 09:02 Ecotrin PO 81 mg QAM ECHO Administration Carvedilol 3.125 mg 04/15/19 17:00 04/16/19 16:13 Coreg PO 3.125 mg BID-WM ECHO Administration Cefdinir 300 mg 04/15/19 21:00 04/16/19 09:01 Omnicef PO 300 mg BID ECHO Administration Cholecalciferol 5,000 units 04/12/19 09:00 04/16/19 09:02 Vitamin D3 PO 5,000 units DAILY ECHO Administration Clopidogrel Bisulfate 75 mg 04/12/19 09:00 04/16/19 09:02 Plavix PO 75 mg DAILY ECHO Administration Cyanocobalamin 1,000 mcg 04/12/19 09:00 04/16/19 09:02 Vitamin B-12 PO 1,000 mcg DAILY ECHO Administration Docusate Sodium 50 mg 04/12/19 09:00 04/16/19 09:13 Colace Liquid PO Not Given BID ECHO Famotidine 20 mg 04/12/19 21:00 04/15/19 21:13 Pepcid PO 20 mg HS ECHO Administration Furosemide 40 mg 04/16/19 09:00 04/16/19 13:58 Lasix SLOW IVP 40 mg 0900,1400 ECHO Administration Insulin Glargine 43 units/ 0.43 mls @ 0 mls/hr 04/12/19 09:00 04/16/19 09:03 Miscellaneous Medication SC 0.43 mls QAM ECHO Administration Insulin Human Lispro 0 units 04/14/19 12:07 04/16/19 11:15 Humalog SC 5 unit .MILD SLIDING SCALE PRN Administration MILD SLIDING SCALE Protocol Methylprednisolone Sodium Succinate 20 mg 04/15/19 22:00 04/16/19 13:59 Solu-Medrol IVP 20 mg Q8HR ECHO Administration Metolazone 2.5 mg 04/16/19 08:30 04/16/19 09:02 Zaroxolyn PO 2.5 mg 0830 ECHO Administration Pregabalin 75 mg 04/12/19 21:00 04/15/19 21:13 Lyrica PO 75 mg HS ECHO Administration Ropinirole HCl 1 mg 04/12/19 21:00 04/15/19 21:13 Requip PO 1 mg HS ECHO Administration Sacubitril/Valsartan 1 tab 04/13/19 09:00 04/16/19 09:03 Entresto 24 Mg-26 Mg Tablet PO 1 tab BID ECHO Administration Sodium Chloride 10 ml 04/11/19 19:44 04/14/19 20:26 Flush - Normal Saline IVF 10 ml Q12HR PRN Administration Saline Flush Tamsulosin HCl 0.4 mg 04/12/19 21:00 04/15/19 21:13 Flomax PO 0.4 mg HS ECHO Administration Trazodone HCl 50 mg 04/12/19 21:00 04/15/19 21:13 Desyrel PO 50 mg HS ECHO Administration - Exam General - other findings: Morbid obesity Eye: anicteric sclera ENT: moist mucosa Neck: supple Heart: RRR Respiratory - other findings: Michael crackles Gastrointestinal: soft, non-tender, normal bowel sounds, distended Extremities: no cyanosis Musculoskeletal: normal tone, normal strength Psychiatric: normal affect, normal behavior Hosp A/P - Plan IMPRESSION AND PLAN: 1.CHF exacerbation - Improving, continue torsemide and entresto. Carvedilol resumed. 2. Acute bronchitis: Pt improving, continue cefdinir and Duonebs, switch to oral steroids. 3. Hyperlipidemia. Stable 4. WOLFGANG over CKD (resolved)
[2019-04-16] MEDS: Pregabalin 75 MG CAP PO SCH (20:54)
[2019-04-16] MEDS: rOPINIRole HCl 1 MG TAB PO SCH (20:54)
[2019-04-16] MEDS: Tamsulosin HCl 0.4 MG CAP PO SCH (20:55)
[2019-04-16] MEDS: Famotidine 20 MG TAB PO SCH (20:55)
[2019-04-16] MEDS: traZODone HCl 50 MG TAB PO SCH (20:55)
[2019-04-17 04:40] LABS: #Lymphocytes 1.1 thou/uL (1.20-3.40); #Monocytes 0.5 thou/uL (0.11-0.59); #Neutrophils 3.8 thou/uL (1.40-6.50); %Basophils 0.2 % (0.0-1.0); %Eosinophils 0.3 % (0.0-10.0); %Lymphocytes 20.4 % (21.0-51.0); %Monocytes 8.4 % (0.0-10.0); %Neutrophils 70.8 % (42.0-75.0); Hemoglobin 10.4 g/dL (14.0-18.0); Mean Corpuscular HGB CONC 33.2 g/dL (32.0-36.0); Mean Platelet Volume 8.2 fL (7.4-10.4); Platelet Count 116 thou/uL (130-400); RBC Distribution Width 14.4 % (11.5-14.5); Red Blood Cell (RBC) Count 3.05 mill/uL (4.70-6.10); White Blood Cell (WBC) Count 5.4 thou/uL (4.8-10.8)
[2019-04-17 04:51] LABS: Anion Gap 11 mmol/L (10-20); BUN (Urea Nitrogen) 32 mg/dL (8.4-25.7); Calc. Creatinine Clearance 87 mL/min (70-130); Calcium 8.7 mg/dL (7.8-10.44); Carbon Dioxide 29 mmol/L (23-31); Chloride 103 mmol/L (98-107); Estimated GFR-MDRD 48; Glucose 139 mg/dL (80-115); Potassium 4.2 mmol/L (3.5-5.1); Sodium 139 mmol/L (136-145)
[2019-04-17] MEDS: Cefdinir 300 MG CAP PO SCH ×2 (08:29→21:00)
[2019-04-17] MEDS: predniSONE 20 MG TAB PO SCH (08:29)
[2019-04-17] MEDS: Allopurinol 300 MG TAB PO SCH (08:29)
[2019-04-17] MEDS: Amiodarone 200 MG TAB PO SCH (08:29)
[2019-04-17] MEDS: Aspirin 81 mg Enteric Coated Tablet PO SCH (08:29)
[2019-04-17] MEDS: Metolazone 2.5 MG TAB PO SCH (08:29)
[2019-04-17] MEDS: Clopidogrel Bisulfate 75 MG TAB PO SCH (08:30)
[2019-04-17] MEDS: Carvedilol 3.125 MG TAB PO SCH ×2 (08:30→16:21)
[2019-04-17] MEDS: Cyanocobalamin (Vitamin B-12) 1,000 MCG TAB PO SCH (08:30)
[2019-04-17] MEDS: Furosemide 40 MG/4 ML VIAL SLOW IVP SCH ×2 (08:31→13:32)
[2019-04-17] MEDS: Insulin Glargine 43 UNITS in Pre-Filled Syringe 1 EACH SC SCH (08:33)
[2019-04-17] MEDS: Docusate Sodium 100 MG/10 ML UDCUP PO SCH ×2 (08:35→21:00)
[2019-04-17] MEDS: HumaLOG 300 UNITS/3 ML VIAL SC PRN ×3 (11:49→21:28)
--- NOTE | 2019-04-17 16:47 | PRG ---
DATE OF SERVICE: 04/17/2019 SUBJECTIVE: Mr. Brunson states he is feeling better. He has a good diuresis today. OBJECTIVE: VITAL SIGNS: His blood pressure is improved. Blood pressure is 139/65, pulse 70 and regular. LUNGS: Clear. CARDIAC: Normal S1, normal S2. ABDOMEN: Soft, nontender. EXTREMITIES: Still moderate edema. ASSESSMENT: Congestive heart failure, systolic, acute on chronic, slowly improving. PLAN: 1. Carvedilol dose was reduced to 3.125 mg twice a day. 2. On amiodarone. 3. On Entresto. 4. On diuretics. 5. Should be able to go home tomorrow. Job ID: [id number]
--- NOTE | 2019-04-17 18:49 | PDOC.HOSPP ---
- Subjective Encounter Date: 04/17/19 Encounter Time: 10:00 Subjective: Pt seen for followup re: CHF exacerbation. Feels better. Ambulating in hallways. - Objective Vital Signs & Weight: Vital Signs (12 hours) Temp Pulse Resp BP Pulse Ox 04/17/19 15:16 97.9 F 70 14 139/65 96 04/17/19 11:23 97.4 F L 62 20 144/67 H 94 L 04/17/19 08:29 115/58 L 04/17/19 07:23 98.2 F 64 18 92/53 L 92 L Weight Weight 282 lb 1.6 oz I&O: 04/16/19 04/17/19 04/18/19 06:59 06:59 06:59 Intake Total 1640 1440 1200 Output Total 1500 3800 1850 Balance 140 -2360 -650 Result Diagrams: 04/17/19 04:19 04/18/19 04:25 Additional Labs: Accuchecks 04/17/19 04/17/19 04/17/19 17:10 10:40 05:12 POC Glucose 310 H 181 H 137 H 04/16/19 20:32 POC Glucose 263 H Labs and MARs reviewed by me EKG Reviewed by me: Yes (Tele; NSR) Hospitalist ROS - Review of Systems Respiratory: denies: cough, shortness of breath, SOB with excertion, pleuritic pain, wheezing Cardiovascular: denies: chest pain, palpitations, orthopnea, paroxysmal noc. dyspnea, edema, light headedness - Medication Medications: Active Medications Generic Name Dose Route Start Last Admin Trade Name Freq PRN Reason Stop Dose Admin Allopurinol 300 mg 04/12/19 09:00 04/17/19 08:29 Zyloprim PO 300 mg QAM ECHO Administration Amiodarone HCl 200 mg 04/12/19 09:00 04/17/19 08:29 Cordarone PO 200 mg DAILY CEHO Administration Aspirin 81 mg 04/12/19 09:00 04/17/19 08:29 Ecotrin PO 81 mg QAM ECHO Administration Carvedilol 3.125 mg 04/15/19 17:00 04/17/19 16:21 Coreg PO 3.125 mg BID-WM ECHO Administration Cefdinir 300 mg 04/15/19 21:00 04/17/19 08:29 Omnicef PO 300 mg BID ECHO Administration Cholecalciferol 5,000 units 04/12/19 09:00 04/17/19 08:29 Vitamin D3 PO 5,000 units DAILY ECHO Administration Clopidogrel Bisulfate 75 mg 04/12/19 09:00 04/17/19 08:30 Plavix PO 75 mg DAILY ECHO Administration Cyanocobalamin 1,000 mcg 04/12/19 09:00 04/17/19 08:30 Vitamin B-12 PO 1,000 mcg DAILY ECHO Administration Docusate Sodium 50 mg 04/12/19 09:00 04/17/19 08:35 Colace Liquid PO Not Given BID ECHO Famotidine 20 mg 04/12/19 21:00 04/16/19 20:55 Pepcid PO 20 mg HS ECHO Administration Furosemide 40 mg 04/16/19 09:00 04/17/19 13:32 Lasix SLOW IVP 40 mg 0900,1400 ECHO Administration Insulin Glargine 43 units/ 0.43 mls @ 0 mls/hr 04/12/19 09:00 04/17/19 08:33 Miscellaneous Medication SC 0.43 mls QAM ECHO Administration Insulin Human Lispro 0 units 04/14/19 12:07 04/17/19 17:28 Humalog SC 5 unit .MILD SLIDING SCALE PRN Administration MILD SLIDING SCALE Protocol Prednisone 40 mg 04/17/19 08:00 04/17/19 08:29 Prednisone PO 40 mg QAM-WM ECHO Administration Pregabalin 75 mg 04/12/19 21:00 04/16/19 20:54 Lyrica PO 75 mg HS ECHO Administration Ropinirole HCl 1 mg 04/12/19 21:00 04/16/19 20:54 Requip PO 1 mg HS ECHO Administration Sacubitril/Valsartan 1 tab 04/13/19 09:00 04/17/19 08:31 Entresto 24 Mg-26 Mg Tablet PO 1 tab BID ECHO Administration Sodium Chloride 10 ml 04/11/19 19:44 04/14/19 20:26 Flush - Normal Saline IVF 10 ml Q12HR PRN Administration Saline Flush Tamsulosin HCl 0.4 mg 04/12/19 21:00 04/16/19 20:55 Flomax PO 0.4 mg HS ECHO Administration Trazodone HCl 50 mg 04/12/19 21:00 04/16/19 20:55 Desyrel PO 50 mg HS ECHO Administration - Exam General - other findings: Morbid obesity Eye: PERRL ENT: moist mucosa Neck: supple Heart: RRR Respiratory - other findings: Michael crackles Gastrointestinal: soft, non-tender, distended Extremities: 2+ LE edema Psychiatric: normal affect, normal behavior Hosp A/P - Plan IMPRESSION AND PLAN: 1.CHF exacerbation - Improving, continue torsemide and entresto. Carvedilol resumed. 2. Acute bronchitis: Pt improving, continue cefdinir, bronchodilators and oral steroids. 3. Hyperlipidemia. Stable Patient is not on anticoagulation because he had Watchman procedure.
[2019-04-17] MEDS: rOPINIRole HCl 1 MG TAB PO SCH (20:59)
[2019-04-17] MEDS: Tamsulosin HCl 0.4 MG CAP PO SCH (20:59)
[2019-04-17] MEDS: Famotidine 20 MG TAB PO SCH (20:59)
[2019-04-17] MEDS: traZODone HCl 50 MG TAB PO SCH (21:00)
[2019-04-17] MEDS: Pregabalin 75 MG CAP PO SCH (21:00)
[2019-04-18 05:03] LABS: Anion Gap 12 mmol/L (10-20); BUN (Urea Nitrogen) 39 mg/dL (8.4-25.7); Calc. Creatinine Clearance 85 mL/min (70-130); Carbon Dioxide 27 mmol/L (23-31); Chloride 102 mmol/L (98-107); Estimated GFR-MDRD 48; Glucose 101 mg/dL (80-115); Potassium 4.1 mmol/L (3.5-5.1); Sodium 137 mmol/L (136-145)
[2019-04-18] MEDS: predniSONE 20 MG TAB PO SCH (08:32)
[2019-04-18] MEDS: Cyanocobalamin (Vitamin B-12) 1,000 MCG TAB PO SCH (08:33)
[2019-04-18] MEDS: Clopidogrel Bisulfate 75 MG TAB PO SCH (08:33)
[2019-04-18] MEDS: Furosemide 40 MG/4 ML VIAL SLOW IVP SCH (08:34)
[2019-04-18] MEDS: Aspirin 81 mg Enteric Coated Tablet PO SCH (08:34)
[2019-04-18] MEDS: Cefdinir 300 MG CAP PO SCH (08:34)
[2019-04-18] MEDS: Allopurinol 300 MG TAB PO SCH (08:34)
[2019-04-18] MEDS: Amiodarone 200 MG TAB PO SCH (08:34)
[2019-04-18] MEDS: Insulin Glargine 43 UNITS in Pre-Filled Syringe 1 EACH SC SCH (08:35)
[2019-04-18] MEDS: Carvedilol 3.125 MG TAB PO SCH (08:36)
[2019-04-18] MEDS: Docusate Sodium 100 MG/10 ML UDCUP PO SCH (08:36)
[2019-04-18 11:15] VITALS: BP 139/77; TEMP 97.5
[2019-04-18] MEDS: HumaLOG 300 UNITS/3 ML VIAL SC PRN (11:15)
--- NOTE | 2019-04-18 11:38 | PRG ---
DATE OF SERVICE: 04/18/2019 SUBJECTIVE: Mr. Brunson is feeling better. He is up walking the halls. No complaints. OBJECTIVE: VITAL SIGNS: Blood pressure is 139/77 and pulse is 70. LUNGS: Clear. CARDIAC: Normal S1. Normal S2. ABDOMEN: Soft and nontender. EXTREMITIES: Only mild edema. PERTINENT LABORATORY DATA: Creatinine is 1.45, which is improved from admission was 2.07 and potassium is 4.1. ASSESSMENT: 1. Congestive heart failure systolic acute on chronic, improved. 2. Coronary artery disease. 3. Renal failure, improved, now stage 3. PLAN: 1. To go home on Entresto twice a day. 2. Carvedilol, we will increase back to 6.25 twice a day. 3. Furosemide 40 mg twice a day. Job ID: [id number]
[2019-04-18] MEDS ORDERED: Furosemide 20 MG TAB PO SCH (14:00)
[2019-04-18] MEDS ORDERED: Carvedilol 3.125 MG TAB PO SCH (17:00)
--- NOTE | 2019-04-19 02:42 | DIS ---
DATE OF ADMISSION: 04/12/2019 DATE OF DISCHARGE: 04/18/2019 PRIMARY CARE PROVIDER: Dagoberto Parikh MD DISCHARGE DIAGNOSES: 1. Systolic congestive heart failure exacerbation, [place] Heart Association class III. 2. Acute bronchitis. 3. Acute on chronic stage 3 renal failure. 4. History of atrial fibrillation. CONDITION OF PATIENT ON THE DAY OF DISCHARGE: Stable. I assessed Mr. Brunson on the day of discharge. He reports feeling better. Vital signs are stable. S1 and S2 are heard, regular. Lungs are clear to auscultation bilaterally. CONSULTATIONS DURING THIS HOSPITALIZATION: Cardiology, Vaibhav Lopez MD DISCHARGE MEDICATIONS: 1. His Coreg dose was changed to 6.25 mg 2 times a day. 2. Lasix dose was changed to 40 mg 2 times a day. 3. He is going home on an oral prednisone taper and Omnicef 300 mg 2 times a day for 1 week. 4. He has also been started on Entresto 24/26 mg b.i.d. Otherwise, no change was made to his pre-admission home medications, which include: 1. Allopurinol 300 mg daily. 2. Amiodarone 200 mg daily. 3. Aspirin 81 mg daily. 4. Vitamin D3 of 5000 units daily. 5. Plavix 75 mg daily. 6. Vitamin B12 of 1000 mcg daily. 7. Stool softener 50 mg 2 times a day. 8. Pepcid 20 mg daily. 9. Mucinex 600 mg 2 times a day as needed. 10. Tresiba FlexTouch 86 units subcutaneously daily. 11. Potassium chloride 10 mEq daily. 12. Lyrica 75 mg at bedtime. 13. Ropinirole 1 mg at bedtime. 14. Trazodone 50 mg at bedtime. 15. Proventil HFA p.r.n. POST-ACUTE CARE FOLLOWUP: With primary care provider in 3 days' time and with Dr. Lopez in 2 to 3 weeks. He also has an appointment with [facility] on April 24, 2019, at 1:00 p.m. DIET: Diabetic, heart healthy, and low-sodium diet. ACTIVITY: No restrictions. HOSPITAL COURSE: Mr. Brunson is a pleasant 68-year-old gentleman, who was admitted to [facility] on April 11, 2019, for shortness of breath secondary to congestive heart failure exacerbation. He was seen by Cardiology Service. He was treated with intravenous diuretics. His renal function initially worsened, subsequently improved. He also had a component of acute bronchitis to his presentation, with cough productive of sputum. He was started on antibiotics, bronchodilators and steroids, and continued to improve clinically. He is being discharged home in a stable condition. On the day of discharge, he has sodium 137, potassium 4.1, blood urea nitrogen 39, creatinine 1.45, and calcium of 9.0. On April 17, he had white count 5400, hemoglobin 10.4, and platelet count 116,000. Many thanks for allowing me to participate in your patient's care. Please feel free to contact me with any questions or concerns. DISCHARGE DESTINATION: Home. TIME SPENT: Total amount of time spent coordinating this discharge: 32 minutes. Job ID: [id number]
--- NOTE | 2019-04-19 06:07 | PQF ---
[facility] [facility] Crystal Reports Winform ViewerHANNAH MOSER ATA ARGUELLES [id number] [facility]-284 [id number] CLINICAL DOCUMENTATION CLARIFICATION FORM: POST DISCHARGE Addendum to original discharge summary date: ____ Late entry note date: __ DATE: 03/23 ATTN: ATA ARGUELLES Please exercise your independent, professional judgment in responding to the clarification form. Clinical indicators are provided on the bottom of this form for your review Please check appropriate box(s) to clarify if the following diagnosis has been ruled in or ruled out: NSTEMI type 2 (CDI/Coding list diagnosis here) [ X ] Ruled in diagnosis [ ] Continue to treat [ X ] Resolved [ ] Ruled out diagnosis [ ] Cannot rule out diagnosis [ ] Other diagnosis [ ] Unable to determine In addition, please specify: Present on Admission (POA): [ X ] Yes [ ] No [ ] Unable to determine For continuity of documentation, please document condition throughout progress notes and discharge summary. Thank You. CLINICAL INDICATORS - SIGNS / SYMPTOMS / LABS NSTEMI type 2 - Documented in Consult note on 04/12 by John Esposito Elevated Troponin 0.173 on 04/11 and 0.213 on 04/08 - Documented in Laboratory Patient deny any chest pain - Documented in H&P on 04/02 by Nadeen reina systolic CHF exacerbation - Documented in DS on 04/18 by Severo Fleming MD Indeterminate troponin , stable with no signs of new ischemia on EKG - Documented in hospital PNs on 04/16 by Severo fleming RISK FACTORS CAD Cardiomyopathy Afib HTN WOLFGANG on CKD 3 - Documented in DS on 04/18 by Severo Fleming MD TREATMENTS We will continue to trend troponin - Documented in H&P on 04/02 by Nadeen reina Given Aspirin and Nitroglycerin in ED -Documented in H&P on 04/02 by Nadeen reina He will remain on continuous cardiac monitoring - Documented in H&P on 04/02 by Nadeen reina EKG (This form is maintained as a part of the permanent medical record) 2014 [employer]. All Rights Reserved [email or web address]
== END 2019-04-18 15:10 | disposition home or self-care (01) | DRG 280 ==
LOC: ERS 15:00 → 2SW 20:55 → OBSVTOIN 04-12 13:57 → 2NO 04-12 17:31
PROVIDERS: ADMIT Hospitalist; ATTEND Hospitalist
DX: I13.0 Hypertensive heart and chronic kidney disease with heart failure and stage 1 through stage 4 chronic kidney disease, or unspecified chronic kidney disease (principal); I50.23 Acute on chronic systolic (congestive) heart failure; I21.A1 Myocardial infarction type 2; N17.9 Acute kidney failure, unspecified; I47.2 Ventricular tachycardia; I25.10 Atherosclerotic heart disease of native coronary artery without angina pectoris; Z95.810 Presence of automatic (implantable) cardiac defibrillator; I42.9 Cardiomyopathy, unspecified; Z90.49 Acquired absence of other specified parts of digestive tract; Z95.1 Presence of aortocoronary bypass graft; I48.0 Paroxysmal atrial fibrillation; E78.5 Hyperlipidemia, unspecified; N18.3 Chronic kidney disease, stage 3 (moderate); E11.22 Type 2 diabetes mellitus with diabetic chronic kidney disease; E11.42 Type 2 diabetes mellitus with diabetic polyneuropathy; Z79.4 Long term (current) use of insulin; J20.9 Acute bronchitis, unspecified
CPT/HCPCS: 36415; 36416; 71046; 80048; 80053; 82553; 83735; 83880; 84484; 85025; 85379; 93005; 93970; 94640; 96374; J1815; J1940; J2920; J7512; J7620

== ENCOUNTER 2019-05-01 06:43 | Day surgery (SDC) | payer MEDICARE, MEDICAID ==
[2019-04-28 08:29] VITALS: BMI 41.0
--- NOTE | 2019-05-01 09:47 | OP ---
DATE OF PROCEDURE: 05/01/2019 FORMWORK CARPENTER SURGEON: None. PROCEDURE PERFORMED: Surveillance colonoscopy. INDICATION: Prior history of colon polyps. Last colonoscopy was in 2016. MEDICATIONS: See Anesthesia record. FINDINGS: After discussion of the risks, benefits, and alternatives of the procedure, informed consent was obtained and witnessed. Pre-endoscopic cardiopulmonary examination was satisfactory. Time-out was performed before sedation was achieved. Sedation was achieved with Anesthesia assistance in the endoscopy unit. Digital rectal exam was performed, which was unremarkable. A Pentax adult colonoscope was inserted into the anus and passed forward to the cecum in the usual fashion. The cecal base was identified by the appendiceal orifice as well as the ileocecal valve. The terminal ileum was intubated and the ileal mucosa appeared normal. The colonoscope was slowly withdrawn in a gradual and circumferential manner with careful examination of the entire colonic mucosa. The quality of the prep was good. There were no polyps or mass lesions visualized throughout the entirety of the colon. The colonic mucosa appeared normal throughout. There is some scattered diverticulosis in the sigmoid colon as well as a diverticulum in the cecum. Retroflexion in the rectum demonstrated small internal hemorrhoids. Other views including retroflexed view in the right colon were otherwise unremarkable. The colonoscope was completely withdrawn and the patient allowed to recover. The patient tolerated the procedure well. There were no immediate postprocedure complications. IMPRESSION: 1. Scattered diverticulosis. 2. Small internal hemorrhoids. 3. Otherwise normal colonoscopy to the terminal ileum. RECOMMENDATION: Repeat colonoscopy for surveillance in 5 years. Job ID: [id number]
[2019-05-01] MEDS ORDERED: Lidocaine 1% PF 5 ML VIAL ONE (15:04)
[2019-05-01] MEDS ORDERED: PROPOFOL 200 MG/20 ML VIAL ONE (15:04)
== END 2019-05-01 10:49 | disposition home or self-care (01) ==
LOC: SDC 06:43
PROVIDERS: ATTEND Internal Medicine
PROC: 0DJD8ZZ Inspection of Lower Intestinal Tract, Via Natural or Artificial Opening Endoscopic (ICD-10-PCS; principal; 2019-05-01)
DX: Z12.11 Encounter for screening for malignant neoplasm of colon (principal); K57.30 Diverticulosis of large intestine without perforation or abscess without bleeding; K64.8 Other hemorrhoids; I11.0 Hypertensive heart disease with heart failure; I50.9 Heart failure, unspecified; E11.9 Type 2 diabetes mellitus without complications; I25.10 Atherosclerotic heart disease of native coronary artery without angina pectoris; E78.00 Pure hypercholesterolemia, unspecified; Z86.010 Personal history of colon polyps; Z79.4 Long term (current) use of insulin; Z79.82 Long term (current) use of aspirin; Z79.899 Other long term (current) drug therapy; Z95.1 Presence of aortocoronary bypass graft; Z95.810 Presence of automatic (implantable) cardiac defibrillator
CPT/HCPCS: 82962; G0105; 36416; J2001; J2704

== ENCOUNTER 2019-05-08 16:50 | Inpatient (IN) | payer MEDICARE, MEDICAID ==
[2019-05-08] MEDS ORDERED: Furosemide 40 MG/4 ML VIAL ONE (17:21)
[2019-05-08 17:35] LABS: #Eosinphils 0.1 thou/uL (0.0-0.7); #Lymphocytes 1.2 thou/uL (1.20-3.40); #Monocytes 0.4 thou/uL (0.11-0.59); #Neutrophils 3.7 thou/uL (1.40-6.50); %Eosinophils 1.1 % (0.0-10.0); %Lymphocytes 21.5 % (21.0-51.0); %Monocytes 7.8 % (0.0-10.0); %Neutrophils 69.6 % (42.0-75.0); Mean Corpuscular HGB CONC 33.7 g/dL (32.0-36.0); Mean Corpuscular Hemoglobin 33.9 pg (27.0-31.0); Mean Platelet Volume 8.6 fL (7.4-10.4); Platelet Count 95 thou/uL (130-400); RBC Distribution Width 14.7 % (11.5-14.5); Red Blood Cell (RBC) Count 3.23 mill/uL (4.70-6.10); White Blood Cell (WBC) Count 5.4 thou/uL (4.8-10.8)
[2019-05-08 17:56] LABS: ALT (SGPT) 40 U/L (8-55); AST (SGOT) 25 U/L (5-34); Albumin 3.8 g/dL (3.4-4.8); Alkaline Phosphatase 92 U/L (40-110); Anion Gap 15 mmol/L (10-20); BUN (Urea Nitrogen) 34 mg/dL (8.4-25.7); Bilirubin, Total 0.6 mg/dL (0.2-1.2); CK (CPK) 80 U/L (30-200); Calc. Creatinine Clearance 0 mL/min (70-130); Calcium 8.9 mg/dL (7.8-10.44); Carbon Dioxide 22 mmol/L (23-31); Chloride 104 mmol/L (98-107); Estimated GFR-MDRD 38; Globulin 3.1 g/dL (2.4-3.5); Glucose 219 mg/dL (80-115); Potassium 4.2 mmol/L (3.5-5.1); Protein, Total 6.9 g/dL (5.8-8.1); Sodium 137 mmol/L (136-145)
[2019-05-08] MEDS ORDERED: cefTRIAXone\\ROCEPHIN 2 GM VIAL ONE (18:11)
[2019-05-08] MEDS ORDERED: Enoxaparin Sodium 100 MG/ML SYRINGE ONE (18:11)
[2019-05-08] MEDS ORDERED: Enoxaparin Sodium 30 MG/0.3 ML SYRINGE ONE ×2 (18:11)
[2019-05-08 18:18] LABS: CKMB 2.3 ng/mL (0-6.6)
[2019-05-08] MEDS ORDERED: Sodium Chloride 0.9% 0 ML ONE (18:52)
[2019-05-08] MEDS ORDERED: Azithromycin 500 MG VIAL ONE (18:52)
--- NOTE | 2019-05-08 19:13 | RAD ---
PORTABLE CHEST ONE VIEW: Date: 05-08-2019 Time: 5:02 p.m. History: Low blood pressure, dizziness, weight gain of 16 lbs. in two weeks, decreased urination. Comparison: 04-11-2019 FINDINGS/IMPRESSION: Changes of median sternotomy again seen. Right sided AICD device remains in place. The heart is enlar ged with pulmonary vascular congestion. No pneumothoraces, lobar consolidation or large effusions are seen. POS: OFF
[2019-05-08 20:57] LABS: Critical Call Chem Troponin I RESULT DECREASING; Troponin I 0.319 ng/mL (< 0.028)
[2019-05-08] MEDS ORDERED: Furosemide 20 MG TAB PO SCH (22:15)
[2019-05-09 00:54] LABS: Troponin I 0.295 ng/mL (< 0.028)
[2019-05-09] MEDS ORDERED: Furosemide 20 MG TAB PO SCH (01:00)
[2019-05-09] MEDS ORDERED: Acetaminophen 325 MG TAB PO PRN (01:29)
[2019-05-09] MEDS ORDERED: hydrALAZINE 20 MG/ML VIAL SLOW IVP PRN (01:29)
--- NOTE | 2019-05-09 03:53 | HP ---
PRIMARY CARE PHYSICIAN: Dagoberto Parikh MD. CHIEF COMPLAINT: Feeling dizzy and lightheaded. HISTORY OF PRESENT ILLNESS: Mr. Brunson is a pleasant 68-year-old gentleman who was recently admitted to the hospital for congestive heart failure exacerbation. He has a history of systolic heart failure, [place] Heart Association class 3. He was treated and released from the hospital about 3 weeks ago. At that time, Entresto was added to his regimen. His dose of carvedilol was decreased to 6.25 mg, and his Lasix dose was increased. The patient says he was doing well until the day of admission where he started feeling dizzy and lightheaded. He said he could barely stand up and walk and for this reason, he went to his primary care physician for evaluation. It was noted there that he had actually gained 16 pounds and was sent to the emergency room for evaluation. The patient denies having any chest pain. No palpitations. He says he has not been short of breath, and he denies having any lower extremity edema to me. He says he has been sleeping okay through the night and his main reason once again was feeling dizzy primarily when he stood up. It was felt, however, that he had a CHF exacerbation and was given Lasix in the ER and currently he says he "feels fine." The patient also says that he had noticed that his blood pressure had been low at home as well. REVIEW OF SYSTEMS: All systems were reviewed and are negative except for that mentioned in the History of Present Illness. PAST MEDICAL HISTORY: Significant for chronic systolic heart failure, coronary artery disease, obstructive sleep apnea, hyperlipidemia, hypertension, paroxysmal atrial fibrillation. He is status post Watchman device and chronic kidney disease stage 3. PAST SURGICAL HISTORY: He has had an appendectomy, bypass surgery, AICD, Watchman procedure, and bilateral cataract surgery. ALLERGIES: NO KNOWN DRUG ALLERGIES. SOCIAL HISTORY: He is . He had 3 children. He now has 2 living. He is a nonsmoker and nondrinker and his son, Heath Brunson would be his surrogate decision maker and he would like to be a full code. FAMILY HISTORY: Significant for heart disease in his father, uncle, and nephew. MEDICATIONS: These are taken from the ER records and include; 1. Lyrica 75 mg daily. 2. Entresto 24/26 mg/. 3. Daily folic acid 1 mg daily. 4. Carvedilol 6.25 mg twice a day. 5. Amiodarone 200 mg once a day. 6. Stool softener. 7. Lasix 40 mg twice a day. 8. Famotidine 20 mg daily. 9. Vitamin B12 at 1000 mcg daily. 10. Flomax 0.4 mg daily. 11. Potassium chloride 8 mEq daily. 12. Allopurinol 300 mg daily. 13. Aspirin 81 mg daily. 14. Plavix. He says he has actually stopped taking Plavix. PHYSICAL EXAMINATION: GENERAL: He is alert and oriented. He appears to be in no acute distress. He is lying flat on the stretcher. He is well developed and morbidly obese. VITAL SIGNS: Blood pressure is currently about 124/70, heart rate is 82, respiratory rate of 20, temperature is 97.5. HEENT: Pupils are equal, round, and reactive. Extraocular muscles are intact. His sclerae are anicteric. Throat, he has poor dentition. No oral lesions. NECK: No adenopathy. No bruits. No jugular venous distention. LUNGS: Clear to auscultation. No wheezing. No rales. No rhonchi. CARDIOVASCULAR: He has normal S1, S2. There is no S3 or S4. No murmurs, clicks, or rubs. ABDOMEN: Obese, it is soft, nontender, and nondistended. Positive for bowel sounds. No rebound. No guarding. No organomegaly. EXTREMITIES: He has trace edema. No calf tenderness. He does have some venous stasis changes. NEUROLOGIC: His cranial nerves are intact. SKIN AND INTEGUMENT: Other than venous stasis changes, no abnormalities. LABORATORY DATA: CBC; white blood cell count 5.4, hemoglobin 11, hematocrit is 32.5, and platelet count is 95. Sodium 137, potassium 4.2, chloride is 104, CO2 is 22, BUN of 34, creatinine 1.78, glucose is 212. Troponin is 0.325. EKG was an accelerated junctional rhythm assessed by my reading. 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 ASSESSMENT: 1. This is a pleasant 68-year-old gentleman who presented to the emergency room initially with feeling dizzy and lightheaded when he stands up and he says he was hypotensive. This would make one think that he was actually volume depleted or even dehydrated; however, on physical he does have some mild edema and on his chest x-ray, it does appear that he has pulmonary vascular congestion and there is noted 16-pound weight gain. Therefore, it appears he may actually be volume overloaded. He was given a couple of doses in of Lasix in the ER and he is now laying flat with good oxygen saturations and appears to be in no distress. Therefore, at this point, we will place him back on his usual medications. Due to the elevated troponin, we will consult his photography intern and further recommendations with regard to his heart failure we will defer to Cardiology. 2. Hypertension. This appears to be controlled. Given his complaint of feeling dizzy when he stands we will check orthostatic vitals. 3. Paroxysmal atrial fibrillation, currently his heart rate is stable. He is not on anticoagulation due to having a Watchman device. 4. Chronic kidney disease, stage 3. This is clinically stable. 5. Elevated troponin. This could be related to a troponin leak due to the heart failure. I doubt that this is an acute coronary syndrome; however, we will defer to Cardiology. Job ID: [id number]
[2019-05-09 05:05] LABS: Anion Gap 13 mmol/L (10-20); BUN (Urea Nitrogen) 33 mg/dL (8.4-25.7); Calc. Creatinine Clearance 0 mL/min (70-130); Calcium 8.9 mg/dL (7.8-10.44); Carbon Dioxide 26 mmol/L (23-31); Chloride 103 mmol/L (98-107); Estimated GFR-MDRD 37; Glucose 214 mg/dL (80-115); Potassium 4.2 mmol/L (3.5-5.1); Sodium 138 mmol/L (136-145)
[2019-05-09 05:22] LABS: #Monocytes 0.5 thou/uL (0.11-0.59); #Neutrophils 3.7 thou/uL (1.40-6.50); %Basophils 0.5 % (0.0-1.0); %Eosinophils 0.9 % (0.0-10.0); %Lymphocytes 18.4 % (21.0-51.0); %Monocytes 8.9 % (0.0-10.0); %Neutrophils 71.3 % (42.0-75.0); Hemoglobin 10.4 g/dL (14.0-18.0); Mean Corpuscular HGB CONC 33.9 g/dL (32.0-36.0); Mean Corpuscular Hemoglobin 34.2 pg (27.0-31.0); Mean Platelet Volume 9.4 fL (7.4-10.4); Platelet Count 89 thou/uL (130-400); Red Blood Cell (RBC) Count 3.02 mill/uL (4.70-6.10); White Blood Cell (WBC) Count 5.2 thou/uL (4.8-10.8)
[2019-05-09] MEDS ORDERED: Aspirin Chewable 81 MG TAB ONE (10:45)
[2019-05-09] MEDS ORDERED: Potassium Chloride 20 MEQ TAB ONE (10:45)
[2019-05-09] MEDS ORDERED: Folic Acid 1 MG TAB ONE (10:45)
[2019-05-09] MEDS ORDERED: Furosemide 40 MG TAB ONE (10:45)
[2019-05-09] MEDS: Carvedilol 6.25 MG TAB PO SCH ×2 (11:02→17:19)
[2019-05-09] MEDS: Folic Acid 1 MG TAB PO SCH (11:03)
[2019-05-09] MEDS: Amiodarone 200 MG TAB PO SCH (11:03)
[2019-05-09] MEDS: Potassium Chloride 10 MEQ TAB PO SCH (11:03)
[2019-05-09] MEDS: Aspirin 81 mg Enteric Coated Tablet PO SCH (11:03)
[2019-05-09] MEDS ORDERED: Enoxaparin Sodium 30 MG/0.3 ML SYRINGE SC SCH (14:30)
[2019-05-09] MEDS: Enoxaparin Sodium 30 MG/0.3 ML SYRINGE SC SCH (14:50)
--- NOTE | 2019-05-09 15:47 | PDOC.HOSPP ---
- Subjective Encounter Date: 05/09/19 Encounter Time: 08:40 Subjective: no dizziness now, no chest pain or sob feels slightly better overall - Objective Vital Signs & Weight: Vital Signs (12 hours) Temp Pulse Resp BP BP Pulse Ox 05/09/19 14:49 74 184/87 H 05/09/19 13:00 97.8 F 74 24 H 184/87 H 99 Weight Weight 290 lb 3.2 oz Result Diagrams: 05/09/19 04:26 05/09/19 04:26 Hospitalist ROS - Medication Medications: Active Medications Generic Name Dose Route Start Last Admin Trade Name Freq PRN Reason Stop Dose Admin Amiodarone HCl 200 mg 05/09/19 09:00 05/09/19 11:03 Cordarone PO 200 mg DAILY ECHO Administration Aspirin 81 mg 05/09/19 09:00 05/09/19 11:03 Ecotrin PO 81 mg QAM ECHO Administration Carvedilol 6.25 mg 05/09/19 08:00 05/09/19 11:02 Coreg PO 6.25 mg BID-WM ECHO Administration Cholecalciferol 5,000 units 05/09/19 09:00 05/09/19 14:50 Vitamin D3 PO Not Given DAILY ECHO Cholecalciferol 5,000 units 05/09/19 14:30 05/09/19 14:49 Vitamin D3 PO 05/09/19 16:30 5,000 units NOW ECHO Administration Enoxaparin Sodium 30 mg 05/09/19 09:00 05/09/19 14:50 Lovenox SC Not Given 0900 ECHO Enoxaparin Sodium 30 mg 05/09/19 14:30 05/09/19 14:50 Lovenox SC 05/09/19 16:30 30 mg NOW ECHO Administration Folic Acid 1 mg 05/09/19 09:00 05/09/19 11:03 Folvite PO 1 mg DAILY ECHO Administration Hydralazine HCl 10 mg 05/09/19 01:29 05/09/19 14:49 Apresoline SLOW IVP 10 mg Q4H PRN Administration SBP > 180 and HR < 70 Potassium Chloride 10 meq 05/09/19 08:00 05/09/19 11:03 Klor-Con 10 PO 10 meq QAM-WM ECHO Administration Sacubitril/Valsartan 1 tab 05/09/19 09:00 05/09/19 11:03 Entresto 24 Mg-26 Mg Tablet PO 1 tab BID ECHO Administration - Exam General Appearance: awake alert Eye: PERRL, anicteric sclera ENT: no oropharyngeal lesions, moist mucosa Neck: supple, no JVD Heart: RRR, no murmur Respiratory: no wheezes, rales, rhonchi Gastrointestinal: soft, non-tender, normal bowel sounds Extremities: no cyanosis, 1+ LE edema Neurological: cranial nerve grossly intact, no focal deficits Psychiatric: normal affect, A&O x 3 Hosp A/P (1) Acute on chronic systolic ACC/AHA stage C congestive heart failure Code(s): I50.23 - ACUTE ON CHRONIC SYSTOLIC (CONGESTIVE) HEART FAILURE Status : Acute (2) BPH (benign prostatic hyperplasia) Code(s): N40.0 - BENIGN PROSTATIC HYPERPLASIA WITHOUT LOWER URINRY TRACT SYMP Status: Chronic Qualifiers: Lower urinary tract symptom presence: symptoms absent (3) CAD (coronary artery disease) Code(s): I25.10 - ATHSCL HEART DISEASE OF [place] CORONARY ARTERY W/O ANG PCTRS Status: Chronic Qualifiers: Coronary Disease-Associated Artery/Lesion type: bypass graft [place] vs. 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 Diabetes mellitus complication status: with kidney complications Diabetes mellitus complication detail: with chronic kidney disease Chronic kidney disease stage : stage 3 (moderate) Qualified Code(s): E11.22 - Type 2 diabetes mellitus with diabetic chronic kidney disease; N18.3 - Chronic kidney disease, stage 3 ( moderate); Z79.4 - shelter (current) use of insulin (6) Gout Code(s): M10.9 - GOUT, UNSPECIFIED Status: Chronic Qualifiers: Gout site: multiple sites (7) HLD (hyperlipidemia) Code(s): E78.5 - HYPERLIPIDEMIA, UNSPECIFIED Status: Chronic Qualifiers: (8) Hypertension Code(s): I10 - ESSENTIAL (PRIMARY) HYPERTENSION Status: Chronic Qualifiers: (9) Ischemic cardiomyopathy Code(s): I25.5 - ISCHEMIC CARDIOMYOPATHY Status: Chronic (10) Macrocytic anemia Code(s): D53.9 - NUTRITIONAL ANEMIA, UNSPECIFIED Status: Chronic (11) Morbid obesity with BMI of 40.0-44.9, adult Code(s): E66.01 - MORBID (SEVERE) OBESITY DUE TO EXCESS CALORIES; Z68.41 - BODY MASS INDEX (BMI) 40.0-44.9, ADULT Status: Chronic (12) Thrombocytopenia Code(s): D69.6 - THROMBOCYTOPENIA, UNSPECIFIED Status: Chronic - Plan hemostable on lasix, coreg, asp, amiodarone, entresto, lyrica, flomax has ef of around 20% d/w orthostatic BP, if normal will change lasix to iv has had recurrent admissions due to very little margin for volume error, d/w patient and he is aware of it. to ambulate as tolerated in hallway.
[2019-05-09] MEDS: Tamsulosin HCl 0.4 MG CAP PO SCH (21:21)
[2019-05-09] MEDS: Pregabalin 75 MG CAP PO SCH (21:21)
[2019-05-09] MEDS: Furosemide 40 MG TAB PO SCH (21:21)
[2019-05-10] MEDS ORDERED: Dextrose 5% in Water 1,000 ML IV PRN (06:51)
[2019-05-10] MEDS ORDERED: Dextrose 50% Abboject 50 ML SYRINGE IVP PRN (06:51)
[2019-05-10] MEDS ORDERED: HumaLOG 300 UNITS/3 ML VIAL SC PRN (06:51)
[2019-05-10 07:29] LABS: #Eosinphils 0.1 thou/uL (0.0-0.7); #Lymphocytes 1.1 thou/uL (1.20-3.40); #Monocytes 0.4 thou/uL (0.11-0.59); #Neutrophils 3.1 thou/uL (1.40-6.50); %Basophils 0.2 % (0.0-1.0); %Eosinophils 1.6 % (0.0-10.0); %Lymphocytes 24.1 % (21.0-51.0); %Neutrophils 65.1 % (42.0-75.0); Hemoglobin 10.1 g/dL (14.0-18.0); Mean Corpuscular HGB CONC 34.2 g/dL (32.0-36.0); Mean Corpuscular Hemoglobin 34.2 pg (27.0-31.0); Mean Platelet Volume 8.2 fL (7.4-10.4); Platelet Count 90 thou/uL (130-400); RBC Distribution Width 14.9 % (11.5-14.5); Red Blood Cell (RBC) Count 2.95 mill/uL (4.70-6.10); White Blood Cell (WBC) Count 4.7 thou/uL (4.8-10.8)
[2019-05-10 07:43] LABS: Anion Gap 12 mmol/L (10-20); BUN (Urea Nitrogen) 33 mg/dL (8.4-25.7); Calc. Creatinine Clearance 79 mL/min (70-130); Calcium 8.9 mg/dL (7.8-10.44); Carbon Dioxide 26 mmol/L (23-31); Chloride 106 mmol/L (98-107); Estimated GFR-MDRD 43; Glucose 135 mg/dL (80-115); Sodium 140 mmol/L (136-145)
[2019-05-10] MEDS: Amiodarone 200 MG TAB PO SCH (08:24)
[2019-05-10] MEDS: Potassium Chloride 10 MEQ TAB PO SCH (08:24)
[2019-05-10] MEDS: Aspirin 81 mg Enteric Coated Tablet PO SCH (08:24)
[2019-05-10] MEDS: Enoxaparin Sodium 30 MG/0.3 ML SYRINGE SC SCH (08:25)
[2019-05-10] MEDS: Carvedilol 6.25 MG TAB PO SCH (08:25)
[2019-05-10] MEDS: Folic Acid 1 MG TAB PO SCH (08:26)
[2019-05-10] MEDS: Furosemide 40 MG TAB PO SCH (08:26)
[2019-05-10] MEDS ORDERED: Furosemide 40 MG/4 ML VIAL SLOW IVP SCH ×2 (09:45→18:00)
--- NOTE | 2019-05-10 10:08 | CON ---
DATE OF CONSULTATION: 05/10/2019 REASON FOR CONSULTATION: Congestive heart failure, systolic, acute on chronic. HISTORY OF PRESENT ILLNESS: Mr. Brunson is a 68-year-old gentleman with a long history of peripheral vascular disease, coronary artery disease, congestive heart failure, and diabetes, admitted with recurrent congestive heart failure. Mr. Brunson has been getting progressively worse congestive heart failure. He has been admitted here only a few weeks ago. He was readmitted with shortness of breath and severe dizziness when he stood up. He was found to be in recurrent congestive heart failure. PAST HISTORY: Please see previous notes. He has had progressively worsening congestive heart failure. He has had previous cardiac catheterization in 2015, showing diffuse distal atherosclerosis. He has also had a dual-chamber pacemaker defibrillator placed. At the time of the catheterization in 2014, the findings were that he has distal atherosclerosis. He had previous bypass surgery. The patient had LAD occluded proximally. Circumflex occluded 90% ostial. Right coronary occluded and calcified. There is a patent internal mammary to the LAD with distal disease. Ramus graft got a diffusely diseased vessel. The right coronary graft, no obstructive stenosis with distal atherosclerosis. Ejection fraction 25%. At that point, no intervention feasible. The patient also has peripheral vascular disease. MEDICATIONS: At home, he was started on Entresto. He was also on furosemide and carvedilol. Please see the nurse's notes for those. ALLERGIES: NONE KNOWN. SOCIAL HISTORY: He does not use tobacco or alcohol. REVIEW OF SYSTEMS: CONSTITUTIONAL: Positive for weakness and fatigue. VISION: No changes. HEARING: No changes. PULMONARY: No cough or wheezing. GASTROINTESTINAL: No nausea, vomiting, or diarrhea. SKIN: No rashes. NEUROLOGIC: No unilateral weakness or numbness. PSYCHIATRIC: No unusual depression or anxiety. PHYSICAL EXAMINATION: GENERAL: This is a pleasant gentleman who is extremely overweight. BMI is 43, height 5 feet 8 inches, weight 284. EYES: Sclerae nonicteric. MOUTH: Mucous membranes moist. NECK: Supple. No lymphadenopathy. LUNGS: Clear. CARDIAC: Normal S1 and normal S2. There is no murmur, rub, or gallop. ABDOMEN: Obese and nontender. EXTREMITIES: No clubbing or cyanosis. There is moderate edema. PERTINENT LABORATORY DATA: Troponins were 0.319, indicating what appears to be chronically elevated troponins, I do not think it is a myocardial infarction, but it does portend a poor prognosis. The most recent ejection fraction was not really precise due to suboptimal study due to poor imaging. ASSESSMENT: 1. Congestive heart failure, systolic, previously ejection fraction 25%, that is acute on chronic. 2. He has renal failure, stage 3. 3. Diabetes. 4. Peripheral vascular disease. 5. Obesity. 6. Previous pacemaker defibrillator. 7. Coronary artery disease with diffuse distal atherosclerosis. PLAN: 1. Will go back to intravenous diuretics. 2. Try to increase Entresto with the next dose. 3. Reduce carvedilol. 4. Prognosis is unfortunately poor in this gentleman's multiple negative prognostic findings. Hopefully, the patient could be improved for some improved quality of life. Job ID: [id number]
[2019-05-10] MEDS: HumaLOG 300 UNITS/3 ML VIAL SC PRN ×2 (11:45→18:27)
--- NOTE | 2019-05-10 12:54 | PDOC.HOSPP ---
- Subjective Encounter Date: 05/10/19 Encounter Time: 09:00 Subjective: sob is better, no dizziness now is ambulating in room c/o right 5th toe redness and pain - Objective Vital Signs & Weight: Vital Signs (12 hours) Temp Pulse Resp BP BP BP Pulse Ox 05/10/19 11:39 98.0 F 71 20 131/60 95 05/10/19 08:25 136/63 05/10/19 07:41 98.4 F 77 20 136/63 95 05/10/19 03:21 97.6 F 94 20 140/66 92 L Weight Weight 284 lb 11.2 oz I&O: 05/09/19 05/10/19 05/11/19 06:59 06:59 06:59 Intake Total 1440 Output Total 1325 Balance 115 Result Diagrams: 05/10/19 07:11 05/10/19 07:11 Additional Labs: Accuchecks 05/10/19 05/09/19 10:44 21:23 POC Glucose 250 H 234 H Hospitalist ROS - Medication Medications: Active Medications Generic Name Dose Route Start Last Admin Trade Name Freq PRN Reason Stop Dose Admin Acetaminophen 650 mg 05/09/19 01:29 05/09/19 23:26 Tylenol PO 650 mg Q4H PRN Administration Headache/Fever/Mild Pain (1-3) Amiodarone HCl 200 mg 05/09/19 09:00 05/10/19 08:24 Cordarone PO 200 mg DAILY ECHO Administration Aspirin 81 mg 05/09/19 09:00 05/10/19 08:24 Ecotrin PO 81 mg QAM ECHO Administration Cholecalciferol 5,000 units 05/09/19 09:00 05/10/19 08:23 Vitamin D3 PO 5,000 units DAILY CEHO Administration Enoxaparin Sodium 30 mg 05/09/19 09:00 05/10/19 08:25 Lovenox SC 30 mg 0900 ECHO Administration Folic Acid 1 mg 05/09/19 09:00 05/10/19 08:26 Folvite PO 1 mg DAILY ECHO Administration Hydralazine HCl 10 mg 05/09/19 01:29 05/09/19 14:49 Apresoline SLOW IVP 10 mg Q4H PRN Administration SBP > 180 and HR < 70 Insulin Human Lispro 0 units 05/10/19 10:55 05/10/19 11:45 Humalog SC 4 unit .MODERATE SLIDING SC PRN Administration MODERATE SLIDING SCALE Protocol Potassium Chloride 10 meq 05/09/19 08:00 05/10/19 08:24 Klor-Con 10 PO 10 meq QAM-WM EHCO Administration Pregabalin 75 mg 05/09/19 21:00 05/09/19 21:21 Lyrica PO 75 mg HS ECHO Administration Sacubitril/Valsartan 1 tab 05/09/19 09:00 05/10/19 08:26 Entresto 24 Mg-26 Mg Tablet PO 1 tab BID ECHO Administration Sodium Chloride 10 ml 05/10/19 09:00 05/10/19 08:26 Flush - Normal Saline IVF 10 ml Q12HR ECHO Administration Tamsulosin HCl 0.4 mg 05/09/19 21:00 05/09/19 21:21 Flomax PO 0.4 mg HS ECHO Administration - Exam General Appearance: awake alert Eye: PERRL, anicteric sclera ENT: no oropharyngeal lesions, moist mucosa Neck: supple, no JVD Heart: RRR, no murmur Respiratory: no wheezes, no rales, rhonchi Gastrointestinal: soft, non-tender, non-distended, normal bowel sounds Extremities: no cyanosis, 1+ LE edema Extremities - other findings: right 5th toe erythema, ulcer in interdigital cleft medially Neurological: cranial nerve grossly intact, no focal deficits Psychiatric: normal affect, A&O x 3 Hosp A/P (1) Acute on chronic systolic ACC/AHA stage C congestive heart failure Code(s): I50.23 - ACUTE ON CHRONIC SYSTOLIC (CONGESTIVE) HEART FAILURE Status : Acute (2) BPH (benign prostatic hyperplasia) Code(s): N40.0 - BENIGN PROSTATIC HYPERPLASIA WITHOUT LOWER URINRY TRACT SYMP Status: Chronic Qualifiers: Lower urinary tract symptom presence: symptoms absent (3) CAD (coronary artery disease) Code(s): I25.10 - ATHSCL HEART DISEASE OF [place] CORONARY ARTERY W/O ANG PCTRS Status: Chronic Qualifiers: Coronary Disease-Associated Artery/Lesion type: bypass graft [place] vs. 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 Diabetes mellitus complication status: with kidney complications Diabetes mellitus complication detail: with chronic kidney disease Chronic kidney disease stage : stage 3 (moderate) Qualified Code(s): E11.22 - Type 2 diabetes mellitus with diabetic chronic kidney disease; N18.3 - Chronic kidney disease, stage 3 ( moderate); 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 of insulin (6) Gout Code(s): M10.9 - GOUT, UNSPECIFIED Status: Chronic Qualifiers: Gout site: multiple sites (7) HLD (hyperlipidemia) Code(s): E78.5 - HYPERLIPIDEMIA, UNSPECIFIED Status: Chronic Qualifiers: (8) Hypertension Code(s): I10 - ESSENTIAL (PRIMARY) HYPERTENSION Status: Chronic Qualifiers: (9) Ischemic cardiomyopathy Code(s): I25.5 - ISCHEMIC CARDIOMYOPATHY Status: Chronic (10) Macrocytic anemia Code(s): D53.9 - NUTRITIONAL ANEMIA, UNSPECIFIED Status: Chronic (11) Morbid obesity with BMI of 40.0-44.9, adult Code(s): E66.01 - MORBID (SEVERE) OBESITY DUE TO EXCESS CALORIES; Z68.41 - BODY MASS INDEX (BMI) 40.0-44.9, ADULT Status: Chronic (12) Thrombocytopenia Code(s): D69.6 - THROMBOCYTOPENIA, UNSPECIFIED Status: Chronic - Plan hemostable on lasix, coreg, asp, amiodarone, entresto, lyrica, flomax has ef of around 20% d/w Dr.Wigley arnold iv has had recurrent admissions due to very little margin for volume error, d/w patient and he is aware of it. to ambulate as tolerated in hallway.
--- NOTE | 2019-05-10 14:38 | RAD ---
RIGHT FOOT 3 VIEWS: Date: 05/10/2019 HISTORY: Foot pain. Evaluation for fracture. FINDINGS: Small bony avulsion from the base of the fifth metatarsal. There are vascular calcifications. There a re arthritic changes of the great toe. IMPRESSION: Small avulsion fracture along the base of the fifth metatarsal. There are two small bony densities in this region. One could actually represent a tiny linear avulsion off the lateral cuneiform. POS: [facility]
[2019-05-10] MEDS: Carvedilol 3.125 MG TAB PO SCH (17:43)
[2019-05-10] MEDS: Tamsulosin HCl 0.4 MG CAP PO SCH (21:38)
[2019-05-10] MEDS: Pregabalin 75 MG CAP PO SCH (21:39)
[2019-05-11 05:09] VITALS: BMI 43.3
[2019-05-11 05:31] LABS: Anion Gap 14 mmol/L (10-20); BUN (Urea Nitrogen) 36 mg/dL (8.4-25.7); Calc. Creatinine Clearance 74 mL/min (70-130); Calcium 8.9 mg/dL (7.8-10.44); Carbon Dioxide 25 mmol/L (23-31); Chloride 105 mmol/L (98-107); Estimated GFR-MDRD 40; Glucose 203 mg/dL (80-115); Sodium 140 mmol/L (136-145)
[2019-05-11] MEDS: HumaLOG 300 UNITS/3 ML VIAL SC PRN ×3 (06:51→18:04)
[2019-05-11] MEDS ORDERED: Furosemide 20 MG TAB PO SCH (09:00)
[2019-05-11] MEDS ORDERED: Non-Formulary Item 1 EACH (Cyanocobalamin (Vitamin B-12) [Vitamin B-12] 1,000 MCG) PO SCH (09:00)
[2019-05-11] MEDS ORDERED: Furosemide 40 MG TAB PO SCH (09:00)
[2019-05-11] MEDS ORDERED: DOCUSATE SODIUM 250 MG PO SCH (09:00)
[2019-05-11] MEDS: Amiodarone 200 MG TAB PO SCH (09:30)
[2019-05-11] MEDS: Potassium Chloride 10 MEQ TAB PO SCH (09:30)
[2019-05-11] MEDS: Folic Acid 1 MG TAB PO SCH (09:31)
[2019-05-11] MEDS: Aspirin 81 mg Enteric Coated Tablet PO SCH (09:31)
[2019-05-11] MEDS: Cyanocobalamin (Vitamin B-12) 1,000 MCG TAB PO SCH (09:31)
[2019-05-11] MEDS: Carvedilol 3.125 MG TAB PO SCH ×2 (09:31→18:04)
[2019-05-11] MEDS: Docusate Sodium 100 MG/10 ML UDCUP PO SCH ×2 (09:31→21:22)
[2019-05-11] MEDS: Enoxaparin Sodium 30 MG/0.3 ML SYRINGE SC SCH (09:32)
--- NOTE | 2019-05-11 09:41 | CON ---
DATE OF CONSULTATION: 05/11/2019 REQUESTING PHYSICIAN: Hien Araujo MD CONSULTING PHYSICIAN: Dru Jameson MD REASON FOR CONSULTATION: Right fifth metatarsal fracture. HISTORY OF PRESENT ILLNESS: This is a 68-year-old male, who is admitted to the Medicine Service. We were asked by the Medicine Service to see the patient after x-rays were obtained, which showed evidence of a base of the fifth metatarsal avulsion fracture on the right foot. Currently at bedside, the patient states he has been in-house for approximately 3 days, admitted for fluid overload and congestive heart failure. He states he has had an ongoing right foot wound, for which Wound Care is treating him for. This is at the base of his great toe. He states that he has complained some of right foot pain and someone came in and x-rayed his foot yesterday. He denies any falls or trauma. He denies any pain in the area of the fifth metatarsal. He does not recall ever having a fracture in this region before. He denies any history of previous foot surgeries on this side. He is diabetic. PAST MEDICAL HISTORY: Significant for congestive heart failure, diabetes, coronary artery disease, obstructive sleep apnea, hyperlipidemia, hypertension, and paroxysmal atrial fibrillation. He is also status post Watchman device and chronic kidney disease stage 3. PAST SURGICAL HISTORY: Appendectomy, bypass surgery, AICD, Watchman procedure, and bilateral cataract surgery. SOCIAL HISTORY: The patient is . He has 3 children. He is a nonsmoker and nondrinker. FAMILY HISTORY: Reviewed and noncontributory. REVIEW OF SYSTEMS: 10-point review of systems conducted and otherwise negative except for stated above. PHYSICAL EXAMINATION: VITAL SIGNS: Temperature of 98.0, pulse of 77, respiratory rate of 14, blood pressure of 118/69, and an O2 saturation of 91% on room air. GENERAL: The patient is awake and alert. He is sitting up in bed watching TV at this time. No apparent distress. No family currently at bedside. He is pleasant and appropriate. He answers all questions. HEENT: Head is normocephalic and atraumatic. NECK: Supple. Trachea midline. RESPIRATORY: Breathing is nonlabored. EXTREMITIES: Bilateral lower extremities were evaluated. Sock was removed on the right lower extremity for further evaluation. He does have a wound care dressing to the plantar aspect at the base of the great toe. There is some mild redness that goes across his foot to the base of the little toe. This area is nontender to palpation. Evaluation in the area of the fifth metatarsal shows no soft tissue swelling. No ecchymosis. Skin is intact overlying this area. He is nontender to palpation. He can plantar flex and dorsiflex the ankle as well as invert and maricruz without any difficulty or pain elicited in the area of the fifth metatarsal. He is able to move all of his toes. Distal neurovascular status is intact. RADIOGRAPHIC IMAGING: Reviewed including 3 views of the right foot demonstrates a possible fifth metatarsal avulsion fracture at the base. There are no other acute findings noted. ASSESSMENT: Right foot chronic wound without evidence for fracture on physical exam. PLAN: At this time, this finding on his x-ray seems to be chronic or old. The patient has no evidence of trauma or falls. No tenderness to palpation in this area and has no complaints of pain in this area. It seems that his right foot is significant for a chronic wound, for which Wound Care is treating. There is no orthopedic intervention anticipated at this time. Please re-consult Orthopedics as needed in the future. Job ID: [id number]
--- NOTE | 2019-05-11 12:24 | PDOC.HOSPP ---
- Subjective Encounter Date: 05/11/19 Encounter Time: 10:00 Subjective: no sob or chest pain or dizziness is ambulating in room - Objective Vital Signs & Weight: Vital Signs (12 hours) Temp Pulse Resp BP Pulse Ox 05/11/19 11:54 97.9 F 70 16 115/57 L 97 05/11/19 07:38 98.0 F 77 14 118/69 91 L 05/11/19 04:25 98 F 83 18 94 L 05/11/19 03:59 98 F 83 18 113/57 L 94 L Weight Admit Weight 290 lb 3.2 oz Weight 285 lb I&O: 05/10/19 05/11/19 05/12/19 06:59 06:59 06:59 Intake Total 1440 1468 Output Total 1325 1525 Balance 115 -57 Result Diagrams: 05/10/19 07:11 05/11/19 04:43 Additional Labs: Accuchecks 05/11/19 05/11/19 05/10/19 10:31 06:28 20:00 POC Glucose 208 H 188 H 239 H 05/10/19 17:09 POC Glucose 181 H Hospitalist ROS - Medication Medications: Active Medications Generic Name Dose Route Start Last Admin Trade Name Freq PRN Reason Stop Dose Admin Acetaminophen 650 mg 05/09/19 01:29 05/09/19 23:26 Tylenol PO 650 mg Q4H PRN Administration Headache/Fever/Mild Pain (1-3) Amiodarone HCl 200 mg 05/09/19 09:00 05/11/19 09:30 Cordarone PO 200 mg DAILY ECHO Administration Aspirin 81 mg 05/09/19 09:00 05/11/19 09:31 Ecotrin PO 81 mg QAM ECHO Administration Carvedilol 3.125 mg 05/10/19 17:00 05/11/19 09:31 Coreg PO 3.125 mg BID-WM ECHO Administration Cholecalciferol 5,000 units 05/09/19 09:00 05/11/19 09:30 Vitamin D3 PO 5,000 units DAILY ECHO Administration Cyanocobalamin 1,000 mcg 05/11/19 09:00 05/11/19 09:31 Vitamin B-12 PO 1,000 mcg DAILY ECHO Administration Docusate Sodium 250 mg 05/11/19 09:00 05/11/19 09:31 Colace Liquid PO Not Given BID [facility] Enoxaparin Sodium 30 mg 05/09/19 09:00 05/11/19 09:32 Lovenox SC Not Given 0900 [facility] Folic Acid 1 mg 05/09/19 09:00 05/11/19 09:31 Folvite PO 1 mg DAILY ECHO Administration Furosemide 40 mg 05/11/19 09:00 05/11/19 09:31 Lasix PO 40 mg 0900,1400 ECHO Administration Hydralazine HCl 10 mg 05/09/19 01:29 05/09/19 14:49 Apresoline SLOW IVP 10 mg Q4H PRN Administration SBP > 180 and HR < 70 Insulin Human Lispro 0 units 05/10/19 10:55 05/11/19 06:51 Humalog SC 2 unit .MODERATE SLIDING SC PRN Administration MODERATE SLIDING SCALE Protocol Potassium Chloride 10 meq 05/09/19 08:00 05/11/19 09:30 Klor-Con 10 PO 10 meq QAM-WM ECHO Administration Pregabalin 75 mg 05/09/19 21:00 05/10/19 21:39 Lyrica PO 75 mg HS ECHO Administration Sodium Chloride 10 ml 05/10/19 09:00 05/11/19 09:32 Flush - Normal Saline IVF Not Given Q12HR [facility] Tamsulosin HCl 0.4 mg 05/09/19 21:00 05/10/19 21:38 Flomax PO 0.4 mg HS ECHO Administration - Exam General Appearance: awake alert Eye: PERRL, anicteric sclera ENT: no oropharyngeal lesions, moist mucosa Neck: supple, no JVD Heart: RRR, no murmur Respiratory: no wheezes, no rales Gastrointestinal: soft, non-tender, non-distended, normal bowel sounds Extremities: no cyanosis, 1+ LE edema Neurological: cranial nerve grossly intact, no focal deficits Psychiatric: normal affect, A&O x 3 Hosp A/P (1) Acute on chronic systolic ACC/AHA stage C congestive heart failure Code(s): I50.23 - ACUTE ON CHRONIC SYSTOLIC (CONGESTIVE) HEART FAILURE Status : Acute (2) BPH (benign prostatic hyperplasia) Code(s): N40.0 - BENIGN PROSTATIC HYPERPLASIA WITHOUT LOWER URINRY TRACT SYMP Status: Chronic Qualifiers: Lower urinary tract symptom presence: symptoms absent (3) CAD (coronary artery disease) Code(s): I25.10 - ATHSCL HEART DISEASE OF [place] CORONARY ARTERY W/O ANG PCTRS Status: Chronic Qualifiers: Coronary Disease-Associated Artery/Lesion type: bypass graft [place] vs. transplanted heart: [place] heart Associated angina: without angina Qualified Code(s): I25.810 - Atherosclerosis of coronary artery bypass graft(s) without angina pectoris (4) CKD (chronic kidney disease) stage 3, GFR 30-59 ml/min Code(s): N18.3 - CHRONIC KIDNEY DISEASE, STAGE 3 (MODERATE) Status: Chronic (5) DM2 (diabetes mellitus, type 2) Status: Chronic Qualifiers: Diabetes mellitus medical record consultant insulin use: with medical record consultant use Diabetes mellitus complication status: with kidney complications Diabetes mellitus complication detail: with chronic kidney disease Chronic kidney disease stage : stage 3 (moderate) Qualified Code(s): E11.22 - Type 2 diabetes mellitus with diabetic chronic kidney disease; N18.3 - Chronic kidney disease, stage 3 ( moderate); 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 of insulin (6) Gout Code(s): M10.9 - GOUT, UNSPECIFIED Status: Chronic Qualifiers: Gout site: multiple sites (7) HLD (hyperlipidemia) Code(s): E78.5 - HYPERLIPIDEMIA, UNSPECIFIED Status: Chronic Qualifiers: (8) Hypertension Code(s): I10 - ESSENTIAL (PRIMARY) HYPERTENSION Status: Chronic Qualifiers: (9) Ischemic cardiomyopathy Code(s): I25.5 - ISCHEMIC CARDIOMYOPATHY Status: Chronic (10) Macrocytic anemia Code(s): D53.9 - NUTRITIONAL ANEMIA, UNSPECIFIED Status: Chronic (11) Morbid obesity with BMI of 40.0-44.9, adult Code(s): E66.01 - MORBID (SEVERE) OBESITY DUE TO EXCESS CALORIES; Z68.41 - BODY MASS INDEX (BMI) 40.0-44.9, ADULT Status: Chronic (12) Thrombocytopenia Code(s): D69.6 - THROMBOCYTOPENIA, UNSPECIFIED Status: Chronic - Plan entresto dose was increased today, bmp in am. SBP around 110. on lasix, coreg, asp, amiodarone, entresto, lyrica, flomax has ef of around 20% has had recurrent admissions due to very little margin for volume error, d/w patient and he is aware of it. to ambulate as tolerated in hallway. hemostable
[2019-05-11] MEDS: Furosemide 40 MG/4 ML VIAL SLOW IVP SCH (13:55)
--- NOTE | 2019-05-11 19:26 | PRG ---
DATE OF SERVICE: 05/11/2019 SUBJECTIVE: Mr. Brunson is doing somewhat better today. He received oral Lasix this morning, did not have much response. He got IV Lasix, got a better response. OBJECTIVE: VITAL SIGNS: Blood pressure 132/67 and pulse 75, regular. LUNGS: Clear. CARDIAC: Normal S1 and normal S2. ABDOMEN: Obese and nontender. EXTREMITIES: There is no edema. DIAGNOSTIC STUDIES: Echocardiogram, technically suboptimal study, but the ejection fraction estimated at 20% to 25%. ASSESSMENT: 1. Congestive heart failure systolic diastolic mixed. 2. Previous bypass. 3. Diffuse distal atherosclerosis. 4. Stage 3 renal failure. PLAN: Continue intravenous diuretics, probably need to be in the hospital a day or two more. Job ID: [id number]
[2019-05-11] MEDS: traZODone HCl 50 MG TAB PO SCH (21:23)
[2019-05-11] MEDS: Sacubitril 49 MG/Valsartan 51 MG TABLET PO SCH (21:23)
[2019-05-11] MEDS: Pregabalin 75 MG CAP PO SCH (21:25)
[2019-05-11] MEDS: Tamsulosin HCl 0.4 MG CAP PO SCH (21:26)
[2019-05-12 05:20] LABS: Anion Gap 12 mmol/L (10-20); BUN (Urea Nitrogen) 34 mg/dL (8.4-25.7); Calc. Creatinine Clearance 79 mL/min (70-130); Calcium 9.1 mg/dL (7.8-10.44); Carbon Dioxide 28 mmol/L (23-31); Chloride 104 mmol/L (98-107); Estimated GFR-MDRD 43; Glucose 129 mg/dL (80-115); Potassium 3.9 mmol/L (3.5-5.1); Sodium 140 mmol/L (136-145)
[2019-05-12] MEDS: Furosemide 40 MG/4 ML VIAL SLOW IVP SCH ×2 (06:03→15:36)
[2019-05-12] MEDS: Potassium Chloride 10 MEQ TAB PO SCH (09:45)
[2019-05-12] MEDS: Carvedilol 3.125 MG TAB PO SCH ×2 (09:45→17:40)
[2019-05-12] MEDS: Aspirin 81 mg Enteric Coated Tablet PO SCH (09:45)
[2019-05-12] MEDS: Amiodarone 200 MG TAB PO SCH (09:45)
[2019-05-12] MEDS: Docusate Sodium 100 MG/10 ML UDCUP PO SCH ×2 (09:45→21:46)
[2019-05-12] MEDS: Cyanocobalamin (Vitamin B-12) 1,000 MCG TAB PO SCH (09:45)
[2019-05-12] MEDS: Folic Acid 1 MG TAB PO SCH (09:45)
[2019-05-12] MEDS: Sacubitril 49 MG/Valsartan 51 MG TABLET PO SCH ×2 (09:45→21:47)
[2019-05-12] MEDS: Enoxaparin Sodium 30 MG/0.3 ML SYRINGE SC SCH (09:46)
[2019-05-12] MEDS: HumaLOG 300 UNITS/3 ML VIAL SC PRN ×2 (11:41→17:40)
--- NOTE | 2019-05-12 14:18 | PDOC.HOSPP ---
- Subjective Encounter Date: 05/12/19 Encounter Time: 08:00 Subjective: no overnight events. This morning, feeling and breathing better, more mobile than before. Discussed with patient option of short term rehab considering repeated recent hospitalization and nonadherence to heart failure dietary restrictions, and patient said that he'd consider it. complains of shortness of breath with ambulation that is nearly at baseline. Otherwise no complaints. - Objective Vital Signs & Weight: Vital Signs (12 hours) Temp Pulse Resp BP BP BP Pulse Ox 05/12/19 11:46 97.4 F L 71 16 130/74 96 05/12/19 08:00 95 05/12/19 07:36 98.0 F 72 16 132/71 95 05/12/19 04:00 98.1 F 77 16 115/65 118/61 114/63 94 L Weight Admit Weight 290 lb 3.2 oz Weight 283 lb 8 oz I&O: 05/11/19 05/12/19 05/13/19 06:59 06:59 06:59 Intake Total 1468 1250 Output Total 1525 7257 575 Balance -57 -1200 -575 Result Diagrams: 05/10/19 07:11 05/12/19 04:42 Additional Labs: Accuchecks 05/12/19 05/12/19 05/11/19 10:25 06:15 19:35 POC Glucose 176 H 128 H 175 H 05/11/19 16:45 POC Glucose 183 H Hospitalist ROS - Review of Systems Constitutional: denies: fever, chills, sweats, weakness, malaise, other Respiratory: reports: SOB with excertion. denies: cough, dry, shortness of breath, hemoptysis Cardiovascular: reports: orthopnea, paroxysmal noc. dyspnea, edema, light headedness. denies: chest pain, palpitations Gastrointestinal: denies: nausea, vomiting, abdominal pain, diarrhea Genitourinary: denies: dysuria, frequency, incontinence, hematuria - Medication Medications: Active Medications Generic Name Dose Route Start Last Admin Trade Name Freq PRN Reason Stop Dose Admin Acetaminophen 650 mg 05/09/19 01:29 05/09/19 23:26 Tylenol PO 650 mg Q4H PRN Administration Headache/Fever/Mild Pain (1-3) Amiodarone HCl 200 mg 05/09/19 09:00 05/12/19 09:45 Cordarone PO 200 mg DAILY ECHO Administration Aspirin 81 mg 05/09/19 09:00 05/12/19 09:45 Ecotrin PO 81 mg QAM ECHO Administration Carvedilol 3.125 mg 05/10/19 17:00 05/12/19 09:45 Coreg PO 3.125 mg BID-WM ECHO Administration Cholecalciferol 5,000 units 05/09/19 09:00 05/12/19 09:44 Vitamin D3 PO 5,000 units DAILY ECHO Administration Cyanocobalamin 1,000 mcg 05/11/19 09:00 05/12/19 09:45 Vitamin B-12 PO 1,000 mcg DAILY [facility] Administration Docusate Sodium 250 mg 05/11/19 09:00 05/12/19 09:45 Colace Liquid PO Not Given BID [facility] Enoxaparin Sodium 30 mg 05/09/19 09:00 05/12/19 09:46 Lovenox SC Not Given 0900 [facility] Folic Acid 1 mg 05/09/19 09:00 05/12/19 09:45 Folvite PO 1 mg DAILY ECHO Administration Furosemide 40 mg 05/11/19 14:00 05/12/19 06:03 Lasix SLOW IVP 40 mg 0600,1400 ECHO Administration Hydralazine HCl 10 mg 05/09/19 01:29 05/09/19 14:49 Apresoline SLOW IVP 10 mg Q4H PRN Administration SBP > 180 and HR < 70 Insulin Human Lispro 0 units 05/10/19 10:55 05/12/19 11:41 Humalog SC 2 unit .MODERATE SLIDING SC PRN Administration MODERATE SLIDING SCALE Protocol Potassium Chloride 10 meq 05/09/19 08:00 05/12/19 09:45 Klor-Con 10 PO 10 meq QAM- ECHO Administration Pregabalin 75 mg 05/09/19 21:00 05/11/19 21:25 Lyrica PO 75 mg HS ECHO Administration Sacubitril/Valsartan 1 tab 05/11/19 21:00 05/12/19 09:45 Entresto 49 Mg-51 Mg Tablet PO 1 tab BID ECHO Administration Sodium Chloride 10 ml 05/10/19 09:00 05/12/19 09:46 Flush - Normal Saline IVF 10 ml Q12HR ECHO Administration Tamsulosin HCl 0.4 mg 05/09/19 21:00 05/11/19 21:26 Flomax PO 0.4 mg HS ECHO Administration Trazodone HCl 50 mg 05/11/19 21:00 05/11/19 21:23 Desyrel PO 50 mg HS ECHO Administration - Exam General Appearance: NAD, awake alert Heart: RRR, no murmur, no gallops, no rubs Respiratory: no wheezes, no ronchi, no tachypnea Respiratory - other findings: inspiratory rales to midfiled level b/l. becomes tachypnic during conversin Gastrointestinal: soft, non-tender, normal bowel sounds, distended Extremities: 2+ LE edema Extremities - other findings: b/l equal up to knee level Neurological: cranial nerve grossly intact, normal sensation to touch, no focal deficits, no new deficit Musculoskeletal: normal tone, normal strength Psychiatric: normal affect, normal behavior, A&O x 3
[2019-05-12] MEDS: traZODone HCl 50 MG TAB PO SCH (21:47)
[2019-05-12] MEDS: Pregabalin 75 MG CAP PO SCH (21:47)
[2019-05-12] MEDS: Tamsulosin HCl 0.4 MG CAP PO SCH (21:47)
[2019-05-13] MEDS ORDERED: HumaLOG 300 UNITS/3 ML VIAL SC PRN (01:49)
[2019-05-13] MEDS: HumaLOG 300 UNITS/3 ML VIAL SC PRN ×2 (06:20→11:37)
[2019-05-13] MEDS: Furosemide 40 MG/4 ML VIAL SLOW IVP SCH ×2 (06:20→14:28)
[2019-05-13 06:46] LABS: Anion Gap 11 mmol/L (10-20); BUN (Urea Nitrogen) 36 mg/dL (8.4-25.7); Calc. Creatinine Clearance 76 mL/min (70-130); Calcium 8.9 mg/dL (7.8-10.44); Carbon Dioxide 28 mmol/L (23-31); Chloride 104 mmol/L (98-107); Estimated GFR-MDRD 42; Glucose 169 mg/dL (80-115); Potassium 3.8 mmol/L (3.5-5.1); Sodium 139 mmol/L (136-145)
[2019-05-13] MEDS: Potassium Chloride 10 MEQ TAB PO SCH (09:17)
[2019-05-13] MEDS: Amiodarone 200 MG TAB PO SCH (09:17)
[2019-05-13] MEDS: Sacubitril 49 MG/Valsartan 51 MG TABLET PO SCH (09:18)
[2019-05-13] MEDS: Carvedilol 3.125 MG TAB PO SCH (09:18)
[2019-05-13] MEDS: Aspirin 81 mg Enteric Coated Tablet PO SCH (09:18)
[2019-05-13] MEDS: Docusate Sodium 100 MG/10 ML UDCUP PO SCH (09:18)
[2019-05-13] MEDS: Cyanocobalamin (Vitamin B-12) 1,000 MCG TAB PO SCH (09:18)
[2019-05-13] MEDS: Folic Acid 1 MG TAB PO SCH (09:19)
[2019-05-13] MEDS: Enoxaparin Sodium 30 MG/0.3 ML SYRINGE SC SCH (09:19)
[2019-05-13 11:40] VITALS: BP 120/71; TEMP 98
--- NOTE | 2019-05-13 14:30 | PDOC.CPN ---
- Subjective Date: 05/13/19 Time: 14:00 Interval history: Patient seen & examined. Volume status improved, he reports not much urine output from his IV furosemide this morning. Ready to go home, denies any complaints of chest pain or tightness, N/V/D. No complaints of orthopnea, PND, or nocturnal cough. Reports driving force that sent him to the hospital was dizziness, felt like he was "going to fall". Has since resolved. Wound care treating right foot , followed by pressure supervisor. No overnight events on telemetry. - Review of Systems General: denies: fever/chills, weight/appetite/sleep changes, night sweats, fatigue Respiratory: denies: cough, congestion, shortness of breath, exercise intolerance Cardiovascular: reports: edema. denies: chest pain, palpitation, paroxysmal nocturnal dyspnea, orthopnea Gastrointestinal: denies: nausea, vomiting, diarrhea, constipation, abd pain, GI bleeding Musculoskeletal: denies: pain, tenderness, stiffness, swelling, arthritis/ arthralgias - Objective Allergies/Adverse Reactions: Allergies Allergy/AdvReac Type Severity Reaction Status Date / Time No Known Allergies Allergy Verified 04/11/19 21:49 Visit Medications: Current Medications Acetaminophen (Tylenol) 650 mg PO Q4H PRN PRN Reason: Headache/Fever/Mild Pain (1-3) Last Admin: 05/09/19 23:26 Dose: 650 mg Amiodarone HCl (Cordarone) 200 mg PO DAILY [facility] Last Admin: 05/13/19 09:17 Dose: 200 mg Aspirin (Ecotrin) 81 mg PO QAM [facility] Last Admin: 05/13/19 09:18 Dose: 81 mg Carvedilol (Coreg) 3.125 mg PO [facility]ID[facility] Last Admin: 05/13/19 09:18 Dose: 3.125 mg Cholecalciferol (Vitamin D3) 5,000 units PO DAILY [facility] Last Admin: 05/13/19 09:18 Dose: 5,000 units Cyanocobalamin (Vitamin B-12) 1,000 mcg PO DAILY [facility] Last Admin: 05/13/19 09:18 Dose: 1,000 mcg Dextrose/Water (Dextrose 50%) 25 gm IVP PRN PRN PRN Reason: HYPOGLYCEMIA PROTOCOL Docusate Sodium (Colace Liquid) 250 mg PO BID [facility] Last Admin: 05/13/19 09:18 Dose: Not Given Enoxaparin Sodium (Lovenox) 30 mg SC 0900 [facility] Last Admin: 05/13/19 09:19 Dose: Not Given Folic Acid (Folvite) 1 mg PO DAILY [facility] Last Admin: 05/13/19 09:19 Dose: 1 mg Furosemide (Lasix) 40 mg SLOW IVP 0600,1400 [facility] Last Admin: 05/13/19 06:20 Dose: 40 mg Glucagon (Glucagon) 1 mg IM PRN PRN PRN Reason: HYPOGLYCEMIA PROTOCOL Hydralazine HCl (Apresoline) 10 mg SLOW IVP Q4H PRN PRN Reason: SBP > 180 and HR < 70 Last Admin: 05/09/19 14:49 Dose: 10 mg Dextrose/Water (D5w) 1,000 mls @ 0 mls/hr IV INF PRN PRN Reason: HYPOGLYCEMIA PROTOCOL Insulin Human Lispro (Humalog) 0 units SC .MODERATE SLIDING SC PRN; Protocol PRN Reason: MODERATE SLIDING SCALE Last Admin: 05/13/19 11:37 Dose: 6 unit Insulin Human Lispro (Humalog) 0 units SC .BEDTIME SLIDING SC PRN; Protocol PRN Reason: BEDTIME SLIDING SCALE Potassium Chloride (Klor-Con 10) 10 meq PO QAM-WM [facility] Last Admin: 05/13/19 09:17 Dose: 10 meq Pregabalin (Lyrica) 75 mg PO [facility] Last Admin: 05/12/19 21:47 Dose: 75 mg Sacubitril/Valsartan (Entresto 49 Mg-51 Mg Tablet) 1 tab PO BID [facility] Last Admin: 05/13/19 09:18 Dose: 1 tab Sodium Chloride (Flush - Normal Saline) 10 ml IVF Q12HR [facility] Last Admin: 05/13/19 09:21 Dose: 10 ml Sodium Chloride (Flush - Normal Saline) 10 ml IVF PRN PRN PRN Reason: Saline Flush Tamsulosin HCl (Flomax) 0.4 mg PO [facility] Last Admin: 05/12/19 21:47 Dose: 0.4 mg Trazodone HCl (Desyrel) 50 mg PO [facility] Last Admin: 05/12/19 21:47 Dose: 50 mg Vital Signs & Weight: Vital Signs Temp Pulse Resp BP BP Pulse Ox 05/13/19 11:40 98.0 F 68 18 120/71 93 L 05/13/19 08:00 97.4 F L 72 17 107/55 L 92 L 05/13/19 04:00 98.1 F 80 18 104/54 L 94 L Admit Weight 290 lb 3.2 oz Weight 283 lb - Quality Measures Condition: Atrial Fibrillation/Flutter (hx or current), Coronary Artery Disease , Heart Failure CV meds: JEANNIE/ARB: Yes, Statin: Yes, ASA: Yes, Plavix/Effient/Brilinta: No, Anticoagulant: No - Medication Contraindications No Anticoagulant reason: Treatment not indicated - Physical Exam General: alert & oriented x3, appears well, no apparent distress HEENT: mucus membranes moist Neck: supple neck, no JVD/HJR Cardiac: regular rate and rhythm, S1/S2 Lungs: clear to auscultation, normal breath sounds, no wheeze, rales, rhonchi Neuro: grossly intact Abdomen: unremarkable Extremities: 1+ LE edema Skin: clear - Labs Result Diagrams: 05/10/19 07:11 05/13/19 05:27 Troponin/CKMB CK-MB (CK-2) 2.3 ng/mL (0-6.6) 05/08/19 17:14 Troponin I 0.295 ng/mL (< 0.028) H 05/09/19 00:23 - Telemetry Sinus rhythms and dysrhythmias: sinus rhythm - Assessment/Plan Assessment/Plan: 1. Combined Systolic & Diastolic HF 2. CAD-s/p CABG, no anginal symptoms, diffuse atherosclerosis 3. CKD, stage 3 4. AFib-PAF, s/p Watchman, OAC not indicated Okay to discharge home after scheduled dose IV furosemide. Reviewed increased Entresto, continue home diuretics. Reinforced importance of sodium & fluid restriction. Follow-up in clinic May 21 at 14:[address] Lopez.
--- NOTE | 2019-05-14 02:29 | DIS ---
DATE OF ADMISSION: 05/08/2019 DATE OF DISCHARGE: 05/13/2019 PRIMARY CARE PROVIDER: Dr. Dagoberto Parikh. DISCHARGE DIAGNOSES: 1. Acute on chronic systolic congestive heart failure, NYHA class III. 2. Acute on chronic stage 3 renal failure. CONDITION OF PATIENT ON THE DAY OF DISCHARGE: Stable. I assessed Mr. Brunson on the day of discharge. He denies any chest pain or shortness of breath. Vital signs are stable. S1 and S2 are heard, regular. Lungs are clear to auscultation bilaterally. DISCHARGE MEDICATIONS: Entresto dose has been increased to 49/51 mg 2 times a day. Otherwise, no change was made to his pre-admission home medications as dictated in my discharge summary dated 04/18/2019. CONSULTATIONS DURING THIS HOSPITALIZATION: Cardiology, Dr. Lopez. HOSPITAL COURSE: Mr. Brunson is a pleasant 68-year-old gentleman, who was admitted to [facility] on 05/09/2019, for congestive heart failure exacerbation. Please refer to Dr. Decker's history and physical note dated 05/09/2019, for further details. 2D echocardiogram showed left ventricular ejection fraction of 20% to 25% and grade 3 diastolic dysfunction. He improved with intravenous diuretics and is being stepped down to oral diuretics. His Entresto dose was increased during this hospitalization. He was also seen by Wound Care for foot wound. He will need postop boot to minimize trauma to the foot, he will need to use it at home as well. POST-ACUTE CARE FOLLOWUP: With primary care provider in 3 days, with Dr. Lopez on 05/22/2019, at 2:15 pm and with heart failure Clinic on 05/16/2019, at 1:40 pm. DIET: Heart healthy, low-sodium, and diabetic diet. ACTIVITY: As tolerated. Many thanks for allowing me to participate in your patient's care. Please feel free to contact me with any questions or concerns. DISCHARGE DESTINATION: Home. TIME SPENT: Total amount of time spent coordinating this discharge: 33 minutes. Job ID: [id number]
--- NOTE | 2019-05-16 09:19 | PQF ---
HANNAH MOSER David, MD [id number] [address] [place] [address] [id number] CLINICAL DOCUMENTATION CLARIFICATION FORM: POST DISCHARGE Addendum to original discharge summary date: ____ Late entry note date: __ DATE:05/16/2019 ATTN: Nahum Elkins MD Please exercise your independent, professional judgment in responding to the clarification form. Clinical indicators are provided on the bottom of this form for your review Please check appropriate box(s) to clarify if the following diagnosis has been ruled in or ruled out: NSTEMI [ ] Ruled in diagnosis [ ] Continue to treat [ ] Resolved [x ] Ruled out diagnosis [ ] Cannot rule out diagnosis [ ] Other diagnosis [ ] Unable to determine For continuity of documentation, please document condition throughout progress notes and discharge summary. Thank You. CLINICAL INDICATORS - SIGNS / SYMPTOMS / LABS 68 y/o male with fluid overload . NSTEMI-Documented in ED on 05/08 by Esteban Juarez Troponin is 0.325-Documented in H&P on 05/08 by Willy Decker MD EKG was an accelerated junctional rhythm assessed by my reading. 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 This could be related to a troponin leak due to the heart failure -Documented in H&P on 05/08 by Willy Decker MD Acute on chronic systolic congestive heart failure -Documented in discharge summary on 05/13 by Severo Sidhu [employer] Acute on chronic systolic congestive heart failure -Documented in discharge summary on 05/13 by Severo Sidhu TREATMENTS Aspirin 81 mg PO-Documented in Medication snapshot [employer] Winform Viewer (This form is maintained as a part of the permanent medical record) 2014 [employer]. All Rights Reserved [email or web address] [phone] ERNA
== END 2019-05-13 16:02 | disposition home or self-care (01) | DRG 291 ==
LOC: ERS 16:50 → ERHOLD 19:41 → 2SE 05-09 13:29
PROVIDERS: ADMIT Emergency Medicine; ATTEND Internal Medicine
DX: I13.0 Hypertensive heart and chronic kidney disease with heart failure and stage 1 through stage 4 chronic kidney disease, or unspecified chronic kidney disease (principal); I50.23 Acute on chronic systolic (congestive) heart failure; N17.9 Acute kidney failure, unspecified; I25.810 Atherosclerosis of coronary artery bypass graft(s) without angina pectoris; Z68.41 Body mass index [BMI] 40.0-44.9, adult; N18.3 Chronic kidney disease, stage 3 (moderate); E78.5 Hyperlipidemia, unspecified; G47.33 Obstructive sleep apnea (adult) (pediatric); I48.0 Paroxysmal atrial fibrillation; N40.0 Benign prostatic hyperplasia without lower urinary tract symptoms; E11.22 Type 2 diabetes mellitus with diabetic chronic kidney disease; M1A.9XX0 Chronic gout, unspecified, without tophus (tophi); I25.5 Ischemic cardiomyopathy; E66.01 Morbid (severe) obesity due to excess calories; D53.9 Nutritional anemia, unspecified; E11.51 Type 2 diabetes mellitus with diabetic peripheral angiopathy without gangrene; D69.6 Thrombocytopenia, unspecified; Z95.810 Presence of automatic (implantable) cardiac defibrillator; Z95.1 Presence of aortocoronary bypass graft; Z98.41 Cataract extraction status, right eye; Z98.42 Cataract extraction status, left eye; Z79.4 Long term (current) use of insulin; S92.351A Displaced fracture of fifth metatarsal bone, right foot, initial encounter for closed fracture
CPT/HCPCS: 36415; 36416; 71045; 80048; 80053; 82550; 82553; 82728; 83735; 83880; 84484; 85025; 93005; 93306; 94640; 94760; 96365; 96367; 96372; 96375; J0360; J0456; J0696; J1650; J1940; J3490; J7620

== ENCOUNTER 2019-08-28 06:12 | Emergency (ER) | payer MEDICARE, MEDICAID | END 2019-08-28 06:44 | disposition home or self-care (01) | LOC: ERS 06:12 | DX: T82.838A Hemorrhage due to vascular prosthetic devices, implants and grafts, initial encounter (principal); I25.10 Atherosclerotic heart disease of native coronary artery without angina pectoris; I11.0 Hypertensive heart disease with heart failure; I50.9 Heart failure, unspecified; E11.9 Type 2 diabetes mellitus without complications; E78.5 Hyperlipidemia, unspecified; I42.9 Cardiomyopathy, unspecified; Z79.899 Other long term (current) drug therapy; Z79.82 Long term (current) use of aspirin | CPT/HCPCS: 99281 ==